=== PATIENT | female | born 1955 | race Caucasian/White ===

== ENCOUNTER 2017-05-31 12:26 | Outpatient (CLI) | payer BC, SELFPAY ==
[2017-05-31 14:24] LABS: PHA INR Fingerstick 2.2 (0.9-1.1)
== END 2017-05-31 14:26 | disposition home or self-care (01) ==
LOC: ACC 12:28
PROVIDERS: Family Provider Internal Medicine; PCP Internal Medicine; Visit Provider Physician Assistant
DX: Z79.01 Long term (current) use of anticoagulants (principal); Z51.81 Encounter for therapeutic drug level monitoring; I48.91 Unspecified atrial fibrillation
CPT/HCPCS: 85610; 99211; G0463

== ENCOUNTER 2017-07-13 12:29 | Outpatient (CLI) | payer BC, SELFPAY ==
[2017-07-13 12:59] LABS: PHA INR Fingerstick 2.8 (0.9-1.1)
== END 2017-07-13 13:30 | disposition home or self-care (01) ==
LOC: ACC 12:30
PROVIDERS: PCP Internal Medicine; Visit Provider Physician Assistant
DX: Z79.01 Long term (current) use of anticoagulants (principal); Z51.81 Encounter for therapeutic drug level monitoring
CPT/HCPCS: 85610; 99211; G0463

== ENCOUNTER 2017-08-23 12:58 | Outpatient (CLI) | payer BC, SELFPAY ==
[2017-08-23 14:02] LABS: PHA INR Fingerstick 2.8 (0.9-1.1)
== END 2017-08-23 14:05 | disposition home or self-care (01) ==
LOC: ACC 12:59
PROVIDERS: Family Provider Internal Medicine; PCP Internal Medicine; Visit Provider Physician Assistant
DX: Z79.01 Long term (current) use of anticoagulants (principal); Z51.81 Encounter for therapeutic drug level monitoring; I48.91 Unspecified atrial fibrillation
CPT/HCPCS: 85610; 99211; G0463

== ENCOUNTER 2017-10-04 13:18 | Outpatient (CLI) | payer BC, SELFPAY ==
[2017-10-04 14:37] LABS: PHA INR Fingerstick 2.4 (0.9-1.1)
== END 2017-10-04 14:39 | disposition home or self-care (01) ==
LOC: ACC 13:19
PROVIDERS: PCP Internal Medicine; Visit Provider Physician Assistant
DX: Z79.01 Long term (current) use of anticoagulants (principal); Z51.81 Encounter for therapeutic drug level monitoring; I48.91 Unspecified atrial fibrillation
CPT/HCPCS: 85610; 99211; G0463

== ENCOUNTER 2017-11-15 13:08 | Outpatient (CLI) | payer BC, SELFPAY ==
[2017-11-15 14:33] LABS: PHA INR Fingerstick 2.9 (0.9-1.1)
== END 2017-11-15 15:11 | disposition home or self-care (01) ==
LOC: ACC 13:09
PROVIDERS: PCP Internal Medicine; Visit Provider Physician Assistant
DX: Z79.01 Long term (current) use of anticoagulants (principal); Z51.81 Encounter for therapeutic drug level monitoring; I48.91 Unspecified atrial fibrillation
CPT/HCPCS: 85610; 99211; G0463

== ENCOUNTER 2017-12-27 12:48 | Outpatient (CLI) | payer BC, SELFPAY | END 2017-12-27 14:37 | disposition home or self-care (01) | LOC: ACC 12:50 | PROVIDERS: PCP Internal Medicine; Visit Provider Physician Assistant | DX: Z79.01 Long term (current) use of anticoagulants (principal); Z51.81 Encounter for therapeutic drug level monitoring; I48.91 Unspecified atrial fibrillation | CPT/HCPCS: 85610; 99211; G0463 ==

== ENCOUNTER 2018-01-18 12:26 | Outpatient (CLI) | payer BC, SELFPAY ==
[2018-01-18 13:41] LABS: PHA INR Fingerstick 2.1 (0.9-1.1)
== END 2018-01-18 13:42 | disposition home or self-care (01) ==
LOC: ACC 12:27
PROVIDERS: PCP Internal Medicine; Visit Provider Physician Assistant
DX: Z79.01 Long term (current) use of anticoagulants (principal); Z51.81 Encounter for therapeutic drug level monitoring; I48.91 Unspecified atrial fibrillation
CPT/HCPCS: 85610; 99211; G0463

== ENCOUNTER 2018-02-25 12:36 | Outpatient (CLI) | payer BC, SELFPAY ==
[2018-02-25 14:22] LABS: PHA INR Fingerstick 2.3 (0.9-1.1)
== END 2018-02-25 14:24 | disposition home or self-care (01) ==
LOC: ACC 12:37
PROVIDERS: Family Provider Internal Medicine; PCP Internal Medicine; Visit Provider Physician Assistant
DX: Z51.81 Encounter for therapeutic drug level monitoring (principal); Z79.01 Long term (current) use of anticoagulants; I48.91 Unspecified atrial fibrillation
CPT/HCPCS: 85610; 99211; G0463

== ENCOUNTER 2018-03-30 13:14 | Outpatient (CLI) | payer BC, SELFPAY ==
[2018-03-30 13:45] LABS: PHA INR Fingerstick 2.3 (0.9-1.1)
== END 2018-03-30 14:28 | disposition home or self-care (01) ==
LOC: ACC 13:15
PROVIDERS: PCP Internal Medicine; Visit Provider Physician Assistant
DX: Z51.81 Encounter for therapeutic drug level monitoring (principal); Z79.01 Long term (current) use of anticoagulants; I48.91 Unspecified atrial fibrillation
CPT/HCPCS: 85610; 99211; G0463

== ENCOUNTER 2018-05-03 12:23 | Outpatient (CLI) | payer BC, SELFPAY ==
[2018-05-03 14:28] LABS: PHA INR Fingerstick 2.2 (0.9-1.1)
== END 2018-05-03 14:30 | disposition home or self-care (01) ==
LOC: ACC 12:25
PROVIDERS: PCP Internal Medicine; Visit Provider Physician Assistant
DX: Z51.81 Encounter for therapeutic drug level monitoring (principal); Z79.01 Long term (current) use of anticoagulants; I48.91 Unspecified atrial fibrillation
CPT/HCPCS: 85610; 99211; G0463

== ENCOUNTER 2018-06-20 16:01 | Outpatient (CLI) | payer BC, SELFPAY ==
[2018-06-20 16:32] LABS: PHA INR Fingerstick 2.5 (0.9-1.1)
== END 2018-06-20 16:52 | disposition home or self-care (01) ==
PROVIDERS: PCP Internal Medicine; Visit Provider Physician Assistant
DX: Z51.81 Encounter for therapeutic drug level monitoring (principal); Z79.01 Long term (current) use of anticoagulants; I48.91 Unspecified atrial fibrillation
CPT/HCPCS: 85610; 99211; G0463

== ENCOUNTER → 2018-08-16 10:02 | Outpatient (CLI) | payer BC, SELFPAY ==
[2018-08-16 10:38] LABS: Basophils % 0.8 % (0.1-2.0); Eosinophils # 0.1 K/mm3 (0.0-0.4); Eosinophils % 3.1 % (0.1-12.0); Hematocrit 42.6 % (37.0-47.0); Hemoglobin 13.6 g/dL (12.2-16.2); Lymphocytes # 1.4 K/mm3 (0.7-4.5); Lymphocytes % 29.7 % (10-50); Mean Corpuscular HGB Conc 32.1 g/dL (31.8-35.4); Mean Corpuscular Hemoglobin 30.1 pg (27.0-31.2); Mean Corpuscular Volume 93.8 fl (81-99); Mean Platelet Volume 8.5 fl (7.4-10.4); Monocytes # 0.2 K/mm3 (0.1-1.0); Monocytes % 4.7 % (1.7-9.3); Neutrophils # 2.9 K/mm3 (1.8-7.8); Neutrophils % 61.7 % (37.0-80.0); Platelet Count 239 K/mm3 (142-424); Red Blood Count 4.54 M/mm3 (4.20-5.40); Red Cell Distribution Width 13.7 % (11.5-17.5); White Blood Count 4.6 K/mm3 (4.8-10.8)
[2018-08-16 12:57] LABS: Alanine Aminotransferase 19 U/L (12-78); Albumin Level 3.3 gm/dL (3.4-5.0); Albumin/Globulin Ratio 0.9 (1.1-1.8); Alkaline Phosphatase 113 U/L (46-116); Anion Gap 12.4 mEq/L (5-15); Aspartate Amino Transferase 22 U/L (15-37); Bilirubin,Total 0.4 mg/dL (0.2-1.0); Blood Urea Nitrogen 10 mg/dL (7-18); Calcium 8.7 mg/dL (8.5-10.1); Carbon Dioxide 28 mmol/L (21.0-32.0); Chloride 108 mmol/L (98-107); Cholesterol 181 mg/dL (140-200); Estimated Glomerular Filt Rate 63 ml/min (>60); Ferritin 21 ng/mL (8-388); GFR (African American) 76 ML/MIN (>60); Globulin 3.7 gm/dl (1.3-3.2); Glucose 88 mg/dL (74-106); HDL Cholesterol 45 mg/dL (29-89); LDL Cholesterol 122 mg/dL (0-130); Potassium 4.4 mmoL/L (3.5-5.1); Sodium 144 mmol/L (136-145); Thyroid Stimulating Hormone 1.42 uIU/ml (0.358-3.740); Triglycerides 71 mg/dL (30-200); VLDL Cholesterol 14 mg/dL (0-40)
[2018-08-17 08:25] LABS: Iron 46 ug/dL (27-139); Iron Saturation 12 % (15-55); UIBC 348 ug/dL (118-369)
[2018-08-17 08:44] LABS: Folate 4.8 ng/mL (>3.0); Vitamin D 25 Hydroxy 33.4 ng/mL (30.0-100.0)
[2018-08-17 13:26] LABS: Vitamin B12 372 pg/mL (232-1245)
== END ==
PROVIDERS: Visit Provider Internal Medicine
DX: I10 Essential (primary) hypertension (principal); E03.9 Hypothyroidism, unspecified; E78.5 Hyperlipidemia, unspecified; E55.9 Vitamin D deficiency, unspecified; R53.83 Other fatigue
CPT/HCPCS: 36415; 80053; 80061; 82607; 82652; 82728; 82746; 83540; 83550; 84443; 85025

== ENCOUNTER 2018-08-18 12:17 | Outpatient (CLI) | payer BC, SELFPAY ==
[2018-08-18 13:42] LABS: PHA INR Fingerstick 2.6 (0.9-1.1)
== END 2018-08-18 13:51 | disposition home or self-care (01) ==
PROVIDERS: PCP Internal Medicine; Visit Provider Physician Assistant
DX: Z51.81 Encounter for therapeutic drug level monitoring (principal); Z79.01 Long term (current) use of anticoagulants; I48.91 Unspecified atrial fibrillation
CPT/HCPCS: 85610; 99211; G0463

== ENCOUNTER → 2018-08-25 15:06 | Outpatient (CLI) | payer BC, SELFPAY ==
--- NOTE | 2018-08-25 15:07 | CA_ITS ---
PROCEDURE: 2-D M-mode and color Doppler study INDICATIONS FOR THE TEST: Chest pain COPD Heart Murmur Tobacco Smoking Palpitations Fatigue Syncope EdemaX Hypertension Diabetes Mellitus Rheumatic Fever SOBXDOE ObesityXHyperlipidemia Family History HD Additional History AF PATIENT INFORMATION HEIGHT: 67 WEIGHT:280 GENDER: Female B/P:136/84 2-D/M-MODE INTERPRETATION: 2-D MEASUREMENTS OBSERVED VALUES IN CMS Right Ventricular Dimension (RVDd) 1.3 Interventricular Septum (Thickness)(IVsd) .9 Left Ventricular Internal Dimensions(LVIDd) 5.7 Left Ventricular Posterior Wall (Thickness)(LVPWd) 1.1 Aortic Root 2.9 Aortic Cusp Separation 1.4 Left Atrial Dimensions (LAD) 3.9 2D 1. Left atrium is qualitatively moderately enlarged, left ventricle is normal size, there is no concentric left ventricular hypertrophy, visually estimated ejection fraction 55% with no regional wall motion abnormality. 2. The right atrium and right ventricle are mildly enlarged with normal contractility. 3. The aortic valve is thickened and calcified leaflet continue to display mobility. 4. The mitral and tricuspid valvular grossly normal. 5. The pulmonic valve is poorly present. 6. No significant pericardial effusion noted. DOPPLER INTERROGATION: Doppler interrogation of the aortic, mitral and tricuspid valvular presence of mild mitral and moderate tricuspid regurgitation, calculated right ventricular systolic pressure is 50 mmHg consistent with moderate pulmonary hypertension, inferior vena cava is not well visualized, diastolic parameters are inconclusive. CONCLUSION: 1. Moderately enlarged left atrium, normal left ventricular size, visually estimated ejection fraction 55% with no regional wall motion abnormality, diastolic parameters are inconclusive. 2. Mildly enlarged right ventricle with normal contractility. 3. Mild mitral and moderate tricuspid regurgitation, calculated right ventricular systolic pressure is 50 mmHg consistent with moderate pulmonary hypertension. Inferior vena cava is not well visualized. 4. No significant pericardial effusion noted
== END ==
PROVIDERS: PCP Internal Medicine; Visit Provider Internal Medicine Cardiovascular Disease
DX: I48.2 Chronic atrial fibrillation (principal); R06.02 Shortness of breath; R60.0 Localized edema
CPT/HCPCS: 93306

== ENCOUNTER → 2018-09-15 14:06 | Outpatient (CLI) | payer BC, SELFPAY ==
[2018-09-15 17:59] LABS: Anion Gap 14.3 mEq/L (5-15); Blood Urea Nitrogen 9 mg/dL (7-18); Calcium 8.8 mg/dL (8.5-10.1); Carbon Dioxide 26 mmol/L (21.0-32.0); Chloride 104 mmol/L (98-107); Creatinine,Serum 1.03 mg/dL (0.55-1.02); Estimated Glomerular Filt Rate 54 ml/min (>60); GFR (African American) 65 ML/MIN (>60); Glucose 188 mg/dL (74-106); Potassium 4.3 mmoL/L (3.5-5.1); Sodium 140 mmol/L (136-145)
== END ==
PROVIDERS: Visit Provider Nurse Practitioner Family
DX: I48.2 Chronic atrial fibrillation (principal); R06.02 Shortness of breath; R60.0 Localized edema
CPT/HCPCS: 36415; 80048; 83880

== ENCOUNTER → 2018-09-28 15:39 | Outpatient (CLI) | payer BC, SELFPAY | PROVIDERS: PCP Internal Medicine; Visit Provider Internal Medicine Cardiovascular Disease | DX: R40.0 Somnolence (principal); I10 Essential (primary) hypertension; R06.02 Shortness of breath | CPT/HCPCS: 95806 ==

== ENCOUNTER 2018-09-29 15:34 | Outpatient (CLI) | payer BC, SELFPAY ==
[2018-09-29 16:30] LABS: PHA INR Fingerstick 2.5 (0.9-1.1)
== END 2018-09-29 16:31 | disposition home or self-care (01) ==
LOC: ACC 15:35
PROVIDERS: PCP Internal Medicine; Visit Provider Physician Assistant
DX: Z51.81 Encounter for therapeutic drug level monitoring (principal); Z79.01 Long term (current) use of anticoagulants; I48.91 Unspecified atrial fibrillation
CPT/HCPCS: 85610; 99211; G0463

== ENCOUNTER 2018-11-14 10:02 | Outpatient (CLI) | payer BC, SELFPAY ==
[2018-11-14 13:52] LABS: PHA INR Fingerstick 2.7 (0.9-1.1)
== END 2018-11-14 13:55 | disposition home or self-care (01) ==
PROVIDERS: PCP Internal Medicine; Visit Provider Internal Medicine Cardiovascular Disease
DX: Z51.81 Encounter for therapeutic drug level monitoring (principal); Z79.01 Long term (current) use of anticoagulants; I48.91 Unspecified atrial fibrillation
CPT/HCPCS: 85610; 99211; G0463

== ENCOUNTER 2018-11-29 23:53 | Inpatient (IN) ==
--- NOTE | 2018-11-30 00:28 | Emergency Department Note ---
ED Disposition Referrals: Janusz Ernst [Primary Care Provider] - Attestation: On 11/29/18, the high probability of a clinically significant, sudden or life threatening deterioration of the following system(s) required my full and direct attention, intervention and personal management. The time I documented below is in addition to time spent performing reported procedures but includes the following listed in this critical care notation. Medical Decision Making Vital Signs: 11/30/18 00:02 Temperature 99.2 F Temperature Source Oral Pulse Rate [Right Apical] 98 H Respiratory Rate 18 Blood Pressure [Right Arm] 147/81 H Blood Pressure Mean [Right Arm] 103 02 Sat by Pulse Oximetry 100 Oxygen Delivery Method Room Air Orders (Tests/Meds): ORDERS Category Date Time Status CT facial bones w con Stat Cat Scan 11/30/18 00:07 Ordered C-Reactive Protein Stat Lab 11/30/18 00:05 Ordered Complete Blood Count Auto Diff Stat Lab 11/30/18 00:05 Ordered Comprehensive Metabolic Panel Stat Lab 11/30/18 00:05 Ordered Erythrocyte Sedimentation Rate Stat Lab 11/30/18 00:07 Ordered Lactic Acid Stat Lab 11/30/18 00:07 Ordered Blood Culture Stat Micro 11/30/18 00:07 Ordered General Adult HPI - General Chief complaint: PAIN Stated complaint: Swelling of eyes, face and neck, slight fever Mode of Arrival: Ambulatory Limitations: No Limitations Description of Symptoms (Recalled from ER Triage Doc. by RN): pt c/o facial reddness and swelling/ pt states she was seen at the [facility] [place] today and was told if it got any worse to come back. pt denies soa. - Related Data Home Medications Medication Instructions Recorded Confirmed cyclobenzaprine 5 mg tablet 5 mg PO QHS PRN 08/18/18 11/29/18 estradiol 10 mcg vaginal tablet 1 tab VAGINAL DAILY 28 Days #8 tab 08/18/18 11/29/18 levothyroxine 125 mcg tablet 125 mcg PO DAILY 30 Days #30 tab 08/18/18 11/29/18 lisinopril 20 mg tablet 20 mg PO DAILY 08/18/18 11/29/18 oxybutynin chloride ER 10 mg 10 mg PO DAILY 90 Days #90 tab 08/18/18 11/29/18 tablet,extended release 24 hr potassium chloride ER 10 mEq 10 meq PO DAILY PRN 08/18/18 11/29/18 capsule,extended release tramadol 50 mg tablet 50 mg PO DAILY PRN 20 Days #20 tab 08/18/18 11/29/18 warfarin 5 mg tablet 5 mg PO DIRECTED 30 Days #30 tab 08/18/18 11/29/18 Furosemide [Furosemide 20mg Tab] 20 mg PO DAILY 11/29/18 11/29/18 Metoprolol Succinate [Kapspargo 100 mg PO DAILY 11/29/18 11/29/18 Sprinkle] Previous Rx's Medication Instructions Recorded Sulfamethoxazole/Trimethoprim 1 each PO BID 10 Days #20 tab 11/29/18 [Bactrim DS tablet] Allergies Allergy/AdvReac Type Severity Reaction Status Date / Time No Known Allergies Allergy Verified 11/28/18 15:04 [facility] History - Hepatitis A Screen Drug use history?: No High risk sexual behaviors?: No History of sexually transmitted infection?: No Currently employed?: No Childcare worker?: No Do you have indoor plumbing?: Yes Do you have electricity?: Yes Attestation statement:: This patient has been screened for Hepatitis A risk factors. Medical History: Reports:: Arrhythmia, Atrial Fibrillation, Hypertension Denies:: Cancer, Diabetes Mellitus Type 1, Diabetes Mellitus Type 2, MRSA Other Medical History: Reports: Hypothyroidism, Other Comment: DIAN Other Surgeries: Yes: No Previous Surgery, Bariatric Surgery, Cholecystectomy, Colonoscopy, Hysterectomy-Total, Hysterectomy-Partial, Sinus Surgery Amputation: No Fractures: No - Social History Smoking Status: Never smoker Alcohol Intake: never Alcohol Intake Frequency:: 3 or more drinks per day Substance Use Type: denies use Occupational Status: retired Housing: house Household Members: family Family Hx:: Coronary Artery Disease, Heart Attack, Hypertension, Cancer Comment: Father-[place]@50's. Mother-HTN
[2018-11-30 00:37] LABS: Basophils % 0.5 % (0.1-2.0); Eosinophils # 0.1 K/mm3 (0.0-0.4); Eosinophils % 0.9 % (0.1-12.0); Hematocrit 39.4 % (37.0-47.0); Hemoglobin 12.3 g/dL (12.2-16.2); Lymphocytes # 0.8 K/mm3 (0.7-4.5); Lymphocytes % 10.2 % (10-50); Mean Corpuscular HGB Conc 31.1 g/dL (31.8-35.4); Mean Corpuscular Volume 97.1 fl (81-99); Mean Platelet Volume 8.6 fl (7.4-10.4); Monocytes # 0.3 K/mm3 (0.1-1.0); Monocytes % 3.8 % (1.7-9.3); Neutrophils # 6.6 K/mm3 (1.8-7.8); Neutrophils % 84.6 % (37.0-80.0); Platelet Count 186 K/mm3 (142-424); Red Blood Count 4.06 M/mm3 (4.20-5.40); Red Cell Distribution Width 14.4 % (11.5-17.5); White Blood Count 7.8 K/mm3 (4.8-10.8)
[2018-11-30 00:45] LABS: Albumin Level 2.9 gm/dL (3.4-5.0); Albumin/Globulin Ratio 0.7 (1.1-1.8); Bilirubin,Total 0.6 mg/dL (0.2-1.0); C-Reactive Protein 6.9 mg/L (0.0-0.9); Calcium 8.1 mg/dL (8.5-10.1); Total Protein,Serum 6.9 gm/dL (6.4-8.2)
--- NOTE | 2018-11-30 01:40 | Emergency Department Note ---
ED Disposition Clinical Impression: Facial cellulitis Disposition: Admitted as Observation Condition on Discharge: Fair (Stable) Time of Disposition: 02:46 - Critical Care Critical Care Time: No Attestation: On 11/29/18, the high probability of a clinically significant, sudden or life threatening deterioration of the following system(s) required my full and direct attention, intervention and personal management. The time I documented below is in addition to time spent performing reported procedures but includes the following listed in this critical care notation. Medical Decision Making - Medical Records Medical records reviewed: Yes: I reviewed the patient's medical records. - Alonso Inquiry Pt receiving controlled substance: No Alonso was queried for this patient: No Vital Signs: 11/30/18 00:02 11/30/18 01:54 Temperature 99.2 F Temperature Source Oral Pulse Rate [Right Apical] 98 H 90 Respiratory Rate 18 Blood Pressure [Right Arm] 147/81 H 117/58 L Blood Pressure Mean [Right Arm] 103 77 02 Sat by Pulse Oximetry 100 96 Oxygen Delivery Method Room Air - Lab Data Lab results reviewed: Yes: I reviewed the patient's lab results. Lab Results 11/30/18 00:20: WBC 7.8, RBC 4.06 L, Hgb 12.3, Hct 39.4, MCV 97.1, MCH 30.2, MCHC 31.1 L, RDW 14.4, Plt Count 186, MPV 8.6, Neut % (Auto) 84.6 H, Lymph % (Auto) 10.2, Mckean % (Auto) 3.8, Eos % (Auto) 0.9, Baso % (Auto) 0.5, Neut # (Auto) 6.6, Lymph # (Auto) 0.8, Mckean # (Auto) 0.3, Eos # (Auto) 0.1, Baso # (Auto) 0.0 11/30/18 00:20: Sodium 137, Potassium 4.0, Chloride 103, Carbon Dioxide 26, A nion Gap 12.0, BUN 11, Creatinine 1.11 H, Estimated Creat Clear 50, Estimated GFR 49 L, Est GFR ( Amer) 60, Glucose 105, Calcium 8.1 L, Total Bilirubin 0.6, AST 21, ALT 19, Alkaline Phosphatase 96, C-Reactive Protein 6.9 H, Total Protein 6.9, Albumin 2.9 L, Globulin 4.0 H, Albumin/Globulin Ratio 0.7 L 11/30/18 00:20: ESR 62 H 11/30/18 00:20: Lactate 0.8 Result diagrams: 11/30/18 00:20 11/30/18 00:20 Orders (Tests/Meds): ED MEDICATIONS Generic Name Dose Route Start Last Admin Trade Name Freq PRN Reason Stop Dose Admin Acetaminophen 650 mg 11/30/18 02:47 Acetaminophen 325mg Tab PO 12/30/18 02:46 Q4HP PRN As Needed for Fever or Pain Clindamycin Phosphate 900 mg/ 106 mls @ 100 mls/hr 11/30/18 02:46 Sodium Chloride IV 11/30/18 03:49 ONCE ONE Protocol Clindamycin Phosphate 600 mg/ 104 mls @ 100 mls/hr 11/30/18 03:00 Sodium Chloride IV 12/14/18 02:59 Q6H ELANA Protocol Ondansetron HCl 4 mg 11/30/18 02:47 Zofran 4mg/2ml Vial IV 12/30/18 02:46 Q8HP PRN Nausea Discontinued Medications Generic Name Dose Route Start Last Admin Trade Name Freq PRN Reason Stop Dose Admin Furosemide 40 mg 11/30/18 00:27 11/30/18 00:34 Lasix 40mg/4ml Vial IV 11/30/18 00:28 Not Given ONCE ONE Ioversol 75 ml 11/30/18 01:14 11/30/18 01:16 Rad-Optiray 350 100ml Vial IV 11/30/18 01:15 75 ml ONCE ONE Administration Protocol Sodium Chloride 10 ml 11/30/18 01:14 11/30/18 01:16 Rad-Saline Flush 10ml Syringe IV 11/30/18 01:15 10 ml ONCE ONE Administration ORDERS Category Date Time Status CT facial bones w con Stat Cat Scan 11/30/18 00:07 Taken Blood Culture Stat Micro 11/30/18 00:20 Received - CT Data CT Scan: Other (Maxillofacial w/contrast) Time Received: 02:[address] Reviewed: Yes: I have reviewed the patient's CT results Findings Narrative: Impression: Upper neck through mid face left subcutaneous edema and/or cellulitis. Bilateral upper neck adenopathy. The bilateral medial extra conal enhancing soft tissue mass versus venous aneurysms. Consider a MRI of the orbits without and with contrast to assess soft tissue versus vascular lesion. Medical Decision Narrative: 02:44 Pt care transferred to [facility] by Dr. March with work up pending. Labs reviewed. CT report reviewed. Clindamycin 900 mg IVPB ordered. Case discussed with Dr. Solorzano and he will admit pt. Results of work up, diagnosis and care plan discussed with pt. She understands, agrees and all questions answered. Pt will now be admitted. General Adult HPI - General Chief complaint: PAIN Stated complaint: Swelling of eyes, face and neck, slight fever Time Seen by Provider: 11/30/18 01:25 Mode of Arrival: Ambulatory Source of Information: Patient Limitations: No Limitations Description of Symptoms (Recalled from ER Triage Doc. by RN): pt c/o facial reddness and swelling/ pt states she was seen at the [facility] today and was told if it got any worse to come back. pt denies soa. - History of Present Illness HPI narrative: Pt is here in the ER for evaluation via POV from home c/o facial redness and swelling. Onset 3 days ago with fever and chills. Pt seen in the [facility] yesterday, given Rocephin IM and Rx for Bactrim DS, which she has been taking. Pt now here with increase in facial swelling and redness. No new foods, medicines, lotions, soaps. Pt was in the [place] over the weekend and had m ultiple insect bites at back of her neck. No other complaints. - Related Data Home Medications Medication Instructions Recorded Confirmed cyclobenzaprine 5 mg tablet 5 mg PO NEEDED PRN 08/18/18 11/30/18 estradiol 10 mcg vaginal tablet 1 tab VAGINAL DAILY 28 Days #8 tab 08/18/18 11/30/18 levothyroxine 125 mcg tablet 125 mcg PO DAILY 30 Days #30 tab 08/18/18 11/30/18 lisinopril 20 mg tablet 20 mg PO DAILY 08/18/18 11/30/18 oxybutynin chloride ER 10 mg 10 mg PO DAILY 90 Days #90 tab 08/18/18 11/30/18 tablet,extended release 24 hr potassium chloride ER 10 mEq 10 meq PO NEEDED PRN 08/18/18 11/30/18 capsule,extended release tramadol 50 mg tablet 50 mg PO NEEDED PRN 20 Days #20 08/18/18 11/30/18 tab warfarin 5 mg tablet 5 mg PO DIRECTED 30 Days #30 tab 08/18/18 11/30/18 Furosemide [Furosemide 20mg Tab] 20 mg PO DAILYP PRN 11/29/18 11/30/18 Metoprolol Succinate [Kapspargo 100 mg PO DAILY 11/29/18 11/30/18 Sprinkle] Sulfamethoxazole/Trimethoprim 1 each PO BID 11/30/18 11/30/18 [Bactrim DS tablet] Allergies Allergy/AdvReac Type Severity Reaction Status Date / Time No Known Allergies Allergy Verified 11/28/18 15:04 [facility] History - Hepatitis A Screen Drug use history?: No High risk sexual behaviors?: No History of sexually transmitted infection?: No Currently employed?: No Childcare worker?: No Do you have indoor plumbing?: Yes Do you have electricity?: Yes Attestation statement:: This patient has been screened for Hepatitis A risk factors. I have reviewed the patient's past medical history: Yes Medical History: Reports:: Arrhythmia, Atrial Fibrillation, Hypertension Denies:: Cancer, Diabetes Mellitus Type 1, Diabetes Mellitus Type 2, MRSA Other Medical History: Reports: Hypothyroidism, Other Comment: DIAN Other Surgeries: Yes: No Previous Surgery, Bariatric Surgery, Cholecystectomy, Colonoscopy, Hysterectomy-Total, Hysterectomy-Partial, Sinus Surgery Amputation: No Fractures: No - Social History Smoking Status: Never smoker Alcohol Intake: never Alcohol Intake Frequency:: 3 or more drinks per day Substance Use Type: denies use Occupational Status: retired Housing: house Household Members: family Family Hx:: Coronary Artery Disease, Heart Attack, Hypertension, Cancer Comment: Father-[place]@50's. Mother-HTN ROS Obtained: Yes All systems reviewed & no additional complaints - Constitutional Constitutional: Reports system reviewed and no additional complaints, except as docu, Reports chills, Reports fever(s) - Eyes Eyes: Reports system reviewed and no additional complaints, except as docu - ENT Ears, Nose, Mouth, and Throat: Reports system reviewed and no additional complaints, except as docu - Cardiovascular Cardiovascular: Reports system reviewed and no additional complaints, except as docu - Respiratory Respiratory: Yes system reviewed and no additional complaints, except as docu - Gastrointestinal Gastrointestingal: Reports: system reviewed and no additional complaints, except as docu - Genitourinary Female Genitourinary: Reports system reviewed and no additional complaints, except as docu - Musculoskeletal Musculoskeletal: Reports system reviewed and no additional complaints, except as docu - Integumentary/Breasts Skin/Breast: Reports system reviewed and no additional complaints, except as docu, Reports as per HPI, Reports redness (Forehead and left cheek area.), Reports skin swelling, Reports other (Pt c/o forehead, bilateral eyelid/periorbital and left facial swelling) - Neurologic Neurologic: Reports system reviewed and no additional complaints, except as docu - Endocrine Endocrine: Reports system reviewed and no additional complaints, except as docu - Hematologic/Lymphatic Henatologic/Lymphatic: Reports system reviewed and no additional complaints, ex cept as docu - Allergic/Immunologic Allergic/Immunologic: Reports system reviewed and no additional complaints, except as docu Physical Exam - General General appearance: alert, in no apparent distress - Head Head exam: atraumatic, normocephalic, normal inspection - Eye Eye exam: Present: normal appearance, PERRL, EOMI, other ((+) bilateral medial periorbital and nasal area swelling.) - ENT ENT exam: Present: normal oropharynx, mucous membranes moist - Neck Neck exam: Present: full ROM, trachea midline. Absent: lymphadenopathy - Chest Chest inspection: Present: normal inspection, symmetric chest wall rise - Respiratory Respiratory exam: Present: normal lung sounds bilaterally. Absent: respiratory distress, wheezes, stridor - Cardiovascular Cardiovascular exam: Present: regular rate, normal heart sounds - Abdominal Exam Abdominal exam: Present: soft. Absent: distention, rebound - Extremities Exam Extremities exam: Present: normal inspection, full ROM, normal capillary refill - Neurological Exam Neurological exam: Present: alert, oriented X3, CN II-XII intact - Psychiatric Psychiatric exam: Present: normal affect, normal mood - Skin Skin exam: Present: warm, dry, intact, erythema (forehead, bilateral periorbital area and left cheek.). Absent: rash - Lymphatic Lymphatic Findings: no adenopathy
[2018-11-30 02:57] LABS: INR 2.74 (0.9-1.1); Prothrombin Time 27.2 seconds (9.4-11.8)
--- NOTE | 2018-11-30 08:33 | Pharmacy Consult Notes ---
[facility] Pharmacy VTE Monitoring - Patient Demographics Admission date: 11/30/18 Report Date: 11/30/18 Time: 08:33 Allergies/Adverse Reactions: Patient Allergies No Known Allergies Allergy (Verified 11/28/18 15:04) Height: 1.7 m Weight: 128.905 kg Patient Problems: Current Active Problems (Updated 11/30/18 @ 02:46 by Constantine Telles III DO) Cellulitis, face (Acute) - VTE Risk Labs: VTE Related Lab Results Hgb 12.3 g/dL (12.2-16.2) 11/30/18 00:20 Hct 39.4 % (37.0-47.0) 11/30/18 00:20 Plt Count 186 K/mm3 (142-424) 11/30/18 00:20 PT 27.2 seconds (9.4-11.8) H 11/30/18 00:20 INR 2.74 (0.9-1.1) H 11/30/18 00:20 BUN 11 mg/dL (7-18) 11/30/18 00:20 Creatinine 1.11 mg/dL (0.55-1.02) H 11/30/18 00:20 Estimated Creat Clear 50 mL/min (50-200) 11/30/18 00:20 Was VTE Risk Assessment Performed: Yes VTE Score: 5 VTE Risk Level: Low Risk Clinical Trial Participant: No - Prophylaxis VTE Prophylaxis Ordered?: Yes Types of VTE Prophylaxis: TEDS Knee High
--- NOTE | 2018-11-30 08:42 | History & Physical Report ---
*Admission Date: 11/30/18 <Kalyani Fabian 11/30/18 08:43> *Chief complaint: Facial swelling <Kalyani Fabian 11/30/18 08:43> *History of present illness: Ms. Aranda is a 63-year-old female with a history of chronic atrial fibrillation, hypothyroidism, and hypertension who presented to the [facility] emergency room with progressive swelling of the face. She states that she worked in her [place] on 10/29/2018 and was fine. She then began to feel funny and then noticed the swelling and redness on the left side of her of her face. When this progressed she went to the urgent treatment center and was given Rocephin IM and started on Bactrim DS and was told to return to the ER if the swelling worsen which she did. She did have a fever up to 101. She denies any upper respiratory tract symptoms. Evaluation in the emergency room with CT of the face revealed 1. Mild diffuse subcutaneous soft tissue swelling of the base consistent with edema/ cellulitis. No obvious abscess. 2. Bilateral medial extraconal enhancing soft tissue masses versus venous aneurysm. MRI of the orbits without and with contrast suggested for further evaluation. 3. Mild upper neck adenopathy. She was started on IV clindamycin and admitted for further evaluation and treatment. This a.m. patient is feeling okay. She continues with swelling and redness of the face. She denies pain and itching. <CarenKalyani - 11/30/18 08:59> [facility] History Medical History: Reports:: Arrhythmia <Alexsander Solorzano - 11/30/18 09:36> Reports:: Arrhythmia, Atrial Fibrillation, Hypertension Denies:: Cancer, Diabetes Mellitus Type 1, Diabetes Mellitus Type 2, MRSA <Kalyani Fabian 11/30/18 08:43> *Have you ever received a pneumonia vaccine?: No <Kalyani Fabian 11/30/18 08:43> *Have you received a flu vaccine this season?: Yes <Kalyani Fabian 11/30/18 08:43> Other Medical History: Reports: Other (overactive bladder) <Alexsander Solorzano - 11/30/18 09:36> Reports: Arthritis, Hypothyroidism, Thyroid Disease, Other <Kalyani Fabian 11/30/18 08:43> Other Surgeries: Yes: No Previous Surgery, Bariatric Surgery, Cholecystectomy, Colonoscopy, Hysterectomy-Total, Hysterectomy-Partial, Sinus Surgery <CarenKalyani 11/30/18 08:43> Amputation: No <CarenKalyani 11/30/18 08:43> Fractures: No <CarenKalyani 11/30/18 08:43> - *Social History Educational Level: Completed Graduate School <FabianKalyani 11/30/18 08:43> Smoking Status: Never smoker <CarenKalyani 11/30/18 08:43> Alcohol Intake: never <CarenKalyani 11/30/18 08:43> Alcohol Intake Frequency:: 3 or more drinks per day <FabianKalyani 11/30/18 08:43> Substance Use Type: denies use <CarenKalyani 11/30/18 08:43> *Occupational Status:: retired <FabianKalyani 11/30/18 08:43> Housing: house <CarenKalyani 11/30/18 08:43> Household Members: family <CarenKalyani 11/30/18 08:43> *Travel in the last 8 weeks: Inside the [place] <FabianKalyani 11/30/18 08:43> Family Hx:: Cancer, Coronary Artery Disease, Heart Attack, Hypertension <CarenKalyani 11/30/18 08:43> Review of Systems - Constitutional Reports headache(s) <FabianKalyani 11/30/18 08:59> - Eyes Denies change in vision <FabianKalyani 11/30/18 08:59> - ENT Denies dizziness <FabianKalyani 11/30/18 08:59> - *Cardiovascular Reports irregular heart rhythm, Reports leg swelling, Denies chest pain, Denies shortness of breath <FabianKalyani 11/30/18 08:59> - *Respiratory Denies chest congestion, Denies cough, Denies shortness of breath <FabianEzequiel andrade 11/30/18 08:59> - *Gastrointestinal Denies abdominal pain, Denies constipation, Denies nausea, Denies vomiting <Fabian,Kalyani 11/30/18 08:59> - *Genitourinary Denies difficulty urinating <Kalyani Fabian - 11/30/18 08:59> - *Musculoskeletal Denies abnormal walking <Kalyani Fabian - 11/30/18 08:59> Comments: She has some knee issues <Kalyani Fabian - 11/30/18 08:59> - *Neurologic Denies abnormal walking <Kalyani Fabian - 11/30/18 08:59> Meds Home Medications Medication Instructions Recorded Confirmed Type levothyroxine 125 mcg tablet 125 mcg PO DAILY 30 Days #30 tab 08/18/18 11/30/18 History lisinopril 20 mg tablet 20 mg PO DAILY 08/18/18 11/30/18 History oxybutynin chloride ER 10 mg 10 mg PO DAILY 90 Days #90 tab 08/18/18 11/30/18 History tablet,extended release 24 hr potassium chloride ER 10 mEq 10 meq PO NEEDED PRN 08/18/18 11/30/18 History capsule,extended release tramadol 50 mg tablet 50 mg PO NEEDED PRN 20 Days #20 08/18/18 11/30/18 History tab warfarin 5 mg tablet 5 mg PO SUTUWETHFRSA 30 Days #30 08/18/18 11/30/18 History tab Furosemide [Furosemide 20mg Tab] 20 mg PO DAILY 11/29/18 11/30/18 History Metoprolol Succinate [Kapspargo 100 mg PO DAILY 11/29/18 11/30/18 History Sprinkle] Cyclobenzaprine HCl 10 mg PO TIDP PRN 11/30/18 11/30/18 History [Cyclobenzaprine 10mg Tab] Estradiol [Vagifem] 10 mcg VG .2X WEEKLY 11/30/18 11/30/18 History Sulfamethoxazole/Trimethoprim 1 each PO BID 11/30/18 11/30/18 History [Bactrim DS tablet] <Alexsander Solorzano - 11/30/18 09:36> Allergies Allergy/AdvReac Type Severity Reaction Status Date / Time No Known Allergies Allergy Verified 11/28/18 15:04 <Alexsander Solorzano - 11/30/18 09:36> Exam Vital signs and Labs for Last 24 Hours: Temp Pulse Resp BP Pulse Ox 97.9 F 69 18 117/66 95 11/30/18 08:00 11/30/18 08:00 11/30/18 08:00 11/30/18 08:00 11/30/18 08:00 Laboratory Results - last 24 hr 11/30/18 00:20: WBC 7.8, RBC 4.06 L, Hgb 12.3, Hct 39.4, MCV 97.1, MCH 30.2, MCHC 31.1 L, RDW 14.4, Plt Count 186, MPV 8.6, Neut % (Auto) 84.6 H, Lymph % (Auto) 10.2, [place] % (Auto) 3.8, Eos % (Auto) 0.9, Baso % (Auto) 0.5, Neut # (Auto) 6.6, Lymph # (Auto) 0.8, [place] # (Auto) 0.3, Eos # (Auto) 0.1, Baso # ( Auto) 0.0 11/30/18 00:20: Sodium 137, Potassium 4.0, Chloride 103, Carbon Dioxide 26, Anion Gap 12.0, BUN 11, Creatinine 1.11 H, Estimated Creat Clear 50, Estimated GFR 49 L, Est GFR ( Amer) 60, Glucose 105, Calcium 8.1 L, Total Bilirubin 0.6, AST 21, ALT 19, Alkaline Phosphatase 96, C-Reactive Protein 6.9 H, Total Protein 6.9, Albumin 2.9 L, Globulin 4.0 H, Albumin/Globulin Ratio 0.7 L 11/30/18 00:20: ESR 62 H 11/30/18 00:20: Lactate 0.8 11/30/18 00:20: PT 27.2 H, INR 2.74 H <Alexsander Solorzano - 11/30/18 09:36> Temp Pulse Resp BP Pulse Ox 97.9 F 69 18 117/66 95 11/30/18 08:00 11/30/18 08:00 11/30/18 08:00 11/30/18 08:00 11/30/18 08:00 Laboratory Results - last 24 hr 11/30/18 00:20: WBC 7.8, RBC 4.06 L, Hgb 12.3, Hct 39.4, MCV 97.1, MCH 30.2, MCHC 31.1 L, RDW 14.4, Plt Count 186, MPV 8.6, Neut % (Auto) 84.6 H, Lymph % (Auto) 10.2, [place] % (Auto) 3.8, Eos % (Auto) 0.9, Baso % (Auto) 0.5, Neut # (Auto) 6.6, Lymph # (Auto) 0.8, [place] # (Auto) 0.3, Eos # (Auto) 0.1, Baso # (Auto) 0.0 11/30/18 00:20: Sodium 137, Potassium 4.0, Chloride 103, Carbon Dioxide 26, Anion Gap 12.0, BUN 11, Creatinine 1.11 H, Estimated Creat Clear 50, Estimated GFR 49 L, Est GFR ( Amer) 60, Glucose 105, Calcium 8.1 L, Total Bilirubin 0.6, AST 21, ALT 19, Alkaline Phosphatase 96, C-Reactive Protein 6.9 H, Total Protein 6.9, Albumin 2.9 L, Globulin 4.0 H, Albumin/Globulin Ratio 0.7 L 11/30/18 00:20: ESR 62 H 11/30/18 00:20: Lactate 0.8 11/30/18 00:20: PT 27.2 H, INR 2.74 H <Kalyani Fabian - 11/30/18 08:43> I & O for Last 24 hours: Intake & Output 11/27/18 11/28/18 11/29/18 11/30/18 11:59 11:59 11:59 11:59 Intake Total 326 / 326 Balance 326 / 326 Weight 284 lb 3 oz <Alexsander Solorzano - 11/30/18 09:36> Intake & Output 11/27/18 11/28/18 11/29/18 11/30/18 11:59 11:59 11:59 11:59 Intake Total 120 / 120 Balance 120 / 120 Weight 284 lb 3 oz <Kalyani Fabian - 11/30/18 08:43> Radiology Reports for the Last 24 Hours: 11/30/2018 CT of the face IMPRESSION: 1. Mild diffuse subcutaneous soft tissue swelling of the base consistent with edema/ cellulitis. No obvious abscess. 2. Bilateral medial extraconal enhancing soft tissue masses versus venous aneurysm. MRI of the orbits without and with contrast suggested for further evaluation. 3. Mild upper neck adenopathy. <Kalyani Fabian - 11/30/18 08:43> - Constitutional no acute distress <Fabian,Kalyani - 11/30/18 08:59> - *Routine HEENT Exam Head: Present: normocephalic, facial swelling (And erythema involving left side of face forehead right and inner cheek) <[facility] 11/30/18 08:59> Eye: Present: PERRL. Absent: conjunctival icterus, scleral injection <Fabian,Kalyani - 11/30/18 08:59> ENT: Present: mucous membranes moist, oropharynx clear <[facility] 11/30/18 08:59> - *Routine Neck Exam Present: lymphadenopathy (Left neck). Absent: carotid bruit, thyromegaly <Fabian,Kalyani - 11/30/18 08:59> - *Routine Respiratory Exam Present: CTA bilaterally (Anteriorly and posteriorly) <[facility] 11/30/18 08:59> - *Routine Cardiovascular Exam Present: irregular rhythm <Fabian,[facility] 11/30/18 08:59> - *Routine Abdominal Exam Present: soft, normoactive bowel sounds. Absent: tenderness, distended <Fabian,[facility] 11/30/18 08:59> - *Routine Extremities Exam Present: edema (Trace) <Fabian,[facility] 11/30/18 08:59> - *Routine Skin Exam Present: erythema <Fabian,[facility] 11/30/18 08:59> Comments: With edema. Left inner cheek with small area of discoloration and firmness with palpation <Fabian,[facility] 11/30/18 08:59> - *Routine Neurological Exam Present: alert, oriented X3 [facility] 08[facility]59> Assessment and Plan (1) Cellulitis, face Current visit: Yes Status: Acute Category: Medical Code(s): L03.211 - Cellulitis of face (2) Atrial fibrillation Current visit: No Status: Chronic Qualifiers: Atrial fibrillation type: chronic Qualified Code(s): I48.2 - Chronic atrial fibrillation Category: Medical Code(s): I48.91 - Unspecified atrial fibrillation (3) Edema Current visit: No Status: Chronic Qualifiers: Edema type: localized Qualified Code(s): R60.0 - Localized edema Category: Medical Code(s): R60.9 - Edema, unspecified (4) HLD (hyperlipidemia) Current visit: No Status: Chronic Qualifiers: Hyperlipidemia type: mixed hyperlipidemia Qualified Code(s): E78.2 - Mixed hyperlipidemia Category: Medical Code(s): E78.5 - Hyperlipidemia, unspecified (5) HTN (hypertension) Current visit: No Status: Chronic Qualifiers: Hypertension type: essential hypertension Qualified Code(s): I10 - Essential (primary) hypertension Category: Medical Code(s): I10 - Essential (primary) hypertension (6) Orbital mass Current visit: Yes Status: Acute Category: Medical Code(s): H05.89 - Other disorders of orbit <Alexsander Solorzano - 11/30/18 09:36> (1) Cellulitis, face Current visit: Yes Status: Acute Category: Medical Code(s): L03.211 - Cellulitis of face (2) Atrial fibrillation Current visit: No Status: Chronic Qualifiers: Atrial fibrillation type: chronic Qualified Code(s): I48.2 - Chronic atrial fibrillation Category: Medical Code(s): I48.91 - Unspecified atrial fibrillation (3) Edema Current visit: No Status: Chronic Qualifiers: Edema type: localized Qualified Code(s): R60.0 - Localized edema Category: Medical Code(s): R60.9 - Edema, unspecified (4) HLD (hyperlipidemia) Current visit: No Status: Chronic Qualifiers: Hyperlipidemia type: mixed hyperlipidemia Qualified Code(s): E78.2 - Mixed hyperlipidemia Category: Medical Code(s): E78.5 - Hyperlipidemia, unspecified (5) HTN (hypertension) Current visit: No Status: Chronic Qualifiers: Hypertension type: essential hypertension Qualified Code(s): I10 - Essential (primary) hypertension Category: Medical Code(s): I10 - Essential (primary) hypertension <Kalyani Fabian - 11/30/18 08:44> - Assessment and plan all Dx Assessment and Plan for all problems:: Patient seen and examined. SHe appears in no distress. Further to above exam, she has periorbital swelling and swelling across the bridge of her nose. Will add a dose of Solumedrol x 1. She denies prior visual disturbance. She is scheduled for MRI of orbits this AM. <Alexsander Solorzano - 11/30/18 09:36> Continue with IV antibiotics. Apparently MRI has been scheduled. Will try a trial of steroids. <Kalyani Fabian - 11/30/18 08:59>
--- NOTE | 2018-12-01 08:02 | Progress Note ---
Internal Medicine - PN: Subj *Date: 12/01/18 *Time: 07:59 Interval history: No new complaints. She subjectively feels the swelling has improved. Exam Vital signs and Labs for Last 24 Hours: Temp Pulse Resp BP Pulse Ox 97.6 F 61 18 116/50 L 98 12/01/18 04:00 12/01/18 04:00 12/01/18 04:00 12/01/18 04:00 12/01/18 04:00 I & O for Last 24 hours: Intake & Output 11/28/18 11/29/18 11/30/18 12/01/18 11:59 11:59 11:59 11:59 Intake Total 326 / 326 1280 / 1280 Balance 326 / 326 1280 / 1280 Weight 284 lb 3 oz 286 lb Radiology Reports for the Last 24 Hours: MRI of ORBITS IMPRESSION: Bilateral well circumscribed enhancing extraconal orbital masses as described above with associated prominence of the superior ophthalmic veins. 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 Smooth enhancing lesion such as neurofibromas would be included in the differential diagnosis. Would consider repeating the CT scan without and with contrast with the patient performing a Valsalva maneuver. Orbital varix should increase in size with Valsalva. Subcutaneous fascial edema greater on the left which may indicate cellulitis. - *Routine Skin Exam Comments: persists with facial swelling and erythema across forehead extending along left side of face. Also with bilateral periorbital swelling and across bridge of nose. Assessment and Plan (1) Cellulitis, face Current visit: Yes Status: Acute Category: Medical Code(s): L03.211 - Cellulitis of face (2) Edema Current visit: No Status: Chronic Qualifiers: Edema type: localized Qualified Code(s): R60.0 - Localized edema Category: Medical Code(s): R60.9 - Edema, unspecified (3) HLD (hyperlipidemia) Current visit: No Status: Chronic Qualifiers: Hyperlipidemia type: mixed hyperlipidemia Qualified Code(s): E78.2 - Mixed hyperlipidemia Category: Medical Code(s): E78.5 - Hyperlipidemia, unspecified (4) HTN (hypertension) Current visit: No Status: Chronic Qualifiers: Hypertension type: essential hypertension Qualified Code(s): I10 - Essential (primary) hypertension Category: Medical Code(s): I10 - Essential (primary) hypertension (5) Orbital mass Current visit: Yes Status: Acute Category: Medical Code(s): H05.89 - Other disorders of orbit (6) Chronic atrial fibrillation Current visit: Yes Status: Acute Category: Medical Code(s): I48.2 - Chronic atrial fibrillation - Assessment and plan all Dx Assessment and Plan for all problems:: Facial swelling and redness are marginally improved. Will add Vancomycin and continue steroids. MRI reviewed with patient. Radiologist suspects varix. We will have her f/u with loss prevention auditor as outpt.
[2018-12-01 08:41] LABS: Basophils % 0.2 % (0.1-2.0); Eosinophils % 0.3 % (0.1-12.0); Hematocrit 41.7 % (37.0-47.0); Hemoglobin 12.5 g/dL (12.2-16.2); Lymphocytes # 1.2 K/mm3 (0.7-4.5); Mean Corpuscular HGB Conc 29.9 g/dL (31.8-35.4); Mean Corpuscular Volume 99.1 fl (81-99); Mean Platelet Volume 9.3 fl (7.4-10.4); Monocytes # 0.2 K/mm3 (0.1-1.0); Monocytes % 2.8 % (1.7-9.3); Neutrophils # 6.4 K/mm3 (1.8-7.8); Neutrophils % 81.8 % (37.0-80.0); Platelet Count 209 K/mm3 (142-424); Red Blood Count 4.21 M/mm3 (4.20-5.40); Red Cell Distribution Width 14.4 % (11.5-17.5); White Blood Count 7.8 K/mm3 (4.8-10.8)
--- NOTE | 2018-12-01 08:51 | Pharmacy Consult Notes ---
- Pharmacy Consult Date: 12/01/18 Time: 08:50 Referring provider: DR. REID Reason for Consult:: VANCOMYCIN DOSING Allergies and ADEs:: Allergies Allergy/AdvReac Type Severity Reaction Status Date / Time No Known Allergies Allergy Verified 11/28/18 15:04 Home Medications:: Home Medications Medication Instructions Recorded Confirmed Type levothyroxine 125 mcg tablet 125 mcg PO DAILY 30 Days #30 tab 08/18/18 11/30/18 History lisinopril 20 mg tablet 20 mg PO DAILY 08/18/18 11/30/18 History oxybutynin chloride ER 10 mg 10 mg PO DAILY 90 Days #90 tab 08/18/18 11/30/18 History tablet,extended release 24 hr potassium chloride ER 10 mEq 10 meq PO DAILYP PRN 08/18/18 11/30/18 History capsule,extended release tramadol 50 mg tablet 50 mg PO TIDP PRN 20 Days #20 tab 08/18/18 11/30/18 History warfarin 5 mg tablet 5 mg PO SUMOWETHFRSA 30 Days #30 08/18/18 11/30/18 History tab Furosemide [Furosemide 20mg Tab] 20 mg PO DAILY 11/29/18 11/30/18 History Cyclobenzaprine HCl 5 mg PO TIDP PRN 11/30/18 11/30/18 History [Cyclobenzaprine 10mg Tab] Estradiol [Vagifem] 10 mcg VG .2X WEEKLY 11/30/18 11/30/18 History Metoprolol Succinate 100 mg PO DAILY 11/30/18 11/30/18 History Sulfamethoxazole/Trimethoprim 1 each PO BID 11/30/18 11/30/18 History [Bactrim DS tablet] Warfarin Sodium 2.5 mg PO TU 11/30/18 11/30/18 History Height: 1.7 m Weight: 129.727 kg Laboratory Results:: Laboratory Results - last 24 hr 12/01/18 08:15: WBC 7.8, RBC 4.21, Hgb 12.5, Hct 41.7, MCV 99.1 H, MCH 29.7, MCHC 29.9 L, RDW 14.4, Plt Count 209, MPV 9.3, Neut % (Auto) 81.8 H, Lymph % (Auto) 15.0, [place] % (Auto) 2.8, Eos % (Auto) 0.3, Baso % (Auto) 0.2, Neut # (Auto) 6.4, Lymph # (Auto) 1.2, [place] # (Auto) 0.2, Eos # (Auto) 0.0, Baso # (Auto) 0.0 Medical History: Reports:: Arrhythmia, Atrial Fibrillation, Hypertension Denies:: Cancer, Diabetes Mellitus Type 1, Diabetes Mellitus Type 2, MRSA Assessment and Plan (1) Cellulitis, face Current visit: Yes Status: Acute Category: Medical Code(s): L03.211 - Cellulitis of face (2) Edema Current visit: No Status: Chronic Qualifiers: Edema type: localized Qualified Code(s): R60.0 - Localized edema Category: Medical Code(s): R60.9 - Edema, unspecified (3) HLD (hyperlipidemia) Current visit: No Status: Chronic Qualifiers: Hyperlipidemia type: mixed hyperlipidemia Qualified Code(s): E78.2 - Mixed hyperlipidemia Category: Medical Code(s): E78.5 - Hyperlipidemia, unspecified (4) HTN (hypertension) Current visit: No Status: Chronic Qualifiers: Hypertension type: essential hypertension Qualified Code(s): I10 - Essenti al (primary) hypertension Category: Medical Code(s): I10 - Essential (primary) hypertension (5) Orbital mass Current visit: Yes Status: Acute Category: Medical Code(s): H05.89 - Other disorders of orbit (6) Chronic atrial fibrillation Current visit: Yes Status: Acute Category: Medical Code(s): I48.2 - Chronic atrial fibrillation - Assessment and plan all Dx Assessment and Plan for all problems:: BASED ON PATIENT FACTORS, RECOMMEND VANCOMYCIN 2,500MG IV EVERY 24 HOURS. PHARMACY WILL MONITOR AND WILL ADJUST DOSE APPROPRIATE. -LEANA LOPEZ, JOHANNAD
[2018-12-02 07:52] LABS: INR 4.44 (0.9-1.1)
--- NOTE | 2018-12-02 08:10 | Progress Note ---
<Debbie Raymond - Last Filed: 12/02/18 08:08> Internal Medicine - PN: Subj *Date: 12/02/18 *Time: 08:08 Interval history: Patient states she is feeling much better today. Her facial swelling and redness have improved significantly since yesterday. She denies any pain and states she slept off and on and ate a good breakfast this morning. Exam Vital signs and Labs for Last 24 Hours: Temp Pulse Resp BP Pulse Ox 97.8 F 67 16 126/80 95 12/02/18 04:11 12/02/18 04:11 12/02/18 04:11 12/02/18 04:11 12/02/18 04:11 Laboratory Results - last 24 hr 12/01/18 08:15: WBC 7.8, RBC 4.21, Hgb 12.5, Hct 41.7, MCV 99.1 H, MCH 29.7, MCHC 29.9 L, RDW 14.4, Plt Count 209, MPV 9.3, Neut % (Auto) 81.8 H, Lymph % (A uto) 15.0, [place] % (Auto) 2.8, Eos % (Auto) 0.3, Baso % (Auto) 0.2, Neut # (Auto) 6.4, Lymph # (Auto) 1.2, [place] # (Auto) 0.2, Eos # (Auto) 0.0, Baso # (Auto) 0.0 12/02/18 07:25: PT 43.0 H, INR 4.44 H I & O for Last 24 hours: Intake & Output 11/29/18 11/30/18 12/01/18 12/02/18 11:59 11:59 11:59 11:59 Intake Total 326 / 326 1750 / 1750 680 / 680 Balance 326 / 326 1750 / 1750 680 / 680 Weight 284 lb 3 oz 286 lb 286 lb 9 oz Microbiology Reports for the Last 24 Hours: Microbiology 11/30/18 00:20 Blood Blood Culture - Preliminary NO GROWTH AFTER 48 HOURS 11/30/18 00:20 Blood Blood Culture - Preliminary NO GROWTH AFTER 48 HOURS - Constitutional no acute distress - *Routine Respiratory Exam Present: CTA bilaterally - *Routine Cardiovascular Exam Present: RRR - *Routine Abdominal Exam Present: soft, normoactive bowel sounds. Absent: tenderness - *Routine Skin Exam Comments: Much less erythema and edema of the face. - *Routine Neurological Exam Present: alert, oriented X3 Assessment and Plan (1) Cellulitis, face Current visit: Yes Status: Acute Category: Medical Code(s): L03.211 - Cellulitis of face (2) Edema Current visit: No Status: Chronic Qualifiers: Edema type: localized Qualified Code(s): R60.0 - Localized edema Category: Medical Code(s): R60.9 - Edema, unspecified (3) HLD (hyperlipidemia) Current visit: No Status: Chronic Qualifiers: Hyperlipidemia type: mixed hyperlipidemia Qualified Code(s): E78.2 - Mixed hyperlipidemia Category: Medical Code(s): E78.5 - Hyperlipidemia, unspecified (4) HTN (hypertension) Current visit: No Status: Chronic Qualifiers: Hypertension type: essential hypertension Qualified Code(s): I10 - Essential (primary) hypertension Category: Medical Code(s): I10 - Essential (primary) hypertension (5) Orbital mass Current visit: Yes Status: Acute Category: Medical Code(s): H05.89 - Other disorders of orbit (6) Chronic atrial fibrillation Current visit: Yes Status: Acute Category: Medical Code(s): I48.2 - Chronic atrial fibrillation - Assessment and plan all Dx Assessment and Plan for all problems:: Can possibly be discharged home today on Zyvox and continued steroids. Will discuss with Dr. Solorzano. <Alexsander Solorzano - Last Filed: 12/02/18 13:16> Internal Medicine - PN: Subj *Date: 12/02/18 *Time: 13:13 Exam Vital signs and Labs for Last 24 Hours: Temp Pulse Resp BP Pulse Ox 97.6 F 88 15 129/69 100 12/02/18 08:00 12/02/18 08:00 12/02/18 08:00 12/02/18 08:00 12/02/18 08:00 Laboratory Results - last 24 hr 12/02/18 07:25: PT 43.0 H, INR 4.44 H I & O for Last 24 hours: Intake & Output 11/30/18 12/01/18 12/02/18 12/03/18 11:59 11:59 11:59 11:59 Intake Total 326 / 326 1750 / 1750 920 / 920 360 / 360 Balance 326 / 326 1749 / 175 920 / 920 360 / 360 Weight 284 lb 3 oz 286 lb 286 lb 9 oz Microbiology Reports for the Last 24 Hours: Microbiology 11/30/18 00:20 Blood Blood Culture - Preliminary NO GROWTH AFTER 48 HOURS 11/30/18 00:20 Blood Blood Culture - Preliminary NO GROWTH AFTER 48 HOURS Assessment and Plan (1) Cellulitis, face Current visit: Yes Status: Acute Category: Medical Code(s): L03.211 - Cellulitis of face (2) Edema Current visit: No Status: Chronic Qualifiers: Edema type: localized Qualified Code(s): R60.0 - Localized edema Category: Medical Code(s): R60.9 - Edema, unspecified (3) HLD (hyperlipidemia) Current visit: No Status: Chronic Qualifiers: Hyperlipidemia type: mixed hyperlipidemia Qualified Code(s): E78.2 - Mixed hyperlipidemia Category: Medical Code(s): E78.5 - Hyperlipidemia, unspecified (4) HTN (hypertension) Current visit: No Status: Chronic Qualifiers: Hypertension type: essential hypertension Qualified Code(s): I10 - Essential (primary) hypertension Category: Medical Code(s): I10 - Essential (primary) hypertension (5) Orbital mass Current visit: Yes Status: Acute Category: Medical Code(s): H05.89 - Other disorders of orbit (6) Chronic atrial fibrillation Current visit: Yes Status: Acute Category: Medical Code(s): I48.2 - Chronic atrial fibrillation - Assessment and plan all Dx Assessment and Plan for all problems:: Patient seen and examined. She is much improved and stable for discharge. She will continue on Zyvox and MDP and will f/u with her PCP, Dr. Ernst in a week. She is provided copies of her CT and MRI reports to present to her PCP and mirror department supervisor for further recommendaions regarding her orbital masses.
--- NOTE | 2018-12-02 13:01 | Discharge Summary ---
General - General Admission date:: 11/30/18 <Alexsander Solorzano - 12/06/18 20:05> 11/30/18 <Debbie Raymond - 12/02/18 13:02> Discharge date: 12/02/18 <Debbie Raymond - 12/02/18 13:02> HPI HPI: Ms. Aranda is a 63-year-old female with a history of chronic atrial fibrillation, hypothyroidism, and hypertension who presented to the [facility] emergency room with progressive swelling of the face. She states that she worked in her [place] on 10/29/2018 and was fine. She then began to feel funny and then noticed the swelling and redness on the left side of her of her face. When this progressed she went to the urgent treatment center and was given Rocephin IM and started on Bactrim DS and was told to return to the ER if the swelling worsen which she did. She did have a fever up to 101. She denies any upper respiratory tract symptoms. Evaluation in the emergency room with CT of the face revealed 1. Mild diffuse subcutaneous soft tissue swelling of the base consistent with edema/ cellulitis. No obvious abscess. 2. Bilateral medial extraconal enhancing soft tissue masses versus venous aneurysm. MRI of the orbits without and with contrast suggested for further evaluation. 3. Mild upper neck adenopathy. She was started on IV clindamycin and admitted for further evaluation and treatment. <Debbie Raymond - 12/02/18 13:02> Hospital Course Hospital Course: The patient was started on IV antibiotics and was given a dose of Solu-Medrol. An MRI of the orbits was ordered as well. The MRI showed bilateral well-circumscribed enhancing extraconal orbital masses with associated prominence of the superior ophthalmic veins. 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 Radiology felt she would need a CT scan with and without contrast while performing a Valsalva maneuver. There is also subcutaneous facial edema greater on the left indicating cellulitis. The patient had no visual defects. The swelling and erythema improved marginally with the Solu-Medrol and the clindamycin. Vancomycin was added and she was continued on steroids. The erythema and edema improved significantly with this regimen. She was anxious to get home and her blood culture showed no growth. She was stable to be discharged home on continued steroids and Zyvox. Dr. Solorzano felt she would need to follow-up with an electromechanical technician as an outpatient due to her abnormal MRI as well as her PCP. <Debbie Raymond - 12/02/18 13:02> Objective Vital signs: Temp Pulse Resp BP Pulse Ox 97.6 F 88 15 129/69 100 12/02/18 08:00 12/02/18 08:00 12/02/18 08:00 12/02/18 08:00 12/02/18 08:00 <Alexsander Solorzano - 12/06/18 20:05> Temp Pulse Resp BP Pulse Ox 97.6 F 88 15 129/69 100 12/02/18 08:00 12/02/18 08:00 12/02/18 08:00 12/02/18 08:00 12/02/18 08:00 <Debbie Raymond - 12/02/18 13:02> Narrative: - Constitutional no acute distress - *Routine Respiratory Exam Present: CTA bilaterally - *Routine Cardiovascular Exam Present: RRR - *Routine Abdominal Exam Present: soft, normoactive bowel sounds. Absent: tenderness - *Routine Skin Exam Comments: Much less erythema and edema of the face. - *Routine Neurological Exam Present: alert, oriented X3 <Debbie Raymond - 12/02/18 13:02> Results Labs on day of discharge: Labs from last 24 hours 12/02/18 07:25 PT 43.0 H INR 4.44 H Preliminary micro results at discharge 11/30/18 00:20 Blood Culture - Preliminary Blood NO GROWTH AFTER 48 HOURS 11/30/18 00:20 Blood Culture - Preliminary Blood NO GROWTH AFTER 48 HOURS <Debbie Raymond - 12/02/18 13:02> DS: Diagnosis - Discharge Diagnosis (1) Cellulitis, face Status: Acute (2) Edema Status: Chronic (3) HLD (hyperlipidemia) Status: Chronic (4) HTN (hypertension) Status: Chronic (5) Orbital mass Status: Acute (6) Chronic atrial fibrillation Status: Acute <Debbie Raymond - 12/02/18 12:57> (1) Cellulitis, face Status: Acute (2) Edema Status: Chronic (3) HLD (hyperlipidemia) Status: Chronic (4) HTN (hypertension) Status: Chronic (5) Orbital mass Status: Acute (6) Chronic atrial fibrillation Status: Acute <Alexsander Solorzano Lex - 12/06/18 20:05> Discharge Plan - Patient Discharge Instructions ACTIVITY: Continue current activity <Debbie Raymond - 12/02/18 13:02> DIET: continue same diet <Debbie Raymond - 12/02/18 13:02> Patient Instructions: DI for Cellulitis -- Adult, Cellulitis <Alexsander Solorznao Lex - 12/06/18 20:05> Forms: <JeanineAlexsander merrill Lex - 12/06/18 20:05> - Follow up Plan Follow up with: Janusz Ernst [Primary Care Provider] - 12/09/18 2:15 pm <JeanineAlexsander Lex - 12/06/18 20:05> Disposition: Home, Self-Care <Jeanine,Alexsander Lex - 12/06/18 20:05> Home Medications: Home Medications Medication Instructions Recorded Confirmed Type levothyroxine 125 mcg tablet 125 mcg PO DAILY 30 Days #30 tab 08/18/18 11/30/18 History lisinopril 20 mg tablet 20 mg PO DAILY 08/18/18 11/30/18 History oxybutynin chloride ER 10 mg 10 mg PO DAILY 90 Days #90 tab 08/18/18 11/30/18 History tablet,extended release 24 hr potassium chloride ER 10 mEq 10 meq PO DAILYP PRN 08/18/18 11/30/18 History capsule,extended release tramadol 50 mg tablet 50 mg PO TIDP PRN 20 Days #20 tab 08/18/18 11/30/18 History warfarin 5 mg tablet 5 mg PO SUMOWETH 30 Days #30 08/18/18 11/30/18 History tab Furosemide [Furosemide 20mg Tab] 20 mg PO DAILY 11/29/18 11/30/18 History Cyclobenzaprine HCl 5 mg PO TIDP PRN 11/30/18 11/30/18 History [Cyclobenzaprine 10mg Tab] Estradiol [Vagifem] 10 mcg VG .2X WEEKLY 11/30/18 11/30/18 History Metoprolol Succinate 100 mg PO DAILY 11/30/18 11/30/18 History Warfarin Sodium 2.5 mg PO TU 11/30/18 11/30/18 History Linezolid 600 mg PO BID #16 tab 12/02/18 Rx methylPREDNISolone [Medrol 4mg 4 mg PO DIRECTED #21 tab 12/02/18 Rx tab] <Alexsander Solorzano - 12/06/18 20:05> Prescriptions/Medication Reconciliation: New methylPREDNISolone [Medrol 4mg tab] 4 mg PO DIRECTED #21 tab Linezolid 600 mg PO BID #16 tab Continued levothyroxine 125 mcg tablet 125 mcg PO DAILY 30 Days #30 tab oxybutynin chloride ER 10 mg tablet,extended release 24 hr 10 mg PO DAILY 90 Days #90 tab warfarin 5 mg tablet 5 mg PO SUMOWETHFRSA 30 Days #30 tab potassium chloride ER 10 mEq capsule,extended release 10 meq PO DAILYP PRN PRN Reason: SUPPLEMENT lisinopril 20 mg tablet 20 mg PO DAILY tramadol 50 mg tablet 50 mg PO TIDP PRN 20 Days #20 tab PRN Reason: PAIN Furosemide [Furosemide 20mg Tab] 20 mg PO DAILY Warfarin Sodium 2.5 mg PO TU Metoprolol Succinate 100 mg PO DAILY Cyclobenzaprine HCl [Cyclobenzaprine 10mg Tab] 5 mg PO TIDP PRN PRN Reason: MUSCLE SPASMS Estradiol [Vagifem] 10 mcg VG .2X WEEKLY Discontinued Sulfamethoxazole/Trimethoprim [Bactrim DS tablet] 1 each PO BID <Alexsander Solorzano - 12/06/18 20:05> - Additional Information Additional Information: Concur with plan for discharge as outlined above. <Alexsander Solorzano - 12/06/18 20:05>
== END 2018-12-02 13:26 | disposition home or self-care (01) | DRG 603 ==
LOC: 2ND 23:53 → ER 23:53 → OBSVTOIN 11-30 03:14 → 2ND 11-30 03:15
PROVIDERS: ADMIT Family Medicine; ATTEND Family Medicine
CPT/HCPCS: 36415; 70487; 70543; 80053; 83605; 85025; 85610; 85651; 86140; 87040; 90732; 99284; A9576; J3370; Q9967

== ENCOUNTER 2018-12-05 12:49 | Outpatient (CLI) | payer BC, SELFPAY ==
[2018-12-05 14:11] LABS: PHA INR Fingerstick 2.2 (0.9-1.1)
== END 2018-12-05 14:16 | disposition home or self-care (01) ==
LOC: ACC 12:50
PROVIDERS: PCP Internal Medicine; Visit Provider Internal Medicine
DX: Z51.81 Encounter for therapeutic drug level monitoring (principal); Z79.01 Long term (current) use of anticoagulants; I48.91 Unspecified atrial fibrillation
CPT/HCPCS: 85610; 99211; G0463

== ENCOUNTER → 2018-12-07 16:31 | Outpatient (POV) | payer BC, SELFPAY | DX: Z00.00 Encounter for general adult medical examination without abnormal findings (principal) ==

== ENCOUNTER 2019-01-02 12:59 | Outpatient (CLI) | payer BC, SELFPAY ==
[2019-01-02 14:53] LABS: INR 5.04 (0.9-1.1); Prothrombin Time 48.5 seconds (9.4-11.8)
[2019-01-02 15:25] LABS: PHA INR Fingerstick 4.3 (0.9-1.1)
== END 2019-01-02 15:27 | disposition home or self-care (01) ==
PROVIDERS: Internal Medicine; PCP Internal Medicine; Visit Provider Internal Medicine Cardiovascular Disease
DX: Z51.81 Encounter for therapeutic drug level monitoring (principal); Z79.01 Long term (current) use of anticoagulants; I48.91 Unspecified atrial fibrillation
CPT/HCPCS: 36415; 85610; 99211; G0463

== ENCOUNTER 2019-01-11 13:59 | Outpatient (CLI) | payer BC, SELFPAY ==
[2019-01-11 16:31] LABS: PHA INR Fingerstick 3.4 (0.9-1.1)
== END 2019-01-11 16:36 | disposition home or self-care (01) ==
LOC: ACC 14:00
PROVIDERS: PCP Internal Medicine; Visit Provider Internal Medicine Cardiovascular Disease
DX: Z51.81 Encounter for therapeutic drug level monitoring (principal); Z79.01 Long term (current) use of anticoagulants; I48.91 Unspecified atrial fibrillation
CPT/HCPCS: 85610; 99211; G0463

== ENCOUNTER 2019-01-25 13:27 | Outpatient (CLI) | payer BC, SELFPAY ==
[2019-01-25 14:02] LABS: PHA INR Fingerstick 1.9 (0.9-1.1)
== END 2019-01-25 14:09 | disposition home or self-care (01) ==
PROVIDERS: PCP Internal Medicine; Visit Provider Internal Medicine Cardiovascular Disease
DX: Z51.81 Encounter for therapeutic drug level monitoring (principal); Z79.01 Long term (current) use of anticoagulants; I48.91 Unspecified atrial fibrillation
CPT/HCPCS: 85610; 99211; G0463

== ENCOUNTER 2019-02-08 13:30 | Outpatient (CLI) | payer BC, SELFPAY ==
[2019-02-08 14:00] LABS: PHA INR Fingerstick 1.8 (0.9-1.1)
== END 2019-02-08 14:01 | disposition home or self-care (01) ==
LOC: ACC 13:30
PROVIDERS: PCP Internal Medicine; Visit Provider Internal Medicine
DX: Z51.81 Encounter for therapeutic drug level monitoring (principal); Z79.01 Long term (current) use of anticoagulants; I48.91 Unspecified atrial fibrillation
CPT/HCPCS: 85610; 99211; G0463

== ENCOUNTER 2019-03-06 13:22 | Outpatient (CLI) | payer BC, SELFPAY ==
[2019-03-06 15:30] LABS: PHA INR Fingerstick 2.4 (0.9-1.1)
== END 2019-03-06 15:35 | disposition home or self-care (01) ==
LOC: ACC 13:23
PROVIDERS: PCP Internal Medicine; Visit Provider Internal Medicine
DX: Z51.81 Encounter for therapeutic drug level monitoring (principal); Z79.01 Long term (current) use of anticoagulants; I48.91 Unspecified atrial fibrillation
CPT/HCPCS: 85610; 99211; G0463

== ENCOUNTER → 2019-03-09 13:53 | Outpatient (CLI) | payer BC, SELFPAY | PROVIDERS: Visit Provider Nurse Practitioner Family | DX: G47.33 Obstructive sleep apnea (adult) (pediatric) (principal) | CPT/HCPCS: 94762 ==

== ENCOUNTER → 2019-03-16 11:26 | Outpatient (CLI) | payer BC, SELFPAY ==
[2019-03-16 11:55] LABS: Basophils # 0.1 K/mm3 (0-0.2); Eosinophils # 0.2 K/mm3 (0.0-0.4); Hematocrit 39.7 % (37.0-47.0); Hemoglobin 12.2 g/dL (12.2-16.2); Lymphocytes # 1.5 K/mm3 (0.7-4.5); Lymphocytes % 28.8 % (10-50); Mean Corpuscular HGB Conc 30.6 g/dL (31.8-35.4); Mean Corpuscular Hemoglobin 29.1 pg (27.0-31.2); Mean Corpuscular Volume 95.1 fl (81-99); Mean Platelet Volume 9.3 fl (7.4-10.4); Monocytes # 0.3 K/mm3 (0.1-1.0); Monocytes % 5.6 % (1.7-9.3); Neutrophils # 3.1 K/mm3 (1.8-7.8); Neutrophils % 61.8 % (37.0-80.0); Platelet Count 212 K/mm3 (142-424); Red Blood Count 4.17 M/mm3 (4.20-5.40); Red Cell Distribution Width 14.3 % (11.5-17.5); White Blood Count 5.1 K/mm3 (4.8-10.8)
[2019-03-16 13:37] LABS: Alanine Aminotransferase 17 U/L (12-78); Albumin Level 3.1 gm/dL (3.4-5.0); Alkaline Phosphatase 108 U/L (46-116); Anion Gap 11.1 mEq/L (5-15); Aspartate Amino Transferase 18 U/L (15-37); Bilirubin,Total 0.6 mg/dL (0.2-1.0); Blood Urea Nitrogen 10 mg/dL (7-18); Calcium 8.5 mg/dL (8.5-10.1); Carbon Dioxide 29 mmol/L (21.0-32.0); Chloride 106 mmol/L (98-107); Chol/HDL Ratio 3.4 (1-3.5); Cholesterol 164 mg/dL (140-200); Creatinine,Serum 0.84 mg/dL (0.55-1.02); Estimated Glomerular Filt Rate 68 ml/min (>60); GFR (African American) 83 ML/MIN (>60); Globulin 3.2 gm/dl (1.3-3.2); Glucose 86 mg/dL (74-106); HDL Cholesterol 48 mg/dL (29-89); LDL Cholesterol 101 mg/dL (0-130); Potassium 4.1 mmoL/L (3.5-5.1); Sodium 142 mmol/L (136-145); Thyroid Stimulating Hormone 1.49 uIU/ml (0.358-3.740); Total Protein,Serum 6.3 gm/dL (6.4-8.2); Triglycerides 73 mg/dL (30-200); VLDL Cholesterol 15 mg/dL (0-40)
== END ==
PROVIDERS: Visit Provider Internal Medicine
DX: E78.5 Hyperlipidemia, unspecified (principal); E03.9 Hypothyroidism, unspecified; I10 Essential (primary) hypertension
CPT/HCPCS: 36415; 80053; 80061; 84443; 85025

== ENCOUNTER → 2019-03-22 13:41 | Outpatient (POV) | payer BC, SELFPAY | DX: Z00.00 Encounter for general adult medical examination without abnormal findings (principal) ==

== ENCOUNTER 2019-04-03 13:23 | Outpatient (CLI) | payer MEDICARE, SELFPAY ==
[2019-04-03 14:38] LABS: PHA INR Fingerstick 2.7 (0.9-1.1)
== END 2019-04-03 14:41 | disposition home or self-care (01) ==
PROVIDERS: PCP Internal Medicine; Visit Provider Internal Medicine Cardiovascular Disease
DX: Z51.81 Encounter for therapeutic drug level monitoring (principal); Z79.01 Long term (current) use of anticoagulants; I48.91 Unspecified atrial fibrillation
CPT/HCPCS: 85610; 99211; G0463

== ENCOUNTER 2019-05-15 13:33 | Outpatient (CLI) | payer MEDICARE, SELFPAY ==
[2019-05-15 14:42] LABS: Prothrombin Time 61.1 seconds (9.4-11.8)
[2019-05-15 14:43] LABS: INR 6.42 (0.9-1.1)
[2019-05-15 15:23] LABS: PHA INR Fingerstick 6.1 (0.9-1.1)
== END 2019-05-15 15:27 | disposition home or self-care (01) ==
PROVIDERS: PCP Internal Medicine; Visit Provider Internal Medicine Cardiovascular Disease
DX: Z51.81 Encounter for therapeutic drug level monitoring (principal); Z79.01 Long term (current) use of anticoagulants
CPT/HCPCS: 36415; 85610; 99211; G0463

== ENCOUNTER 2019-05-18 13:27 | Outpatient (CLI) | payer MEDICARE, SELFPAY ==
[2019-05-18 13:57] LABS: PHA INR Fingerstick 2.6 (0.9-1.1)
== END 2019-05-18 13:59 | disposition home or self-care (01) ==
LOC: ACC 13:28
PROVIDERS: Internal Medicine Cardiovascular Disease; PCP Internal Medicine; Visit Provider Internal Medicine
DX: Z79.01 Long term (current) use of anticoagulants (principal)
CPT/HCPCS: 85610; 99211; G0463

== ENCOUNTER 2019-05-18 13:46 | Emergency (ER) | payer MEDICARE, SELFPAY ==
[2019-05-18 13:47] VITALS: BP 125/69; PULSE 87; RESP 19; TEMP 36.6; O2SAT 99; BMI 44.6
--- NOTE | 2019-05-18 15:05 | HMH.EDUTC ---
[facility] [place] Clinical Impression: Leg pain Qualifiers: Laterality: left Qualified Code(s): M79.605 - Pain in left leg Heel pain Qualifiers: Laterality: left Qualified Code(s): M79.672 - Pain in left foot Disposition: Home, Self-Care Condition on Discharge: Good Instructions: DI for Leg Pain Additional Instructions: Follow up with orthopedics as scheduled. Start the antibiotics. Follow up with your regular doctor. GO TO THE ER FOR ANY WORSENING SYMPTOMS OR CONCERNS Prescriptions: Sulfamethoxazole/Trimethoprim [Bactrim DS tablet] 1 each PO BID 10 Days #20 tab Transmission Status: [facility] cephALEXin [Keflex 500mg Cap] 500 mg PO Q6H 10 Days #40 cap Transmission Status: Received by [facility] Referrals: Janusz Ernst [Primary Care Provider] - Time of Disposition: 15:22 Medical Decision Making - Medical Records Medical records reviewed: No: I reviewed the patient's medical records. - Alonso Inquiry Pt receiving controlled substance: No Vital Signs: 05/18/19 13:47 05/18/19 15:32 Temperature 98 F 98 F Temperature Source Temporal Artery Scan Temporal Artery Scan Pulse Rate 87 Pulse Rate [Radial] 87 Respiratory Rate 19 19 Blood Pressure 125/69 Blood Pressure [Right Arm] 125/69 Blood Pressure Mean [Right Arm] 87 Blood Pressure Source Automatic Cuff Blood Pressure Source [Right Arm] Automatic Cuff Blood Pressure Position Sitting Blood Pressure Position [Right Arm] Sitting 02 Sat by Pulse Oximetry 99 Oxygen Delivery Method Room Air Room Air [facility] [place] - General Stated complaint: leg and heel pain Time Seen by Provider: 05/18/19 15:05 Mode of Arrival: Ambulatory Source of Information: Patient Limitations: No Limitations Description of Symptoms (Recalled from Triage Doc. by RN): PAIN IN LEFT KNEE AND HEEL SINCE LAST NIGHT HEENT Symptoms (Recalled from RN notes): No Resp Symptoms (Recalled from RN notes): No Skin Symptoms (Recalled from RN notes): No MS Symptoms (Recalled from RN notes): Yes Functional Status (Recalled from RN notes): WNL - History of Present Illness Provider Complaint: She c/o left heel pain and left knee pain for the past 2 days. She has already been having left knee pain. She has been referred to orthpedics for the knee pain, but her appt there is next week. She denies any known injury. - Related Data Home Medications Medication Instructions Recorded Confirmed levothyroxine 125 mcg tablet 125 mcg PO DAILY 30 Days #30 tab 08/18/18 03/09/19 lisinopril 20 mg tablet 20 mg PO DAILY 08/18/18 03/09/19 oxybutynin chloride 10 mg 10 mg PO DAILY 90 Days #90 tab 08/18/18 03/09/19 tablet,extended release 24 hr potassium chloride 10 mEq 10 meq PO DAILYP PRN 08/18/18 03/09/19 capsule,extended release tramadol 50 mg tablet 50 mg PO TIDP PRN 20 Days #20 tab 08/18/18 03/09/19 warfarin 5 mg tablet 5 mg PO SUMOWETHFRSA 30 Days #30 08/18/18 03/09/19 tab Furosemide [Furosemide 20mg Tab] 20 mg PO DAILY 11/29/18 03/09/19 Cyclobenzaprine HCl 5 mg PO TIDP PRN 11/30/18 03/09/19 [Cyclobenzaprine 10mg Tab] Estradiol [Vagifem] 10 mcg VG .2X WEEKLY 11/30/18 03/09/19 Warfarin Sodium 2.5 mg PO TU 11/30/18 03/09/19 Previous Rx's Medication Instructions Recorded Ondansetron [Zofran 4mg ODT] 4 mg PO Q8HP PRN #20 tab.rapdis 01/11/19 Walker [Walker, Standard] 1 each MISCELLANEOUS DIRECTED 05/10/19 #1 each metoprolol succinate 100 mg 100 mg PO DAILY #30 tab 05/15/19 tablet,extended release 24 hr Sulfamethoxazole/Trimethoprim 1 each PO BID 10 Days #20 tab 05/18/19 [Bactrim DS tablet] cephALEXin [Keflex 500mg Cap] 500 mg PO Q6H 10 Days #40 cap 05/18/19 Allergies Allergy/AdvReac Type Severity Reaction Status Date / Time No Known Allergies Allergy Verified 03/09/19 13:07 - Worker's Comp Is this a Worker's Comp case?: No H History - Hepatitis A Screen Drug use histo
[2019-05-18 15:32] VITALS: BP 125/69; PULSE 87; RESP 19; TEMP 36.6; O2SAT 99
== END 2019-05-18 15:33 | disposition home or self-care (01) ==
PROVIDERS: Emergency Provider Nurse Practitioner Family; PCP Internal Medicine
DX: M79.605 Pain in left leg (principal); M79.672 Pain in left foot; I49.9 Cardiac arrhythmia, unspecified; I48.91 Unspecified atrial fibrillation; I10 Essential (primary) hypertension; M19.90 Unspecified osteoarthritis, unspecified site; E03.9 Hypothyroidism, unspecified; Z80.9 Family history of malignant neoplasm, unspecified; Z82.49 Family history of ischemic heart disease and other diseases of the circulatory system; Z79.890 Hormone replacement therapy; Z79.01 Long term (current) use of anticoagulants; Z79.899 Other long term (current) drug therapy; Z79.891 Long term (current) use of opiate analgesic
CPT/HCPCS: 85610; 99201; 99211; G0463

== ENCOUNTER 2019-05-25 12:33 | Outpatient (CLI) | payer MEDICARE, SELFPAY ==
[2019-05-26 10:16] LABS: PHA INR Fingerstick 3.4 (0.9-1.1)
== END 2019-05-26 10:22 | disposition home or self-care (01) ==
PROVIDERS: PCP Internal Medicine; Referring Provider Orthopaedic Surgery; Visit Provider Internal Medicine
DX: Z51.81 Encounter for therapeutic drug level monitoring (principal); Z79.01 Long term (current) use of anticoagulants; I48.91 Unspecified atrial fibrillation
CPT/HCPCS: 85610; 99211; G0463

== ENCOUNTER 2019-06-01 13:01 | Outpatient (CLI) | payer MEDICARE, SELFPAY ==
[2019-06-01 14:44] LABS: INR 3.35 (0.9-1.1); Prothrombin Time 32.9 seconds (9.4-11.8)
[2019-06-01 15:10] LABS: PHA INR Fingerstick 3.6 (0.9-1.1)
== END 2019-06-01 15:11 | disposition home or self-care (01) ==
PROVIDERS: PCP Radiology Diagnostic Radiology; Visit Provider Internal Medicine
DX: Z51.81 Encounter for therapeutic drug level monitoring (principal); Z79.01 Long term (current) use of anticoagulants; I48.91 Unspecified atrial fibrillation
CPT/HCPCS: 36415; 85610; 99211; G0463

== ENCOUNTER → 2019-06-09 08:15 | Outpatient (CLI) | payer MEDICARE, SELFPAY ==
[2019-06-09 11:30] LABS: PHA INR Fingerstick 1.9 (0.9-1.1)
== END ==
PROVIDERS: Internal Medicine Cardiovascular Disease; PCP Internal Medicine; Visit Provider Internal Medicine
DX: Z51.81 Encounter for therapeutic drug level monitoring (principal); Z79.01 Long term (current) use of anticoagulants; I48.91 Unspecified atrial fibrillation
CPT/HCPCS: 85610; 99211; G0463

== ENCOUNTER 2019-06-30 13:05 | Outpatient (CLI) | payer MEDICARE, SELFPAY ==
[2019-06-30 13:58] LABS: PHA INR Fingerstick 3.9 (0.9-1.1)
== END 2019-06-30 14:00 | disposition home or self-care (01) ==
PROVIDERS: PCP Internal Medicine; Visit Provider Internal Medicine Cardiovascular Disease
DX: Z51.81 Encounter for therapeutic drug level monitoring (principal); Z79.01 Long term (current) use of anticoagulants; I48.91 Unspecified atrial fibrillation
CPT/HCPCS: 85610; 99211; G0463

== ENCOUNTER 2019-06-30 14:00 | Outpatient (RCR) | payer MEDICARE, SELFPAY | END 2019-06-30 14:05 | disposition home or self-care (01) | LOC: PT 14:00 | PROVIDERS: PCP Internal Medicine; Visit Provider Physician Assistant | DX: M17.11 Unilateral primary osteoarthritis, right knee (principal) | CPT/HCPCS: 97110; 97163 ==

== ENCOUNTER 2019-07-21 13:00 | Outpatient (CLI) | payer MEDICARE, SELFPAY ==
[2019-07-21 13:42] LABS: PHA INR Fingerstick 3.2 (0.9-1.1)
== END 2019-07-21 13:47 | disposition home or self-care (01) ==
LOC: ACC 13:01
PROVIDERS: Internal Medicine Cardiovascular Disease; Visit Provider Internal Medicine
DX: Z51.81 Encounter for therapeutic drug level monitoring (principal); Z79.01 Long term (current) use of anticoagulants; I48.91 Unspecified atrial fibrillation
CPT/HCPCS: 85610; 99211; G0463

== ENCOUNTER 2019-08-18 13:01 | Outpatient (CLI) | payer MEDICARE, SELFPAY ==
[2019-08-18 17:08] LABS: PHA INR Fingerstick 2.6 (0.9-1.1)
== END 2019-08-18 17:10 | disposition home or self-care (01) ==
LOC: ACC 13:02
PROVIDERS: PCP Internal Medicine; Visit Provider Internal Medicine Cardiovascular Disease
DX: Z51.81 Encounter for therapeutic drug level monitoring (principal); Z79.01 Long term (current) use of anticoagulants; I48.91 Unspecified atrial fibrillation
CPT/HCPCS: 85610; 99211; G0463

== ENCOUNTER → 2019-08-30 13:23 | Outpatient (POV) | payer MEDICARE, SELFPAY | PROVIDERS: PCP Internal Medicine | DX: Z00.00 Encounter for general adult medical examination without abnormal findings (principal) ==

== ENCOUNTER 2019-09-15 12:59 | Outpatient (CLI) | payer MEDICARE, SELFPAY ==
[2019-09-15 13:55] LABS: PHA INR Fingerstick 2.6 (0.9-1.1)
== END 2019-09-15 13:57 | disposition home or self-care (01) ==
PROVIDERS: PCP Internal Medicine; Visit Provider Internal Medicine Cardiovascular Disease
DX: Z51.81 Encounter for therapeutic drug level monitoring (principal); Z79.01 Long term (current) use of anticoagulants; I48.91 Unspecified atrial fibrillation
CPT/HCPCS: 85610; 99211; G0463

== ENCOUNTER → 2019-09-20 09:32 | Outpatient (CLI) | payer MEDICARE, SELFPAY ==
[2019-09-20 10:13] LABS: Basophils % 0.9 % (0.1-2.0); Eosinophils # 0.2 K/mm3 (0.0-0.4); Eosinophils % 3.1 % (0.1-12.0); Hematocrit 40.3 % (37.0-47.0); Lymphocytes % 40.6 % (10-50); Mean Corpuscular HGB Conc 32.3 g/dL (31.8-35.4); Mean Corpuscular Hemoglobin 30.9 pg (27.0-31.2); Mean Corpuscular Volume 95.6 fl (81-99); Mean Platelet Volume 9.1 fl (7.4-10.4); Monocytes # 0.2 K/mm3 (0.1-1.0); Monocytes % 4.8 % (1.7-9.3); Neutrophils # 2.5 K/mm3 (1.8-7.8); Neutrophils % 50.5 % (37.0-80.0); Platelet Count 228 K/mm3 (142-424); Red Blood Count 4.22 M/mm3 (4.20-5.40); Red Cell Distribution Width 12.8 % (11.5-17.5)
[2019-09-20 10:37] LABS: Chloride 105 mmol/L (98-107); Potassium 4.4 mmoL/L (3.5-5.1); Sodium 140 mmol/L (136-145)
[2019-09-20 10:39] LABS: Blood Urea Nitrogen 11 mg/dl (7-17); Estimated Glomerular Filt Rate 72 ml/min (>60); GFR (African American) 87 ML/MIN (>60)
[2019-09-20 10:40] LABS: Alanine Aminotransferase 16 U/L (12-78); Albumin Level 3.7 g/dl (3.5-5.0); Albumin/Globulin Ratio 1.3 (1.1-1.8); Alkaline Phosphatase 107 U/L (38-126); Anion Gap 11.4 mEq/L (5-15); Aspartate Amino Transferase 35 U/L (14-36); Bilirubin,Total 0.4 mg/dl (0.2-1.3); Calcium 8.8 mg/dl (8.4-10.2); Carbon Dioxide 28 mmol/L (22.0-30.0); Globulin 2.8 g/dL (1.3-3.2); Glucose 85 mg/dl (74-100); Total Protein,Serum 6.5 g/dl (6.3-8.2)
[2019-09-20 11:10] LABS: Thyroid Stimulating Hormone 4.02 uIU/mL (0.465-4.68)
[2019-09-20 12:53] LABS: Barbiturates Screen,Urine Negative ng/ml (<200)
[2019-09-20 12:54] LABS: Amphetamine/Metha Screen,Urine Negative ng/ml (<1000); Benzodiazepines Screen,Urine Negative ng/ml (<200)
[2019-09-20 12:55] LABS: Methadone Screen,Urine Negative ng/ml (<300)
[2019-09-20 12:56] LABS: Cannabinoid Screen,Urine Negative ng/ml (<50); Cocaine Screen,Urine Negative ng/ml (<300)
[2019-09-20 12:57] LABS: Opiate Screen,Urine Negative ng/ml (<300)
[2019-09-20 12:58] LABS: Phencyclidine Screen,Urine Negative ng/ml (<25)
[2019-09-22 09:22] LABS: Vitamin D 25 Hydroxy 24.8 ng/mL (30.0-100.0)
== END ==
PROVIDERS: Visit Provider Internal Medicine
DX: I10 Essential (primary) hypertension (principal); E03.9 Hypothyroidism, unspecified; E55.9 Vitamin D deficiency, unspecified; Z79.899 Other long term (current) drug therapy
CPT/HCPCS: 36415; 80053; 80305; 82652; 84443; 85025

== ENCOUNTER 2019-11-10 13:01 | Outpatient (CLI) | payer MEDICARE, SELFPAY ==
[2019-11-10 15:27] LABS: PHA INR Fingerstick 3.1 (0.9-1.1)
== END 2019-11-10 15:34 | disposition home or self-care (01) ==
LOC: ACC 13:04
PROVIDERS: PCP Internal Medicine; Visit Provider Internal Medicine Cardiovascular Disease
DX: Z51.81 Encounter for therapeutic drug level monitoring (principal); Z79.01 Long term (current) use of anticoagulants; I48.91 Unspecified atrial fibrillation
CPT/HCPCS: 85610; 99211; G0463

== ENCOUNTER 2019-12-11 09:56 | Outpatient (CLI) | payer MEDICARE, SELFPAY ==
[2019-12-11 13:12] LABS: PHA INR Fingerstick 2.4 (0.9-1.1)
== END 2019-12-11 13:13 | disposition home or self-care (01) ==
LOC: ACC 09:58
PROVIDERS: PCP Internal Medicine; Visit Provider Internal Medicine Cardiovascular Disease
DX: Z51.81 Encounter for therapeutic drug level monitoring (principal); Z79.01 Long term (current) use of anticoagulants; I48.91 Unspecified atrial fibrillation
CPT/HCPCS: 85610; 99211; G0463

== ENCOUNTER 2020-01-31 10:14 | Outpatient (CLI) | payer MEDICARE, SELFPAY ==
[2020-01-31 10:44] LABS: PHA INR Fingerstick 2.9 (0.9-1.1)
== END 2020-01-31 10:53 | disposition home or self-care (01) ==
LOC: ACC 10:14
PROVIDERS: Nurse Practitioner Family; PCP Internal Medicine; Visit Provider Internal Medicine Cardiovascular Disease
DX: Z79.01 Long term (current) use of anticoagulants (principal)
CPT/HCPCS: 85610; 99211; G0463

== ENCOUNTER 2020-03-13 12:34 | Outpatient (CLI) | payer MEDICARE, SELFPAY ==
[2020-03-13 13:26] LABS: PHA INR Fingerstick 2.4 (0.9-1.1)
== END 2020-03-13 13:28 | disposition home or self-care (01) ==
LOC: ACC 12:35
PROVIDERS: PCP Internal Medicine; Visit Provider Nurse Practitioner Family
DX: Z51.81 Encounter for therapeutic drug level monitoring (principal); Z79.01 Long term (current) use of anticoagulants; I48.91 Unspecified atrial fibrillation
CPT/HCPCS: 85610; 99211; G0463

== ENCOUNTER → 2020-03-13 12:58 | Outpatient (POV) | payer MEDICARE, SELFPAY | DX: Z00.00 Encounter for general adult medical examination without abnormal findings (principal) ==

== ENCOUNTER → 2020-03-28 10:54 | Outpatient (CLI) | payer MEDICARE, SELFPAY ==
[2020-03-28 11:25] LABS: Basophils # 0.1 K/mm3 (0-0.2); Eosinophils # 0.1 K/mm3 (0.0-0.4); Hematocrit 43.6 % (37.0-47.0); Hemoglobin 13.4 g/dL (12.2-16.2); Lymphocytes # 1.6 K/mm3 (0.7-4.5); Lymphocytes % 32.7 % (10-50); Mean Corpuscular HGB Conc 30.7 g/dL (31.8-35.4); Mean Corpuscular Hemoglobin 29.8 pg (27.0-31.2); Mean Corpuscular Volume 97.2 fl (81-99); Mean Platelet Volume 8.5 fl (7.4-10.4); Monocytes # 0.2 K/mm3 (0.1-1.0); Monocytes % 4.9 % (1.7-9.3); Neutrophils # 2.9 K/mm3 (1.8-7.8); Neutrophils % 58.5 % (37.0-80.0); Platelet Count 205 K/mm3 (142-424); Red Blood Count 4.48 M/mm3 (4.20-5.40); Red Cell Distribution Width 13.4 % (11.5-17.5); White Blood Count 4.9 K/mm3 (4.8-10.8)
[2020-03-28 12:08] LABS: Alanine Aminotransferase 33 U/L (12-78); Albumin Level 3.7 g/dl (3.5-5.0); Albumin/Globulin Ratio 1.2 (1.1-1.8); Alkaline Phosphatase 120 U/L (38-126); Anion Gap 10.2 mEq/L (5-15); Aspartate Amino Transferase 69 U/L (14-36); Bilirubin,Total 0.6 mg/dl (0.2-1.3); Blood Urea Nitrogen 11 mg/dl (7-17); Calcium 8.7 mg/dl (8.4-10.2); Carbon Dioxide 29 mmol/L (22.0-30.0); Chloride 108 mmol/L (98-107); Chol/HDL Ratio 3.7 (1-3.5); Cholesterol 194 mg/dl (140-200); Estimated Glomerular Filt Rate 72 ml/min (>60); GFR (African American) 87 ML/MIN (>60); Glucose 92 mg/dl (74-100); HDL Cholesterol 52 mg/dl (40-60); Magnesium 2.2 mg/dl (1.6-2.3); Potassium 4.2 mmoL/L (3.5-5.1); Sodium 143 mmol/L (136-145); Total Protein,Serum 6.7 g/dl (6.3-8.2); Triglycerides 82 mg/dl (30-150); VLDL Cholesterol 16 mg/dL (0-40)
[2020-03-28 12:19] LABS: Direct LDL Cholesterol 132.67 mg/dL (100-129)
[2020-03-28 12:22] LABS: 25-OH Vitamin D, Total 20.3 ng/mL (30-100)
[2020-03-28 12:40] LABS: Thyroid Stimulating Hormone 2.06 uIU/mL (0.465-4.68)
[2020-03-28 13:15] LABS: Vitamin B12 333 pg/mL (239-931)
[2020-03-28 13:57] LABS: Folate 7.35 ng/mL
[2020-03-28 17:26] LABS: Amphetamine/Metha Screen,Urine Negative ng/ml (<1000); Barbiturates Screen,Urine Negative ng/ml (<200)
[2020-03-28 17:27] LABS: Benzodiazepines Screen,Urine Negative ng/ml (<200)
[2020-03-28 17:29] LABS: Cannabinoid Screen,Urine Negative ng/ml (<50)
[2020-03-28 17:30] LABS: Cocaine Screen,Urine Negative ng/ml (<300)
[2020-03-28 17:31] LABS: Methadone Screen,Urine Negative ng/ml (<300); Opiate Screen,Urine Negative ng/ml (<300)
[2020-03-28 17:32] LABS: Phencyclidine Screen,Urine Negative ng/ml (<25)
== END ==
PROVIDERS: Visit Provider Internal Medicine
DX: R53.83 Other fatigue (principal); E78.5 Hyperlipidemia, unspecified; E55.9 Vitamin D deficiency, unspecified; Z79.899 Other long term (current) drug therapy
CPT/HCPCS: 36415; 80053; 80061; 80305; 82306; 82607; 82746; 83735; 84443; 85025

== ENCOUNTER 2020-04-24 13:06 | Outpatient (CLI) | payer MEDICARE, SELFPAY ==
[2020-04-24 15:16] LABS: PHA INR Fingerstick 2.3 (0.9-1.1)
== END 2020-04-24 15:28 | disposition home or self-care (01) ==
LOC: ACC 13:07
PROVIDERS: PCP Internal Medicine; Visit Provider Nurse Practitioner Family
DX: Z51.81 Encounter for therapeutic drug level monitoring (principal); Z79.01 Long term (current) use of anticoagulants; I48.91 Unspecified atrial fibrillation
CPT/HCPCS: 85610; 99211; G0463

== ENCOUNTER 2020-06-05 13:14 | Outpatient (CLI) | payer MEDICARE, SELFPAY ==
[2020-06-05 14:03] LABS: PHA INR Fingerstick 2.4 (0.9-1.1)
== END 2020-06-05 14:16 | disposition home or self-care (01) ==
LOC: ACC 13:16
PROVIDERS: PCP Internal Medicine; Visit Provider Nurse Practitioner Family
DX: Z51.81 Encounter for therapeutic drug level monitoring (principal); Z79.01 Long term (current) use of anticoagulants; I48.91 Unspecified atrial fibrillation
CPT/HCPCS: 85610; 99211; G0463

== ENCOUNTER → 2020-06-18 13:05 | Outpatient (CLI) | payer MEDICARE, SELFPAY | PROVIDERS: PCP Internal Medicine; Visit Provider Specialist | DX: G47.33 Obstructive sleep apnea (adult) (pediatric) (principal) | CPT/HCPCS: G0399 ==

== ENCOUNTER 2020-07-17 12:58 | Outpatient (CLI) | payer MEDICARE, SELFPAY ==
[2020-07-17 14:15] LABS: PHA INR Fingerstick 3.5 (0.9-1.1)
== END 2020-07-17 14:18 | disposition home or self-care (01) ==
LOC: ACC 13:00
PROVIDERS: PCP Internal Medicine; Visit Provider Nurse Practitioner Family
DX: G47.33 Obstructive sleep apnea (adult) (pediatric) (principal); Z51.81 Encounter for therapeutic drug level monitoring; Z79.01 Long term (current) use of anticoagulants
CPT/HCPCS: 85610; 94762; 99211; G0463

== ENCOUNTER 2020-08-23 13:02 | Outpatient (CLI) | payer MEDICARE, SELFPAY ==
[2020-08-23 15:30] LABS: PHA INR Fingerstick 2.7 (0.9-1.1)
== END 2020-08-23 15:32 | disposition home or self-care (01) ==
LOC: ACC 13:03
PROVIDERS: PCP Internal Medicine; Visit Provider Nurse Practitioner Family
DX: Z51.81 Encounter for therapeutic drug level monitoring (principal); Z79.01 Long term (current) use of anticoagulants; I48.91 Unspecified atrial fibrillation
CPT/HCPCS: 85610; 99211; G0463

== ENCOUNTER → 2020-09-04 13:10 | Outpatient (POV) | payer MEDICARE, SELFPAY | DX: Z00.00 Encounter for general adult medical examination without abnormal findings (principal) ==

== ENCOUNTER → 2020-09-23 11:30 | Outpatient (CLI) | payer MEDICARE, SELFPAY ==
[2020-09-23 12:00] LABS: Basophils # 0.1 K/mm3 (0-0.2); Basophils % 1.3 % (0.1-2.0); Eosinophils # 0.1 K/mm3 (0.0-0.4); Eosinophils % 2.6 % (0.1-12.0); Hematocrit 41.8 % (37.0-47.0); Hemoglobin 13.2 g/dL (12.2-16.2); Lymphocytes # 1.3 K/mm3 (0.7-4.5); Lymphocytes % 25.6 % (10-50); Mean Corpuscular HGB Conc 31.6 g/dL (31.8-35.4); Mean Corpuscular Hemoglobin 30.1 pg (27.0-31.2); Mean Corpuscular Volume 95.1 fl (81-99); Mean Platelet Volume 8.9 fl (7.4-10.4); Monocytes # 0.3 K/mm3 (0.1-1.0); Neutrophils # 3.2 K/mm3 (1.8-7.8); Neutrophils % 65.4 % (37.0-80.0); Platelet Count 244 K/mm3 (142-424); Red Blood Count 4.39 M/mm3 (4.20-5.40); White Blood Count 4.9 K/mm3 (4.8-10.8)
[2020-09-23 12:25] LABS: INR 2.42 (0.9-1.1); Prothrombin Time 26.7 seconds (10.1-12.5)
[2020-09-23 12:57] LABS: Alanine Aminotransferase 16 U/L (12-78); Albumin Level 3.8 g/dl (3.5-5.0); Albumin/Globulin Ratio 1.3 (1.1-1.8); Alkaline Phosphatase 108 U/L (38-126); Anion Gap 9.3 mEq/L (5-15); Aspartate Amino Transferase 35 U/L (14-36); Bilirubin,Total 0.8 mg/dl (0.2-1.3); Blood Urea Nitrogen 16 mg/dl (7-17); Calcium 8.9 mg/dl (8.4-10.2); Carbon Dioxide 27 mmol/L (22.0-30.0); Chloride 106 mmol/L (98-107); Chol/HDL Ratio 4.5 (1-3.5); Cholesterol 179 mg/dl (140-200); Estimated Glomerular Filt Rate 55 ml/min (>60); GFR (African American) 67 ML/MIN (>60); Globulin 2.9 g/dL (1.3-3.2); Glucose 82 mg/dl (74-100); HDL Cholesterol 40 mg/dl (40-60); Magnesium 1.9 mg/dl (1.6-2.3); Potassium 4.3 mmoL/L (3.5-5.1); Sodium 138 mmol/L (136-145); Total Protein,Serum 6.7 g/dl (6.3-8.2); Triglycerides 108 mg/dl (30-150); VLDL Cholesterol 22 mg/dL (0-40)
[2020-09-23 13:07] LABS: Direct LDL Cholesterol 112.89 mg/dL (100-129)
--- NOTE | 2020-09-23 13:10 | HMH.PHAINT ---
ACC-PATIENT'S INR WAS DRAWN IN THE LAB. INR WAS 2.42 TODAY VIA VENIPUNCTURE. CALLED PATIENT AND WILL RESCHEDULE IN 6 WEEKS.
[2020-09-23 13:15] LABS: 25-OH Vitamin D, Total 39.9 ng/mL (30-100)
[2020-09-23 13:28] LABS: Thyroid Stimulating Hormone 1.54 uIU/mL (0.465-4.68)
[2020-09-23 13:43] LABS: Amphetamine/Metha Screen,Urine Negative ng/ml (<1000)
[2020-09-23 13:44] LABS: Benzodiazepines Screen,Urine Negative ng/ml (<200); Cannabinoid Screen,Urine Negative ng/ml (<50)
[2020-09-23 13:45] LABS: Cocaine Screen,Urine Negative ng/ml (<300)
[2020-09-23 13:46] LABS: Methadone Screen,Urine Negative ng/ml (<300); Opiate Screen,Urine Negative ng/ml (<300)
[2020-09-23 13:47] LABS: Phencyclidine Screen,Urine Negative ng/ml (<25); Vitamin B12 291 pg/mL (239-931)
[2020-09-23 14:01] LABS: Barbiturates Screen,Urine Negative ng/ml (<200)
== END ==
PROVIDERS: Nurse Practitioner Family; Visit Provider Internal Medicine
DX: I10 Essential (primary) hypertension (principal); E03.9 Hypothyroidism, unspecified; E78.5 Hyperlipidemia, unspecified; R53.83 Other fatigue; Z51.81 Encounter for therapeutic drug level monitoring; Z79.01 Long term (current) use of anticoagulants; Z79.899 Other long term (current) drug therapy; Z68.41 Body mass index [BMI] 40.0-44.9, adult
CPT/HCPCS: 36415; 80053; 80061; 80305; 82306; 82607; 83735; 84443; 85025; 85610

== ENCOUNTER 2020-11-06 13:30 | Outpatient (CLI) | payer MEDICARE, SELFPAY ==
[2020-11-06 14:49] LABS: PHA INR Fingerstick 2.6 (0.9-1.1)
== END 2020-11-06 15:14 | disposition home or self-care (01) ==
LOC: ACC 13:31
PROVIDERS: PCP Internal Medicine; Visit Provider Nurse Practitioner Family
DX: Z51.81 Encounter for therapeutic drug level monitoring (principal); Z79.01 Long term (current) use of anticoagulants
CPT/HCPCS: 85610; 99211; G0463

== ENCOUNTER → 2020-12-05 15:28 | Outpatient (CLI) | payer MEDICARE, SELFPAY ==
--- NOTE | 2020-12-05 15:31 | MM_ITS ---
PROCEDURE: MM DIG SCREENING MAMM BI W/CAD Digital Breast Tomosynthesis Included CLINICAL INDICATION: SCREENING COMPARISON: No exams were available for comparison TECHNIQUE: Standard CC and MLO images and 3D Tomosynthesis was obtained. R2 CAD reviewed. FINDINGS: The report delayed waiting on old films for comparison which have not been made available as 12/27/2020. Average fibroglandular tissue. Scattered benign-appearing calcifications. The right breast has an unremarkable appearance. In the left breast there is a 3 mm nodule in the outer aspect of the left breast which the margins appear somewhat irregular and there are questionable calcifications within the nodule. Since no previous studies have been made available it is recommended that the patient return for spot compression Mag views of this nodule and possible left breast ultrasound. If old films are made available then an addendum can be added. IMPRESSION: Indeterminate small nodule lateral left breast. Suggest additional evaluation. BI-RAD Category: 0 Need Additional Imaging Evaluation FOLLOW-UP: IMM Immediate Follow-up Recommended (A letter has been sent to the patient regarding results of the study.) Dictated by: Yuri Wen MD 12/27/2020 16:14 Yuri Wne MD in [place] 12/27/2020 16:14
== END ==
PROVIDERS: PCP Internal Medicine; Visit Provider Internal Medicine
DX: Z12.31 Encounter for screening mammogram for malignant neoplasm of breast (principal)
CPT/HCPCS: 77063; 77067

== ENCOUNTER 2021-01-03 14:07 | Outpatient (CLI) | payer MEDICARE, SELFPAY ==
[2021-01-03 14:58] LABS: PHA INR Fingerstick 1.9 (0.9-1.1)
== END 2021-01-03 14:59 | disposition home or self-care (01) ==
LOC: ACC 14:09
PROVIDERS: PCP Internal Medicine; Visit Provider Nurse Practitioner Family
DX: Z51.81 Encounter for therapeutic drug level monitoring (principal); Z79.01 Long term (current) use of anticoagulants; I48.91 Unspecified atrial fibrillation
CPT/HCPCS: 85610; 99211; G0463

== ENCOUNTER → 2021-01-13 12:59 | Outpatient (CLI) | payer SELFPAY ==
--- NOTE | 2021-01-13 13:00 | CT_ITS ---
PROCEDURE: CT HEART W CALCIUM SCORE CLINICAL HISTORY: eval for cad COMPARISON: No exams were available for comparison TECHNIQUE: Axial images obtained with sagittal and coronal reformats. All CT scans at the facility use one or more dose reduction, viz: automated exposure control, ma/kV adjustment per patient size (including targeted exams where dose is matched to indication, i.e. head), or iterative reconstruction technique. FINDINGS: Coronary artery calcium score is 1. Minimal calcific plaque burden with low cardiovascular disease risk. Incidental note is made of tracheobronchial tree ossification. There has been gastric bypass. There is some scattered scarring in the lung bases. 4 mm nodule is present in the left lung base noncalcified nonspecific. There are degenerative changes in the thoracic spine. IMPRESSION: Minimal calcific plaque burden with low cardiovascular disease risk Dictated by: Yuri Wen MD 01/13/2021 17:38 Yuri Wen MD in [place] 01/13/2021 17:38
== END ==
PROVIDERS: PCP Internal Medicine; Visit Provider Internal Medicine Cardiovascular Disease
DX: Z13.6 Encounter for screening for cardiovascular disorders (principal); R42 Dizziness and giddiness; R06.02 Shortness of breath; I48.2 Chronic atrial fibrillation; E66.01 Morbid (severe) obesity due to excess calories; E78.2 Mixed hyperlipidemia; G47.33 Obstructive sleep apnea (adult) (pediatric); I10 Essential (primary) hypertension; R60.0 Localized edema; Z79.01 Long term (current) use of anticoagulants
CPT/HCPCS: 75571

== ENCOUNTER 2021-02-14 14:06 | Outpatient (CLI) | payer MEDICARE, SELFPAY ==
[2021-02-14 15:08] LABS: PHA INR Fingerstick 1.9 (0.9-1.1)
== END 2021-02-14 15:20 | disposition home or self-care (01) ==
LOC: ACC 14:08
PROVIDERS: PCP Internal Medicine; Visit Provider Nurse Practitioner Family
DX: Z51.81 Encounter for therapeutic drug level monitoring (principal); Z79.01 Long term (current) use of anticoagulants; I48.91 Unspecified atrial fibrillation
CPT/HCPCS: 85610; 99211; G0463

== ENCOUNTER 2021-02-16 18:05 | Emergency (ER) | payer MEDICARE, SELFPAY ==
[2021-02-16 19:20] VITALS: BP 145/73; PULSE 70; RESP 18; TEMP 36.5; O2SAT 98; BMI 44.4
--- NOTE | 2021-02-16 19:39 | HMH.EDUTC ---
[facility] [place]: Cellulitis of left foot Disposition: Home, Self-Care Condition on Discharge: Good Instructions: Cellulitis Additional Instructions: Keep the affected area clean and dry. Follow up with your regular doctor. Take the antibiotics as directed and apply the topical antibiotics as directed. Apply warm wet compresses to the affected area three or four times per day. GO TO THE ER FOR ANY WORSENING SYMPTOMS Prescriptions: Sulfamethoxazole/Trimethoprim [Bactrim DS tablet] 1 each PO BID 10 Days #20 tab Transmission Status: [facility] to [facility] predniSONE [Prednisone 20mg Tab] 20 mg PO BID 4 Days #8 tab Transmission Status: Sent to [facility] Referrals: Janusz Ernst [Primary Care Provider] - Time of Disposition: 19:45 Medical Decision Making - Medical Records Medical records reviewed: No: I reviewed the patient's medical records. - Alonso Inquiry Pt receiving controlled substance: No Vital Signs: 02/16/21 19:20 02/16/21 19:53 Temperature 97.7 F 97.7 F Temperature Source Oral Pulse Rate 70 Pulse Rate [Right Brachial] 70 Respiratory Rate 18 18 Blood Pressure 145/73 H Blood Pressure [Right Arm] 145/73 H Blood Pressure Mean [Right Arm] 97 Blood Pressure Source [Right Arm] Automatic Cuff Blood Pressure Position [Right Arm] Sitting 02 Sat by Pulse Oximetry 98 Oxygen Delivery Method Room Air Orders (Tests/Meds): ED MEDICATIONS Discontinued Medications Generic Name Dose Route Start Last Admin Trade Name Freq PRN Reason Stop Dose Admin Ceftriaxone Sodium 1 gm 02/16/21 19:40 02/16/21 19:50 Ceftriaxone 1gm Vial IM 02/16/21 19:41 1 gm ONCE ONE Administration Lidocaine HCl 0 ml 02/16/21 19:40 02/16/21 19:50 Lidocaine 1% 5ml Pf Vial IM 02/16/21 19:41 2.1 ml ONCE ONE Administration [facility] [place] - General Stated complaint: Swollen/painful L foot Time Seen by Provider: 02/16/21 19:39 Mode of Arrival: Ambulatory Source of Information: Patient Limitations: No Limitations Description of Symptoms (Recalled from Triage Doc. by RN): PATIENT C/O REDNESS, PAIN AND SWELLING TO LEFT FOOT THAT STARTED WEDNESDAY NIGHT HEENT Symptoms (Recalled from RN notes): No Resp Symptoms (Recalled from RN notes): No Skin Symptoms (Recalled from RN notes): No MS Symptoms (Recalled from RN notes): Yes Functional Status (Recalled from RN notes): WNL - History of Present Illness Provider Complaint: She c/o left foot tenderness and redness on top of her foot for the past 2 days. She denies any injury. She is not diabetic. She denies any history of gout. - Related Data Home Medications Medication Instructions Recorded Confirmed levothyroxine 125 mcg tablet 125 mcg PO DAILY 30 Days #30 tab 08/18/18 12/26/20 lisinopril 20 mg tablet 20 mg PO DAILY 08/18/18 12/26/20 oxybutynin chloride 10 mg 10 mg PO DAILY 90 Days #90 tab 08/18/18 12/26/20 tablet,extended release 24 hr potassium chloride 10 mEq 10 meq PO DAILYP PRN 08/18/18 12/26/20 capsule,extended release tramadol 50 mg tablet 50 mg PO TIDP PRN 20 Days #20 tab 08/18/18 12/26/20 Cyclobenzaprine HCl 5 mg PO TIDP PRN 11/30/18 12/26/20 [Cyclobenzaprine 10mg Tab*] warfarin 5 mg tablet 2.5 mg PO QTUTHSASU tab 01/09/20 12/26/20 estradiol 10 mcg vaginal tablet 10 mcg VAGINAL .COMPLEX tab 07/31/20 12/26/20 warfarin 5 mg tablet 5 mg PO DIRECTED tab 12/26/20 12/26/20 Previous Rx's Medication Instructions Recorded metoprolol succinate 100 mg 100 mg PO DAILY #90 tab 08/09/20 tablet,extended release 24 hr furosemide 20 mg tablet 20 mg PO DAILY #90 tab 01/03/21 Sulfamethoxazole/Trimethoprim 1 each PO BID 10 Days #20 tab 02/16/21 [Bactrim DS tablet] predniSONE [Prednisone 20mg 20 mg PO BID 4 Days #8 tab 02/16/21 Tab] Allergies Allergy/AdvReac Type Severity Reaction Status Date / Time No Known Allergies Allergy Verified 12/26/20 11:09 - Worker's
[2021-02-16 19:53] VITALS: BP 145/73; PULSE 70; RESP 18; TEMP 36.5; O2SAT 98
== END 2021-02-16 20:02 | disposition home or self-care (01) ==
PROVIDERS: Emergency Provider Nurse Practitioner Family; PCP Internal Medicine
DX: L03.116 Cellulitis of left lower limb
CPT/HCPCS: 96372; 99202; G0463

== ENCOUNTER 2021-02-20 10:42 | Outpatient (CLI) | payer MEDICARE, SELFPAY | END 2021-02-20 17:01 | disposition home or self-care (01) | LOC: ACC 10:43 | PROVIDERS: Nurse Practitioner Family; PCP Internal Medicine; Visit Provider Internal Medicine Cardiovascular Disease | DX: Z51.81 Encounter for therapeutic drug level monitoring (principal); Z79.01 Long term (current) use of anticoagulants; I48.91 Unspecified atrial fibrillation | CPT/HCPCS: 85610; 99211; G0463 ==

== ENCOUNTER 2021-03-04 13:06 | Outpatient (CLI) | payer MEDICARE, SELFPAY ==
[2021-03-04 15:57] LABS: PHA INR Fingerstick 1.5 (0.9-1.1)
== END 2021-03-04 16:05 | disposition home or self-care (01) ==
LOC: ACC 13:07
PROVIDERS: PCP Internal Medicine; Visit Provider Nurse Practitioner Family
DX: Z51.81 Encounter for therapeutic drug level monitoring (principal); Z79.01 Long term (current) use of anticoagulants; I48.91 Unspecified atrial fibrillation
CPT/HCPCS: 85610; 99211; G0463

== ENCOUNTER 2021-03-09 12:04 | Emergency (ER) | payer MEDICARE, SELFPAY ==
[2021-03-09 12:30] VITALS: BP 124/62; PULSE 74; RESP 17; TEMP 36.9; O2SAT 99; BMI 44.4
--- NOTE | 2021-03-09 13:15 | HMH.EDUTC ---
[facility] [place] Clinical Impression: Gout attack Qualifiers: Gout site: unspecified site Gout etiology: unspecified cause Qualified Code(s): M10.9 - Gout, unspecified Disposition: Home, Self-Care Condition on Discharge: Good Instructions: Gout, DI for Gout, Colchicine Additional Instructions: Take medication as prescribed take 2 tablets now then one tablet in one hour may repeat in 3 days (72 hours) if still having symptoms Follow up with your Family Doctor Make sure to let the [facility] clinic know you was seen and treated for GOUT Return if needed Straight to ER If any life threatening symptoms Prescriptions: Colchicine [Colcrys 0.6mg tablet] 0.6 mg PO DIRECTED #6 tab Transmission Status: Received by [facility][id number] Referrals: Janusz Ernst [Primary Care Provider] - As needed Time of Disposition: 14:18 Medical Decision Making - Alonso Inquiry Pt receiving controlled substance: No Alonso was queried for this patient: No Vital Signs: 03/09/21 12:30 03/09/21 14:27 Temperature 98.4 F 98.4 F Temperature Source Oral Pulse Rate 74 Pulse Rate [Right Brachial] 74 Respiratory Rate 17 17 Blood Pressure 124/62 Blood Pressure [Right Arm] 124/62 Blood Pressure Mean [Right Arm] 82 Blood Pressure Source [Right Arm] Automatic Cuff Blood Pressure Position [Right Arm] Sitting 02 Sat by Pulse Oximetry 99 Oxygen Delivery Method Room Air - Lab Data Lab results reviewed: Yes: I reviewed the patient's lab results. Lab Results 03/09/21 13:35: Uric Acid 9.5 H Orders (Tests/Meds): ED MEDICATIONS Discontinued Medications Generic Name Dose Route Start Last Admin Trade Name Laura PRN Reason Stop Dose Admin Methylprednisolone Sodium Succinate 125 mg 03/09/21 14:10 03/09/21 14:15 Methylprednisolone Sod Succ 125mg Vial IM 03/09/21 14:11 125 mg ONCE ONE Administration Medical Decision Narrative: Medication was discussed with pharmacy [facility] [place] - General Stated complaint: possible cellulitis rt foot Time Seen by Provider: 03/09/21 13:15 Mode of Arrival: Ambulatory Source of Information: Patient Limitations: No Limitations Description of Symptoms (Recalled from Triage Doc. by RN): PATIENT C/O RIGHT FOOT PAIN (POSSIBLE CELLULITIS) SINCE LAST NIGHT HEENT Symptoms (Recalled from RN notes): No Resp Symptoms (Recalled from RN notes): No Skin Symptoms (Recalled from RN notes): No MS Symptoms (Recalled from RN notes): Yes Functional Status (Recalled from RN notes): WNL - History of Present Illness Provider Complaint: Patient states that she has been having pain and redness in her right foot around the joint on her right great toe since last night states that she recently had cellulitis in her left foot that was similar in pain and redness so she came in to get checked - Related Data Home Medications Medication Instructions Recorded Confirmed levothyroxine 125 mcg tablet 125 mcg PO DAILY 30 Days #30 tab 08/18/18 02/20/21 lisinopril 20 mg tablet 20 mg PO DAILY 08/18/18 02/20/21 oxybutynin chloride 10 mg 10 mg PO DAILY 90 Days #90 tab 08/18/18 02/20/21 tablet,extended release 24 hr potassium chloride 10 mEq 10 meq PO DAILYP PRN 08/18/18 02/20/21 capsule,extended release tramadol 50 mg tablet 50 mg PO TIDP PRN 20 Days #20 tab 08/18/18 02/20/21 Cyclobenzaprine HCl 5 mg PO TIDP PRN 11/30/18 02/20/21 [Cyclobenzaprine 10mg Tab*] warfarin 5 mg tablet 2.5 mg PO QTUTHSASU tab 01/09/20 02/20/21 estradiol 10 mcg vaginal tablet 10 mcg VAGINAL .COMPLEX tab 07/31/20 02/20/21 warfarin 5 mg tablet 5 mg PO DIRECTED tab 12/26/20 02/20/21 Previous Rx's Medication Instructions Recorded metoprolol succinate 100 mg 100 mg PO DAILY #90 tab 08/09/20 tablet,extended release 24 hr furosemide 20 mg tablet 20 mg PO DAILY #90 tab 01/03/21 predniSONE [Prednisone 20mg 20 mg PO BID 4 Days #8 tab 02/16/21 Tab] clindamycin HCL [Clindamycin HCl] 300 mg PO TID 10 Days #30
[2021-03-09 13:52] LABS: Uric Acid 9.5 mg/dl (2.5-6.2)
[2021-03-09 14:27] VITALS: BP 124/62; PULSE 74; RESP 17; TEMP 36.9; O2SAT 99
== END 2021-03-09 14:30 | disposition home or self-care (01) ==
PROVIDERS: Emergency Provider Nurse Practitioner; PCP Internal Medicine
DX: M10.071 Idiopathic gout, right ankle and foot (principal); I48.91 Unspecified atrial fibrillation; E78.5 Hyperlipidemia, unspecified; I10 Essential (primary) hypertension; E03.9 Hypothyroidism, unspecified
CPT/HCPCS: G0463; 84550; 96372; 99202

== ENCOUNTER → 2021-03-19 10:54 | Outpatient (CLI) | payer MEDICARE, SELFPAY | PROVIDERS: PCP Internal Medicine; Visit Provider Specialist | DX: G47.33 Obstructive sleep apnea (adult) (pediatric) (principal) | CPT/HCPCS: G0399 ==

== ENCOUNTER 2021-03-27 14:10 | Outpatient (CLI) | payer MEDICARE, SELFPAY ==
[2021-03-27 15:02] LABS: PHA INR Fingerstick 2.1 (0.9-1.1)
== END 2021-03-27 15:04 | disposition home or self-care (01) ==
LOC: ACC 14:11
PROVIDERS: PCP Internal Medicine; Visit Provider Nurse Practitioner Family
DX: Z51.81 Encounter for therapeutic drug level monitoring (principal); Z79.01 Long term (current) use of anticoagulants; I48.91 Unspecified atrial fibrillation
CPT/HCPCS: 85610; 99211; G0463

== ENCOUNTER → 2021-03-31 10:20 | Outpatient (CLI) | payer MEDICARE, SELFPAY ==
[2021-03-31 10:57] LABS: Basophils # 0.1 K/mm3 (0-0.2); Basophils % 1.3 % (0.1-2.0); Eosinophils # 0.2 K/mm3 (0.0-0.4); Eosinophils % 3.1 % (0.1-12.0); Hemoglobin 13.2 g/dL (12.2-16.2); Lymphocytes # 1.6 K/mm3 (0.7-4.5); Lymphocytes % 30.7 % (10-50); Mean Corpuscular HGB Conc 31.6 g/dL (31.8-35.4); Mean Corpuscular Hemoglobin 31.2 pg (27.0-31.2); Mean Corpuscular Volume 98.7 fl (81-99); Mean Platelet Volume 9.1 fl (7.4-10.4); Monocytes # 0.3 K/mm3 (0.1-1.0); Neutrophils # 3.2 K/mm3 (1.8-7.8); Neutrophils % 59.9 % (37.0-80.0); Platelet Count 269 K/mm3 (142-424); Red Blood Count 4.25 M/mm3 (4.20-5.40); Red Cell Distribution Width 14.1 % (11.5-17.5); White Blood Count 5.3 K/mm3 (4.8-10.8)
[2021-03-31 11:46] LABS: Alanine Aminotransferase 24 U/L (12-78); Albumin Level 4.2 g/dl (3.5-5.0); Alkaline Phosphatase 92 U/L (38-126); Aspartate Amino Transferase 40 U/L (14-36); Bilirubin,Direct 0.2 mg/dl (0.0-0.4); Bilirubin,Indirect 0.9 mg/dL (0.0-0.9); Bilirubin,Total 1.1 mg/dl (0.2-1.3); Bilirubin,Unconjugated 0.9 mg/dL (0.0-1.1); Chol/HDL Ratio 2.8 (1-3.5); Cholesterol 149 mg/dl (140-200); HDL Cholesterol 54 mg/dl (40-60); Total Protein,Serum 7.1 g/dl (6.3-8.2); Triglycerides 76 mg/dl (30-150); VLDL Cholesterol 15 mg/dL (0-40)
[2021-03-31 11:57] LABS: Direct LDL Cholesterol 83.52 mg/dL (100-129)
[2021-03-31 11:57] LABS: Alanine Aminotransferase 24 U/L (12-78); Albumin Level 4.2 g/dl (3.5-5.0); Albumin/Globulin Ratio 1.4 (1.1-1.8); Alkaline Phosphatase 90 U/L (38-126); Anion Gap 12.4 mEq/L (5-15); Aspartate Amino Transferase 45 U/L (14-36); Bilirubin,Total 1.1 mg/dl (0.2-1.3); Blood Urea Nitrogen 13 mg/dl (7-17); Calcium 8.8 mg/dl (8.4-10.2); Carbon Dioxide 27 mmol/L (22.0-30.0); Chloride 105 mmol/L (98-107); Estimated Glomerular Filt Rate 72 ml/min (>60); GFR (African American) 87 ML/MIN (>60); Glucose 81 mg/dl (74-100); Potassium 4.4 mmoL/L (3.5-5.1); Sodium 140 mmol/L (136-145); Total Protein,Serum 7.2 g/dl (6.3-8.2)
[2021-03-31 12:29] LABS: Thyroid Stimulating Hormone 2.15 uIU/mL (0.465-4.68)
== END ==
PROVIDERS: Internal Medicine Cardiovascular Disease; Visit Provider Internal Medicine
DX: E66.01 Morbid (severe) obesity due to excess calories (principal); E78.5 Hyperlipidemia, unspecified; G47.33 Obstructive sleep apnea (adult) (pediatric); I48.91 Unspecified atrial fibrillation; R06.02 Shortness of breath; R42 Dizziness and giddiness; R60.9 Edema, unspecified; Z79.01 Long term (current) use of anticoagulants; I10 Essential (primary) hypertension; Z68.42 Body mass index [BMI] 45.0-49.9, adult
CPT/HCPCS: 36415; 80053; 80061; 80076; 84443; 85025

== ENCOUNTER → 2021-04-14 15:05 | Outpatient (CLI) | payer MEDICARE, SELFPAY ==
[2021-04-14 17:46] LABS: 25-OH Vitamin D, Total 41.8 ng/mL (30-100)
[2021-04-14 17:53] LABS: Vitamin B12 658 pg/mL (239-931)
[2021-04-14 17:55] LABS: Folate 6.21 ng/mL
== END ==
PROVIDERS: Visit Provider Internal Medicine
DX: R53.83 Other fatigue (principal); E66.9 Obesity, unspecified; Z68.42 Body mass index [BMI] 45.0-49.9, adult
CPT/HCPCS: 36415; 82306; 82607; 82746

== ENCOUNTER → 2021-04-29 12:43 | Outpatient (CLI) | payer MEDICARE, SELFPAY ==
[2021-04-29 13:35] VITALS: PULSE 89; PULSE 93
--- NOTE | 2021-04-29 14:02 | CT_ITS ---
PROCEDURE: CT CHEST WO CON CLINICAL INDICATION: Nodule COMPARISON: CT CT HEART W CALCIUM SCORE from 01/13/2021 TECHNIQUE: Axial images obtained with sagittal and coronal reformats. All CT scans at the facility use one or more dose reduction, viz: automated exposure control, ma/kV adjustment per patient size (including targeted exams where dose is matched to indication, i.e. head), or iterative reconstruction technique. FINDINGS: HEART AND MEDIASTINAL STRUCTURES: Cardiomegaly. No mediastinal or hilar mass or adenopathy. LUNGS AND PLEURAL SPACES: Irregular opacity is present in the right upper lobe anteriorly consistent with scarring. Scarring also noted in the right lower lobe. A 5 x 2 mm subpleural opacity is present in the right upper lobe laterally. Linear areas of increased density are present in the lung bases and in the lingula and right middle lobe suggesting areas of scarring. Mild thickening of the right major fissure. 5 x 4 mm nodule noncalcified in the left lower lobe corresponding to the abnormality noted on the on the coronary artery calcium score exam. BONY STRUCTURES: Thoracic scoliosis convex left with degenerative changes in the thoracic spine. UPPER ABDOMEN: Prior gastric bypass. ADDITIONAL FINDINGS: No other significant abnormalities. IMPRESSION: Scattered areas of scarring. Asymmetric irregular density right upper lobe which may also represent scarring. 5 x 4 mm noncalcified nodule left lower lobe. Suggest [address] follow-up to confirm short term stability. Dictated by: Yuri Wen MD 05/03/2021 11:40 Yuri Wen MD in [place] 05/03/2021 11:40
== END ==
PROVIDERS: PCP Internal Medicine; Visit Provider Internal Medicine Pulmonary Disease
DX: R91.8 Other nonspecific abnormal finding of lung field
CPT/HCPCS: 71250; 94060; 94640; 94727; 94729

== ENCOUNTER 2021-05-06 14:39 | Outpatient (CLI) | payer MEDICARE, SELFPAY ==
--- NOTE | 2021-05-06 14:43 | MM_ITS ---
PROCEDURE INFORMATION: Exam: MG Left Diagnostic Breast Tomosynthesis Exam date and time: 05/06/2021 2:43 PM Age: 66 years old Clinical indication: Patient recalled for further evaluation of questionable partially calcified mass in the left lateral breast TECHNIQUE: Imaging protocol: Left Diagnostic tomosynthesis and 2D mammography including computer-aided detection (CAD) when performed. Unilateral or bilateral exam. COMPARISON: 1. MG MM DIG SCREENING MAMM BI W/CAD 12/05/2020 3:34 PM 2. MG MAGDALENA BILATERAL SCREENING 11/07/2018 3:36 PM FINDINGS: MAMMOGRAPHY: Repeat imaging of the left breast including in the 90 degree lateral and CC view as well as magnification views of the left lateral breast do not demonstrate any suspicious findings. No suspicious masses. No clustered calcifications are seen. The 0.3 cm left lateral mass seen on screening mammography dated November 2020 contains fat on the current examination, consistent with a benign lymph node IMPRESSION: No mammographic evidence of malignancy. Annual bilateral mammographic screening is recommended in November 2021 unless otherwise clinically indicated. ASSESSMENT: BI-RADS Category 2: Benign
[2021-05-06 16:30] LABS: PHA INR Fingerstick 1.7 (0.9-1.1)
== END 2021-05-06 16:32 | disposition home or self-care (01) ==
PROVIDERS: Nurse Practitioner Family; PCP Internal Medicine; Visit Provider Internal Medicine
DX: R92.8 Other abnormal and inconclusive findings on diagnostic imaging of breast (principal); R92.1 Mammographic calcification found on diagnostic imaging of breast; Z51.81 Encounter for therapeutic drug level monitoring; Z79.01 Long term (current) use of anticoagulants; I48.91 Unspecified atrial fibrillation
CPT/HCPCS: 77061; 77065; 85610; 99211; G0279; G0463

== ENCOUNTER → 2021-06-09 11:25 | Outpatient (CLI) | payer MEDICARE, SELFPAY ==
--- NOTE | 2021-06-09 11:50 | ECG_ITS ---
APPROVED REPORT Exam: Resting ECG HR:71 bpm ECG Measurements Heart Rate 71 AXES QRSd 84 QRS 65 QT 374 T 25 QTc 406 Conclusion Atrial fibrillation Abnormal ECG Electronically signed by : Farshad Gallego MD 06/10/2021 19:57:20
[2021-06-09 12:11] LABS: Basophils # 0.1 K/mm3 (0-0.2); Basophils % 1.6 % (0.1-2.0); Eosinophils # 0.2 K/mm3 (0.0-0.4); Eosinophils % 3.5 % (0.1-12.0); Lymphocytes # 1.6 K/mm3 (0.7-4.5); Lymphocytes % 29.5 % (10-50); Mean Corpuscular Hemoglobin 30.3 pg (27.0-31.2); Mean Corpuscular Volume 97.9 fl (81-99); Mean Platelet Volume 8.8 fl (7.4-10.4); Monocytes # 0.3 K/mm3 (0.1-1.0); Monocytes % 5.8 % (1.7-9.3); Neutrophils # 3.3 K/mm3 (1.8-7.8); Neutrophils % 59.7 % (37.0-80.0); Platelet Count 239 K/mm3 (142-424); Red Blood Count 4.29 M/mm3 (4.20-5.40); Red Cell Distribution Width 14.3 % (11.5-17.5); White Blood Count 5.5 K/mm3 (4.8-10.8)
[2021-06-09 12:20] LABS: Prothrombin Time 15.4 seconds (10.1-12.5)
[2021-06-09 12:34] LABS: Chloride 105 mmol/L (98-107); Potassium 4.3 mmoL/L (3.5-5.1); Sodium 141 mmol/L (136-145)
[2021-06-09 12:37] LABS: Anion Gap 11.3 mEq/L (5-15); Blood Urea Nitrogen 21 mg/dl (7-17); Carbon Dioxide 29 mmol/L (22.0-30.0); Estimated Glomerular Filt Rate 55 ml/min (>60); GFR (African American) 67 ML/MIN (>60)
[2021-06-09 12:38] LABS: Calcium 8.5 mg/dl (8.4-10.2); Glucose 90 mg/dl (74-100)
== END ==
PROVIDERS: PCP Internal Medicine; Visit Provider Otolaryngology
DX: Z11.52 Encounter for screening for COVID-19; J34.2 Deviated nasal septum; Z51.81 Encounter for therapeutic drug level monitoring; Z79.01 Long term (current) use of anticoagulants; Z01.818 Encounter for other preprocedural examination
CPT/HCPCS: 36415; 80048; 85025; 85610; 93005; C9803; U0003; U0005

== ENCOUNTER 2021-06-10 06:33 | Day surgery (SDC) | payer MEDICARE, SELFPAY ==
[2021-06-06 14:24] VITALS: BMI 46.0
[2021-06-10] VITALS (11 sets, daily range): BP systolic 113–174; BP diastolic 67–98; PULSE 70–94; RESP 12–18; TEMP 36.2–36.8; O2SAT 93–100
--- NOTE | 2021-06-10 07:39 | SUR.PREOP ---
Dr. Membreno made aware of PT/INR @ this time
--- NOTE | 2021-06-10 09:06 | HMH.ANESCL ---
[facility] Anesthesia Checklist - Patient Identification Patient Identification: Arm Band, Verbal (Name & ) - Structural Data Admitted From: Home Planned Operative Procedure/s: Septoplasty Revision Consent for Planned Operative Procedure(s) Verified: Yes Verified Documents: Surgical Consent - NPO Status Verified Time NPO: 00:00 - Chart Verification Results Verified: CBC, BMP, PT, PTT, INR - Additional verifications Anesthesia Reactions: No Hx Blood Transfusions: No Blood Transfusion Reaction: No - Airway Assessment C-Spine Mobility Assessed: Yes TMJ Mobility Assessed: Yes Dentition: Good Dentition - Neurological Assessment Level of Consciousness: Awake, Alert, Appropriate - Anesthesia Plan Anesthesia Risk discussed: Yes ASA Class: III Anesthesia Type: General [facility] History I have reviewed the patient's past medical history: Yes Medical History: Reports:: Arrhythmia, Atrial Fibrillation, Hyperlipidemia, Hypertension Denies:: Cancer, Diabetes Mellitus Type 1, Diabetes Mellitus Type 2, Internal Pacemaker, MRSA, Seizures *Have you ever received a pneumonia vaccine?: Yes *Have you received a flu vaccine this season?: Yes Other Medical History: Reports: Arthritis, Hypothyroidism, Thyroid Disease, Other. Denies: Blood Transfusion Reaction Anesthesia experience/problems:: none Other Surgeries: Yes: No Previous Surgery, Bariatric Surgery, Cholecystectomy, Colonoscopy, Hysterectomy-Total, Hysterectomy-Partial, Sinus Surgery, Other. No: Pacemaker Amputation: No Fractures: No - *Social History Last grade of school completed: Advanced degree Smoking Status: Never smoker Alcohol Intake: current Alcohol Intake Frequency:: 0-2 drinks per day Substance Use Type: denies use *Occupational Status:: retired Housing: house Household Members: significant other *Travel in the last 8 weeks: None Family Hx:: Cancer, Coronary Artery Disease, Heart Attack, Hypertension
--- NOTE | 2021-06-10 10:51 | HMH.ANESI ---
[facility] Anesthesia Record Part I Intake, IV Amount: 1,000 Estimated blood loss (mL): 20 Urine output (mL): 0 Blood Pressure: 174/98 SaO2: 93 Pulse Rate: 94 Respiratory Rate: 18 Temperature: 98.2 F Patient is:: Drowsy Stable to PACU at:: 10:49
--- NOTE | 2021-06-10 10:53 | HMH.OPNOTE ---
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 The nose was then prepped and draped in the usual sterile fashion and then a columellar incision made and extended along the inferior border of the lower lateral cartilage bilaterally and then skin and soft tissue elevated off the columella, nasal tip, nasal dorsum, and lower lateral cartilages. The medial crura were then divided at midline and dissection performed down to the cartilaginous septum. Cartilaginous septum was mobilized and brought back over the midline maxillary crest and a portion of the cartilaginous septum harvested for use as a sld inclusion teacher graft. The mucoperichondrial flaps were returned to anatomic position and held in place with a 5-0 chromic horizontal mattress suture. Previously harvested cartilage was then fashioned into sld inclusion teacher grafts and submucosal pockets created between the medial border of the upper lateral cartilage and the dorsal edge of the cartilaginous septum and this was done bilaterally. The sld inclusion teacher grafts were then interposed between the medial border of the upper lateral cartilage and the dorsal edge of the cartilaginous septum and secured in place with 6-0 Prolene horizontal mattress sutures and this again was done bilaterally. The skin and soft tissues were then redraped over the nasal skeleton and internal nasal incisions closed with 5-0 chromic and columellar incision closed with 6-0 nylon. Attention was then drawn to the inferior turbinates. Submucosal resection of the redundant soft tissue of the inferior turbinates was performed using a microdebrider and turbinate blade through an anterior stab incision. This was done bilaterally. Mccurdy splints were then placed on the septum and secured to the columella using 3-0 nylon. Steri-Strips were placed externally to help the skin redraped over the nasal skeleton and the procedure concluded. All counts correct. Blood loss was 50 mL. Patient was sent to recovery in stable condition. Condition: stable Disposition: PACU Complications:: none
--- NOTE | 2021-06-10 14:31 | P.PN_ITS ---
[facility] Anesthesia Record Part II Discharge Time: 11:19 Destination: Surgical Day Care (OP Surgery) PACU nurse assessment reviewed?: Yes Patient Condition:: Good Anesthesia Complications:: None Swallowing reflex intact?: Yes Cyanosis?: No Blood Pressure: 140/76 Pulse Rate: 72 Temperature: 97.1 F Mental Status: Alert & Oriented Pain level:: 1 Nausea and/or vomitting:: None Intake, IV Amount: 0
== END 2021-06-10 12:20 | disposition home or self-care (01) ==
LOC: OR 06:35
PROVIDERS: PCP Internal Medicine; Visit Provider Otolaryngology
PROC: (CPT 30520; principal; 2021-06-10 08:00)
DX: J34.2 Deviated nasal septum (principal); K14.8 Other diseases of tongue; J34.89 Other specified disorders of nose and nasal sinuses; G47.33 Obstructive sleep apnea (adult) (pediatric); I49.9 Cardiac arrhythmia, unspecified; I48.91 Unspecified atrial fibrillation; E78.5 Hyperlipidemia, unspecified; I10 Essential (primary) hypertension; M19.90 Unspecified osteoarthritis, unspecified site; E03.9 Hypothyroidism, unspecified; Z79.01 Long term (current) use of anticoagulants; Z79.899 Other long term (current) drug therapy
CPT/HCPCS: 15769; 30140; 30465; 30520; 96374; J2405; J2710

== ENCOUNTER 2021-06-20 13:03 | Outpatient (CLI) | payer MEDICARE, SELFPAY ==
[2021-06-20 13:34] LABS: PHA INR Fingerstick 1.5 (0.9-1.1)
== END 2021-06-20 13:38 | disposition home or self-care (01) ==
LOC: ACC 13:04
PROVIDERS: PCP Internal Medicine; Visit Provider Nurse Practitioner Family
DX: Z51.81 Encounter for therapeutic drug level monitoring (principal); Z79.01 Long term (current) use of anticoagulants; I48.91 Unspecified atrial fibrillation
CPT/HCPCS: 85610; 99211; G0463

== ENCOUNTER → 2021-07-17 21:07 | Outpatient (CLI) | payer MEDICARE, SELFPAY | PROVIDERS: PCP Internal Medicine; Visit Provider Specialist | DX: G47.30 Sleep apnea, unspecified (principal); R06.83 Snoring | CPT/HCPCS: 95810 ==

== ENCOUNTER 2021-07-18 13:04 | Outpatient (CLI) | payer MEDICARE, SELFPAY ==
[2021-07-18 14:21] LABS: PHA INR Fingerstick 2.1 (0.9-1.1)
== END 2021-07-18 14:43 | disposition home or self-care (01) ==
LOC: ACC 13:04
PROVIDERS: PCP Internal Medicine; Visit Provider Nurse Practitioner Family
DX: Z51.81 Encounter for therapeutic drug level monitoring (principal); Z79.01 Long term (current) use of anticoagulants; I48.91 Unspecified atrial fibrillation
CPT/HCPCS: 85610; 99211; G0463

== ENCOUNTER 2021-08-29 10:39 | Outpatient (CLI) | payer MEDICARE, SELFPAY ==
[2021-08-29 11:05] LABS: PHA INR Fingerstick 2.3 (0.9-1.1)
== END 2021-08-29 11:07 | disposition home or self-care (01) ==
LOC: ACC 10:40
PROVIDERS: PCP Internal Medicine; Visit Provider Nurse Practitioner Family
DX: Z51.81 Encounter for therapeutic drug level monitoring (principal); Z79.01 Long term (current) use of anticoagulants; I48.91 Unspecified atrial fibrillation
CPT/HCPCS: 85610; 99211; G0463

== ENCOUNTER → 2021-09-25 12:52 | Outpatient (CLI) | payer MEDICARE, SELFPAY ==
[2021-09-25 13:34] LABS: Basophils # 0.1 K/mm3 (0-0.2); Basophils % 1.9 % (0.1-2.0); Eosinophils # 0.1 K/mm3 (0.0-0.4); Hematocrit 41.5 % (37.0-47.0); Hemoglobin 13.2 g/dL (12.2-16.2); Lymphocytes # 1.1 K/mm3 (0.7-4.5); Lymphocytes % 25.5 % (10-50); Mean Corpuscular HGB Conc 31.8 g/dL (31.8-35.4); Mean Corpuscular Hemoglobin 30.4 pg (27.0-31.2); Mean Corpuscular Volume 95.7 fl (81-99); Mean Platelet Volume 9.2 fl (7.4-10.4); Monocytes # 0.3 K/mm3 (0.1-1.0); Neutrophils # 2.8 K/mm3 (1.8-7.8); Neutrophils % 63.7 % (37.0-80.0); Platelet Count 217 K/mm3 (142-424); Red Blood Count 4.33 M/mm3 (4.20-5.40); Red Cell Distribution Width 14.4 % (11.5-17.5); White Blood Count 4.4 K/mm3 (4.8-10.8)
[2021-09-25 13:42] LABS: INR 1.77 (0.9-1.1); Prothrombin Time 19.2 seconds (10.1-12.5)
[2021-09-25 13:47] LABS: Hemoglobin A1C 5.7 % (4.0-6.0)
[2021-09-25 13:56] LABS: Alanine Aminotransferase 21 U/L (12-78); Albumin Level 3.9 g/dl (3.5-5.0); Albumin/Globulin Ratio 1.6 (1.1-1.8); Alkaline Phosphatase 101 U/L (38-126); Anion Gap 9.5 mEq/L (5-15); Aspartate Amino Transferase 36 U/L (14-36); Bilirubin,Total 0.7 mg/dl (0.2-1.3); Blood Urea Nitrogen 10 mg/dl (7-17); Carbon Dioxide 30 mmol/L (22.0-30.0); Chloride 106 mmol/L (98-107); Cholesterol 177 mg/dl (140-200); Estimated Glomerular Filt Rate 72 ml/min (>60); GFR (African American) 87 ML/MIN (>60); Globulin 2.5 g/dL (1.3-3.2); Glucose 98 mg/dl (74-100); HDL Cholesterol 44 mg/dl (40-60); Magnesium 1.9 mg/dl (1.6-2.3); Potassium 4.5 mmoL/L (3.5-5.1); Sodium 141 mmol/L (136-145); Total Protein,Serum 6.4 g/dl (6.3-8.2); Triglycerides 98 mg/dl (30-150); VLDL Cholesterol 20 mg/dL (0-40)
[2021-09-25 15:03] LABS: Vitamin B12 464 pg/mL (239-931)
[2021-09-25 15:20] LABS: Creatinine,Urine Random 49 mg/dL (Not Estab.); Microalbumin < 6.000 mg/L (0-16.7)
[2021-09-25 15:28] LABS: Folate 6.11 ng/mL
== END ==
PROVIDERS: PCP Nurse Practitioner Family; Visit Provider Internal Medicine
DX: I10 Essential (primary) hypertension (principal); E78.5 Hyperlipidemia, unspecified; E03.9 Hypothyroidism, unspecified; R53.83 Other fatigue; R73.9 Hyperglycemia, unspecified; Z79.899 Other long term (current) drug therapy; Z51.81 Encounter for therapeutic drug level monitoring; Z79.01 Long term (current) use of anticoagulants
CPT/HCPCS: 36415; 80053; 80061; 82043; 82570; 82607; 82746; 83036; 83735; 84443; 85025; 85610

== ENCOUNTER 2021-10-22 13:06 | Outpatient (CLI) | payer MEDICARE, SELFPAY ==
[2021-10-22 14:08] LABS: PHA INR Fingerstick 3.2 (0.9-1.1)
== END 2021-10-22 14:09 | disposition home or self-care (01) ==
LOC: ACC 13:06
PROVIDERS: PCP Internal Medicine; Visit Provider Nurse Practitioner Family
DX: Z51.81 Encounter for therapeutic drug level monitoring (principal); Z79.01 Long term (current) use of anticoagulants; I48.91 Unspecified atrial fibrillation
CPT/HCPCS: 85610; 99211; G0463

== ENCOUNTER 2021-11-13 13:35 | Outpatient (CLI) | payer MEDICARE, SELFPAY ==
[2021-11-13 14:33] LABS: PHA INR Fingerstick 2.4 (0.9-1.1)
== END 2021-11-13 14:40 | disposition home or self-care (01) ==
LOC: ACC 13:36
PROVIDERS: PCP Internal Medicine; Visit Provider Nurse Practitioner Family
DX: Z51.81 Encounter for therapeutic drug level monitoring (principal); Z79.01 Long term (current) use of anticoagulants; I48.91 Unspecified atrial fibrillation
CPT/HCPCS: 85610; 99211; G0463

== ENCOUNTER 2021-12-05 10:00 | Outpatient (CLI) | payer MEDICARE, SELFPAY ==
[2021-12-05 15:52] LABS: PHA INR Fingerstick 2.7 (0.9-1.1)
== END 2021-12-05 16:00 | disposition home or self-care (01) ==
LOC: ACC 10:01
PROVIDERS: PCP Internal Medicine; Visit Provider Nurse Practitioner Family
DX: Z51.81 Encounter for therapeutic drug level monitoring (principal); Z79.01 Long term (current) use of anticoagulants; I48.91 Unspecified atrial fibrillation
CPT/HCPCS: 85610; 99211; G0463

== ENCOUNTER → 2021-12-12 14:12 | Outpatient (CLI) | payer MEDICARE, SELFPAY | PROVIDERS: PCP Internal Medicine; Visit Provider Urology | DX: R31.9 Hematuria, unspecified (principal); Z01.812 Encounter for preprocedural laboratory examination; Z20.822 Contact with and (suspected) exposure to COVID-19 | CPT/HCPCS: C9803; U0003; U0005 ==

== ENCOUNTER 2021-12-15 08:16 | Day surgery (SDC) | payer MEDICARE, SELFPAY ==
[2021-12-10 11:03] VITALS: BMI 45.1
[2021-12-15 08:30] VITALS: BP 157/79; PULSE 71; RESP 18; TEMP 36.4; O2SAT 100
[2021-12-15 09:37] VITALS: BP 131/74; PULSE 61; RESP 18; TEMP 36.6; O2SAT 100
--- NOTE | 2021-12-15 11:49 | HMH.OPNOTE ---
Date of procedure: 12/15/21 Pre-op Diagnosis:: Gross hematuria Post-op Diagnosis:: Gross hematuria Procedure performed:: Cystoscopy Surgeon:: Kamran Mejia MD Anesthesia: local Estimated blood loss (mL): 0 Clinical Note:: 66-year-old white female with 2-day history of gross hematuria over a month ago. The hematuria lasted a couple of days and then resolved. CT scan showed no evidence of stones, obstruction or masses. She denies any gross hematuria prior to or since then. She is on Coumadin therapy for atrial fibrillation. She presents today for cystoscopic evaluation. Operative findings:: No evidence of bladder abnormalities on cystoscopy today. Operative note:: Patient taken to the cystoscopy suite after informed consent was obtained. On the stretcher she was placed in the frog-leg position and prepped draped in the standard surgical fashion. 2% lidocaine placed into the urethra and after 5 minutes the flexible cystoscope introduced into the urethral meatus. It passed into the bladder without difficulty and the bladder examined in a systematic fashion. There is no evidence of mucosal abnormalities, stones, diverticula or trabeculation. The ureteral orifices in their normal anatomic position with clear efflux of urine. Scope was retroflexed showing a normal bladder neck. The the urethra was examined as the scope was removed. There is no evidence of any urethral abnormalities. Vaginal examination showed no evidence of external lesions. The urethral meatus appeared normal. Patient tolerated procedure well no complications. We discussed the normal findings today. She was counseled to return if her hematuria should recur. Condition: stable Disposition: same day Specimens:: None Complications:: None
== END 2021-12-15 09:47 | disposition home or self-care (01) ==
LOC: OUTP 08:18
PROVIDERS: PCP Internal Medicine; Visit Provider Urology
DX: R31.0 Gross hematuria (principal); I10 Essential (primary) hypertension; I48.91 Unspecified atrial fibrillation; E78.00 Pure hypercholesterolemia, unspecified; E03.9 Hypothyroidism, unspecified; Z79.01 Long term (current) use of anticoagulants; Z79.899 Other long term (current) drug therapy
CPT/HCPCS: 52000

== ENCOUNTER → 2022-01-06 15:51 | Outpatient (CLI) | payer MEDICARE, SELFPAY ==
--- NOTE | 2022-01-06 15:54 | MM_ITS ---
PROCEDURE INFORMATION: Exam: MG Bilateral Screening 3D Mammography Exam date and time: 01/06/2022 3:55 PM Age: 66 years old Clinical indication: Screening examination TECHNIQUE: Imaging protocol: Bilateral Screening tomosynthesis and 2D mammography including computer-aided detection (CAD) when performed. COMPARISON: 1. MG MM DIG MAMM DX UNILAT LT CAD 05/06/2021 2:56 PM 2. MG MM DIG SCREENING MAMM BI W/CAD 12/05/2020 3:34 PM 3. MG MAGDALENA BILATERAL SCREENING 11/07/2018 3:36 PM FINDINGS: MAMMOGRAPHY: Breast composition: There are scattered areas of fibroglandular density. Mass: No suspicious mass. Architectural distortion: None. Calcifications: No suspicious calcifications. Asymmetric density: None. Skin thickening: None. Axillary adenopathy: None. IMPRESSION: No mammographic evidence of malignancy. Annual screening is recommended unless otherwise clinically indicated. ASSESSMENT: BI-RADS Category 1: Negative
== END ==
PROVIDERS: PCP Internal Medicine; Visit Provider Internal Medicine
DX: Z12.31 Encounter for screening mammogram for malignant neoplasm of breast (principal)
CPT/HCPCS: 77063; 77067

== ENCOUNTER 2022-01-16 10:07 | Outpatient (CLI) | payer MEDICARE, SELFPAY ==
[2022-01-16 15:20] LABS: PHA INR Fingerstick 2.1 (0.9-1.1)
== END 2022-01-16 15:25 ==
LOC: ACC 10:08
PROVIDERS: PCP Internal Medicine; Visit Provider Nurse Practitioner Family
DX: Z51.81 Encounter for therapeutic drug level monitoring (principal); Z79.01 Long term (current) use of anticoagulants; I48.91 Unspecified atrial fibrillation
CPT/HCPCS: 85610; 99211; G0463

== ENCOUNTER → 2022-02-09 15:28 | Outpatient (CLI) | payer MEDICARE, SELFPAY ==
--- NOTE | 2022-02-09 15:29 | CT_ITS ---
FINAL REPORT TECHNIQUE: Axial imaging of the chest was obtained without contrast. Reformatted images were also obtained and reviewed.This study was performed with techniques to keep radiation doses as low as reasonably achievable, (ALARA). Individualized dose reduction technique using automated exposure control or adjustment of mA and/or kV according to the patient's size were employed. CLINICAL HISTORY: 9-month follow-up, January [address] chest COMPARISON: 04/29/2021 FINDINGS: There is no axillary adenopathy. There is no hilar or mediastinal mass or adenopathy. Heart size is normal. There is no pericardial or pleural effusion. Limited images of the upper abdomen are unremarkable. Linear scarring in the anterior right upper lobe is un changed best seen on images 50 6-61 of series 3. There is a stable, 5 mm nodule in the posterior left lower lobe seen on image 152 of series 3. There is also a stable nodule at the major fissure on image number 62 of series 3. Scarring at the right lung base is unchanged. No new mass or nodule is identified. IMPRESSION: Stable pulmonary nodules as above. Reviewed, Interpreted and Dictated by Mark Sewell MD Transcribed by Yvonne Balderrama Authenticated and [facility]
== END ==
PROVIDERS: PCP Internal Medicine; Visit Provider Internal Medicine Pulmonary Disease
DX: R91.8 Other nonspecific abnormal finding of lung field (principal)
CPT/HCPCS: 71250

== ENCOUNTER → 2022-02-14 10:21 | Outpatient (CLI) | payer MEDICARE, SELFPAY ==
[2022-02-14 11:44] LABS: Uric Acid 8.4 mg/dl (2.5-6.2)
== END ==
PROVIDERS: PCP Internal Medicine; Visit Provider Internal Medicine
DX: M10.9 Gout, unspecified (principal)
CPT/HCPCS: 36415; 84550

== ENCOUNTER 2022-02-14 11:59 | Emergency (ER) | payer MEDICARE, SELFPAY ==
[2022-02-14 12:09] VITALS: BP 136/82; PULSE 73; RESP 16; TEMP 36.9; O2SAT 100; BMI 45.1
--- NOTE | 2022-02-14 12:18 | EXP.UTC ---
Discharge Plan Disposition Patient Disposition: Home, Self-Care Condition: Good Prescriptions Prescriptions: New colchicine 0.6 mg capsule 0.6 mg PO DAILY Qty: 3 0RF Rx Instructions: Take colchicine 1.2 mg (2 tablets) on the first day, then take 0.6 mg (1 tablet) on day 2. No Action budesonide-formoterol [Symbicort] 160-4.5 mcg/actuation HFA aerosol inhaler 2 puff inhalation BID 90 Days Qty: 10.2 3RF levothyroxine 125 mcg tablet 125 mcg PO DAILY 30 Days Qty: 30 oxybutynin chloride 10 mg tablet extended release 24hr 10 mg PO DAILY 90 Days Qty: 90 potassium chloride 10 mEq capsule, extended release 10 meq PO DAILYP PRN (Reason: SUPPLEMENT) Rx Instructions: take when taking lasix lisinopril 20 mg tablet 20 mg PO DAILY tramadol 50 mg tablet 50 mg PO NEEDED PRN (Reason: PAIN) 20 Days Qty: 20 warfarin 5 mg tablet 5 mg PO DAILY Rx Instructions: TAKE ONE TABLET BY MOUTH EVERY , F metoprolol succinate 100 mg tablet extended release 24 hr 100 mg PO DAILY Qty: 90 3RF furosemide 20 mg tablet See Rx Instructions .ROUTE .COMPLEX Qty: 90 3RF Dose Instruction: TAKE ONE TABLET BY MOUTH EVERY DAY FOR fluid Rx Instructions: TAKE ONE TABLET BY MOUTH EVERY DAY FOR fluid warfarin 5 mg tablet 2.5 mg PO .COMPLEX Rx Instructions: 2.5 mg PO; takes tues,thurs sat,sun Referrals Follow up/Referrals: Janusz Ernst [Primary Care Provider] - See instructions Activity Restrictions/Add. Instructions Additional Instructions/Restrictions: Rest the extremity and try to stay off of it as much as possible for the next couple of days, Elevate the extremity as tolerated while you are resting. Drink plenty of fluids to keep the medicine and uric acid circulating through your system and clearing out through your kidneys. Take the medications as directed. I recommend you don't start the colchicine until tomorrow. The steroid shot we gave you usually will clear up a gout flare by its self. But, if you don't have a big improvement by tomorrow then start it. Follow up with your regular doctor. GO TO THE ER FOR ANY WORSENING SYMPTOMS Clinical Impressions Clinical Impression: Gout attack, Acute foot pain Instructions Patient Instructions: Gout, DI for Gout, Triamcinolone Topical, Colchicine Discharge ED Provider: Adryan Dobson [facility] General Stated complaint: right big toe pain Mode of Arrival: Ambulatory Source of Information: Patient Limitations: No Limitations Time Seen by Provider: 02/14/22 12:20 Description of Symptoms (Recalled from Triage Doc. by RN): pt comes in with c/o gout in right big toe. pt sstates that she had blood work done by pcp, pt here for medication to help with discomfort from gout attack. HEENT Symptoms (Recalled from RN notes): No Resp Symptoms (Recalled from RN notes): No Skin Symptoms (Recalled from RN notes): No MS Symptoms (Recalled from RN notes): Yes Functional Status (Recalled from RN notes): n/a History of Present Illness Provider Complaint: She states that she has had right foot pain at the joint at the base of her great toe since yesterday. She has a known history of gout and she states that this is a normal flare up of her gout symptoms. She denies history of diabetes. She denies any injury. She has had a uric acid level that was ordered by her pcp yesterday in [place] that she states the results of was 8.6. Her pcp is not in today to treat her symptoms. She denies any other joint pain. Related Data Home Medications Medication Instructions Recorded Confirmed levothyroxine 125 mcg tablet 125 mcg PO DAILY THYROID 30 days 08/18/18 02/11/22 #30 tabs lisinopril 20 mg tablet 20 mg PO DAILY BLOOD PRESSURE 08/18/18 02/11/22 oxybutynin chloride 10 mg 10 mg PO DAILY BLADDER 90 days #90 08/18/18 02/11/22 tablet,extended release 24 hr tabs potassium chloride 10 mEq 10 meq PO DAILYP [place]
[2022-02-14 12:43] VITALS: BP 136/82; PULSE 73; RESP 16; TEMP 36.9
== END 2022-02-14 12:49 | disposition home or self-care (01) ==
PROVIDERS: Emergency Provider Nurse Practitioner Family; PCP Internal Medicine
DX: M10.9 Gout, unspecified (principal)
CPT/HCPCS: 36415; 84550; 96372; 99212; G0463

== ENCOUNTER 2022-03-02 13:04 | Outpatient (CLI) | payer MEDICARE, SELFPAY ==
[2022-03-02 14:56] LABS: PHA INR Fingerstick 1.7 (0.9-1.1)
== END 2022-03-02 15:05 ==
LOC: ACC 13:07
PROVIDERS: Visit Provider Nurse Practitioner Family
DX: Z51.81 Encounter for therapeutic drug level monitoring (principal); Z79.01 Long term (current) use of anticoagulants; I48.91 Unspecified atrial fibrillation
CPT/HCPCS: 85610; 99211; G0463

== ENCOUNTER → 2022-03-30 11:26 | Outpatient (CLI) | payer MEDICARE, SELFPAY ==
[2022-03-30 12:06] LABS: Basophils # 0.1 K/mm3 (0-0.2); Basophils % 1.3 % (0.1-2.0); Eosinophils # 0.1 K/mm3 (0.0-0.4); Eosinophils % 2.6 % (0.1-12.0); Hematocrit 42.6 % (37.0-47.0); Hemoglobin 13.8 g/dL (12.2-16.2); Lymphocytes # 1.3 K/mm3 (0.7-4.5); Lymphocytes % 24.2 % (10-50); Mean Corpuscular HGB Conc 32.3 g/dL (31.8-35.4); Mean Corpuscular Hemoglobin 29.5 pg (27.0-31.2); Mean Corpuscular Volume 91.2 fl (81-99); Mean Platelet Volume 8.2 fl (7.4-10.4); Monocytes # 0.3 K/mm3 (0.1-1.0); Monocytes % 5.4 % (1.7-9.3); Neutrophils # 3.7 K/mm3 (1.8-7.8); Neutrophils % 66.6 % (37.0-80.0); Platelet Count 277 K/mm3 (142-424); Red Blood Count 4.67 M/mm3 (4.20-5.40); Red Cell Distribution Width 15.6 % (11.5-17.5); White Blood Count 5.6 K/mm3 (4.8-10.8)
[2022-03-30 12:23] LABS: Amphetamine/Metha Screen,Urine Negative ng/ml (<1000); Barbiturates Screen,Urine Negative ng/ml (<200)
[2022-03-30 12:24] LABS: Benzodiazepines Screen,Urine Negative ng/ml (<200)
[2022-03-30 12:25] LABS: Cannabinoid Screen,Urine Negative ng/ml (<50); Cocaine Screen,Urine Negative ng/ml (<300)
[2022-03-30 12:26] LABS: Methadone Screen,Urine Negative ng/ml (<300)
[2022-03-30 12:27] LABS: Opiate Screen,Urine Negative ng/ml (<300); Phencyclidine Screen,Urine Negative ng/ml (<25)
[2022-03-30 12:29] LABS: Alanine Aminotransferase 22 U/L (12-78); Albumin Level 3.7 g/dl (3.5-5.0); Albumin/Globulin Ratio 1.3 (1.1-1.8); Alkaline Phosphatase 123 U/L (38-126); Anion Gap 10.6 mEq/L (5-15); Aspartate Amino Transferase 36 U/L (14-36); Bilirubin,Total 0.7 mg/dl (0.2-1.3); Blood Urea Nitrogen 18 mg/dl (7-17); Calcium 9.3 mg/dl (8.4-10.2); Carbon Dioxide 30 mmol/L (22.0-30.0); Chloride 102 mmol/L (98-107); Chol/HDL Ratio 4.2 (1-3.5); Cholesterol 195 mg/dl (140-200); Estimated Glomerular Filt Rate 72 ml/min (>60); GFR (African American) 87 ML/MIN (>60); Globulin 2.8 g/dL (1.3-3.2); Glucose 95 mg/dl (74-100); HDL Cholesterol 46 mg/dl (40-60); Magnesium 1.8 mg/dl (1.6-2.3); Potassium 4.6 mmoL/L (3.5-5.1); Sodium 138 mmol/L (136-145); Total Protein,Serum 6.5 g/dl (6.3-8.2); Triglycerides 82 mg/dl (30-150); VLDL Cholesterol 16 mg/dL (0-40)
[2022-03-30 12:32] LABS: INR 1.69 (0.9-1.1); Prothrombin Time 17.7 seconds (10.1-12.5)
[2022-03-30 12:39] LABS: Direct LDL Cholesterol 125.99 mg/dL (100-129)
[2022-03-30 13:00] LABS: Thyroid Stimulating Hormone 1.01 uIU/mL (0.465-4.68)
== END ==
PROVIDERS: Nurse Practitioner Family; PCP Internal Medicine; Visit Provider Internal Medicine
DX: I10 Essential (primary) hypertension (principal); E78.5 Hyperlipidemia, unspecified; E03.9 Hypothyroidism, unspecified; Z51.81 Encounter for therapeutic drug level monitoring; Z79.01 Long term (current) use of anticoagulants; Z79.899 Other long term (current) drug therapy
CPT/HCPCS: 36415; 80053; 80061; 80305; 83735; 84443; 85025; 85610

== ENCOUNTER 2022-05-14 09:13 | Outpatient (CLI) | payer MEDICARE, SELFPAY ==
[2022-05-14 15:36] LABS: PHA INR Fingerstick 2.2 (0.9-1.1)
== END 2022-05-14 15:37 ==
LOC: ACC 09:14
PROVIDERS: PCP Internal Medicine; Visit Provider Nurse Practitioner Family
DX: Z51.81 Encounter for therapeutic drug level monitoring (principal); Z79.01 Long term (current) use of anticoagulants; I48.91 Unspecified atrial fibrillation
CPT/HCPCS: 85610; 99211; G0463

== ENCOUNTER 2022-06-25 10:14 | Outpatient (CLI) | payer MEDICARE, SELFPAY ==
[2022-06-25 10:48] LABS: PHA INR Fingerstick 2.1 (0.9-1.1)
== END 2022-06-25 10:50 ==
LOC: ACC 10:15
PROVIDERS: PCP Internal Medicine; Visit Provider Nurse Practitioner Family
DX: Z51.81 Encounter for therapeutic drug level monitoring (principal); Z79.01 Long term (current) use of anticoagulants; I48.91 Unspecified atrial fibrillation
CPT/HCPCS: 85610; 99211; G0463

== ENCOUNTER 2022-08-06 10:22 | Outpatient (CLI) | payer MEDICARE, SELFPAY ==
[2022-08-06 10:49] LABS: PHA INR Fingerstick 2.2 (0.9-1.1)
== END 2022-08-06 10:51 ==
LOC: ACC 10:23
PROVIDERS: PCP Internal Medicine; Visit Provider Nurse Practitioner Family
DX: Z51.81 Encounter for therapeutic drug level monitoring (principal); Z79.01 Long term (current) use of anticoagulants; I48.91 Unspecified atrial fibrillation
CPT/HCPCS: 85610; 99211; G0463

== ENCOUNTER 2022-09-17 10:09 | Outpatient (CLI) | payer MEDICARE, SELFPAY ==
[2022-09-17 11:57] LABS: PHA INR Fingerstick 2.7 (0.9-1.1)
== END 2022-09-17 12:05 ==
LOC: ACC 10:10
PROVIDERS: PCP Internal Medicine; Visit Provider Nurse Practitioner Family
DX: Z51.81 Encounter for therapeutic drug level monitoring (principal); Z79.01 Long term (current) use of anticoagulants; I48.91 Unspecified atrial fibrillation
CPT/HCPCS: 85610; 99211; G0463

== ENCOUNTER → 2022-09-30 12:07 | Outpatient (CLI) | payer MEDICARE, SELFPAY ==
[2022-09-30 12:53] LABS: Basophils % 0.7 % (0.1-2.0); Eosinophils # 0.1 K/mm3 (0.0-0.4); Eosinophils % 2.8 % (0.1-12.0); Hematocrit 42.8 % (37.0-47.0); Hemoglobin 13.6 g/dL (12.2-16.2); Lymphocytes # 1.4 K/mm3 (0.7-4.5); Lymphocytes % 27.1 % (10-50); Mean Corpuscular HGB Conc 31.8 g/dL (31.8-35.4); Mean Corpuscular Hemoglobin 29.2 pg (27.0-31.2); Mean Platelet Volume 8.2 fl (7.4-10.4); Monocytes # 0.3 K/mm3 (0.1-1.0); Monocytes % 6.6 % (1.7-9.3); Neutrophils # 3.2 K/mm3 (1.8-7.8); Neutrophils % 62.8 % (37.0-80.0); Platelet Count 261 K/mm3 (142-424); Red Blood Count 4.65 M/mm3 (4.20-5.40); Red Cell Distribution Width 14.2 % (11.5-17.5); White Blood Count 5.1 K/mm3 (4.8-10.8)
[2022-09-30 13:13] LABS: Barbiturates Screen,Urine Negative ng/ml (<200); Benzodiazepines Screen,Urine Negative ng/ml (<200)
[2022-09-30 13:14] LABS: Amphetamine/Metha Screen,Urine Negative ng/ml (<1000)
[2022-09-30 13:15] LABS: Cocaine Screen,Urine Negative ng/ml (<300); Methadone Screen,Urine Negative ng/ml (<300)
[2022-09-30 13:16] LABS: Cannabinoid Screen,Urine Negative ng/ml (<50); Opiate Screen,Urine Negative ng/ml (<300)
[2022-09-30 13:17] LABS: Phencyclidine Screen,Urine Negative ng/ml (<25)
[2022-09-30 13:26] LABS: Alanine Aminotransferase 24 U/L (12-78); Albumin Level 3.9 g/dl (3.5-5.0); Albumin/Globulin Ratio 1.3 (1.1-1.8); Alkaline Phosphatase 107 U/L (38-126); Anion Gap 15.7 mEq/L (5-15); Aspartate Amino Transferase 45 U/L (14-36); Bilirubin,Total 0.8 mg/dl (0.2-1.3); Blood Urea Nitrogen 14 mg/dl (7-17); Calcium 8.9 mg/dl (8.4-10.2); Carbon Dioxide 28 mmol/L (22.0-30.0); Chloride 100 mmol/L (98-107); Chol/HDL Ratio 3.9 (1-3.5); Cholesterol 217 mg/dl (140-200); Estimated Glomerular Filt Rate 62 ml/min (>60); GFR (African American) 75 ML/MIN (>60); Globulin 3.1 g/dL (1.3-3.2); Glucose 95 mg/dl (74-100); HDL Cholesterol 55 mg/dl (40-60); Potassium 4.7 mmoL/L (3.5-5.1); Sodium 139 mmol/L (136-145); Triglycerides 82 mg/dl (30-150); Uric Acid 8.3 mg/dl (2.5-6.2); VLDL Cholesterol 16 mg/dL (0-40)
[2022-09-30 13:37] LABS: Direct LDL Cholesterol 141.03 mg/dL (100-129)
[2022-09-30 13:56] LABS: Thyroid Stimulating Hormone 1.42 uIU/mL (0.465-4.68)
== END ==
PROVIDERS: PCP Internal Medicine; Visit Provider Internal Medicine
DX: I10 Essential (primary) hypertension (principal); E78.5 Hyperlipidemia, unspecified; E03.9 Hypothyroidism, unspecified; M10.9 Gout, unspecified; Z79.899 Other long term (current) drug therapy
CPT/HCPCS: 36415; 80053; 80061; 80305; 84443; 84550; 85025

== ENCOUNTER 2022-10-29 10:08 | Outpatient (CLI) | payer MEDICARE, SELFPAY ==
[2022-10-29 11:38] LABS: PHA INR Fingerstick 2.6 (0.9-1.1)
== END 2022-10-29 11:54 ==
LOC: ACC 10:09
PROVIDERS: PCP Internal Medicine; Visit Provider Nurse Practitioner Family
DX: Z51.81 Encounter for therapeutic drug level monitoring (principal); Z79.01 Long term (current) use of anticoagulants; I48.91 Unspecified atrial fibrillation
CPT/HCPCS: 85610; 99211; G0463

== ENCOUNTER → 2022-11-03 16:05 | Outpatient (CLI) | payer MEDICARE, SELFPAY | PROVIDERS: PCP Internal Medicine; Visit Provider Internal Medicine | DX: M79.671 Pain in right foot (principal) | CPT/HCPCS: 36415; 84550 ==

== ENCOUNTER 2022-11-03 16:18 | Emergency (ER) | payer MEDICARE, SELFPAY ==
[2022-11-03 16:18] VITALS: BP 157/72; PULSE 77; RESP 18; TEMP 36.6; O2SAT 100; BMI 48.4
--- NOTE | 2022-11-03 16:40 | EXP.UTC ---
Discharge Plan Disposition Patient Disposition: Home, Self-Care Condition: Good Prescriptions Prescriptions: New colchicine 0.6 mg capsule 0.6 mg PO Q1H Qty: 3 0RF Rx Instructions: Take 2 tablets (1.2 mg) po now, then take 1 tablet (0.6 mg) 1 hour afterwards. No Action budesonide-formoterol [Symbicort] 160-4.5 mcg/actuation HFA aerosol inhaler 2 puff inhalation BID 90 Days Qty: 10.2 3RF allopurinol 100 mg tablet 100 mg PO DAILY Label Comments: TAKE ONE TABLET BY MOUTH EVERY DAY levothyroxine 125 mcg tablet 125 mcg PO DAILY 30 Days Qty: 30 oxybutynin chloride 10 mg tablet extended release 24hr 10 mg PO DAILY 90 Days Qty: 90 potassium chloride 10 mEq capsule, extended release 10 meq PO DAILYP PRN (Reason: SUPPLEMENT) Rx Instructions: take when taking lasix lisinopril 20 mg tablet 20 mg PO DAILY tramadol 50 mg tablet 50 mg PO NEEDED PRN (Reason: PAIN) 20 Days Qty: 20 furosemide 20 mg tablet See Rx Instructions .ROUTE .COMPLEX Qty: 90 3RF Dose Instruction: TAKE ONE TABLET BY MOUTH EVERY DAY FOR fluid Rx Instructions: TAKE ONE TABLET BY MOUTH EVERY DAY FOR fluid metoprolol succinate 100 mg tablet extended release 24 hr 100 mg PO DAILY Qty: 90 3RF warfarin 5 mg tablet 5 mg PO DAILY Qty: 60 2RF Rx Instructions: TAKE ONE TABLET BY MOUTH EVERY M, W F warfarin 5 mg tablet 2.5 mg PO .COMPLEX Rx Instructions: 2.5 mg PO; takes tues,thurs sat,sun Referrals Follow up/Referrals: Janusz Ernst [Primary Care Provider] - See instructions Activity Restrictions/Add. Instructions Additional Instructions/Restrictions: Take the medications as directed. Follow up with your regular doctor. GO TO THE ER FOR ANY WORSENING SYMPTOMS Clinical Impressions Clinical Impression: Gout attack Discharge ED Provider: Adryan Dobson [facility] General Stated complaint: right foot pain/swollen, no accident Mode of Arrival: Ambulatory Source of Information: Patient Limitations: No Limitations Time Seen by Provider: 11/03/22 16:40 Description of Symptoms (Recalled from Triage Doc. by RN): Patient reports right swollen painful foot since last night. HEENT Symptoms (Recalled from RN notes): No Resp Symptoms (Recalled from RN notes): No Skin Symptoms (Recalled from RN notes): No MS Symptoms (Recalled from RN notes): Yes Functional Status (Recalled from RN notes): wnl History of Present Illness Provider Complaint: She c/o right foot pain for the past 3 days. She has a history of gout and thinks that is what's happening now. Related Data Home Medications Medication Instructions Recorded Confirmed levothyroxine 125 mcg tablet 125 mcg PO DAILY THYROID 30 days 08/18/18 07/31/22 #30 tabs lisinopril 20 mg tablet 20 mg PO DAILY BLOOD PRESSURE 08/18/18 07/31/22 oxybutynin chloride 10 mg 10 mg PO DAILY BLADDER 90 days #90 08/18/18 07/31/22 tablet,extended release 24 hr tabs potassium chloride 10 mEq 10 meq PO DAILYP PRN SUPPLEMENT 08/18/18 07/31/22 capsule,extended release tramadol 50 mg tablet 50 mg PO NEEDED PRN PAIN 20 08/18/18 07/31/22 days #20 tabs warfarin 5 mg tablet 2.5 mg PO .COMPLEX AFIB 04/02/21 07/31/22 allopurinol 100 mg tablet 100 mg PO DAILY 07/31/22 07/31/22 Previous Rx's Medication Instructions Recorded furosemide 20 mg tablet See Rx Instructions .Route 01/05/22 .COMPLEX #90 tabs budesonide-formoterol HFA 160 2 puff inhalation BID 90 days 02/11/22 mcg-4.5 mcg/actuation aerosol #10.2 grams inhaler (Symbicort) metoprolol succinate 100 mg 100 mg PO DAILY BLOOD PRESSURE #90 08/11/22 tablet,extended release 24 hr tabs warfarin 5 mg tablet 5 mg PO DAILY Blood thinner #60 09/03/22 tabs colchicine 0.6 mg capsule 0.6 mg PO Q1H #3 caps 11/03/22 Allergies Allergy/AdvReac Type Severity Reaction Status Date / Time No Known Allergies Allergy Verified 07/31/22 10:46 Work
[2022-11-03 16:50] LABS: Basophils % 0.6 % (0.1-2.0); Eosinophils # 0.2 K/mm3 (0.0-0.4); Hematocrit 42.1 % (37.0-47.0); Hemoglobin 12.7 g/dL (12.2-16.2); Lymphocytes # 1.3 K/mm3 (0.7-4.5); Lymphocytes % 17.3 % (10-50); Mean Corpuscular HGB Conc 30.1 g/dL (31.8-35.4); Mean Corpuscular Hemoglobin 28.2 pg (27.0-31.2); Mean Corpuscular Volume 93.6 fl (81-99); Mean Platelet Volume 8.5 fl (7.4-10.4); Monocytes # 0.4 K/mm3 (0.1-1.0); Monocytes % 5.8 % (1.7-9.3); Neutrophils # 5.3 K/mm3 (1.8-7.8); Neutrophils % 73.3 % (37.0-80.0); Platelet Count 257 K/mm3 (142-424); Red Cell Distribution Width 14.5 % (11.5-17.5); White Blood Count 7.2 K/mm3 (4.8-10.8)
[2022-11-03 17:25] VITALS: BP 157/72; PULSE 77; RESP 18; TEMP 36.6; O2SAT 100
== END 2022-11-03 17:27 | disposition home or self-care (01) ==
PROVIDERS: Emergency Provider Nurse Practitioner Family; PCP Internal Medicine
DX: M10.071 Idiopathic gout, right ankle and foot (principal); J45.30 Mild persistent asthma, uncomplicated
CPT/HCPCS: 36415; 84550; 85025; 96372; 99212; 99214; G0463

== ENCOUNTER 2022-12-16 10:11 | Outpatient (CLI) | payer MEDICARE, SELFPAY ==
[2022-12-16 12:07] LABS: Basophils % 0.6 % (0.1-2.0); Eosinophils # 0.2 K/mm3 (0.0-0.4); Eosinophils % 2.7 % (0.1-12.0); Hematocrit 41.7 % (37.0-47.0); Hemoglobin 12.9 g/dL (12.2-16.2); Lymphocytes # 1.3 K/mm3 (0.7-4.5); Lymphocytes % 19.3 % (10-50); Mean Corpuscular HGB Conc 30.8 g/dL (31.8-35.4); Mean Corpuscular Hemoglobin 28.1 pg (27.0-31.2); Mean Corpuscular Volume 91.3 fl (81-99); Mean Platelet Volume 8.9 fl (7.4-10.4); Monocytes # 0.4 K/mm3 (0.1-1.0); Neutrophils # 4.8 K/mm3 (1.8-7.8); Neutrophils % 71.5 % (37.0-80.0); Platelet Count 228 K/mm3 (142-424); Red Blood Count 4.57 M/mm3 (4.20-5.40); Red Cell Distribution Width 14.5 % (11.5-17.5); White Blood Count 6.7 K/mm3 (4.8-10.8)
[2022-12-16 12:27] LABS: Chloride 101 mmol/L (98-107); Potassium 4.3 mmoL/L (3.5-5.1); Sodium 139 mmol/L (136-145)
[2022-12-16 12:29] LABS: Blood Urea Nitrogen 13 mg/dl (7-17); Estimated Glomerular Filt Rate 62 ml/min (>60); GFR (African American) 75 ML/MIN (>60)
[2022-12-16 12:30] LABS: Alanine Aminotransferase 20 U/L (12-78); Albumin Level 3.8 g/dl (3.5-5.0); Albumin/Globulin Ratio 1.2 (1.1-1.8); Alkaline Phosphatase 116 U/L (38-126); Anion Gap 12.3 mEq/L (5-15); Aspartate Amino Transferase 35 U/L (14-36); Bilirubin,Total 0.8 mg/dl (0.2-1.3); Calcium 9.4 mg/dl (8.4-10.2); Carbon Dioxide 30 mmol/L (22.0-30.0); Globulin 3.2 g/dL (1.3-3.2); Glucose 90 mg/dl (74-100)
[2022-12-16 12:31] LABS: Uric Acid 7.5 mg/dl (2.5-6.2)
[2022-12-16 13:42] LABS: PHA INR Fingerstick 3.1 (0.9-1.1)
== END 2022-12-16 13:44 ==
PROVIDERS: Nurse Practitioner Family; PCP Internal Medicine; Visit Provider Nurse Practitioner Family
DX: Z79.01 Long term (current) use of anticoagulants (principal); M10.9 Gout, unspecified; Z51.81 Encounter for therapeutic drug level monitoring; I48.91 Unspecified atrial fibrillation
CPT/HCPCS: 36415; 80053; 84550; 85025; 85610; 99211; G0463

== ENCOUNTER 2023-01-13 10:14 | Outpatient (CLI) | payer MEDICARE, SELFPAY ==
[2023-01-13 11:03] LABS: PHA INR Fingerstick 3.7 (0.9-1.1)
== END 2023-01-13 11:04 ==
LOC: ACC 10:14
PROVIDERS: PCP Nurse Practitioner Family; Visit Provider Nurse Practitioner Family
DX: Z79.01 Long term (current) use of anticoagulants (principal); Z51.81 Encounter for therapeutic drug level monitoring; I48.91 Unspecified atrial fibrillation
CPT/HCPCS: 85610; 99211; G0463

== ENCOUNTER 2023-02-10 10:28 | Outpatient (CLI) | payer MEDICARE, SELFPAY ==
[2023-02-10 14:06] LABS: PHA INR Fingerstick 3.1 (0.9-1.1)
== END 2023-02-10 14:08 ==
LOC: ACC 10:30
PROVIDERS: PCP Nurse Practitioner Family; Visit Provider Nurse Practitioner Family
DX: Z79.01 Long term (current) use of anticoagulants (principal); Z51.81 Encounter for therapeutic drug level monitoring; I48.91 Unspecified atrial fibrillation
CPT/HCPCS: 85610; 99211; G0463

== ENCOUNTER 2023-03-11 10:31 | Outpatient (CLI) | payer MEDICARE, SELFPAY ==
[2023-03-11 14:17] LABS: PHA INR Fingerstick 2.2 (0.9-1.1)
== END 2023-03-11 14:19 ==
LOC: ACC 10:33
PROVIDERS: PCP Nurse Practitioner Family; Visit Provider Nurse Practitioner Family
DX: Z79.01 Long term (current) use of anticoagulants (principal); Z51.81 Encounter for therapeutic drug level monitoring; I48.91 Unspecified atrial fibrillation
CPT/HCPCS: 85610; 99211; G0463

== ENCOUNTER → 2023-04-02 09:56 | Outpatient (CLI) | payer MEDICARE, SELFPAY ==
[2023-04-02 10:06] LABS: Microscopic, Urine URINE MICROSCOPIC (MICROSCOPIC)
[2023-04-02 11:06] LABS: INR 1.43 (0.9-1.1); Prothrombin Time 15.1 seconds (10.1-12.5)
[2023-04-02 11:12] LABS: Alanine Aminotransferase 21 U/L (12-78); Albumin Level 4.2 g/dl (3.5-5.0); Albumin/Globulin Ratio 1.4 (1.1-1.8); Alkaline Phosphatase 95 U/L (38-126); Anion Gap 15.5 mEq/L (5-15); Aspartate Amino Transferase 42 U/L (14-36); Bilirubin,Total 0.7 mg/dl (0.2-1.3); Blood Urea Nitrogen 15 mg/dl (7-17); Calcium 9.3 mg/dl (8.4-10.2); Carbon Dioxide 27 mmol/L (22.0-30.0); Chloride 102 mmol/L (98-107); Chol/HDL Ratio 4.1 (1-3.5); Cholesterol 199 mg/dl (140-200); Estimated Glomerular Filt Rate 55 ml/min (>60); GFR (African American) 67 ML/MIN (>60); Globulin 3.1 g/dL (1.3-3.2); Glucose 103 mg/dl (74-100); HDL Cholesterol 48 mg/dl (40-60); Potassium 4.5 mmoL/L (3.5-5.1); Sodium 140 mmol/L (136-145); Total Protein,Serum 7.3 g/dl (6.3-8.2); Triglycerides 104 mg/dl (30-150); Uric Acid 5.5 mg/dl (2.5-6.2); VLDL Cholesterol 21 mg/dL (0-40)
[2023-04-02 11:23] LABS: Direct LDL Cholesterol 118.65 mg/dL (100-129)
[2023-04-02 11:29] LABS: Free T4 (Free Thyroxine) 1.67 ng/dl (0.78-2.19)
[2023-04-02 11:42] LABS: Thyroid Stimulating Hormone 4.58 uIU/mL (0.465-4.68)
[2023-04-02 11:52] LABS: Basophils # 0.1 K/mm3 (0-0.2); Eosinophils # 0.3 K/mm3 (0.0-0.4); Eosinophils % 4.3 % (0.1-12.0); Hematocrit 41.2 % (37.0-47.0); Hemoglobin 13.7 g/dL (12.2-16.2); Lymphocytes # 1.7 K/mm3 (0.7-4.5); Lymphocytes % 27.5 % (10-50); Mean Corpuscular HGB Conc 33.2 g/dL (31.8-35.4); Mean Corpuscular Hemoglobin 31.3 pg (27.0-31.2); Mean Corpuscular Volume 94.4 fl (81-99); Mean Platelet Volume 8.9 fl (7.4-10.4); Monocytes # 0.3 K/mm3 (0.1-1.0); Monocytes % 4.4 % (1.7-9.3); Neutrophils # 3.8 K/mm3 (1.8-7.8); Neutrophils % 62.8 % (37.0-80.0); Platelet Count 229 K/mm3 (142-424); Red Blood Count 4.36 M/mm3 (4.20-5.40); Red Cell Distribution Width 15.2 % (11.5-17.5)
[2023-04-02 13:37] LABS: Opiate Screen,Urine Negative ng/ml (<300)
[2023-04-02 13:38] LABS: Phencyclidine Screen,Urine Negative ng/ml (<25)
[2023-04-02 13:39] LABS: Amphetamine/Metha Screen,Urine Negative ng/ml (<1000)
[2023-04-02 13:40] LABS: Barbiturates Screen,Urine Negative ng/ml (<200); Benzodiazepines Screen,Urine Negative ng/ml (<200)
[2023-04-02 13:43] LABS: Appearance,Urine CLEAR (Clear); Bilirubin,Urine Negative (Negative); Blood, Urine TRACE-I (Negative); Cannabinoid Screen,Urine Negative ng/ml (<50); Color,Urine YELLOW (Yellow); Glucose,Urine (UA) Negative (Negative); Ketones,Urine Negative (Negative); Leukocyte Esterase,Urine 3+ (Negative); Nitrate,Urine Negative (Negative); PH,Urine 6.5 (5.0-8.5); Protein,Urine Negative (Negative); Urobilinogen,Urine 0.2 EU/dl (0.2)
[2023-04-02 13:44] LABS: Cocaine Screen,Urine Negative ng/ml (<300); Methadone Screen,Urine Negative ng/ml (<300)
[2023-04-02 13:59] LABS: Bacteria,Urine 1+ /lpf; RBC,Urine Occasional #/hpf (0-3)
== END ==
PROVIDERS: Nurse Practitioner Family; PCP Nurse Practitioner Family; Visit Provider Nurse Practitioner Family
DX: E78.5 Hyperlipidemia, unspecified (principal); I10 Essential (primary) hypertension; E03.9 Hypothyroidism, unspecified; M10.9 Gout, unspecified; N39.0 Urinary tract infection, site not specified; B96.89 Other specified bacterial agents as the cause of diseases classified elsewhere; Z79.891 Long term (current) use of opiate analgesic; Z79.01 Long term (current) use of anticoagulants
CPT/HCPCS: 36415; 80053; 80061; 80305; 81001; 84155; 84439; 84443; 84550; 85025; 85610; 87086

== ENCOUNTER 2023-04-23 13:33 | Outpatient (CLI) | payer MEDICARE, SELFPAY ==
--- NOTE | 2023-04-23 13:34 | CT_ITS ---
FINAL REPORT TECHNIQUE: Thin section axial CT images with coronal and sagittal reformats were performed before and after the administration of IV contrast. This study was performed with techniques to keep radiation doses as low as reasonably achievable (ALARA). Individualized dose reduction techniques using automated exposure control or adjustment of mA and/or kV according to the patient's size were employed. CLINICAL HISTORY: bilateral anterior cervical lymphadenopathy COMPARISON: None FINDINGS: CT SOFT TISSUES NECK WITH AND WITHOUT CONTRAST: There is slight artifact from dental fillings. There is opacification of multiple tiny vessels in the most posterior inferior images in the mediastinum, secondary to timing of contrast bolus. Mild scarring is noted in the right lung apex. The nasopharynx, larynx, and oral cavities appear unremarkable. No cervical masses are identified. There are masses in the medial portions of the orbits bilaterally, on the left side measuring 2.2 cm, on the right side measuring 1.9 cm. These were present on a prior CT of the sinuses from 2019. The masses on the left side are calcified, and the degree of calcification has progressed since the prior CT of 2019. These are generally stable in size. IMPRESSION: No focal cervical masses or adenopathy are identified. 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 The overall size of these masses is generally stable. These are of uncertain etiology, and would correlate with clinical history, possibly of malignancy, and ophthalmologic history. Reviewed, Interpreted and Dictated by Mark Sewell MD Transcribed by Irene North Authenticated and [facility]
[2023-04-23 14:59] LABS: PHA INR Fingerstick 2.1 (0.9-1.1)
== END 2023-04-23 15:02 ==
PROVIDERS: Nurse Practitioner Family; PCP Nurse Practitioner Family; Visit Provider Nurse Practitioner Family
DX: R59.0 Localized enlarged lymph nodes (principal); Z79.01 Long term (current) use of anticoagulants; Z51.81 Encounter for therapeutic drug level monitoring; I48.91 Unspecified atrial fibrillation
CPT/HCPCS: 70492; 85610; 99211; G0463; Q9967

== ENCOUNTER 2023-06-04 13:04 | Outpatient (CLI) | payer MEDICARE, SELFPAY ==
[2023-06-04 13:47] LABS: PHA INR Fingerstick 1.5 (0.9-1.1)
== END 2023-06-04 14:30 ==
LOC: ACC 13:05
PROVIDERS: PCP Nurse Practitioner Family; Visit Provider Nurse Practitioner Family
DX: Z79.01 Long term (current) use of anticoagulants (principal); Z51.81 Encounter for therapeutic drug level monitoring; I48.91 Unspecified atrial fibrillation
CPT/HCPCS: 85610; 99211; G0463

== ENCOUNTER 2023-07-02 12:59 | Outpatient (CLI) | payer MEDICARE, SELFPAY ==
[2023-07-02 15:10] LABS: PHA INR Fingerstick 1.9 (0.9-1.1)
== END 2023-07-02 15:29 ==
LOC: ACC 13:00
PROVIDERS: PCP Nurse Practitioner Family; Visit Provider Nurse Practitioner Family
DX: Z79.01 Long term (current) use of anticoagulants (principal); Z51.81 Encounter for therapeutic drug level monitoring; I48.91 Unspecified atrial fibrillation
CPT/HCPCS: 85610; 99211; G0463

== ENCOUNTER 2023-07-30 13:27 | Outpatient (CLI) | payer MEDICARE, SELFPAY | END 2023-07-30 16:11 | LOC: ACC 13:27 | PROVIDERS: PCP Nurse Practitioner Family; Visit Provider Nurse Practitioner Family | DX: Z79.01 Long term (current) use of anticoagulants (principal); Z51.81 Encounter for therapeutic drug level monitoring | CPT/HCPCS: 85610; 99211; G0463 ==

== ENCOUNTER 2023-08-12 14:14 | Outpatient (CLI) | payer MEDICARE, SELFPAY ==
--- NOTE | 2023-08-12 14:15 | CA_ITS ---
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 157.0 (50-130 cm/s) AO Peak GR. 9.80 mmHg AO Mean GR. 5.40 (<5 mmHg) AO VTI 34.6 (18-25 cm) BRITTANEY (VTI) 2.02 (2.5-4.5 cm2) Mitral Valve MV E Max Shane. 106.0 (40-130 cm/s) MV A Velocity 19.0 (40-130 cm/s) E/A Ratio 5.59 MV PHT 58.0 ms Pulmonary Valve PV Peak Velocity 52.0 (50-150 cm/s) Tricuspid Valve TR P. Velocity 270.00 cm/s RAP Estimate 10.00 mmHg RVSP 39.10 mmHg Left Ventricle The left ventricle is normal size. The left ventricular systolic function is mildly reduced. There is normal left ventricular wall thickness. There is mild global hypokinesis present. LVEF is 45%. Diastolic function is indeterminate. Right Ventricle Right ventricle is moderately dilated. Right ventricle is mildly hypokinetic. Atria Left atrium is severely dilated. Right atrium is moderately dilated. There is no Doppler evidence of interatrial shunt. Aortic Valve The aortic valve is mildly thickened. There is no aortic valvular stenosis. Trace aortic regurgitation is present. Mitral Valve The mitral valve leaflets are mildly thickened. No evidence of mitral valve stenosis. Mild mitral regurgitation. Tricuspid Valve The tricuspid valve leaflets are thin and pliable. Moderate tricuspid regurgitation. RVSP is 45-50 mmHg. Pulmonic Valve The pulmonary valve is normal in structure. Trace pulmonic regurgitation. Great Vessels The aortic root is normal in size. The ascending aorta is not well-visualized. The IVC is dilated. The IVC collapses <50% with inspiration. RA pressure is estimated at 15 mmHg. Pericardium There is no pericardial effusion. Other Information Study Quality: Fair Conclusion Mildly reduced LV systolic function (LVEF 45%). Moderate RV dilation with mild reduction in RV function. Biatrial dilation. Mild MR. Moderate TR. RVSP 45-50 mmHg. Electronically signed by : Blanca Negron MD 08/16/2023 12:35:55
== END 2023-08-12 23:59 ==
LOC: RT 14:15
PROVIDERS: PCP Nurse Practitioner Family; Visit Provider Nurse Practitioner Family
DX: I48.20 Chronic atrial fibrillation, unspecified (principal)
CPT/HCPCS: 93306

== ENCOUNTER 2023-08-25 15:08 | Outpatient (CLI) | payer MEDICARE, SELFPAY ==
[2023-08-25 15:30] LABS: Basophils # 0.1 K/mm3 (0-0.2); Basophils % 1.6 % (0.1-2.0); Eosinophils # 0.2 K/mm3 (0.0-0.4); Eosinophils % 4.1 % (0.1-12.0); Hematocrit 41.5 % (37.0-47.0); Hemoglobin 12.5 g/dL (12.2-16.2); Lymphocytes # 1.1 K/mm3 (0.7-4.5); Lymphocytes % 18.9 % (10-50); Mean Corpuscular HGB Conc 30.2 g/dL (31.8-35.4); Mean Corpuscular Hemoglobin 29.1 pg (27.0-31.2); Mean Corpuscular Volume 96.4 fl (81-99); Mean Platelet Volume 9.2 fl (7.4-10.4); Monocytes # 0.3 K/mm3 (0.1-1.0); Monocytes % 4.2 % (1.7-9.3); Neutrophils # 4.2 K/mm3 (1.8-7.8); Neutrophils % 71.2 % (37.0-80.0); Platelet Count 212 K/mm3 (142-424); Red Blood Count 4.31 M/mm3 (4.20-5.40)
[2023-08-25 16:07] LABS: Free T4 (Free Thyroxine) 1.96 ng/dl (0.78-2.19)
[2023-08-25 16:19] LABS: Chloride 107 mmol/L (98-107); Potassium 4.1 mmoL/L (3.5-5.1); Sodium 140 mmol/L (136-145)
[2023-08-25 16:21] LABS: Bilirubin,Unconjugated 0.4 mg/dL (0.0-1.1); Blood Urea Nitrogen 16 mg/dl (7-17); Estimated Glomerular Filt Rate 45 ml/min (>60); GFR (African American) 54 ML/MIN (>60)
[2023-08-25 16:22] LABS: Alanine Aminotransferase 20 U/L (12-78); Alkaline Phosphatase 103 U/L (38-126); Anion Gap 9.1 mEq/L (5-15); Aspartate Amino Transferase 37 U/L (14-36); Bilirubin,Direct 0.2 mg/dl (0.0-0.4); Bilirubin,Indirect 0.4 mg/dL (0.0-0.9); Bilirubin,Total 0.6 mg/dl (0.2-1.3); Calcium 9.1 mg/dl (8.4-10.2); Carbon Dioxide 28 mmol/L (22.0-30.0); Chol/HDL Ratio 3.3 (1-3.5); Cholesterol 179 mg/dl (140-200); Glucose 143 mg/dl (74-100); HDL Cholesterol 55 mg/dl (40-60); Total Protein,Serum 6.7 g/dl (6.3-8.2); Triglycerides 137 mg/dl (30-150); VLDL Cholesterol 27 mg/dL (0-40)
[2023-08-25 16:33] LABS: Direct LDL Cholesterol 100.55 mg/dL (100-129)
[2023-08-25 16:53] LABS: Thyroid Stimulating Hormone 3.65 uIU/mL (0.465-4.68)
== END 2023-08-25 23:59 ==
LOC: LAB 15:09
PROVIDERS: PCP Nurse Practitioner Family; Visit Provider Internal Medicine
DX: I11.0 Hypertensive heart disease with heart failure (principal); I50.20 Unspecified systolic (congestive) heart failure; E03.9 Hypothyroidism, unspecified; E78.2 Mixed hyperlipidemia; Z87.09 Personal history of other diseases of the respiratory system; I48.20 Chronic atrial fibrillation, unspecified
CPT/HCPCS: 36415; 80048; 80061; 80076; 83735; 84439; 84443; 85025

== ENCOUNTER 2023-08-27 11:59 | Outpatient (CLI) | payer MEDICARE, SELFPAY ==
[2023-08-27 11:34] VITALS: BMI 49.0
--- NOTE | 2023-08-27 12:00 | CT_ITS ---
APPROVED REPORT [employer]: CLINICAL INDICATION Chest Pain TECHNIQUE Image Acquisition: A 128 slice MDCT scanner ([employer] View) was used for data acquisition. A noncontrast coronary calcium scan was performed. A CT attenuation threshold of 130 Hounsfield units (HU) was used for the detection of calcium in contiguous voxels of 1 sq mm in area to be counted as individual lesions. Bolus tracking in the ascending aorta with a threshold of 180 HU was performed. Immediately afterwards, ECG synchronized cardiac CT was then performed from the cardiac base to apex using retrospective gating with ECG tube current modulation. A total of 85 mL of Isovue 370 mg/mL contrast medium was administered at 5 mL/sec followed by a saline flush using a biphasic injection protocol. A tube voltage of 120 KVp was used. The patient received the following medications prior to the cardiac CT. 50 mg of oral metoprolol 15 mg of oral ivabradine 0.8 mg of sublingual nitroglycerin The average heart rate at the time of acquisition was 67 bpm and regular. Image Reconstruction Transaxial images were reconstructed at 0.67 mm slide thickness. Data was reviewed interactively on an advanced workstation capable of 2 and 3-dimensional displays in all conventional reconstruction formats, including multiplanar reformations, maximum intensity projections, curved multiplanar reformations, and volume rendered reconstructions. When applicable, selected routine images describing the relevant coronary anatomy and pathology were saved and sent to PACS. Complications None Technical Quality Overall image quality was good. Coronary artery opacification was adequate. Total DLP (Dose-Length Product) is 1889.5 mGy-cm. The reported value represents the total of one or more individual components during the CT acquisition of this date and at this time, and as such, the same value may appear in more than one CT report depending on the interpreting/reporting physicians. COMPARISON CT calcium score from 01/13/[address] Coronary Calcium Scoring LMA (Left Main Artery) = 0 LAD (Left Anterior Descending) = 0 LCX (Left Coronary Circumflex) = 0 RCA (Right Coronary Artery) = 0 Total Calcium Score = 0 using the AJ-130 method. The interpretation of the calcium heart score is based on the following continuum*: 0 = no calcified plaque detected (risk of coronary artery disease is very low ??? less than 5%) 1-10 = calcium detected in extremely minimal levels (risk of coronary diseases is still low ??? less than 10%) 11-100 = mild levels of plaque detected with certainty (mild or minimal narrowing of heart arteries is likely) 101-400 = definite,at least moderate levels of plaque detected (relatively high risk of a heart attack within 3-5 years) >401-999 = extensive levels of plaque detected (high risk of heart attack, high levels of vascular disease are present, high likelihood of at least one significant coronary narrowing) *The calcium heart score quantifies the burden of coronary calcification/plaque in the coronary arteries. The calcium heart score is not able to evaluate the presence or burden of non-calcified (i.e. soft) plaque. There is no mild calcification in the ascending thoracic aorta and the transverse aorta. Coronary CT Angiography The coronary arterial system is right dominant. Quantitative Stenosis Grading: Left Main (LM): The left main originates normally from the left sinus of Valsalva. The LM bifurcates into the left anterior descending artery and left circumflex artery. The LM is patent with no evidence of atherosclerosis. Left Anterior Descending (LAD) and Diagonal Branches: The LAD gives off 3 diagonal branches. The LAD and its branches are patent with no evidence of atherosclerosis. There is no evidence of LAD-myocardial bridge. Left Circumflex (LCX) and Obtuse Marginals (OM): The LCX gives off 2 Obtuse Marginal (OM) branches. The LCX and its branches are patent with no evidence of atherosclerosis. Right Coronary Artery (RCA): The RCA originates normally from the right sinus of Valsalva. The RCA gives off a posterior descending artery (PDA) and posterolateral (PL) branches. The RCA and its branches are patent with no evidence of atherosclerosis. Non-Coronary Cardiac Findings: Analysis of the left ventricular (LV) structure and function was performed after 3-D reconstruction of the LV from axial images, with user-corrected automatic contouring for assessment of LV volumes and user-defined reconstruction from oblique planes for measurement of 3-D cardiac structure and function. -The left ventricle systolic function is normal. -There is incomplete opacification of the distal LA appendage. This may reflect no presence of distal contrast due to the absence of delayed imaging, but cannot entirely rule out ABBY thrombus. Two right pulmonary veins and two left pulmonary veins drain normally into the left atrium. -No pericardial thickening or calcification. -Central and branch pulmonary arteries in the [id number] are unremarkable. -Thoracic aorta within the visualized thoracic aortic-branches in the [id number] is unremarkable. Extracardiac Structures No significant extra-cardiac findings. Note, however, that this study is focused on the cardiac findings. IMPRESSION -No coronary calcification with an Agatston score = 0 using the AJ-130 method. -No evidence of significant flow-limiting atherosclerosis of the coronary arteries. -CAD-RADS 0. Management recommendations per ACC/AHA guidelines*, as clinically appropriate. *Recommendations: CAD RADS 0: Reassurance. Consider non-atherosclerotic causes of chest pain. CAD RADS 1: Consider non-atherosclerotic causes of chest pain. Consider preventive therapy and risk factor modification. CAD RADS 2: Consider non-atherosclerotic causes of chest pain. Consider preventive therapy and risk factor modification, particularly for patients with nonobstructive plaque in multiple segments. CAD RADS 3: Consider further functional testing. Consider symptom-guided anti-ischemic and preventive pharmacotherapy as well as risk factor modification per published guideline statements. CAD RADS 4A: Consider further functional testing or invasive coronary angiography with revascularization per published guideline statements. Consider symptom-guided anti-ischemic and preventive pharmacotherapy as well as risk factor modification per published guideline statements. CAD RADS 4B: Invasive coronary angiography recommended with revascularization per published guideline statements. Consider symptom-guided anti-ischemic and preventive pharmacotherapy as well as risk factor modification per published guideline statements. CAD RADS 5: Consider invasive angiography and/or viability assessment with revascularization per published guideline statements. Consider symptom-guided anti-ischemic and preventive pharmacotherapy as well as risk factor modification per published guideline statements. CRITICAL RESULT None COMMUNICATION Per this written report The coronary and cardiac findings of this CCTA were reviewed, reported, and signed by Stanton Negron MD ([employer]) Conclusion Electronically signed by : Blanca Negron MD 08/31/2023 15:07:49
[2023-08-27 12:33] VITALS: BP 157/81; PULSE 74; RESP 16; TEMP 36.6; O2SAT 100
[2023-08-27] MEDS: IVABRADINE HCL 7.5MG TABLET *IVABRADINE+METOPROLOL REGIMINE 15 MG PO (12:41)
[2023-08-27] MEDS: METOPROLOL TARTRATE 50MG TABLET *IVABRADINE+METOPROLOL REGIMINE 50 MG PO (12:41)
[2023-08-27 13:31] VITALS: BP 159/98; PULSE 65; RESP 16; O2SAT 98
[2023-08-27] MEDS: NITROGLYCERIN 0.4MG SL TABLET 0.800000000000000044 MG SL (13:31)
[2023-08-27 13:36] VITALS: BP 146/79; PULSE 75; RESP 16; O2SAT 98
[2023-08-27 13:41] VITALS: BP 130/77; PULSE 71; RESP 16; O2SAT 98
[2023-08-27 13:45] VITALS: BP 142/79; PULSE 67; RESP 16; O2SAT 98
[2023-08-27 14:00] VITALS: BP 145/83; PULSE 65; RESP 16; O2SAT 100
[2023-08-27] MEDS: IOPAMIDOL-370 (76%);100ML BOTTLE 85 ML IV (14:24)
[2023-08-27] MEDS: 0.9 % SODIUM CHLORIDE 50 ML VIAL IV (14:24)
== END 2023-08-27 14:04 | disposition home or self-care (01) ==
PROVIDERS: PCP Nurse Practitioner Family; Visit Provider Nurse Practitioner
DX: I50.20 Unspecified systolic (congestive) heart failure (principal); R07.9 Chest pain, unspecified; I48.91 Unspecified atrial fibrillation
CPT/HCPCS: 75571; 75574; Q9967

== ENCOUNTER 2023-09-13 13:21 | Outpatient (CLI) | payer MEDICARE, SELFPAY ==
[2023-09-13 13:39] LABS: PHA INR Fingerstick 3.7 (0.9-1.1)
== END 2023-09-13 13:41 ==
LOC: ACC 13:21
PROVIDERS: PCP Nurse Practitioner Family; Visit Provider Nurse Practitioner Family
DX: Z79.01 Long term (current) use of anticoagulants (principal); Z51.81 Encounter for therapeutic drug level monitoring; I48.91 Unspecified atrial fibrillation
CPT/HCPCS: 85610; 99211; G0463

== ENCOUNTER 2023-09-27 13:34 | Outpatient (CLI) | payer MEDICARE, SELFPAY ==
[2023-09-27 15:37] LABS: PHA INR Fingerstick 2.6 (0.9-1.1)
== END 2023-09-27 15:41 ==
LOC: ACC 13:35
PROVIDERS: PCP Nurse Practitioner Family; Visit Provider Nurse Practitioner Family
DX: Z79.01 Long term (current) use of anticoagulants (principal); Z51.81 Encounter for therapeutic drug level monitoring; I48.91 Unspecified atrial fibrillation
CPT/HCPCS: 85610; 99211; G0463

== ENCOUNTER 2023-10-01 09:48 | Outpatient (CLI) | payer MEDICARE, SELFPAY ==
[2023-10-01 09:54] LABS: Microscopic, Urine URINE MICROSCOPIC (MICROSCOPIC)
[2023-10-01 10:23] LABS: Appearance,Urine CLEAR (Clear); Bilirubin,Urine Negative (Negative); Blood, Urine Negative (Negative); Color,Urine YELLOW (Yellow); Glucose,Urine (UA) Negative (Negative); Ketones,Urine Negative (Negative); Leukocyte Esterase,Urine 1+ (Negative); Nitrate,Urine Negative (Negative); Protein,Urine Negative (Negative); Urobilinogen,Urine 0.2 EU/dl (0.2)
[2023-10-01 10:50] LABS: Hemoglobin A1C 5.9 % (4.0-6.0)
[2023-10-01 11:24] LABS: Bacteria,Urine Trace /lpf
[2023-10-01 11:35] LABS: Alanine Aminotransferase 20 U/L (12-78); Albumin Level 3.6 g/dl (3.5-5.0); Albumin/Globulin Ratio 1.2 (1.1-1.8); Alkaline Phosphatase 100 U/L (38-126); Anion Gap 11.4 mEq/L (5-15); Aspartate Amino Transferase 34 U/L (14-36); Bilirubin,Total 0.7 mg/dl (0.2-1.3); Blood Urea Nitrogen 14 mg/dl (7-17); Calcium 8.9 mg/dl (8.4-10.2); Carbon Dioxide 28 mmol/L (22.0-30.0); Chloride 104 mmol/L (98-107); Estimated Glomerular Filt Rate 71 ml/min (>60); GFR (African American) 86 ML/MIN (>60); Globulin 2.9 g/dL (1.3-3.2); Glucose 93 mg/dl (74-100); Potassium 4.4 mmoL/L (3.5-5.1); Sodium 139 mmol/L (136-145); Total Protein,Serum 6.5 g/dl (6.3-8.2); Uric Acid 5.5 mg/dl (2.5-6.2)
[2023-10-01 11:52] LABS: 25-OH Vitamin D, Total 59.2 ng/mL (30-100)
[2023-10-01 12:25] LABS: Vitamin B12 346 pg/mL (239-931)
== END 2023-10-01 23:59 | disposition home or self-care (01) ==
LOC: LAB 09:50
PROVIDERS: PCP Nurse Practitioner Family; Visit Provider Nurse Practitioner Family
DX: E55.9 Vitamin D deficiency, unspecified (principal); M10.9 Gout, unspecified; I10 Essential (primary) hypertension; R60.0 Localized edema; R73.03 Prediabetes; E03.9 Hypothyroidism, unspecified; G47.33 Obstructive sleep apnea (adult) (pediatric); E66.01 Morbid (severe) obesity due to excess calories; Z79.01 Long term (current) use of anticoagulants; Z68.42 Body mass index [BMI] 45.0-49.9, adult
CPT/HCPCS: 36415; 80053; 81001; 82306; 82607; 83036; 84550; 87086

== ENCOUNTER 2023-11-15 13:04 | Outpatient (CLI) | payer MEDICARE, SELFPAY ==
[2023-11-15 14:03] LABS: PHA INR Fingerstick 2.6 (0.9-1.1)
== END 2023-11-15 14:14 ==
LOC: ACC 13:05
PROVIDERS: PCP Nurse Practitioner Family; Visit Provider Nurse Practitioner Family
DX: Z79.01 Long term (current) use of anticoagulants (principal); I48.91 Unspecified atrial fibrillation
CPT/HCPCS: 85610; 99211; G0463

== ENCOUNTER 2023-11-29 13:19 | Outpatient (CLI) | payer MEDICARE, SELFPAY | END 2023-11-29 15:09 | LOC: ACC 13:20 | PROVIDERS: PCP Nurse Practitioner Family; Visit Provider Nurse Practitioner Family | DX: Z79.01 Long term (current) use of anticoagulants (principal); I48.91 Unspecified atrial fibrillation | CPT/HCPCS: 85610; 99211; G0463 ==

== ENCOUNTER 2024-01-04 14:55 | Outpatient (CLI) | payer MEDICARE, SELFPAY ==
[2024-01-04 15:40] LABS: Blood Urea Nitrogen 16 mg/dl (7-17); Estimated Glomerular Filt Rate 55 ml/min (>60); GFR (African American) 67 ML/MIN (>60)
[2024-01-04 15:48] LABS: INR 2.58 (0.9-1.1); Prothrombin Time 26.3 seconds (10.1-12.5)
== END 2024-01-04 23:59 | disposition home or self-care (01) ==
LOC: LAB 15:01
PROVIDERS: PCP Nurse Practitioner Family; Visit Provider Nurse Practitioner Family
DX: Z79.01 Long term (current) use of anticoagulants (principal)
CPT/HCPCS: 36415; 82565; 84520; 85610

== ENCOUNTER 2024-02-04 15:23 | Outpatient (CLI) | payer MEDICARE, SELFPAY ==
--- NOTE | 2024-02-04 15:30 | MM_ITS ---
PROCEDURE INFORMATION: Exam: MG Bilateral Screening 3D Mammography Exam date and time: 02/04/2024 3:16 PM Age: 68 years old Clinical indication: Screening examination. TECHNIQUE: Imaging protocol: Bilateral Screening tomosynthesis and 2D mammography including computer-aided detection (CAD) when performed. COMPARISON: 1. MG MM DIG SCREENING MAMM BI W/CAD 01/06/2022 3:55 PM 2. MG MM DIG MAMM DX UNILAT LT CAD 05/06/2021 2:56 PM FINDINGS: MAMMOGRAPHY: Breast composition: There are scattered areas of fibroglandular density. Mass: None. Architectural distortion: None. Calcifications: No suspicious calcifications. Asymmetric density: None. Skin thickening: None. Axillary adenopathy: None. IMPRESSION: No mammographic evidence of malignancy. Annual screening is recommended unless otherwise clinically indicated. ASSESSMENT: BI-RADS Category 1: Negative.
== END 2024-02-04 23:59 | disposition home or self-care (01) ==
PROVIDERS: PCP Nurse Practitioner Family; Visit Provider Nurse Practitioner Family
DX: Z12.31 Encounter for screening mammogram for malignant neoplasm of breast (principal)
CPT/HCPCS: 77063; 77067

== ENCOUNTER 2024-02-09 12:57 | Outpatient (CLI) | payer MEDICARE, SELFPAY ==
[2024-02-09 13:31] LABS: PHA INR Fingerstick 2.5 (0.9-1.1)
== END 2024-02-09 13:32 ==
LOC: ACC 12:59
PROVIDERS: PCP Nurse Practitioner Family; Visit Provider Nurse Practitioner Family
DX: Z79.01 Long term (current) use of anticoagulants (principal); I48.91 Unspecified atrial fibrillation
CPT/HCPCS: 85610; 99211; G0463

== ENCOUNTER 2024-02-24 14:15 | Outpatient (CLI) | payer MEDICARE, SELFPAY ==
[2024-02-24 13:28] LABS: Microscopic, Urine URINE MICROSCOPIC (MICROSCOPIC)
[2024-02-24 13:39] LABS: Appearance,Urine CLEAR (Clear); Bilirubin,Urine Negative (Negative); Blood, Urine Negative (Negative); Color,Urine YELLOW (Yellow); Glucose,Urine (UA) 3+ (Negative); Ketones,Urine Negative (Negative); Leukocyte Esterase,Urine Negative (Negative); Nitrate,Urine Negative (Negative); Protein,Urine Negative (Negative); Urobilinogen,Urine 0.2 EU/dl (0.2)
[2024-02-24 13:50] LABS: Bacteria,Urine Trace /lpf; Squamous Epithelial Cell,Urine Occasional #/hpf (0-5)
== END 2024-02-24 23:59 | disposition home or self-care (01) ==
LOC: LAB.DROPOF 14:16
PROVIDERS: PCP Nurse Practitioner Family; Visit Provider Nurse Practitioner Family
DX: R73.03 Prediabetes (principal); I10 Essential (primary) hypertension; M10.9 Gout, unspecified
CPT/HCPCS: 81001; 84156; 87086

== ENCOUNTER 2024-02-24 15:13 | Outpatient (CLI) | payer MEDICARE, SELFPAY ==
[2024-02-24 15:42] LABS: Basophils % 0.6 % (0.1-2.0); Eosinophils # 0.2 K/mm3 (0.0-0.4); Eosinophils % 3.8 % (0.1-12.0); Hematocrit 40.1 % (37.0-47.0); Hemoglobin 12.3 g/dL (12.2-16.2); Lymphocytes # 1.2 K/mm3 (0.7-4.5); Mean Corpuscular HGB Conc 30.7 g/dL (31.8-35.4); Mean Corpuscular Hemoglobin 28.4 pg (27.0-31.2); Mean Corpuscular Volume 92.7 fl (81-99); Mean Platelet Volume 7.9 fl (7.4-10.4); Monocytes # 0.3 K/mm3 (0.1-1.0); Monocytes % 4.5 % (1.7-9.3); Neutrophils # 4.4 K/mm3 (1.8-7.8); Neutrophils % 72.2 % (37.0-80.0); Platelet Count 236 K/mm3 (142-424); Red Blood Count 4.33 M/mm3 (4.20-5.40); Red Cell Distribution Width 15.6 % (11.5-17.5); White Blood Count 6.1 K/mm3 (4.8-10.8)
[2024-02-24 16:04] LABS: Alanine Aminotransferase 18 U/L (12-78); Albumin/Globulin Ratio 1.4 (1.1-1.8); Alkaline Phosphatase 105 U/L (38-126); Anion Gap 9.1 mEq/L (5-15); Aspartate Amino Transferase 35 U/L (14-36); Blood Urea Nitrogen 17 mg/dl (7-17); Calcium 9.1 mg/dl (8.4-10.2); Carbon Dioxide 24 mmol/L (22.0-30.0); Chloride 106 mmol/L (98-107); Chol/HDL Ratio 4.1 (1-3.5); Cholesterol 206 mg/dl (140-200); Estimated Glomerular Filt Rate 62 ml/min (>60); GFR (African American) 75 ML/MIN (>60); Globulin 2.8 g/dL (1.3-3.2); Glucose 104 mg/dl (74-100); HDL Cholesterol 50 mg/dl (40-60); Potassium 4.1 mmoL/L (3.5-5.1); Sodium 135 mmol/L (136-145); Total Protein,Serum 6.8 g/dl (6.3-8.2); Triglycerides 102 mg/dl (30-150); Uric Acid 5.2 mg/dl (2.5-6.2); VLDL Cholesterol 20 mg/dL (0-40)
[2024-02-24 16:15] LABS: Direct LDL Cholesterol 133.64 mg/dL (100-129)
[2024-02-24 16:35] LABS: Thyroid Stimulating Hormone 1.57 uIU/mL (0.465-4.68)
[2024-02-24 17:27] LABS: Free T4 (Free Thyroxine) 1.87 ng/dl (0.78-2.19)
[2024-02-24 18:10] LABS: HIV (1&2) Antibody Rapid NONREACTIVE (NONREACTIVE)
[2024-02-26 05:15] LABS: HCV Ab Non Reactive (Non Reactive)
== END 2024-02-24 23:59 | disposition home or self-care (01) ==
LOC: LAB 15:15
PROVIDERS: PCP Nurse Practitioner Family; Visit Provider Nurse Practitioner Family
DX: Z11.4 Encounter for screening for human immunodeficiency virus [HIV] (principal); Z11.59 Encounter for screening for other viral diseases; G47.33 Obstructive sleep apnea (adult) (pediatric); I10 Essential (primary) hypertension; R73.03 Prediabetes; E03.9 Hypothyroidism, unspecified; E66.01 Morbid (severe) obesity due to excess calories; M10.9 Gout, unspecified; Z68.42 Body mass index [BMI] 45.0-49.9, adult
CPT/HCPCS: 36415; 80053; 80061; 81001; 84156; 84439; 84443; 84550; 85025; 86803; 87086; 87389

== ENCOUNTER 2024-03-22 13:07 | Outpatient (CLI) | payer MEDICARE, SELFPAY ==
[2024-03-22 13:34] LABS: PHA INR Fingerstick 3.6 (0.9-1.1)
== END 2024-03-22 13:35 ==
LOC: ACC 13:08
PROVIDERS: PCP Nurse Practitioner Family; Visit Provider Nurse Practitioner Family
DX: Z79.01 Long term (current) use of anticoagulants (principal); I48.91 Unspecified atrial fibrillation
CPT/HCPCS: 85610; 99211; G0463

== ENCOUNTER 2024-04-12 13:07 | Outpatient (CLI) | payer MEDICARE, SELFPAY | END 2024-04-12 14:59 | LOC: ACC 13:07 | PROVIDERS: PCP Nurse Practitioner Family; Visit Provider Nurse Practitioner Family | DX: Z79.01 Long term (current) use of anticoagulants (principal); I48.91 Unspecified atrial fibrillation | CPT/HCPCS: 85610; 99211; G0463 ==

== ENCOUNTER 2024-05-22 13:29 | Outpatient (CLI) | payer MEDICARE, SELFPAY | END 2024-05-22 15:45 | LOC: ACC 13:30 | PROVIDERS: PCP Nurse Practitioner Family; Visit Provider Nurse Practitioner Family | DX: Z79.01 Long term (current) use of anticoagulants (principal); I48.91 Unspecified atrial fibrillation | CPT/HCPCS: 85610; 99211; G0463 ==

== ENCOUNTER 2024-07-24 13:01 | Outpatient (CLI) | payer MEDICARE, SELFPAY ==
[2024-07-24 13:56] LABS: PHA INR Fingerstick 1.9 (0.9-1.1)
== END 2024-07-24 23:59 | disposition home or self-care (01) ==
LOC: ACC 13:02
PROVIDERS: PCP Nurse Practitioner Family; Visit Provider Nurse Practitioner Family
DX: I48.91 Unspecified atrial fibrillation (principal); Z79.01 Long term (current) use of anticoagulants
CPT/HCPCS: 85610; 99211; G0463

== ENCOUNTER 2024-09-13 13:28 | Outpatient (CLI) | payer MEDICARE, SELFPAY ==
--- OUTSIDE RECORDS SUMMARY | 2024-09-13 13:31 | XMS_ITS | Data Portability ---
Author Organization [facility] CLAUDE G[facility]S [place] [facility] Address [address] [place] [address] Care Team Providers [employer] Professional Name Role Phone DANN JONES Filament Tester JOHAN ELISE Primary Care Provider Assessment Encounter Date Assessment Date Assessment LastModified by Organization Details LastModified Time 10/08/2022 10/08/2022 Patient presented to office today for their Medicare Annual Wellness Visit. Wellness visit Questionnaire was reviewed. Depression screening was negative and no followup plan is needed. Emphasized preventive health measures including fall prevention to help reduce health risks and promote healthy living. [email or web address] Not available 10/08/2022 07:18:36 Plan of Treatment Reminders Order Date Submit Date Provider Last Modified By Organization Details Last Modified Time Details Appointments LEVEL 2 2024 02:30P M DANN JONES MD Not available Not available Not available Lab uric acid, serum or plasma 2022 023 [email or web address] [facility], [address] [place] [address], [phone], 05/05/2023 07:58:02 toxicolog y screen, urine 2022 023 [email or web address] [facility], [address] [place] [address], [id number], 05/05/2023 07:58:02 lipid panel, serum 2022 023 [email or web address] [facility], [address] [place] [address], [phone], 05/05/2023 07:58:01 CMP, serum or plasma 2022 023 [email or web address] [facility], [address] [place] [address], [phone], 05/05/2023 07:58:01 CBC w/ auto diff 2022 023 [email or web address] [facility], [address] [place] [address], [id number], 05/05/2023 07:58:01 TSH, serum or plasma 2022 023 [email or web address] [facility], [address] [place] [address], [phone], 05/05/2023 07:58:02 Referral None recorded. Procedures None recorded. Surgeries None recorded. Imaging None recorded. Medication Orders tramadol 50 mg tablet 2022 023 [facility], [address] [place] [address], [id number], 01/27/2023 14:14:33 levothyro xine 125 mcg tablet 2022 023 [facility], [address] [place] [address], [id number], 01/27/2023 14:14:33 Patient TargetsNo targets recorded. Patient Instructions Encounter Date Encounter Id Patient Instructions Last Modified By Organization Details Last Modified Time 04/20/2022 [id number] discussed importance of taking AREDS 2 vitamins BID and checking grid QD (given with instructions/emily ng signs) MR with +2.50 NL recheck 1 yr with mac kaylen shah Not available 04/20/2022 14:35:10 10/08/2022 [id number] weight managemen t education [email or web address] Not available 10/08/2022 13:32:35 advance care planning: care instructions dbeiting Not available 10/08/2022 13:32:36 labs reviewed scripts reviewed risks/benefits reviewed high risk meds reviewed continue current medication continue to monitor labs pneumovax 23 rtc 6 months with labs and prn dbeiting Not available 10/08/2022 07:30:23 05/03/2023 [id number] stable exam continue vitamins BID and check amsler grid no less than 3x/week-reviewed technique/warning signs she recently had a CT of the soft tissues of the neck-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 Sykes at continue AREDS 2 vitamins BID and checking grid 3-4 times a week-reviewed with her recheck 6 months complete exam with macular oct dkielar Not available 11/09/2023 14:09:42 05/05/2024 [id number] stable exam continue AREDS 2 vitamins BID and checking grid QOD recheck 1 yr with macular oct dkielar Not available 05/05/2024 15:59:38 Reason for Referral None Reported. Results Created Date Observation Date Name Description Value Unit Range Abnormal Flag Note LastModifiedBy Organization Detail LastModifiedTime 04/20/20 22 04/20/2022 optic al coher ence tomog romeo, retin a No observ ation record ed. dkielar Not Available 2021 14:26:03 05/03/20 23 05/03/2023 optic al coher ence tomog romeo, retin a No observ ation record ed. [email or web address] Not Available 2023 16:14:45 11/01/19 24 11/01/2023 CT, orbit s, w/wo contr ast [place] [facility] [address] [facility] [place] [address] Patirichy leblanc Name: NICOL Brown ANA MARIA leblanc : 11/11/ 1955 Patien t Orderi ng Provid er: DANN JONES EXAM DATE: 2023 EXAM: CT ORBITS W/WO CONTRA ST HISTOR Y: 68-yea r-old female with macula r degene ration and possib le masses behind the eyes. COMPAR MAL: None. TECHNI QUE: 0.67 mm axial slices were obtain ed throug h the orbits . Comput er-gen erated axial, sagitt al, and zuniga l recons tructi ons are provid ed from the source images . 63 mL Omnipa que 350 (100 mL bottle of [facility] [address]-9 1) was intrav enousl y admini stered to the patien t. 37 was wasted and discar ded. FINDIN GS: There are masses along the medial wall of both orbits train driver ior to the globes . On the left, this measur es 2.7 cm AP, and 2.0 x 1.2 cm in the zuniga l plane. On the right, this measur es 2.5 cm AP, and 1.8 x 1.0 cm in the zuniga l plane. These masses are immedi ately adjace nt to the medial and inferi or rectus muscle s. There are also adjace nt to the optic nerves . There is no associ ated calcif icatio n or fat signal . There is no adjace nt sinus diseas e. The globes are intact and the lenses are normal ly locate d. There is no eviden ce of intrac onal or extrac onal inflam matory proces s. The extrao cular muscle s are symmet irene and normal in attenu ation. The optic nerves appear normal . The lacrim al glands appear normal . There is possib le mild enhanc ement of the masses along the medial aspect of the orbits . The visual ized brain parenc hyma appear s normal . The visual ized calvar ium and facial bones are normal in appear ance. There is no fractu re. There is modera te mucosa l thicke jaren and bubbly appear ing secret ions in the maxill amberly sinuse s. IMPRES JACQUELINE: 1. There are masses along the medial aspect of both orbits train driver ior to the globes . These could repres ent orbita l cavern ous venous malfor mation s (heman giomas ) venous varice s, or lympho prolif erativ e diseas e, but the appear ance is nonspe cific. . Interp reted By: Megan pichardo MD Electr onical ly Signed By: Megan pichardo MD on 024 1:49 PM dkielar [facility] [address] [place], [phone], 11/09/2023 14:06:48 11/09/19 24 11/09/2023 optic al coher ence tomog romeo, retin a No observ ation record ed. dkielar Not Available 2023 14:02:45 05/05/20 24 05/05/2024 optic al coher ence tomog romeo, retin a No observ ation record ed. dkielar Not Available 2023 15:56:37 Result Notes None recorded. Problems Name Problem SNOMED Code Status Onset Date Resolution Date Notes Provider Name and Address Organization Details Recorded Time [facility] jacqueline 52995229 Active 2016 JANUSZ ERNST MD [address] [place] [address], [phone] , [facility] 7 13:23:59 Iron deficien cy 72529941 Active 2017 JANUSZ ERNST MD [address] [place] [address], [address] , [facility] 8 14:01:11 Chronic pain syndrome 744673550 Active 2018 JANUSZ ERNST MD [address] [place] [address], [address] , [facility] 9 13:58:32 Obstruct silviano sleep apnea syndrome 83870357 Active 2018 BiPAP JANUSZ ERNST MD [address] [place] [address], [address] , [facility] 9 14:04:34 Hyperlip idemia 16630012 Active 2020 JANUSZ ERNST MD [address] [place] [address], [phone] , [facility] 1 13:16:58 Gout 25526819 Active 2020 JANUSZ ERNST MD [address] [place] [address], [phone] , [facility] 1 13:38:01 Nonexuda tive age-rela michelle macular degenera tion 437365228 Active 2020 DANN JONES MD [address] [place] [address], [phone] , [facility] 3 15:02:04 Bilatera l age-rela michelle nuclear cataract s 16503167331 9100 Active 2020 DANN JONES MD [address] [place] [address], [phone] , [facility] 3 15:02:04 Myopia 88869088 Active 2020 DANN JONES MD [address] [place] [address], [phone] , [facility] 3 15:02:04 Hypermet ropia 92389944 Active 2020 DANN JONES MD [address] [place] [address], [phone] , [facility] 3 15:02:04 Regular astigmat ism 06206011 Active 2020 DANN JONES MD [address] [place] [address], [address] , [facility] 3 15:02:04 Presbyop ia 19684477 Active 2020 DANN JONES MD [address] [place] [address], [address] , [facility] 3 15:02:04 Osteopen ia 029955514 Active 2021 JANUSZ ERNST MD [address] [place] [address], [address] , [facility] 2 07:39:55 Morbid obesity 091684348 [place] 20[place] [address] [place] [address], [phone] , [facility] 3 07:22:38 Thrombop hilia 204209097 Active 2022 [place] [address] [place] [address], [address] , [facility] 3 07:23:15 Long-ter m current use of anticoag ulant 314283527 Active 2022 JANUSZ ERNST MD [address] [place] [address], [address] , [facility] 3 07:23:46 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 DANN JONES MD [address] [place], [place] [address] , [facility] 4 14:31:47 Low back pain 727441109 Active 2015 From Autom[employer] d Load;Pro vider: Janusz Ernst;Nellie tatus: Active Not Available [facility] 6 06:28:23 Atrial fibrilla tion 14299179 Active 2015 Provider : Mckenzie Jules; Status: Active Not Available [facility] 6 06:28:25 Vitamin D deficien cy 05309080 Active 2015 Provider : Mckenzie Jules; Status: Active Not Available [facility] 6 06:28:25 Hyperten sive disorder 87781128 Completed 201509/25/2019 From Autom[employer] d Load;Pro vider: Janusz Ernst;S tatus: Active JANUSZ ERNST MD [address] [place] [address], [phone] , [facility] 0 13:45:33 Hypothyr oidism 62869331 Active 2015 From Automate d Load;Pro vider: Janusz Ernst;S tatus: Active Not Available [facility] 11/28/201 6 06:28:26 Problem Notes Documentation Provider Name and Address Organization Details Recorded Time Filament Tester Consult Note : [facility] ? ? [address] [facility] [id number], Cindy L (id #[id number], : 1955) [facility] [address] [place]?[address] Phone:?? Fax:?? Encounter Summary - Progress Note Date Printed: ?04/20/2022 Documents sent via fax will include the followingmessage: This fax may contain sensitive and confidential personal health information that is being sent for the sole use of the intended recipient. Unintended recipients are directed to securely destroy any materials received. You are hereby notified that the unauthorized disclosure or other unlawful use of this fax or any personal health information is prohibited. To the extent patient information contained in this fax is subject to 42 CFR Part 2, this regulation prohibits unauthorized disclosure of these records. If you received this fax in error, please visit [email or web address] Fax to notify the sender and confirm that the information will be destroyed. If you do not have internet access, please call to notify the sender and confirm that the information will be destroyed. Thank you for your attention and cooperation. [ID:[id number]] Patient Nicol Rodgers (67yo, F) #[id number] 1955 ?? Patient Demographics: Address [address] [place] [address] ? Encounter Notes: Encounter Reason/Date complete eye exam 67 yo wf w/nonexudative AMD (early stage) ou returns for complete exam. Patient states her va is doing pretty well. She said she can read road signs and tv scrolls without difficulty. She wears readers for na va and sometimes for distance. Doesn't check Amsler Grid daily. Checked today - OD- wnl OS- Whole grid is kind of fuzzy. gtts: none Generics AREDS 2 po daily hr 04/20/2022 - 01:30PM - [facility] History of Present IllnessNone recorded Review of Systems Patient reports no cough, no wheezing, and no sleep apnea;deviated septum surgery- 05/2021. She reports no difficulty hearing. She reports no neurological symptoms reported. She reports no cardiovascular symptoms. She reports no systemic symptoms. She reports no myalgia, no arthralgia, and no back pain. She reports no allergy symptoms, no sinus pressure, and no itching. She reports no proptosis and no muscle weakness. She reports currently taking blood thinners. She reports no past flomax usage. Additionally reports:COVID Questionnaire 1. Have you or anyone accompanying you today been diagnosed with CoVid-19 in the past 5 days?? Patient: NO Visitor:____ 2. In the last 3 days have you and/or anyone with you today had COVID symptoms? (cough, fever, muscle aches, loss of taste or smell, vomiting, diarrhea, headache, sore throat, or congestion/runny nose) Patient: NO Visitor:____ 3. Have you and/or anyone accompanying you today been in close contact with a person known to have COVID-19/Coronavirus in the past 5 days? Patient: NO Visitor:____ If answered YES to any of the questions above. Notify provider/service dept. of arrival. Await instructions from provider's office. [id number] 13:20 Ht: 5 ft 7 in Results/InterpretationsNon e recorded Physical ExamExternal Exam:General Appearance normal. Face: normal. Lids: normal. Pupils normal. Muscle Balance Testing: normal. EOM: normal. Visual Levi Exam normal to count fingers OU. Slit Lamp Exam:Lids normal. Conjunctiva: normal. Cornea: normal. Anterior Chamber: normal. Iris: normal. Lens:abnormal;2+ns od;1+ns os. Fundus Exam:Vitreous: normal. Disc C/D Ratio normal, OD: 0.5, and OS: 0.5. Retinal Vessels normal. Macula:abnormal;small fine parafoveal drusen ou. Peripheral Retina normal. Psychiatric:Orientation: oriented to time, place, and person. Mental Status: affect normal. Procedure DocumentationOCT/Retina:Op tical Coherence Testing (OCT) of retina performed. See scanned document for detail.Refraction:Refracti on performed to determine prescription of lenses. Assessment and Plan1. Nonexudative age-related macular esbskorxnxzuV15.3131: Nonexudative age-related macular degeneration, bilateral, early dry stage 2. Bilateral age-related nuclear cataracts-mild gvmudiigbndG01.13: Age-related nuclear cataract, bilateral 3. VvuwnnA17.11: Myopia, right eye Progressive glasses (Expiration Date: 04/20/2023)Right -Sph: -1.00Cyl: +1.25Axis: 180Add: +2.50Left -Sph: +0.50Cyl: +0.25Axis: 150Add: +2.50 4. ZncnpwztvgfpvZ44.02: Hypermetropia, left eye 5. Regular bwjnofveouqS57.223: Regular astigmatism, bilateral 6. NtsnnsgmhrD32.4: Presbyopia Discussion Notesdiscussed importance of taking AREDS 2 vitamins BID and checking grid QD (given with instructions/warning signs)MR with +2.50 NLrecheck 1 yr with mac oct Return to Office JANUSZ ERNST MD for MEDICARE WELLNESS VISIT at [facility] on 10/08/2022 at 01:15 PM to see DANN JONES MD for COMPLETE EYE EXAM at OPHTHALMOLOGY [facility] on or around 04/20/2023 Patient Medical History: Allergies List Reviewed Allergies NKDA Medications Reviewed Medications NameDate Source allopurinoL 100 mg tabletTAKE ONE TABLET BY MOUTH EVERY DAY04/09/22?filled surescripts atorvastatin 20 mg tabletTAKE ONE TABLET BY MOUTH EVERY DAY04/03/21?filled surescripts Caltrate 600 plus DBID12/09/21?entered JANUSZ ERNST MD colchicine 0.6 mg tabletTAKE ONE TABLET BY MOUTH EVERY DAY04/09/22?filled surescripts ferrous gluconate 240 mg (27 mg iron) tabletDaily Internal Note:Frequency: daily;Medication Description: ferrous gluconate; Dosage:1; Route:oral; refills:?ent ered ushaffi.263 furosemide 20 mg tabletTAKE ONE TABLET BY MOUTH EVERY DAY FOR fluid01/05/22?filled surescripts levothyroxine 125 mcg tabletTAKE ONE TABLET BY MOUTH EVERY DAY01/17/22?filled surescripts lisinopriL 20 mg tabletTAKE ONE TABLET BY MOUTH EVERY DAY04/09/22?prescribe d JANUSZ ERNST MD metaxalone 800 mg cvjfruNyecp18/28/16?f illed [facility] metoprolol succinate ER 100 mg tablet,extended release 24 hrTAKE ONE TABLET BY MOUTH EVERY DAY FOR BLOOD NIPAOHNQ94/19/22?fill ed surescripts omega 4-hjw-rzo-fish oil 1,000 mg (120 mg-180 mg) capsuleDaily Internal Note:Frequency: daily;Medication Description: omega-3 polyunsaturated fatty acids; Dosage:1; Route:oral; refills:?ent ered ushaffi.244 ondansetron 4 mg disintegrating tabletDISSOLVE ONE TABLET BY MOUTH THREE TIMES DAILY NEEDED FOR LHCSEY22/18/22?filled surescripts oxybutynin chloride ER 10 mg tablet,extended release 24 hrTAKE ONE TABLET BY MOUTH EVERY DAY01/17/22?filled surescripts peg 3350-electrolytes 236 gram-22.74 gram-6.74 gram-5.86 gram solutionTAKE ACCORDING TO PACKAGE HTHDVRVLUZSK47/16/21? filled surescripts phentermine 37.5 mg tabletTake one tablet by mouth daily (30 minutes before or 1-2 hour(s) after breakfast).10/23/20?f illed surescripts potassium chloride ER 10 mEq tablet,extended release(part/cryst) 8?filled [facility] Suprep Bowel Prep Kit 17.5 gram-3.13 gram-1.6 gram oral solutionUSE GFGXQFSH72/16/21?pres cribed DENISE VENTURA MD Symbicort 160 mcg-4.5 mcg/actuation HFA aerosol inhalerINHALE 2 PUFFS BY MOUTH TWICE DAILY02/11/22?filled surescripts traMADoL 50 mg tabletTAKE ONE TABLET BY MOUTH TWICE DAILY NEEDED MAY CAUSE XGOKJTVROD84/17/22?fi lled surescripts trospium 20 mg sieikz72/10/17?filled [facility] Vitamin D 5,000 unit tabletTake 1 tablet(s) every day by oral route.04/02/20?alex ERNST MD warfarin 5 mg tabletTAKE ONE TABLET BY MOUTH EVERY DAY OR TLOQMFEW08/15/22?fill ed surescripts Family HistoryReviewed Family History Father - Carcinoma of prostate Mother - Legal blindness - blind in one eye Past Medical HistoryReviewed Past Medical History Glasses/Contacts:Y Vaccine HistoryVaccines not reviewed (last reviewed 04/09/2022) Vaccine Type Date Amt. Route Site NDC Lot??# Mfr. Exp. Date VIS VIS Given Fuel Tank Sealer And Tester COVID-19 COVID-19, mRNA, LNP-S, PF, 30 mcg/0.3 mL dose (VitaPortal) 02/26/21 COVID-19 (SARS-COV-2) vaccine, unspecified 08/15/20 pfizer COVID-19 (SARS-COV-2) vaccine, unspecified 07/27/20 pfizer Influenza influenza, injectable, quadrivalent 03/07/21 influenza, injectable, quadrivalent 03/07/20 influenza, injectable, quadrivalent 03/16/19 influenza, injectable, quadrivalent 03/01/18 influenza 04/20/17 influenza 04/07/16 Pneumococcal Pneumococcal conjugate PCV20, polysaccharide [id number] conjugate, adjuvant, PF 10/13/21 0.5 mL Intramuscular Deltoid, Right [id number] 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 manager heavy 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 11/21/22 Pneumococcal Conjugate 06/27/21 10/13/21 Aliyah Simon pneumococcal conjugate PCV 13 12/02/18 Zoster zoster 08/05/20 zoster 06/07/20 Electronically Signed by: DANN JONES MD JANUSZ ERNST MD [address] [place], [address], [facility] 04/20/2022 16:44:31 Procedures Surgical History Date Name Laterality Status Provider Name and Address Organization Details Recorded Time 05/05/20 24 OCT/Retina completed DANN JONES MD [address] [place] [address] [place], [address], [facility] 05/05/2024 15:58:42 11/09/19 24 OCT/Retina completed DANN JONES MD [address] [place] [address], [phone], [facility] 11/09/2023 14:05:22 05/03/20 23 OCT/Retina completed DANN JONES MD [address] [place] [address], [phone], [facility] 05/03/2023 15:03:12 04/20/20 22 OCT/Retina completed DANN JONES MD [address] [place] [address], [phone], [facility] 04/20/2022 14:24:01 04/20/20 22 Refraction completed DANN JONES MD [address] [place] [address], [phone], [facility] 04/20/2022 14:34:43 12/09/19 22 DXA Low Bone Mass 1 - No Tx completed NAFISA FLEMING MD [address] [place] [address], [address], [facility] 12/08/2021 16:53:13 06/12/19 22 Endoscopy Nasal; Biospy, Polypectomy or Debridement completed Ramona [facility] 06/12/2021 11:14:22 06/10/19 22 Septoplasty completed Remedios Briseno [facility] 06/12/2021 10:59:44 04/10/20 21 Refraction completed DANN JONES MD [address] [place] [address], [phone], [facility] 04/10/2021 16:45:44 06/02/19 20 DXA Low Bone Mass 1 - No Tx completed NAFISA FLEMING MD [address] [place] [address], [place], [address], [facility] 06/02/2019 12:45:31 03/07/19 90 Total Hysterectomy completed JANUSZ ERNST MD [address] [place] [address], [phone], [facility] 08/19/2018 14:46:16 Cholecystectomy completed JANUSZ ERNST MD [address] [place] [address], [phone], [facility] 06/17/2016 08:42:36 Gastric Bypass completed JANUSZ ERNST MD [address] [place] [address], [phone], [facility] 06/17/2016 08:42:42 Imaging Results Imaging Date Name Status LastModified by Organiz ation Details LastModified Time 04/20/2022 optical coherence tomogram, retina completed Information not available 04/20/2022 14:26:03 05/03/2023 optical coherence tomogram, retina completed Information not available 08/05/2023 16:14:45 11/01/2023 CT, orbits, w/wo contrast [facility] [address] [place], [address], 11/09/2023 14:06:48 11/09/2023 optical coherence tomogram, retina completed Information not available 11/09/2023 14:02:45 05/05/2024 optical coherence tomogram, retina completed Information not available 05/05/2024 15:56:37 Procedure Notes None recorded. Medical Equipment None Reported. Allergies No known drug allergies Medications Name Sig Start Date Stop Date Status Note LastModified by Organization Details LastModified Time cyclobenz aprine 10 mg tablet Take 1 tablet 3 times a day by oral route as needed for 30 days. 04/10 completed Not Available Not Available Not Available amoxicill in 500 mg capsule 01/31 completed Not Available Not Available Not Available metformin 500 mg tablet TAKE ONE TABLET BY MOUTH EVERY DAY IN THE MORNING 04/10 completed Not Available Not Available Not Available atorvasta tin 20 mg tablet TAKE ONE TABLET BY MOUTH EVERY DAY active Not Available Not Available No t Available Tikosyn 500 mcg capsule Two times a day 06/23 completed Not Available Not Available Not Available clindamyc in HCl 300 mg capsule TAKE ONE CAPSULE BY MOUTH THREE TIMES DAILY FOR 10 DAYS -- FINISH ALL MEDICINE -- 04/10 completed Not Available Not Available Not Available oxybutyni n chloride ER 10 mg tablet,ex tended release 24 hr TAKE ONE TABLET BY MOUTH EVERY DAY active Not Available Not Available No t Available diltiazem CD 180 mg capsule,e xtended release 24 hr 08/19 completed Not Available Not Available Not Available metoprolo l succinate ER 50 mg tablet,ex tended release 24 hr Take 1 tablet every day by oral route for 30 days. 04/10 completed Not Available Not Available Not Available lisinopri l 20 mg tablet TAKE ONE TABLET BY MOUTH EVERY DAY. Schedule a physical . 2023 active Not Available Not Available Not Avai lable prednison e 20 mg tablet TAKE ONE TABLET BY MOUTH TWICE DAILY FOR FOUR DAYS -- FINISH ALL MEDICINE -- 04/10 completed Not Available Not Available Not Available metoprolo l succinate ER 100 mg tablet,ex tended release 24 hr TAKE ONE TABLET BY MOUTH EVERY DAY FOR BLOOD PRESSURE active Not Available Not Available No t Available cyanocoba ester (vit B-12) 1,000 mcg tablet Take 1 tablet every day by oral route for 30 days. 01/31 completed Not Available Not Available Not Available phentermi ne 37.5 mg tablet Take one tablet by mouth daily (30 minutes before or 1-2 hour(s) after breakfas t). 10/08 completed Not Available Not Available Not Available allopurin ol 100 mg tablet TAKE ONE TABLET BY MOUTH EVERY DAY active Not Available Not Available No t Available sulfameth oxazole 800 mg-trimet hoprim 160 mg tablet 09/24 completed Not Available Not Available Not Available tramadol 50 mg tablet TAKE ONE TABLET BY MOUTH TWICE DAILY NEEDED MAY CAUSE DROWSINE SS active Not Available Not Available No t Available vancomyci n 125 mg capsule 03/27 completed Not Available Not Available Not Available diltiazem 120 mg tablet 06/23 completed Not Available Not Available Not Available linezolid 600 mg tablet 03/27 completed Not Available Not Available Not Available hydrocodo ne 7.5 mg-acetam inophen 325 mg tablet TAKE ONE TABLET BY MOUTH FOUR TIMES DAILY NEEDED FOR moderate TO SEVERE pain MAY CAUSE DROWSINE SS 04/09 completed Not Available Not Available Not Available cephalexi n 500 mg capsule TAKE ONE CAPSULE BY MOUTH FOUR TIMES DAILY FOR 7 DAYS -- FINISH ALL MEDICINE -- 10/13 completed Not Available Not Available Not Available levothyro xine 125 mcg tablet TAKE ONE TABLET BY MOUTH EVERY DAY. Schedule a physical 2023 active Not Available Not Available Not Avai lable ferrous gluconate 240 mg (27 mg iron) tablet Daily active Frequenc y: daily;Me dication Descript ion: ferrous gluconat e; Dosage:1 ; Route:or al; refills: 0 Not Available Not Available Not Available warfarin 5 mg tablet TAKE ONE TABLET BY MOUTH EVERY DAY OR DIRECTED active Not Available Not Available No t Available oxybutyni n chloride ER 5 mg tablet,ex tended release 24 hr 06/23 completed Not Available Not Available Not Available diltiazem CD 120 mg capsule,e xtended release 24 hr Daily 06/23 completed Frequenc y: daily;Me dication Descript ion: diltiaze m; Dosage:1 ; Route:or al; refills: 0 Not Available Not Available Not Available furosemid e 20 mg tablet TAKE ONE TABLET BY MOUTH EVERY DAY FOR fluid active Not Available Not Available No t Available methylpre dnisolone 4 mg tablets in a dose pack 03/27 completed Not Available Not Available Not Available Vitamin D2 1,250 mcg (50,000 unit) capsule TAKE ONE CAPSULE BY MOUTH ONCE WEEKLY 09/24 completed Not Available Not Available Not Available colchicin e 0.6 mg tablet TAKE TWO TABLETS BY MOUTH AT first sign of gout flare, THEN TAKE ONE TABLET 1 hour LATER active Not Available Not Available No t Available ondansetr on 4 mg disintegr ating tablet DISSOLVE ONE TABLET BY MOUTH THREE TIMES DAILY NEEDED FOR NAUSEA 10/08 completed Not Available Not Available Not Available metaxalon e 800 mg tablet Daily active Not Available Not Available Not Available potassium chloride ER 10 mEq tablet,ex tended release(p art/cryst ) active Not Available Not Available Not Available nitrofura ntoin monohydra te/macroc rystals 100 mg capsule 04/09 completed Not Available Not Available Not Available DILT-XR 180 mg capsule, extended release 08/19 completed Not Available Not Available Not Available trospium 20 mg tablet active Not Available Not Available Not Available Coumadin Daily 01/31 completed Frequenc y: daily;Me dication Descript ion: warfarin ; Dosage:a s directed ; refills: 0 Not Available Not Available Not Available MoviPrep 100 gram-7.5 gram-2.69 1 gram oral powder packet 03/27 completed Not Available Not Available Not Available Symbicort 160 mcg-4.5 mcg/actua tion HFA aerosol inhaler INHALE 2 PUFFS BY MOUTH TWICE DAILY active Not Available Not Available No t Available peg 3350-elec trolytes 236 gram-22.7 4 gram-6.74 gram-5.86 gram solution TAKE ACCORDIN G TO PACKAGE INSTRUCT IONS 10/08 completed Not Available Not Available Not Available Vitamin D 2,000 unit capsule Take 1 capsule every day by oral route. 04/02 completed Not Available Not Available Not Available Vitamin D 5,000 unit tablet Take 1 tablet every day by oral route. active Not Available Not Available No t Available estradiol 10 mcg vaginal tablet 04/10 completed Not Available Not Available Not Available omega 3-dha-epa -fish oil 1,000 mg (120 mg-180 mg) capsule Daily active Frequenc y: daily;Me dication Descript ion: omega-3 polyunsa turated fatty acids; Dosage:1 ; Route:or al; refills: 0 Not Available Not Available Not Available Suprep Bowel Prep Kit 17.5 gram-3.13 gram-1.6 gram oral solution USE DIRECTED 2020 active Not Available Not Available Not Avai lable Caltrate 600 plus D BID active Not Available Not Available Not Available Myrbetriq 50 mg tablet,ex tended release 06/23 completed Not Available Not Available Not Available Flublok Quad (PF) 180 mcg (45 mcg x 4)/0.5 mL IM syringe 08/19 completed Not Available Not Available Not Available Flucelvax Quad (PF) 60 mcg (15 mcg x 4)/0.5 mL IM syringe 03/27 completed Not Available Not Available Not Available Vitals Date Recorded Body height Provider Name an d Address Organization Details Last Updated DateTime 04/20/2022 170.18 cm Jacki Lima [facility] 13:20:40 Date Recorded Body height Body mass index (BMI) Body weight Provider Name and Address Organization Details Last Updated DateTime 10/08/2022 170.18 cm 48 kg/m2 332768.07 g Aliyah Simon [facility] 10/08/2022 13:15:36 Date Recorded Heart rate Respiratory rate Systolic blood pressure Diastolic blood pressure Provider Name and Address Organization Details Last Updated DateTime 10/08/2022 80 /min 12 /min 122 mm[Hg] 80 mm[Hg] JANUSZ ERNST MD [address] [place], [address] , [facility] 10/08/2022 13:22:49 Date Recorded Body height Provider Name an d Address Organization Details Last Updated DateTime 05/03/2023 170.18 cm Chris Mart[facility] 05/03/2023 14:43:27 Date Recorded Body height Provider Name an d Address Organization Details Last Updated DateTime 11/09/2023 170.18 cm Shruthi Berrios [facility] 11/09/2023 13:14:13 Date Recorded Body height Provider Name an d Address Organization Details Last Updated DateTime 05/05/2024 170.18 cm Tasia Calero [facility] 1 07/06/2023 15:06:42 Social History Question Answer Notes LastModified by Organizat ion Details LastModified Time Tobacco Smoking [place] [address] [place] [address], [phone] 06/17/2016 08:42:18 What Is Your Level Of Alcohol Consumption? Occasional Information not available 06/17/2016 How Much Tobacco Do You Chew? None Information not available 08/19/2018 Do You Or Have You Ever Used E-cigarettes Or Vape? 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 10/08/2022 Information not available 10/08/2022 Sex: Female Functional Status None recorded. Mental Status None recorded. Family History Relationship Description Onset Age of this Age Resolved Age Notes LastModified by Organization Details LastModified Time Father Carcinoma of prostate dbeiting Not available 2016 08:42:10 Mother Legal blindness blind in one eye Not available 04/10/2021 16:00:35 Medical History Condition Response Diabetes N Obesity Y Bleeding Disorder N Atrial Fibrillation Y Eye Trauma N Age-related Macular Degeneration Y Double Vision N Cancer N Ocular trauma N RD/retinal tear N Glaucoma N Hypothyroidism Y Cataract Y Diabetic Eye Disease N High Cholesterol Y Anesthesia Complications N Hypertension Y Lazy Eye N Glasses/Contacts Y Gynecological HistoryNo gynecological history recorded. Obstetrics History GPAL:G 0 P 0 0 0 0 Immunizations Vaccine Type Date Status Note Provider Nam e and Address Organization Details Recorded Time influenza, unspecified formulation 7 completed JANUSZ ERNST MD [address] [place] [address], [phone], [facility] 06/23/2017 14:01:23 influenza, unspecified formulation 6 completed JANUSZ ERNST MD [address] [place] [address], [phone], [facility] 06/18/2016 13:04:54 Influenza, split virus, quadrivalent, preservative 8 completed Not Available [facility] 05/03/2023 14:21:49 Influenza, split virus, quadrivalent, preservative 9 completed Not Available [facility] 05/03/2023 14:21:49 Pneumococcal conjugate PCV 13 9 completed Not Available [facility] 05/03/2023 14:21:50 Pneumococcal conjugate PCV20, polysaccharide KSU489 conjugate, adjuvant, PF 2 completed Aliyah Simon [facility] 10/13/2021 13:42:53 pneumococcal polysaccharide PPV23 3 completed Aliyah Simon [facility] 10/08/2022 13:39:47 COVID-19, mRNA, LNP-S, PF, 30 mcg/0.3 mL dose 1 completed Aliyah Simon [facility] 01/26/2023 08:51:22 Influenza, split virus, quadrivalent, preservative 1 completed Not Available [facility] 05/03/2023 14:21:49 influenza, unspecified formulation 2 completed Not Available [facility] 05/03/2023 14:21:49 zoster recombinant 1 completed Aliyah Simon [facility] 01/26/2023 08:51:22 Influenza, high-dose, quadrivalent, PF 0 completed Aliyah Simon [facility] 01/26/2023 08:51:22 COVID-19, mRNA, LNP-S, PF, 30 mcg/0.3 mL dose 1 completed Aliyah Simon [facility] 01/26/2023 08:51:22 COVID-19, mRNA, LNP-S, PF, 30 mcg/0.3 mL dose 1 completed Aliyah Simon [facility] 01/26/2023 08:51:22 COVID-19, mRNA, LNP-S, PF, 30 mcg/0.3 mL dose, jayla-sucrose 2 completed Aliyahfunmi Simon [facility] 01/26/2023 08:51:22 COVID-19, mRNA, LNP-S, bivalent, PF, 30 mcg/0.3 [facility] dose [facility] 01/26/2023 08:51:22 pneumococcal polysaccharide PPV23 9 completed Aliyahfunmi Simon [facility] 01/26/2023 08:51:22 Pneumococcal conjugate PCV [facility] 01/26/2023 08:51:22 Past Encounters Encounter ID Performer Location Encounter Start Date Encounter Closed Date Diagnosis/Indication Diagnosis SNOMED-CT Code Diagnosis ICD10 Code Diagnosis Note [id number] JANUSZ ERNST MD [facility]NAL [facility] CLOSED [address] [place] [address] 06/18/2016 12:50:50 06/18/2016 13:56:01 Essential hypertension 76734807 I10 Hypothyroidism 78120464 E03.9 Anemia 458620037 D64.9 Hyperlipidemia 35669795 E78.5 Vitamin D deficiency 347 84778 E55.9 Screening for malignant neoplasm of colon 811498626 Z12.11 Plantar fasciitis 469649 003 M72.2 Edema of l ower extremity 765892672 R60.0 Low back pain 808275970 M54.5 [id number] JANUSZ ERNST MD INTERNAL MEDICINE [facility] CLOSED [address] [place] [address] 12/21/2016 13:17:10 12/21/2016 13:40:13 Essential hypertension 34357607 I10 Hypothyroidism 86227572 E03.9 Atrial fibrillation 4943 6004 I48.91 Hyperlipidemia 55015196 E78.5 Hyperglycemia 03398465 R 73.9 Anemia 210523994 D64.9 Vitamin D deficiency 347 47708 E55.9 Vitamin B1 2 deficiency (non anemic) 25990252 E53.8 Low back pain 653425019 M54.5 [id number] JANUSZ ERNST MD INTERNAL MEDICINE [facility] CLOSED [address] [place] [address] 06/23/2017 13:35:30 06/23/2017 14:24:49 Adult health examination 426649243 Z00.00 Essential hypertension 98721976 I10 Dyslipidemia 842412032 E 78.5 Vitamin B1 2 deficiency (non anemic) 48899671 E53.8 Hypothyroidism 26326359 E03.9 Vitamin D deficiency 347 12067 E55.9 Iron deficiency 23360027 E61.1 Low back pain 864036007 M54.5 [id number] JANUSZ ERNST MD INTERNAL MEDICINE [facility] CLOSED [address] [place] [id number] 01/31/2018 13:23:02 01/31/2018 13:42:37 Essential hypertension 24225781 I10 Hypothyroidism 23910933 E03.9 Chronic pain syndrome 37 4482488 G89.4 Dyslipidemia 406782165 E 78.5 Vitamin D deficiency 347 27709 E55.9 Low back pain 491108624 M54.5 Fatigue 86163283 R53.83 [id number] JANUSZ ERNST MD INTERNAL MEDICINE [facility] CLOSED [address] [place] [address] 08/19/2018 14:33:25 08/19/2018 15:03:42 Essential hypertension 83149219 I10 Hypothyroidism 40282676 E03.9 Atrial fibrillation 4943 6004 I48.91 Low back pain 847918934 M54.5 Dyslipidemia 649442508 E 78.5 [id number] JANUSZ ERNST MD INTERNAL MEDICINE [facility] CLOSED [address] [place] [id number] 12/09/2018 13:58:16 12/09/2018 14:19:36 Cellulitis of face 478787565 L03.496 [id number] JANUSZ ERNST MD INTERNAL MEDICINE [facility] CLOSED [address] [place] [address] 03/27/2019 13:49:01 03/27/2019 14:45:25 Adult health examination 754168650 Z00.00 Essential hypertension 94106681 I10 Hypothyroidism 66122483 E03.9 Chronic pain syndrome 37 6125789 G89.4 Vitamin D deficiency 347 84176 E55.9 Long-term drug therapy 924916407 Z79.899 Pain in right knee 99654 38466 43080 M25.561 Screening for cardiovascular system disease 972111345 Z13.6 Menopausal syndrome 1237 44851 N95.9 [id number] NAFISA FLEMING MD BONE [facility]ENS[facility] [address] [place] [address] 06/02/2019 11:06:54 06/02/2019 11:29:47 Bone density finding 320072357 M85.9 [id number] C GLORIA MARIN PA-C [facility]TH[facility] [address] [address] 06/02/2019 12:48:14 06/02/2019 13:43:08 Osteoarthritis of knee 703484528 M17.9 End-stage PF OA with questionab le mild to moderate medial meniscal tear. We are going to focus on the PF OA at this time with lateral J braces if on can be sized appropriat sena as well as physical therapy for VMO strengthen ing. Patient was offered and shows to decline at this time CSI and/or NSAID. We touched on TKA as ultimate resolution of this pathology [id number] JANUSZ ERNST MD INTERNAL MEDICINE [facility] CLOSED [address] [place] [address] 09/25/2019 13:44:29 09/27/2019 08:33:32 Essential hypertension 89199699 I10 Hypothyroidism 01627557 E03.9 Atrial fibrillation 4943 6004 I48.91 Chronic pain syndrome 37 7066830 G89.4 Long-term drug therapy 443459733 Z79.521 [id number] JANUSZ ERNST MD INTERNAL MEDICINE [facility] CLOSED [address] [place] [address] 04/02/2020 14:04:28 04/02/2020 14:36:26 Essential hypertension 76303238 I10 Hypothyroidism 17548455 E03.9 Atrial fibrillation 4943 6004 I48.91 Obstructiv e sleep apnea syndrome 98676140 G47.33 Chronic pain syndrome 37 8238897 G89.4 Long-term drug therapy 277297473 Z79.899 Dyslipidemia 432681533 E 78.5 Fatigue 13084013 R53.83 [id number] JANUSZ ERNST MD INTERNAL MEDICINE [place] [address] 08/06/2020 09:40:03 08/06/2020 10:11:35 Essential hypertension 66671180 I10 Hypothyroidism 48033530 E03.9 Atrial fibrillation 4943 6004 I48.91 Long-term current use of anticoagulant 852642539 Z79.01 Rectal hemorrhage 046592 02 K62.5 [id number] DENISE [place] MD SURGERY SCHEDULE [address] [place] [address] 08/09/2020 12:53:58 08/09/2020 12:54:27 [id number] JANUSZ ERNST MD [place] [address] 10/01/2020 13:55:22 10/01/2020 14:23:38 Adult health examination 263577278 Z00.00 Essential hypertension 92423408 I10 Dyslipidemia 865068156 E 78.5 Hypothyroidism 46739639 E03.9 Obstructiv e sleep apnea syndrome 25389576 G47.33 Fatigue 99326938 R53.83 Chronic pain syndrome 37 2765219 G89.4 Long-term drug therapy 812086637 Z79.899 Educated a bout weight management 783546628 Z71.3 Ophthalmic examination and evaluation 35191076 Z01.00 [id number] JANUSZ ERNST MD INTERNAL MEDICINE [address] [place] [address] 04/10/2021 13:26:09 04/10/2021 14:08:52 Essential hypertension 57257238 I10 Hyperlipidemia 39778546 E78.5 Hypothyroidism 66607660 E03.9 Atrial fibrillation 4943 6004 I48.91 Obstructiv e sleep apnea syndrome 25595342 G47.33 Hyperglycemia 27360064 R 73.9 Long-term drug therapy 596347691 Z79.899 Obesity 719455673 E66.9 Gout 55427081 M10.9 Chronic pain syndrome 37 3731375 G89.4 Nasal obstruction 959681 000 J34.89 Fatigue 04843018 R53.83 [id number] DANN JONES MD OPHTHALMO LOGY [address] [place] [address] 04/10/2021 14:52:07 04/10/2021 17:20:33 Nonexudative age-related macular degeneration 058718961 H35.3131 Bilateral age-related nuclear cataracts 3019207095 44706 H25.13 mild Myopia 93511083 H52.11 Hypermetropia 61865977 H 52.02 Regular astigmatism 6890 5002 H52.223 Presbyopia 49963515 H52. 4 [id number] ELIAN GERMAIN MD [place] [facility] [address] [place] [address] 06/12/2021 10:53:43 06/12/2021 13:38:23 Deviated nasal septum 854170499 J34.2 - S/p revision septoplast y (06/10/21) Hypertroph y of nasal turbinates 38847076 J34.3 - S/p bilateral SMR of inferior turbinates (06/10/21) Stenosis o f nasal valve 7567993138 9396003 J34.89 - S/p bilateral repair of nasalvalve stenosis (06/10/21) [id number] JANUSZ ERNST MD INTERNAL MEDICINE [address] [address] 10/13/2021 13:12:00 10/13/2021 14:24:22 Adult health examination 657898739 Z00.00 Essential hypertension 79867360 I10 Hyperlipidemia 00482650 E78.5 Hypothyroidism 29153405 E03.9 Atrial fibrillation 4943 6004 I48.91 Obstructiv e sleep apnea syndrome 32246656 G47.33 Long-term drug therapy 786364569 Z79.899 Menopausal syndrome 1237 27416 N95.9 Administra tion of pneumococcal vaccine 83852195 Z23 Chronic pain syndrome 37 1852731 G89.4 [id number] JANUSZ ERNST MD INTERNAL MEDICINE [place] [id number] 10/21/2021 13:48:02 10/21/2021 13:56:02 Nik hematuria 802156094 R31.0 [id number] NAFISA FLEMING MD BONE DENSITY [address] [address] 12/08/2021 13:36:39 12/08/2021 13:55:34 Osteopenia 572441352 M85.89 [id number] JANUSZ ERNST MD INTERNAL MEDICINE [place] [address] 04/09/2022 13:06:31 04/09/2022 13:44:42 Essential hypertension 29996072 I10 Hyperlipidemia 95587646 E78.5 Atrial fibrillation 4943 6004 I48.91 Hypothyroidism 24891018 E03.9 Gout 49254857 M10.9 Chronic pain syndrome 37 2548917 G89.4 Long-term drug therapy 858671060 Z79.899 Obesity 711493212 E66.9 [id number] DANN JONES MD OPHTHALMO [address] [place] [address] 04/20/2022 13:12:06 04/20/2022 15:17:09 Nonexudative age-related macular degeneration 682813648 H35.3131 Bilateral age-related nuclear cataracts 8124641798 53227 H25.13 mild progressio n Hypermetropia 98897358 H 52.02 Regular astigmatism 6890 5002 H52.223 Presbyopia 85651647 H52. 4 Myopia 24388210 H52.11 [id number] JANUSZ ERNST MD INTERNAL MEDICINE [address] [place] [address] 10/08/2022 13:09:28 10/12/2022 10:57:06 Adult health examination 757468829 Z00.00 Essential hypertension 35212930 I10 Hyperlipidemia 54732677 E78.5 Hypothyroidism 04490651 E03.9 Atrial fibrillation 4943 6004 I48.91 stablecont inue current medication continue to monitorco- managed with cardiology Gout 20815273 M10.9 Chronic pain syndrome 37 5958189 G89.4 Morbid obesity 845757502 E66.01 calorie restrictio nlow carbohydra te diet Thrombophilia 301965949 D68.69 stablecont inue current medication continue to monitorco- managed with cardiology Long-term current use of anticoagulant 071993818 Z79.01 stableno s/sx bleedingco ntinue current medication continue to monitor Long-term drug therapy 408760595 Z79.899 Administra tion of pneumococcal vaccine 94964707 Z23 [id number] DANN JONES MD OPHTHALMO [facility] [address] [place] [address] 05/03/2023 14:20:39 05/03/2023 15:31:53 Nonexudative age-related macular degeneration 279655182 H35.3132 Bilateral age-related nuclear cataracts 2476439764 68103 H25.13 mild progressio n Myopia 84399941 H52.11 Hypermetropia 92781659 H 52.02 Regular astigmatism 6890 5002 H52.223 Presbyopia 39324545 H52. 4 [id number] DANN JONES MD OPHTHALMO LOGY [address] [place] [address] 11/09/2023 12:50:38 11/09/2023 14:12:53 Nonexudative age-related macular degeneration 784399598 H35.3132 Bilateral age-related nuclear cataracts 9562771537 99491 H25.13 mild progressio n Myopia 52325995 H52.11 Hypermetropia 93485021 H 52.02 Regular astigmatism 6890 5002 H52.223 Presbyopia 02453931 H52. 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 4 Health Concerns Section Related Observation LastModified by Organization Detai ls LastModified Time None Recorded Concern Status LastModified by Organization Details LastModified Time None Recorded Advance Directives Directive None Recorded Payers Encounter Date Sequence Insurance Name Policy Number Policy Fernandes Covered Member ID Fernandes Member ID Guarantor Name 04/20/2022 1 [employer] (MEDICARE REPLACEMENT/A DVANTAGE - PPO) [id number] Nicol L Ana Maria [id number] Nicol L Ana Maria 10/08/2022 1 [employer] (MEDICARE REPLACEMENT/A DVANTAGE - PPO) [id number] Nicol L Ana Maria [id number] Nicol L Ana Maria 05/03/2023 1 [employer] [facility] (MEDICARE REPLACEMENT/A DVANTAGE - PPO) [id number] Nicol L Ana Maria [id number] Nicol L Ana Maria 11/09/2023 1 [employer] [facility] (MEDICARE REPLACEMENT/A DVANTAGE - PPO) [id number] Nicol L Ana Maria [id number] Nicol L Ana Maria 05/05/2024 1 [employer] (MEDICARE REPLACEMENT/A DVANTAGE - PPO) [id number] Nicol L Ana Maria [id number] Nicol L Ana Maria Notes Date Note Type Note Provider Name and Address Organization Details Recorded Time 3 text/html Medicare wellness visitHypertension is chronic, ongoing, stableHyperlipidemia is chronic, ongoing, stableHypothyroidism is chronic, ongoing, stableAfib is chronic, ongoing, stableGout is chronic, ongoing, stableOSA is chronic, ongoing, stable on BiPAP. She is benefiting from BiPAP JANUSZ ERNST MD [address] [place], [address], [facility] 10/08/2022 13:33:35 OBGyn Episode No OBEpisode recorded.
[2024-09-13 13:45] LABS: PHA INR Fingerstick 1.7 (0.9-1.1)
== END 2024-09-13 13:47 ==
LOC: ACC 13:29
PROVIDERS: PCP Nurse Practitioner Family; Visit Provider Nurse Practitioner Family
DX: Z79.01 Long term (current) use of anticoagulants (principal); I48.91 Unspecified atrial fibrillation
CPT/HCPCS: 85610; 99211; G0463

== ENCOUNTER 2024-09-22 11:34 | Outpatient (CLI) | payer MEDICARE, SELFPAY ==
[2024-09-22 11:39] LABS: Microscopic, Urine URINE MICROSCOPIC (MICROSCOPIC)
[2024-09-22 11:56] LABS: Basophils # 0.1 K/mm3 (0-0.2); Eosinophils # 0.3 Kmm3 (0.0-0.4); Eosinophils % 5.2 % (0.1-12.0); Hematocrit 37.4 % (37.0-47.0); Hemoglobin 11.6 g/dL (12.2-16.2); Lymphocytes # 1.4 K/mm3 (0.7-4.5); Lymphocytes % 22.2 % (10-50); Mean Corpuscular Volume 90.1 fl (81-99); Monocytes # 0.4 K/mm3 (0.1-1.0); Monocytes % 6.5 % (1.7-9.3); Neutrophils % 64.8 % (37.0-80.0); Nucleated Red Blood Cells # 0 10^3/uL; Nucleated Red Blood Cells % 0 %; Platelet Count 241 K/mm3 (142-424); Red Blood Count 4.15 M/mm3 (4.20-5.40); Red Cell Distribution Width 15.7 % (11.5-17.5); Red Cell Distribution Width-SD 51.5 fL; White Blood Count 6.2 K/mm3 (4.8-10.8)
[2024-09-22 11:57] LABS: Appearance,Urine CLEAR (Clear); Bilirubin,Urine Negative (Negative); Blood, Urine Negative (Negative); Color,Urine YELLOW (Yellow); Glucose,Urine (UA) 2+ (Negative); Ketones,Urine Negative (Negative); Leukocyte Esterase,Urine 2+ (Negative); Nitrate,Urine Negative (Negative); Protein,Urine Negative (Negative); Urobilinogen,Urine 0.2 EU/dl (0.2)
[2024-09-22 12:45] LABS: Bacteria,Urine Trace /lpf; WBC,Urine 20-50 #/hpf (0-3)
[2024-09-22 12:56] LABS: Free T4 (Free Thyroxine) 1.52 ng/dl (0.78-2.19)
[2024-09-22 13:15] LABS: Albumin Level 3.8 g/dl (3.5-5.0); Chloride 104 mmol/L (98-107); Potassium 4.6 mmoL/L (3.5-5.1); Sodium 136 mmol/L (136-145)
[2024-09-22 13:18] LABS: Alanine Aminotransferase 17 U/L (12-78); Albumin/Globulin Ratio 1.4 (1.1-1.8); Alkaline Phosphatase 110 U/L (38-126); Anion Gap 10.6 mEq/L (5-15); Aspartate Amino Transferase 36 U/L (14-36); Bilirubin,Total 0.4 mg/dl (0.2-1.3); Blood Urea Nitrogen 24 mg/dl (7-17); Calcium 8.7 mg/dl (8.4-10.2); Carbon Dioxide 26 mmol/L (22.0-30.0); Cholesterol 194 mg/dl (140-200); Estimated Glomerular Filt Rate 49 ml/min (>60); GFR (African American) 59 ML/MIN (>60); Globulin 2.8 g/dL (1.3-3.2); Glucose 100 mg/dl (74-100); Total Protein,Serum 6.6 g/dl (6.3-8.2); Triglycerides 123 mg/dl (30-150); VLDL Cholesterol 25 mg/dL (0-40)
[2024-09-22 13:19] LABS: Chol/HDL Ratio 3.9 (1-3.5); HDL Cholesterol 50 mg/dl (40-60)
[2024-09-22 13:30] LABS: Direct LDL Cholesterol 107.19 mg/dL (100-129)
[2024-09-22 13:48] LABS: Thyroid Stimulating Hormone 6.15 uIU/mL (0.465-4.68)
[2024-09-22 13:54] LABS: Uric Acid 6.2 mg/dl (2.5-6.2)
[2024-09-22 14:13] LABS: Hemoglobin A1C 5.5 % (4.0-6.0)
== END 2024-09-22 23:59 | disposition home or self-care (01) ==
LOC: LAB 11:35
PROVIDERS: PCP Nurse Practitioner Family; Visit Provider Nurse Practitioner Family
DX: E03.9 Hypothyroidism, unspecified (principal); R53.83 Other fatigue; M10.9 Gout, unspecified; E78.5 Hyperlipidemia, unspecified; I10 Essential (primary) hypertension; R41.3 Other amnesia; E11.9 Type 2 diabetes mellitus without complications; G47.33 Obstructive sleep apnea (adult) (pediatric)
CPT/HCPCS: 36415; 80053; 80061; 81001; 83036; 84439; 84443; 84550; 85025; 87086

== ENCOUNTER 2024-10-02 12:56 | Outpatient (CLI) | payer MEDICARE, SELFPAY ==
--- OUTSIDE RECORDS SUMMARY | 2024-10-02 12:58 | XMS_ITS | Data Portability ---
Author Organization [facility] CLE[facility] CLOSED Address [address] [place] [address] Care Team Providers Care Nutrition Educator Name Role Phone DANN JONES Pill Coater JOHAN ELISE Primary Care Provider Assessment Encounter [...] acid, serum or plasma 2022 023 [email or web address] [facility], [address] [place] [address], [phone], 05/05/2023 07:58:02 toxicolog y screen, urine 2022 023 [email or web address] [facility], [address] [place] [address], [phone], 05/05/2023 07:58:02 lipid panel, serum 2022 023 [email or web address] [facility], [address] [place] [address], [phone], 05/05/2023 07:58:01 CMP, serum or plasma 2022 023 [email or web address] [facility], [address] [place] [address], [phone], 05/05/2023 07:58:01 CBC w/ auto diff 2022 023 [email or web address] [facility], [address] [place] [address], [phone], 05/05/2023 07:58:01 TSH, serum or plasma 2022 023 [email or web address] [facility], [address] [place] [address], [phone], 05/05/2023 07:58:02 Referral None recorded. Procedures None recorded. Surgeries None recorded. Imaging None recorded. Medication Orders tramadol 50 mg tablet 2022 023 [facility], [address] [place] [address], [id number], 01/27/2023 14:14:33 levothyro xine 125 mcg tablet 2022 023 [facility], [address] [place] [address], [id number], 01/27/2023 14:14:33 Patient TargetsNo targets recorded. Patient Instructions Encounter Date Encounter Id Patient Instructions Last Modified By Organization Details Last Modified Time 04/20/2022 [id number] discussed importance of taking AREDS 2 vitamins BID and checking grid QD (given with instructions/emily ng signs) MR with +2.50 NL recheck 1 yr with mac kaylen shah Not available 04/20/2022 14:35:10 10/08/2022 [id number] weight managemen t education dbeiting Not available 10/08/2022 13:32:35 advance care planning: care instructions dbeiting Not available 10/08/2022 13:32:36 labs reviewed scripts reviewed risks/benefits reviewed high risk meds reviewed continue current medication continue to monitor labs pneumovax 23 rtc 6 months with labs and prn dbeiting Not available 10/08/2022 07:30:23 05/03/2023 [id number] stable exam continue vitamins BID and check [...] oct dkielar Not available 05/03/2023 15:21:33 11/09/2023 [id number] unspecified righ t orbital mass she has [...] oct dkielar Not available 11/09/2023 14:09:42 05/05/2024 [id number] stable exam continue AREDS 2 vitamins BID [...] w/wo contr ast [facility] [facility] [address] [facility] [place] [address] Patirichy leblanc Name: NICOL Brown ANA MARIA [...] Omnipa que 350 (100 mL bottle of [facility] 33292- 1414-9 1) was intrav enousl y admini stered to the patien t. 37 was wasted and discar ded. FINDIN GS: There are masses along the medial wall of both orbits outside sales associate ior to the globes . On the [...] along the medial aspect of both orbits outside sales associate ior to the globes . These could repres ent orbita l cavern ous venous malfor mation s (heman giomas ) venous varice s, or lympho prolif erativ e diseas e, but the appear ance is nonspe cific. . Interp reted By: Megan pichardo MD Electr onical ly Signed By: Megan pichardo MD on 024 1:49 PM dkielar [facility] Radiology [facility] [address] [place], [address], 11/09/2023 14:06:48 11/09/19 24 11/09/2023 optic al [...] Details Recorded Time [facility] hyperten jacqueline 61277174 Active 2016 JANUSZ ERNST MD [address] [place] [address], [address] , [facility] 7 13:23:59 Iron deficien cy 91210665 Active 2017 JANUSZ ERNST MD [address] [place] [address], [address] , [facility] 8 14:01:11 Chronic pain syndrome 364788002 Active 2018 JANUSZ ERNST MD [address] [place] [address], [address] , [facility] 9 13:58:32 Obstruct silviano sleep apnea syndrome 18880735 Active 2018 BiPAP JANUSZ ERNST MD [address] [place] [address], [address] , [facility] 9 14:04:34 Hyperlip idemia 00859656 Active 2020 JANUSZ ERNST MD [address] [place] [address], [address] , [facility] 1 13:16:58 Gout 63254233 Active 2020 JANUSZ ERNST MD [address] [place] [address], [address] , [facility] 1 13:38:01 Nonexuda tive age-rela michelle macular degenera tion 375226409 Active 2020 DANN JONES MD [address] [place] [address], [address] , [facility] 3 15:02:04 Bilatera l age-rela michelle nuclear cataract s 85713944987 9100 Active 2020 DANN JONES MD [address] [place] [address], [address] , [facility] 3 15:02:04 Myopia 99868399 Active 2020 DANN JONES MD [address] [place] [address], [address] , [facility] 3 15:02:04 Hypermet ropia 39877217 Active 2020 DANN JONES MD [address] [place] [address], [address] , [facility] 3 15:02:04 Regular astigmat ism 65762851 Active 2020 DANN JONES MD [address] [place] [address], [address] , [facility] 3 15:02:04 Presbyop ia 31436559 Active 2020 DANN JONES MD [address] [place] [address], [address] , [facility] 3 15:02:04 Osteopen ia 847818391 Active 2021 JANUSZ ERNST MD [address] [place] [address], [address] , [facility] 2 07:39:55 Morbid obesity 371819851 [place] [address] [place] [address], [address] , [facility] 3 07:22:38 Thrombop hilia 447181203 Active 20[place] [address] [place] [address], [address] , [facility] 3 07:23:15 Long-ter m current use of anticoag ulant 858213464 Active 2022 JANUSZ ERNST MD [address] [place] [address], [address] , [facility] 3 07:23:46 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 DANN JONES MD [address] [place], [place] [address] , [facility] 4 14:31:47 Low back pain 419625164 Active 2015 From Automate d Load;Pro vider: Janusz Ernst;Nellie tatus: Active Not Available [facility] 6 06:28:23 Atrial fibrilla tion 79216219 Active 2015 Provider : Mckenzie Jules; Status: Active Not Available [facility] 6 06:28:25 Vitamin D deficien cy 79244971 Active 2015 Provider : Mckenzie Jules; Status: Active Not Available [facility] 6 06:28:25 Hyperten sive disorder 84587918 Completed 201509/25/2019 From Automate d Load;Pro vider: Janusz Ernst;S tatus: Active JANUSZ ERNST MD [address] [place] [address], [address] , [facility] 0 13:45:33 Hypothyr oidism 51194750 Active 2015 From Automate d Load;Pro vider: Janusz Ernst;S tatus: Active Not Available [facility] 11/28/201 6 06:28:26 Problem Notes Documentation Provider Name and Address Organization Details Recorded Time Pill Coater Consult Note : [facility] ? ? [address] [facility] [address]CBQSHY, Cindy L (id #[id number], : 1955) [facility] [address] [place]?[address] Phone:?? Fax:?? Encounter Summary - Progress [...] received this fax in error, please visit [email or web address] Fax to notify the sender and confirm that the information will be destroyed. If you do not have internet access, please call to notify the sender and confirm that the information will be destroyed. Thank you for your attention and cooperation. [ID:[id number]] Patient Nicol Rodgers (67yo, F) #[id number] 1955 ?? Patient Demographics: Address [address] [place] [address] ? Encounter Notes: Encounter Reason/Date complete eye [...] of arrival. Await instructions from provider's office. [id number] 13:20 Ht: 5 ft 7 in Results/InterpretationsNon [...] lenses. Assessment and Plan1. Nonexudative age-related macular syvsglndnfrfX79.3131: Nonexudative age-related macular degeneration, bilateral, early dry stage 2. Bilateral age-related nuclear cataracts-mild eapksampzyhP35.13: Age-related nuclear cataract, bilateral 3. ZdjtgyA94.11: Myopia, right eye Progressive glasses (Expiration Date: 04/20/2023)Right -Sph: -1.00Cyl: +1.25Axis: 180Add: +2.50Left -Sph: +0.50Cyl: +0.25Axis: 150Add: +2.50 4. JhymqvfbonfwtI07.02: Hypermetropia, left eye 5. Regular duhsxeftletC85.223: Regular astigmatism, bilateral 6. NuyudzzwueI13.4: Presbyopia Discussion Notesdiscussed importance of taking AREDS 2 vitamins BID and checking grid QD (given with instructions/warning signs)MR with +2.50 NLrecheck 1 yr with mac oct Return to Office JANUSZ ERNST MD for MEDICARE WELLNESS VISIT at INTERNAL MED[facility] on 10/08/2022 at 01:15 PM to see DANN JONES MD for COMPLETE EYE EXAM at [facility]Y [facility] on or around 04/20/2023 Patient Medical [...] d JANUSZ ERNST MD metaxalone 800 mg vltltyBslsy06/28/16?f illed [facility] metoprolol succinate ER 100 mg tablet,extended release 24 hrTAKE ONE TABLET BY MOUTH EVERY DAY FOR BLOOD JELXCANF85/19/22?fill ed surescripts omega 2-bdx-esu-fish oil 1,000 mg (120 mg-180 mg) capsuleDaily Internal Note:Frequency: daily;Medication Description: omega-3 polyunsaturated fatty acids; Dosage:1; Route:oral; refills:?ent ered ushaffi.244 ondansetron 4 mg disintegrating tabletDISSOLVE ONE TABLET BY MOUTH THREE TIMES DAILY NEEDED FOR AAVWHE51/18/22?filled surescripts oxybutynin chloride ER 10 mg tablet,extended release 24 hrTAKE ONE TABLET BY MOUTH EVERY DAY01/17/22?filled surescripts peg 3350-electrolytes 236 gram-22.74 gram-6.74 gram-5.86 gram solutionTAKE ACCORDING TO PACKAGE ODJVOFGXOUQM51/16/21? filled surescripts phentermine 37.5 mg tabletTake one tablet by mouth daily (30 minutes before or 1-2 hour(s) after breakfast).10/23/20?f illed surescripts potassium chloride ER 10 mEq tablet,extended release(part/cryst) 8?filled [facility] Suprep Bowel Prep Kit 17.5 gram-3.13 gram-1.6 gram oral solutionUSE QKQMPRFC40/16/21?pres cribed DENISE VENTURA MD Symbicort 160 mcg-4.5 mcg/actuation HFA aerosol inhalerINHALE 2 PUFFS BY MOUTH TWICE DAILY02/11/22?filled surescripts traMADoL 50 mg tabletTAKE ONE TABLET BY MOUTH TWICE DAILY NEEDED MAY CAUSE BMUYNTXIAG49/17/22?fi lled surescripts trospium 20 mg nwmivk58/10/17?filled [facility] Vitamin D 5,000 unit tabletTake 1 tablet(s) every day by oral route.04/02/20?alex ERNST MD warfarin 5 mg tabletTAKE ONE TABLET BY MOUTH EVERY DAY OR CNTIXZWN60/15/22?fill ed surescripts Family HistoryReviewed Family History Father - Carcinoma of prostate Mother - Legal blindness - blind in one eye Past Medical HistoryReviewed Past Medical History Glasses/Contacts:Y Vaccine HistoryVaccines not reviewed (last reviewed 04/09/2022) Vaccine Type Date Amt. Route Site NDC Lot??# Mfr. Exp. Date VIS VIS Given [employer] COVID-19 COVID-19, mRNA, LNP-S, PF, 30 mcg/0.3 mL dose ([employer]) 02/26/21 COVID-19 (SARS-COV-2) vaccine, unspecified 08/15/20 pfizer COVID-19 (SARS-COV-2) vaccine, unspecified 07/27/20 pfizer Influenza influenza, injectable, quadrivalent 03/07/21 influenza, injectable, quadrivalent 03/07/20 influenza, injectable, quadrivalent 03/16/19 influenza, injectable, quadrivalent 03/01/18 influenza 04/20/17 influenza 04/07/16 Pneumococcal Pneumococcal conjugate PCV20, polysaccharide WHS508 conjugate, adjuvant, PF 10/13/21 0.5 mL Intramuscular Deltoid, Right [id number] Other manager business continuity 11/21/22 Pneumococcal Conjugate 06/27/21 10/13/21 Aliyah Simon pneumococcal conjugate PCV 13 12/02/18 Zoster zoster 08/05/20 zoster 06/07/20 Electronically Signed by: DANN JONES MD JANUSZ ERNST MD [address] [place], [address], [facility] 04/20/2022 16:44:31 Procedures Surgical History Date Name Laterality Status Provider Name and Address Organization Details Recorded Time 05/05/20 24 OCT/Retina completed DANN JONES MD [address] [place] [address] [place], [address], [facility] 05/05/2024 15:58:42 11/09/19 24 OCT/Retina completed DANN JONES MD [address] [place] [address], [address], [facility] 11/09/2023 14:05:22 05/03/20 23 OCT/Retina completed DANN JONES MD [address] [place] [address], [address], [facility] 05/03/2023 15:03:12 04/20/20 22 OCT/Retina completed DANN JONES MD [address] [place] [address], [address], [facility] 04/20/2022 14:24:01 04/20/20 22 Refraction completed DANN JONES MD [address] [place] [address], [address], [facility] 04/20/2022 14:34:43 12/09/19 22 DXA Low Bone Mass 1 - No Tx completed NAFISA FLEMING MD [address] [place] [address], [address], [facility] 12/08/2021 16:53:13 06/12/19 22 Endoscopy Nasal; Biospy, Polypectomy or Debridement completed Ramona Woodard [facility] 06/12/2021 11:14:22 06/10/19 22 Septoplasty completed Remedios Briseno [facility] 06/12/2021 10:59:44 04/10/20 21 Refraction completed DANN JONES MD [address] [place] [address], [address], [facility] 04/10/2021 16:45:44 06/02/19 20 DXA Low Bone Mass 1 - No Tx completed NAFISA FLEMING MD [address] [place] [address], [place], [address], [facility] 06/02/2019 12:45:31 03/07/19 90 Total Hysterectomy completed JANUSZ ERNST MD [address] [place] [address], [address], [facility] 08/19/2018 14:46:16 Cholecystectomy completed JANUSZ ERNST MD [address] [place] [address], [address], [facility] 06/17/2016 08:42:36 Gastric Bypass completed JANUSZ ERNST MD [address] [place] [address], [address], [facility] 06/17/2016 08:42:42 Imaging Results Imaging Date Name Status LastModified by Organiz ation Details LastModified Time 04/20/2022 optical coherence tomogram, retina completed Information not available 04/20/2022 14:26:03 05/03/2023 optical coherence tomogram, retina completed Information not available 08/05/2023 16:14:45 11/01/2023 CT, orbits, w/wo contrast [email or web address] [address] [place], [address], 11/09/2023 14:06:48 11/09/2023 optical coherence tomogram, retina [...] Updated DateTime 04/20/2022 170.18 cm Jacki Lima [facility] 13:20:40 Date Recorded Body height Body mass index (BMI) Body weight Provider Name and Address Organization Details Last Updated DateTime 10/08/2022 170.18 cm 48 kg/m2 970771.07 g Aliyah Simon [facility] 10/08/2022 13:15:36 Date Recorded Heart rate Respiratory rate Systolic blood pressure Diastolic blood pressure Provider Name and Address Organization Details Last Updated DateTime 10/08/2022 80 /min 12 /min 122 mm[Hg] 80 mm[Hg] JANUSZ ERNST MD [address] [place], [address] , [facility] 10/08/2022 13:22:49 Date Recorded Body height Provider Name an d Address Organization Details Last Updated DateTime 05/03/2023 170.18 cm Chris Martir [facility] 05/03/2023 14:43:27 Date Recorded Body height Provider Name an d Address Organization Details Last Updated DateTime 11/09/2023 170.18 cm Shruthi Berrios [facility] 11/09/2023 13:14:13 Date Recorded Body height Provider Name an d Address Organization Details Last Updated DateTime 05/05/2024 170.18 cm Tasia Calero [facility] 1 07/06/2023 15:06:42 Social History Question Answer Notes LastModified by Organizat ion Details LastModified Time Tobacco Smoking Status Never Smoker JANUSZ ERNST MD [address] [place], [address] 06/17/2016 08:42:18 How Much Tobacco Do You Chew? None Information not available 08/19/2018 What Was The Date Of Your Most Recent Tobacco Screening? 10/08/2022 Information not available 10/08/2022 Sex: Female Functional Status Question Answer Note LastModified by Organizat ion Details LastModified Time What is your level of alcohol consumption? 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 Never used electronic cigarettes Information not available 10/01/2020 Mental Status None recorded. Family History Relationship Description Onset Age of this Age Resolved Age Notes LastModified by Organization Details LastModified Time Father Carcinoma of prostate dbeiting Not available 2016 08:42:10 Mother Legal blindness blind in one eye [email or web address] Not available 04/10/2021 16:00:35 Medical History Condition Response Diabetes N Obesity Y Bleeding Disorder N Atrial Fibrillation Y Eye Trauma N Double Vision N Cancer N Age-related Macular Degeneration Y Ocular trauma N RD/retinal tear N Glaucoma N Cataract Y Hypothyroidism Y Diabetic Eye Disease N High Cholesterol Y Anesthesia Complications N Hypertension Y Lazy Eye N Glasses/Contacts Y Gynecological HistoryNo gynecological history recorded. Obstetrics History GPAL:G 0 P 0 0 0 0 Immunizations Vaccine Type Date Status Note Provider Nam e and Address Organization Details Recorded Time influenza, unspecified formulation 7 completed JANUSZ ERNST MD [address] [place] [address], [address], [facility] 06/23/2017 14:01:23 influenza, unspecified formulation 6 completed JANUSZ ERNST MD [address] [place] [address], [address], [facility] 06/18/2016 13:04:54 Influenza, split virus, quadrivalent, preservative 8 completed Not Available [facility] 05/03/2023 14:21:49 Influenza, split virus, quadrivalent, preservative 9 completed Not Available [facility] 05/03/2023 14:21:49 Pneumococcal conjugate PCV 13 9 completed Not Available [facility] 05/03/2023 14:21:50 Pneumococcal conjugate PCV20, polysaccharide OKZ087 conjugate, adjuvant, PF 2 completed Aliyah Simon [facility] 10/13/2021 13:42:53 pneumococcal polysaccharide PPV23 3 completed Aliyah Simon [facility] 10/08/2022 13:39:47 COVID-19, mRNA, LNP-S, PF, 30 mcg/0.3 mL dose 1 completed Aliyah Simon [facility] 01/26/2023 08:51:22 Influenza, split virus, quadrivalent, preservative 1 completed Not Available [facility] 05/03/2023 14:21:49 influenza, unspecified formulation 2 completed Not Available [facility] 05/03/2023 14:21:49 zoster recombinant 1 completed Aliyah Simon [facility] 01/26/2023 08:51:22 Influenza, high-dose, quadrivalent, PF 0 completed Aliyahfunmi Simon [facility] 01/26/2023 08:51:22 COVID-19, mRNA, LNP-S, PF, 30 mcg/0.3 mL dose 1 completed Aliyahfunmi Simon [facility] 01/26/2023 08:51:22 COVID-19, mRNA, LNP-S, PF, 30 mcg/0.3 mL dose 1 completed Aliyah Simon [facility] 01/26/2023 08:51:22 COVID-19, mRNA, LNP-S, PF, 30 mcg/0.3 mL dose, jayla-sucrose 2 completed Aliyah [facility] 01/26/2023 08:51:22 COVID-19, mRNA, LNP-S, bivalent, PF, 30 mcg/0.3 mL dose 2 completed Aliyah Simon [facility] 01/26/2023 08:51:22 pneumococcal polysaccharide PPV23 9 completed Aliyahfunmi Simon [facility] 01/26/2023 08:51:22 Pneumococcal conjugate PCV 13 [facility] 01/26/2023 08:51:22 Past Encounters Encounter ID Performer Location Encounter Start Date Encounter Closed Date Diagnosis/Indication Diagnosis SNOMED-CT Code Diagnosis ICD10 Code Diagnosis Note [id number] JANUSZ ERNST MD [facility] [address] [place] [address] 06/18/2016 12:50:50 06/18/2016 13:56:01 Essential hypertension 33461091 I10 Hypothyroidism 88392395 E03.9 Anemia 406281903 D64.9 Hyperlipidemia 37617975 E78.5 Vitamin D deficiency 347 58128 E55.9 Screening for malignant neoplasm of colon 847643642 Z12.11 Plantar fasciitis 592581 003 M72.2 Edema of l ower extremity 544615037 R60.0 Low back pain 380484359 M54.5 [id number] JANUSZ ERNST MD INTERNAL MEDICINE [facility] [address] [place] [address] 12/21/2016 13:17:10 12/21/2016 13:40:13 Essential hypertension 97094782 I10 Hypothyroidism 48006782 E03.9 Atrial fibrillation 4943 6004 I48.91 Hyperlipidemia 33926679 E78.5 Hyperglycemia 94959752 R 73.9 Anemia 210377267 D64.9 Vitamin D deficiency 347 84797 E55.9 Vitamin B1 2 deficiency (non anemic) 70743265 E53.8 Low back pain 653406362 M54.5 [id number] JANUSZ ERNST MD INTERNAL MEDICINE [facility] [address] [place] [address] 06/23/2017 13:35:30 06/23/2017 14:24:49 Adult health examination 505487946 Z00.00 Essential hypertension 24708746 I10 Dyslipidemia 509002917 E 78.5 Vitamin B1 2 deficiency (non anemic) 36099337 E53.8 Hypothyroidism 64669855 E03.9 Vitamin D deficiency 347 33119 E55.9 Iron deficiency 92781721 E61.1 Low back pain 137031844 M54.5 [id number] JANUSZ ERNST MD INTERNAL MEDICINE [facility] [address] [place] [id number] 01/31/2018 13:23:02 01/31/2018 13:42:37 Essential hypertension 95804900 I10 Hypothyroidism 25169910 E03.9 Chronic pain syndrome 37 6529465 G89.4 Dyslipidemia 312037321 E 78.5 Vitamin D deficiency 347 35412 E55.9 Low back pain 128180993 M54.5 Fatigue 35516598 R53.83 [id number] JANUSZ ERNST MD INTERNAL MEDICINE [facility] [address] [place] [id number] 08/19/2018 14:33:25 08/19/2018 15:03:42 Essential hypertension 19807442 I10 Hypothyroidism 66836456 E03.9 Atrial fibrillation 4943 6004 I48.91 Low back pain 851824202 M54.5 Dyslipidemia 490395253 E 78.5 [id number] JANUSZ ERNST MD INTERNAL MEDICINE [facility] [address] [place] [address] 12/09/2018 13:58:16 12/09/2018 14:19:36 Cellulitis of face 475883083 L03.035 [id number] JANUSZ ERNST MD INTERNAL MEDICINE [facility] [address] [place] [address] 03/27/2019 13:49:01 03/27/2019 14:45:25 Adult health examination 285090542 Z00.00 Essential hypertension 69309297 I10 Hypothyroidism 94466100 E03.9 Chronic pain syndrome 37 7056699 G89.4 Vitamin D deficiency 347 00263 E55.9 Long-term drug therapy 452423786 Z79.899 Pain in right knee 67900 72086 90948 M25.561 Screening for cardiovascular system disease 782936880 Z13.6 Menopausal syndrome 1237 97868 N95.9 [id number] NAFISA FLEMING MD [address] [place] [address] 06/02/2019 11:06:54 06/02/2019 11:29:47 Bone density finding 103617020 M85.9 [id number] C GLORIA MARIN PA-C [facility]TH[facility] [address] [place] [address] 06/02/2019 12:48:14 06/02/2019 13:43:08 Osteoarthritis of knee 491683426 M17.9 End-stage PF OA with questionab le [...] TKA as ultimate resolution of this pathology [id number] JANUSZ ERNST MD INTERNAL MEDICINE [facility] [address] [place] [id number] 09/25/2019 13:44:29 09/27/2019 08:33:32 Essential hypertension 14540252 I10 Hypothyroidism 25484003 E03.9 Atrial fibrillation 4943 6004 I48.91 Chronic pain syndrome 37 4261879 G89.4 Long-term drug therapy 497610939 Z79.370 [id number] JANUSZ ERNST MD INTERNAL MEDICINE [facility] [address] [place] [address] 04/02/2020 14:04:28 04/02/2020 14:36:26 Essential hypertension 28316440 I10 Hypothyroidism 19991692 E03.9 Atrial fibrillation 4943 6004 I48.91 Obstructiv e sleep apnea syndrome 12331367 G47.33 Chronic pain syndrome 37 8423142 G89.4 Long-term drug therapy 232067346 Z79.899 Dyslipidemia 804834647 E 78.5 Fatigue 07131594 R53.83 [id number] JANUSZ ERNST MD INTERNAL MEDICINE [place] [address] 08/06/2020 09:40:03 08/06/2020 10:11:35 Essential hypertension 95616075 I10 Hypothyroidism 64302784 E03.9 Atrial fibrillation 4943 6004 I48.91 Long-term current use of anticoagulant 640210009 Z79.01 Rectal hemorrhage 560402 02 K62.5 [id number] DENISE VENTURA MD SURGERY SCHEDULE [address] [place] [address] 08/09/2020 12:53:58 08/09/2020 12:54:27 [id number] JANUSZ ERNST MD INTERNAL MEDICINE [place] [address] 1 10/01/2020 13:55:22 10/01/2020 14:23:38 Adult health examination 662073539 Z00.00 Essential hypertension 90602984 I10 Dyslipidemia 780820953 E 78.5 Hypothyroidism 04602819 E03.9 Obstructiv e sleep apnea syndrome 41371729 G47.33 Fatigue 97952826 R53.83 Chronic pain syndrome 37 5472249 G89.4 Long-term drug therapy 036889199 Z79.899 Educated a bout weight management 544469361 Z71.3 Ophthalmic examination and evaluation 35680926 Z01.00 [id number] JANUSZ ERNST MD INTERNAL MEDICINE [address] [place] [address] 04/10/2021 13:26:09 04/10/2021 14:08:52 Essential hypertension 12841919 I10 Hyperlipidemia 15448593 E78.5 Hypothyroidism 27837682 E03.9 Atrial fibrillation 4943 6004 I48.91 Obstructiv e sleep apnea syndrome 28886174 G47.33 Hyperglycemia 15957973 R 73.9 Long-term drug therapy 325817271 Z79.899 Obesity 751827604 E66.9 Gout 58418880 M10.9 Chronic pain syndrome 37 1400248 G89.4 Nasal obstruction 821875 000 J34.89 Fatigue 23466865 R53.83 [id number] DANN JONES MD OPHTHALMO [facility] [address] [place] [address] 04/10/2021 14:52:07 04/10/2021 17:20:33 Nonexudative age-related macular degeneration 756495642 H35.3131 Bilateral age-related nuclear cataracts 3445831832 30297 H25.13 mild Myopia 67336139 H52.11 Hypermetropia 78622954 H 52.02 Regular astigmatism 6890 5002 H52.223 Presbyopia 87946743 H52. 4 [id number] ELIAN GERMAIN MD [place] [facility] [address] [place] [address] 06/12/2021 10:53:43 06/12/2021 13:38:23 Deviated nasal septum 786720450 J34.2 - S/p revision septoplast y (06/10/21) Hypertroph y of nasal turbinates 37166480 J34.3 - S/p bilateral SMR of inferior turbinates (06/10/21) Stenosis o f nasal valve 9928951959 1733980 J34.89 - S/p bilateral repair of nasalvalve stenosis (06/10/21) [id number] JANUSZ ERNST MD INTERNAL MEDICINE [place] [address] 10/13/2021 13:12:00 10/13/2021 14:24:22 Adult health examination 269384229 Z00.00 Essential hypertension 87697937 I10 Hyperlipidemia 99274215 E78.5 Hypothyroidism 47620351 E03.9 Atrial fibrillation 4943 6004 I48.91 Obstructiv e sleep apnea syndrome 95164044 G47.33 Long-term drug therapy 986011364 Z79.899 Menopausal syndrome 1237 40531 N95.9 Administra tion of pneumococcal vaccine 39012676 Z23 Chronic pain syndrome 37 7268467 G89.4 [id number] JANUSZ [place]ST [place] [address] 10/21/2021 13:48:02 10/21/2021 13:56:02 Nik hematuria 146117569 R31.0 [id number] NAFISA FLEMING MD BONE DENSITY [address] [address] 12/08/2021 13:36:39 12/08/2021 13:55:34 Osteopenia 458415618 M85.89 [id number] JANUSZ ERNST MD INTERNAL MEDICINE [place] [address] 04/09/2022 13:06:31 04/09/2022 13:44:42 Essential hypertension 55552890 I10 Hyperlipidemia 23622016 E78.5 Atrial fibrillation 4943 6004 I48.91 Hypothyroidism 25176554 E03.9 Gout 67459395 M10.9 Chronic pain syndrome 37 7716038 G89.4 Long-term drug therapy 561426651 Z79.899 Obesity 514727001 E66.9 [id number] DANN JONES MD OPHTHALMO [facility] [address] [place] [address] 04/20/2022 13:12:06 04/20/2022 15:17:09 Nonexudative age-related macular degeneration 160687175 H35.3131 Bilateral age-related nuclear cataracts 7675164527 90920 H25.13 mild progressio n Hypermetropia 37383541 H 52.02 Regular astigmatism 6890 5002 H52.223 Presbyopia 67967124 H52. 4 Myopia 51378795 H52.11 [id number] JANUSZ ERNST MD INTERNAL MEDICINE [address] [place] [address] 10/08/2022 13:09:28 10/12/2022 10:57:06 Adult health examination 911360212 Z00.00 Essential hypertension 55565516 I10 Hyperlipidemia 06416911 E78.5 Hypothyroidism 33568215 E03.9 Atrial fibrillation 4943 6004 I48.91 stablecont inue current medication continue to monitorco- managed with cardiology Gout 05027770 M10.9 Chronic pain syndrome 37 1395682 G89.4 Morbid obesity 881607984 E66.01 calorie restrictio nlow carbohydra te diet Thrombophilia 771726726 D68.69 stablecont inue current medication continue to monitorco- managed with cardiology Long-term current use of anticoagulant 157885936 Z79.01 stableno s/sx bleedingco ntinue current medication continue to monitor Long-term drug therapy 548810610 Z79.899 Administra tion of pneumococcal vaccine 47974072 Z23 [id number] DANN JONES MD [address]ALMO [facility] [address] [place] [address] 05/03/2023 14:20:39 05/03/2023 15:31:53 Nonexudative age-related macular degeneration 357061706 H35.3132 Bilateral age-related nuclear cataracts 6588945145 83286 H25.13 mild progressio n Myopia 59298530 H52.11 Hypermetropia 19684086 H 52.02 Regular astigmatism 6890 5002 H52.223 Presbyopia 64799902 H52. 4 [id number] DANN JONES MD OPHTHALMO [facility] [address] [place] [address] 11/09/2023 12:50:38 11/09/2023 14:12:53 Nonexudative age-related macular degeneration 838059363 H35.3132 Bilateral age-related nuclear cataracts 9958645591 77215 H25.13 mild progressio n Myopia 79469574 H52.11 Hypermetropia 45463554 H 52.02 Regular astigmatism 6890 5002 H52.223 Presbyopia 04283241 H52. 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 4 Health Concerns Section Related Observation LastModified by Organization Detai ls LastModified Time None Recorded Concern Status LastModified by Organization Details LastModified Time None Recorded Advance Directives Directive None Recorded Payers Insurance Date Sequence Insurance Name Policy Number Policy Fernandes Covered Member ID Fernandes Member ID Guarantor Name 05/11/2024 1 [facility] (MEDICARE REPLACEMENT/A DVANTAGE - PPO) [id number] Nicol Zamudiosby [id number] Nicol Zamudiosby 10/28/2023 1 [place] [employer] [place] [id number] Nicol Zamudiosby [id number] Nicol Zamudiosby 12/09/2018 SLIDING FEE SCHEDULE - DISCOUNT Nicol Brown Ana Maria 03/27/2019 SLIDING FEE SCHEDULE - DISCOUNT Nicol L Ana Maria 10/28/2023 1 [place] [facility] [place] BLUE PREFERRED PRIMARY (HMO) [id number] Nicol L Ana Maria [id number] Nicol Zamudiosby Notes Date Note Type Note Provider Name and Address Organization Details Recorded Time 3 text/html Medicare wellness visitHypertension is chronic, ongoing, stableHyperlipidemia is chronic, ongoing, stableHypothyroidism is chronic, ongoing, stableAfib is chronic, ongoing, stableGout is chronic, ongoing, stableOSA is chronic, ongoing, stable on BiPAP. She is benefiting from BiPAP JANUSZ ERNST MD [address] [place], [address], [facility] 10/08/2022 13:33:35 OBGyn Episode No OBEpisode recorded.
--- NOTE | 2024-10-02 13:15 | XR_ITS ---
FINAL REPORT TECHNIQUE: Bone densitometry calculations of the lumbar spine and bilateral hips were obtained. CLINICAL HISTORY: screening COMPARISON: None FINDINGS: Using L1-4, the bone mineral density of the spine is 0.902 g/cm2, corresponding to T-score of -1.3. Using the left hip, the bone mineral density of the femoral neck is 0.697 g/cm2, corresponding to a T-score of -1.4. Using the right hip, the bone mineral density of the femoral neck is 0.679 g/cm?, corresponding to a T-score of -1.5. NOTE: T-score: Standard deviation compared with peak bone mass of young adult mean. *Following the recommendations of the International Society of Bone densitometry, classification of hip BMD is based on the lower of two T-scores; total hip or femoral neck. IMPRESSION: Diminished bone mineral density of the lumbar spine and bilateral hips consistent with osteopenia. Reviewed, Interpreted and Dictated by Mark Sewell MD Transcribed by Irene North Authenticated and [facility]
== END 2024-10-02 23:59 | disposition home or self-care (01) ==
LOC: RAD 12:56
PROVIDERS: PCP Nurse Practitioner Family; Visit Provider Nurse Practitioner Family
DX: M85.89 Other specified disorders of bone density and structure, multiple sites (principal)
CPT/HCPCS: 77080

== ENCOUNTER 2024-10-11 13:32 | Outpatient (CLI) | payer MEDICARE, SELFPAY ==
--- OUTSIDE RECORDS SUMMARY | 2024-10-11 13:34 | XMS_ITS | Data Portability ---
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 JOHAN ELISE Primary Care Provider Assessment Encounter [...] acid, serum or plasma 2022 023 [email or web address] [facility], [address] [place] [address], [phone], 05/05/2023 07:58:02 toxicolog y screen, urine 2022 023 [email or web address] [facility], [address] [place] [address], [phone], 05/05/2023 07:58:02 lipid panel, serum 2022 023 [email or web address] [facility], [address] [place] [address], [phone], 05/05/2023 07:58:01 CMP, serum or plasma 2022 023 [email or web address] [facility], [address] [place] [address], [address], 05/05/2023 07:58:01 CBC w/ auto diff 2022 023 [email or web address] [facility], [address] [place] [address], [phone], 05/05/2023 07:58:01 TSH, serum or plasma 2022 023 [email or web address] [facility], [address] [place] [address], [phone], 05/05/2023 07:58:02 Referral None recorded. Procedures None recorded. Surgeries None recorded. Imaging None recorded. Medication Orders tramadol 50 mg tablet 2022 023 [facility], [address] [place] [address], [id number], 01/27/2023 14:14:33 levothyro xine 125 mcg tablet 2022 023 [facility], [address] [place] [address], [id number], 01/27/2023 14:14:33 Patient TargetsNo targets recorded. Patient Instructions Encounter Date Encounter Id Patient Instructions Last Modified By Organization Details Last Modified Time 04/20/2022 [id number] discussed importance of taking AREDS 2 vitamins BID and checking grid QD (given with instructions/emily ng signs) MR with +2.50 NL recheck 1 yr with mac kaylen shah Not available 04/20/2022 14:35:10 10/08/2022 [id number] weight managemen t education dbeiting Not available 10/08/2022 13:32:35 advance care planning: care instructions dbeiting Not available 10/08/2022 13:32:36 labs reviewed scripts reviewed risks/benefits reviewed high risk meds reviewed continue current medication continue to monitor labs pneumovax 23 rtc 6 months with labs and prn dbeiting Not available 10/08/2022 07:30:23 05/03/2023 [id number] stable exam continue vitamins BID and check [...] oct dkielar Not available 05/03/2023 15:21:33 11/09/2023 [id number] unspecified righ t orbital mass she has [...] oct dkielar Not available 11/09/2023 14:09:42 05/05/2024 [id number] stable exam continue AREDS 2 vitamins BID [...] w/wo contr ast [facility] [facility] [address] [place] [address] Patirichy leblanc Name: NICOL Brown ANA MARIA [...] Omnipa que 350 (100 mL bottle of [facility] [address]- 1414-9 1) was intrav enousl y admini stered to the patien t. 37 was wasted and discar ded. FINDIN GS: There are masses along the medial wall of both orbits instructor painting ior to the globes . On the [...] along the medial aspect of both orbits instructor painting ior to the globes . These could repres ent orbita l cavern ous venous malfor mation s (heman giomas ) venous varice s, or lympho prolif erativ e diseas e, but the appear ance is nonspe cific. . Interp reted By: Megan pichardo MD Electr onical ly Signed By: Megan pichardo MD on 024 1:49 PM dkielar [facility] [address] [place], [address], 11/09/2023 14:06:48 11/09/19 24 11/09/2023 optic al [...] Details Recorded Time [facility] hyperten jacqueline 02607311 Active 2016 JANUSZ ERNST MD [address] [place] [address], [address] , [facility] 7 13:23:59 Iron deficien cy 43200177 Active 2017 JANUSZ ERNST MD [address] [place] [address], [address] , [facility] 8 14:01:11 Chronic pain syndrome 066713043 Active 2018 JANUSZ ERNST MD [address] [place] [address], [address] , [facility] 9 13:58:32 Obstruct silviano sleep apnea syndrome 09173186 Active 2018 BiPAP JANUSZ ERNST MD [address] [place] [address], [address] , [facility] 9 14:04:34 Hyperlip idemia 00938433 Active 2020 JANUSZ ERNST MD [address] [place] [address], [address] , [facility] 1 13:16:58 Gout 52160163 Active 2020 JANUSZ ERNST MD [address] [place] [address], [address] , [facility] 1 13:38:01 Nonexuda tive age-rela michelle macular degenera tion 774503659 Active 2020 DANN JONES MD [address] [place] [address], [address] , [facility] 3 15:02:04 Bilatera l age-rela michelle nuclear cataract s 44204457634 9100 Active 2020 DANN JONES MD [address] [place] [address], [address] , [facility] 3 15:02:04 Myopia 48103060 Active 2020 DANN JONES MD [address] [place] [address], [address] , [facility] 3 15:02:04 Hypermet ropia 82462225 Active 2020 DANN JONES MD [address] [place] [address], [address] , [facility] 3 15:02:04 Regular astigmat ism 01780829 Active 2020 DANN JONES MD [address] [place] [address], [address] , [facility] 3 15:02:04 Presbyop ia 32075450 Active 2020 DANN JONES MD [address] [place] [address], [address] , [facility] 3 15:02:04 Osteopen ia 555468821 Active 2021 JANUSZ ERNST MD [address] [place] [address], [address] , [facility] 2 07:39:55 Morbid obesity 368289240 [place] [address] [place] [address], [address] , [facility] 3 07:22:38 Thrombop hilia 727569321 Active 20[place] [address] [place] [address], [address] , [facility] 3 07:23:15 Long-ter m current use of anticoag ulant 149153223 Active 2022 JANUSZ ERNST MD [address] [place] [address], [address] , [facility] 3 07:23:46 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 DANN JONES MD [address] [place], [place] [address] , [facility] 4 14:31:47 Low back pain 316856519 Active 2015 From Automate d Load;Pro vider: Janusz Ernst;Nellie tatus: Active Not Available [facility] 6 06:28:23 Atrial fibrilla tion 26953621 Active 2015 Provider : Mckenzie Jules; Status: Active Not Available [facility] 6 06:28:25 Vitamin D deficien cy 52810372 Active 2015 Provider : Mckenzie Jules; Status: Active Not Available [facility] 6 06:28:25 Hyperten sive disorder 69752550 Completed 201509/25/2019 From Automate d Load;Pro vider: Janusz Ernst;S tatus: Active JANUSZ ERNST MD [address] [place] [address], [address] , [facility] 0 13:45:33 Hypothyr oidism 14568488 Active 2015 From Automate d Load;Pro vider: Janusz Ernst;S tatus: Active Not Available [facility] 11/28/201 6 06:28:26 Problem Notes Documentation Provider Name and Address Organization Details Recorded Time Dog Control Officer Consult Note : [facility] ? ? [address] [facility] [id number], Cindy L (id #[id number], : 1955) [facility] [address] [place]?[address] Phone:?? Fax:?? Encounter Summary - Progress [...] received this fax in error, please visit [email or web address] Fax to notify the sender and confirm that the information will be destroyed. If you do not have internet access, please call to notify the sender and confirm that the information will be destroyed. Thank you for your attention and cooperation. [ID:[id number]] Patient Nicol Rodgers (67yo, F) #[id number] 1955 ?? Patient Demographics: Address [address] [place] [address] ? Encounter Notes: Encounter Reason/Date complete eye [...] of arrival. Await instructions from provider's office. [id number] 13:20 Ht: 5 ft 7 in Results/InterpretationsNon [...] lenses. Assessment and Plan1. Nonexudative age-related macular ruiclgmloqnwI94.3131: Nonexudative age-related macular degeneration, bilateral, early dry stage 2. Bilateral age-related nuclear cataracts-mild isyvhlxniciI91.13: Age-related nuclear cataract, bilateral 3. EkvmdaH60.11: Myopia, right eye Progressive glasses (Expiration Date: 04/20/2023)Right -Sph: -1.00Cyl: +1.25Axis: 180Add: +2.50Left -Sph: +0.50Cyl: +0.25Axis: 150Add: +2.50 4. JadsjtfcotbnbL47.02: Hypermetropia, left eye 5. Regular eopwjnjffizN08.223: Regular astigmatism, bilateral 6. NpslxprqwhP93.4: Presbyopia Discussion Notesdiscussed importance of taking AREDS 2 vitamins BID and checking grid QD (given with instructions/warning signs)MR with +2.50 NLrecheck 1 yr with mac oct Return to Office JANUSZ ERNST MD for MEDICARE WELLNESS VISIT at [facility] on 10/08/2022 at 01:15 PM to see DANN JONES MD for COMPLETE EYE EXAM at OPHTHAL[facility] on or around 04/20/2023 Patient [...] d JANUSZ ERNST MD metaxalone 800 mg btxejxEuklm07/28/16?f illed [facility] metoprolol succinate ER 100 mg tablet,extended release 24 hrTAKE ONE TABLET BY MOUTH EVERY DAY FOR BLOOD YFUSBTLZ38/19/22?fill ed surescripts omega 6-bnv-tfe-fish oil 1,000 mg (120 mg-180 mg) capsuleDaily Internal Note:Frequency: daily;Medication Description: omega-3 polyunsaturated fatty acids; Dosage:1; Route:oral; refills:?ent ered ushaffi.244 ondansetron 4 mg disintegrating tabletDISSOLVE ONE TABLET BY MOUTH THREE TIMES DAILY NEEDED FOR WPRFHO97/18/22?filled surescripts oxybutynin chloride ER 10 mg tablet,extended release 24 hrTAKE ONE TABLET BY MOUTH EVERY DAY01/17/22?filled surescripts peg 3350-electrolytes 236 gram-22.74 gram-6.74 gram-5.86 gram solutionTAKE ACCORDING TO PACKAGE MYBXSOQYHTUT14/16/21? filled surescripts phentermine 37.5 mg tabletTake one tablet by mouth daily (30 minutes before or 1-2 hour(s) after breakfast).10/23/20?f illed surescripts potassium chloride ER 10 mEq tablet,extended release(part/cryst) 8?filled [facility] Suprep Bowel Prep Kit 17.5 gram-3.13 gram-1.6 gram oral solutionUSE JCLWGEFK65/16/21?pres cribed DENISE VENTURA MD Symbicort 160 mcg-4.5 mcg/actuation HFA aerosol inhalerINHALE 2 PUFFS BY MOUTH TWICE DAILY02/11/22?filled surescripts traMADoL 50 mg tabletTAKE ONE TABLET BY MOUTH TWICE DAILY NEEDED MAY CAUSE ZYNTHEDDNZ82/17/22?fi lled surescripts trospium 20 mg /10/17?filled [facility] Vitamin D 5,000 unit tabletTake 1 tablet(s) every day by oral route.04/02/20?alex ERNST MD warfarin 5 mg tabletTAKE ONE TABLET BY MOUTH EVERY DAY OR TPFOSBHH06/15/22?fill ed surescripts Family HistoryReviewed Family History Father - Carcinoma of prostate Mother - Legal blindness - blind in one eye Past Medical HistoryReviewed Past Medical History Glasses/Contacts:Y Vaccine HistoryVaccines not reviewed (last reviewed 04/09/2022) Vaccine Type Date Amt. Route Site NDC Lot??# Mfr. Exp. Date VIS VIS Given Stemmer Machine COVID-19 COVID-19, mRNA, LNP-S, PF, 30 mcg/0.3 mL dose (Navendis) 02/26/21 COVID-19 (SARS-COV-2) vaccine, unspecified 08/15/20 pfizer COVID-19 (SARS-COV-2) vaccine, unspecified 07/27/20 pfizer Influenza influenza, injectable, quadrivalent 03/07/21 influenza, injectable, quadrivalent 03/07/20 influenza, injectable, quadrivalent 03/16/19 influenza, injectable, quadrivalent 03/01/18 influenza 04/20/17 influenza 04/07/16 Pneumococcal Pneumococcal conjugate PCV20, polysaccharide [id number] conjugate, adjuvant, PF 10/13/21 0.5 mL Intramuscular Deltoid, Right [id number] 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 11/21/22 Pneumococcal Conjugate 06/27/21 10/13/21 Aliyah Simon pneumococcal conjugate PCV 13 12/02/18 Zoster zoster 08/05/20 zoster 06/07/20 Electronically Signed by: DANN JONES MD JANUSZ ERNST MD [address] [place], [address], [facility] 04/20/2022 16:44:31 Procedures Surgical History Date Name Laterality Status Provider Name and Address Organization Details Recorded Time 05/05/20 24 OCT/Retina completed DANN JONES MD [address] [place] [address] [place], [address], [facility] 05/05/2024 15:58:42 11/09/19 24 OCT/Retina completed DANN JONES MD [address] [place] [address], [address], [facility] 11/09/2023 14:05:22 05/03/20 23 OCT/Retina completed DANN JONES MD [address] [place] [address], [address], [facility] 05/03/2023 15:03:12 04/20/20 22 OCT/Retina completed DANN JONES MD [address] [place] [address], [address], [facility] 04/20/2022 14:24:01 04/20/20 22 Refraction completed DANN JONES MD [address] [place] [address], [address], [facility] 04/20/2022 14:34:43 12/09/19 22 DXA Low Bone Mass 1 - No Tx completed NAFISA FLEMING MD [address] [place] [address], [address], [facility] 12/08/2021 16:53:13 06/12/19 22 Endoscopy Nasal; Biospy, Polypectomy or Debridement completed Ramona Woodard [facility] 06/12/2021 11:14:22 06/10/19 22 Septoplasty completed Remedios Briseno [facility] 06/12/2021 10:59:44 04/10/20 21 Refraction completed DANN JONES MD [address] [place] [address], [address], [facility] 04/10/2021 16:45:44 06/02/19 20 DXA Low Bone Mass 1 - No Tx completed NAFISA FLEMING MD [address] [place] [address], [place], [address], [facility] 06/02/2019 12:45:31 03/07/19 90 Total Hysterectomy completed JANUSZ ERNST MD [address] [place] [address], [address], [facility] 08/19/2018 14:46:16 Cholecystectomy completed JANUSZ ERNST MD [address] [place] [address], [address], [facility] 06/17/2016 08:42:36 Gastric Bypass completed JANUSZ ERNST MD [address] [place] [address], [address], [facility] 06/17/2016 08:42:42 Imaging Results Imaging Date Name Status LastModified by Organiz ation Details LastModified Time 04/20/2022 optical coherence tomogram, retina completed Information not available 04/20/2022 14:26:03 05/03/2023 optical coherence tomogram, retina completed Information not available 08/05/2023 16:14:45 11/01/2023 CT, orbits, w/wo contrast active [facility] [address] [place], [address], 11/09/2023 14:06:48 11/09/2023 optical coherence tomogram, retina [...] Updated DateTime 04/20/2022 170.18 cm Jacki Lima [facility] 13:20:40 Date Recorded Body height Body mass index (BMI) Body weight Provider Name and Address Organization Details Last Updated DateTime 10/08/2022 170.18 cm 48 kg/m2 491893.07 g Aliyah Simon [facility] 10/08/2022 13:15:36 Date Recorded Heart rate Respiratory rate Systolic blood pressure Diastolic blood pressure Provider Name and Address Organization Details Last Updated DateTime 10/08/2022 80 /min 12 /min 122 mm[Hg] 80 mm[Hg] JANUSZ ERNST MD [address] [place], [address] , [facility] 10/08/2022 13:22:49 Date Recorded Body height Provider Name an d Address Organization Details Last Updated DateTime 05/03/2023 170.18 cm Chris Martir [facility] 05/03/2023 14:43:27 Date Recorded Body height Provider Name an d Address Organization Details Last Updated DateTime 11/09/2023 170.18 cm Shruthi Berrios [facility] 11/09/2023 13:14:13 Date Recorded Body height Provider Name an d Address Organization Details Last Updated DateTime 05/05/2024 170.18 cm Tasia Calero [facility] 1 07/06/2023 15:06:42 Social History Question Answer Notes LastModified by Organizat ion Details LastModified Time Tobacco Smoking Status Never Smoker JANUSZ ERNST MD [address] [place], [address] 06/17/2016 08:42:18 How Much Tobacco Do You Chew? None Information not available 08/19/2018 What Was The Date Of Your Most Recent Tobacco Screening? 10/08/2022 Information not available 10/08/2022 Sex: Female Functional Status Question Answer Note LastModified by Organizat ion Details LastModified Time What is your level of alcohol consumption? 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 Never used electronic cigarettes Information not available 10/01/2020 Mental Status None recorded. Family History Relationship Description Onset Age of this Age Resolved Age Notes LastModified by Organization Details LastModified Time Father Carcinoma of prostate dbeiting Not available 2016 08:42:10 Mother Legal blindness blind in one eye [email or web address] Not available 04/10/2021 16:00:35 Medical History Condition Response Atrial Fibrillation Y Glaucoma N Hypothyroidism Y Anesthesia Complications N Lazy Eye N Obesity Y Cancer N RD/retinal tear N High Cholesterol Y Diabetic Eye Disease N Diabetes N Bleeding Disorder N Eye Trauma N Double Vision N Age-related Macular Degeneration Y Ocular trauma N Cataract Y Hypertension Y Glasses/Contacts Y Gynecological HistoryNo gynecological history recorded. Obstetrics History GPAL:G 0 P 0 0 0 0 Immunizations Vaccine Type Date Status Note Provider Nam e and Address Organization Details Recorded Time influenza, unspecified formulation 7 completed JANUSZ ERNST MD [address] [place] [address], [address], [facility] 06/23/2017 14:01:23 influenza, unspecified formulation 6 completed JANUSZ ERNST MD [address] [place] [address], [address], [facility] 06/18/2016 13:04:54 Influenza, split virus, quadrivalent, preservative 8 completed Not Available [facility] 05/03/2023 14:21:49 Influenza, split virus, quadrivalent, preservative 9 completed Not Available [facility] 05/03/2023 14:21:49 Pneumococcal conjugate PCV 13 9 completed Not Available [facility] 05/03/2023 14:21:50 Pneumococcal conjugate PCV20, polysaccharide SZT386 conjugate, adjuvant, PF 2 completed Aliyah Simon [facility] 10/13/2021 13:42:53 pneumococcal polysaccharide PPV23 3 completed Aliyah Simon [facility] 10/08/2022 13:39:47 COVID-19, mRNA, LNP-S, PF, 30 mcg/0.3 mL dose 1 completed Aliyah Simon [facility] 01/26/2023 08:51:22 Influenza, split virus, quadrivalent, preservative 1 completed Not Available [facility] 05/03/2023 14:21:49 influenza, unspecified formulation 2 completed Not Available [facility] 05/03/2023 14:21:49 zoster recombinant 1 completed Aliyah Simon [facility] 01/26/2023 08:51:22 Influenza, high-dose, quadrivalent, PF 0 completed Aliyahfunmi Simon [facility] 01/26/2023 08:51:22 COVID-19, mRNA, LNP-S, PF, 30 mcg/0.3 mL dose 1 completed Aliyahfunmi Simon [facility] 01/26/2023 08:51:22 COVID-19, mRNA, LNP-S, PF, 30 mcg/0.3 mL dose 1 completed Aliyah Simon [facility] 01/26/2023 08:51:22 COVID-19, mRNA, LNP-S, PF, 30 mcg/0.3 mL dose, jayla-sucrose 2 completed Aliyah [facility] 01/26/2023 08:51:22 COVID-19, mRNA, LNP-S, bivalent, PF, 30 mcg/0.3 mL dose 2 completed Aliyah Simon [facility] 01/26/2023 08:51:22 pneumococcal polysaccharide PPV23 9 completed Aliyahfunmi Simon [facility] 01/26/2023 08:51:22 Pneumococcal conjugate PCV 13 [facility] 01/26/2023 08:51:22 Past Encounters Encounter ID Performer Location Encounter Start Date Encounter Closed Date Diagnosis/Indication Diagnosis SNOMED-CT Code Diagnosis ICD10 Code Diagnosis Note [id number] JANUSZ ERNST MD [facility] [address] [place] [address] 06/18/2016 12:50:50 06/18/2016 13:56:01 Essential hypertension 48283020 I10 Hypothyroidism 89581055 E03.9 Anemia 224655963 D64.9 Hyperlipidemia 77087570 E78.5 Vitamin D deficiency 347 57630 E55.9 Screening for malignant neoplasm of colon 128092003 Z12.11 Plantar fasciitis 807156 003 M72.2 Edema of l ower extremity 617249922 R60.0 Low back pain 910501179 M54.5 [id number] JANUSZ ERNST MD [facility] [address] [place] [address] 12/21/2016 13:17:10 12/21/2016 13:40:13 Essential hypertension 56656262 I10 Hypothyroidism 07139851 E03.9 Atrial fibrillation 4943 6004 I48.91 Hyperlipidemia 41711418 E78.5 Hyperglycemia 73029351 R 73.9 Anemia 123513839 D64.9 Vitamin D deficiency 347 65764 E55.9 Vitamin B1 2 deficiency (non anemic) 05914528 E53.8 Low back pain 796633105 M54.5 [id number] JANUSZ ERNST MD [facility] [address] [place] [id number] 06/23/2017 13:35:30 06/23/2017 14:24:49 Adult health examination 909281132 Z00.00 Essential hypertension 65636682 I10 Dyslipidemia 375094123 E 78.5 Vitamin B1 2 deficiency (non anemic) 87638967 E53.8 Hypothyroidism 43825181 E03.9 Vitamin D deficiency 347 90055 E55.9 Iron deficiency 97483656 E61.1 Low back pain 339536020 M54.5 [id number] JANUSZ ERNST MD [facility] [address] [place] [id number] 01/31/2018 13:23:02 01/31/2018 13:42:37 Essential hypertension 09275752 I10 Hypothyroidism 91522086 E03.9 Chronic pain syndrome 37 5369270 G89.4 Dyslipidemia 181913694 E 78.5 Vitamin D deficiency 347 80348 E55.9 Low back pain 567602339 M54.5 Fatigue 58779214 R53.83 [id number] JANUSZ ERNST MD [facility] [address] [place] [id number] 08/19/2018 14:33:25 08/19/2018 15:03:42 Essential hypertension 40820179 I10 Hypothyroidism 74090182 E03.9 Atrial fibrillation 4943 6004 I48.91 Low back pain 993913282 M54.5 Dyslipidemia 897280376 E 78.5 [id number] JANUSZ ERNST MD [facility] [address] [place] [address] 12/09/2018 13:58:16 12/09/2018 14:19:36 Cellulitis of face 611977060 L03.630 [id number] JANUSZ ERNST MD [facility] [address] [place] [address] 03/27/2019 13:49:01 03/27/2019 14:45:25 Adult health examination 660193557 Z00.00 Essential hypertension 49862709 I10 Hypothyroidism 64325895 E03.9 Chronic pain syndrome 37 9664041 G89.4 Vitamin D deficiency 347 25928 E55.9 Long-term drug therapy 429744429 Z79.899 Pain in right knee 76348 15206 77818 M25.561 Screening for cardiovascular system disease 733354299 Z13.6 Menopausal syndrome 1237 85197 N95.9 [id number] NAFISA FLEMING MD BONE [facility]ENS[facility] [address] [place] [address] 06/02/2019 11:06:54 06/02/2019 11:29:47 Bone density finding 252863255 M85.9 [id number] C GLORIA MARIN PA-C [facility] [address] [place] [address] 06/02/2019 12:48:14 06/02/2019 13:43:08 Osteoarthritis of knee 560393238 M17.9 End-stage PF OA with questionab le [...] TKA as ultimate resolution of this pathology [id number] JANUSZ ERNST MD [facility] [address] [facility] [facility] [address] [place] [id number] 09/25/2019 13:44:29 09/27/2019 08:33:32 Essential hypertension 69397766 I10 Hypothyroidism 23614293 E03.9 Atrial fibrillation 4943 6004 I48.91 Chronic pain syndrome 37 2846271 G89.4 Long-term drug therapy 442086475 Z79.032 [id number] JANUSZ ERNST MD [facility] [address] [place] [address] 04/02/2020 14:04:28 04/02/2020 14:36:26 Essential hypertension 86430591 I10 Hypothyroidism 03529483 E03.9 Atrial fibrillation 4943 6004 I48.91 Obstructiv e sleep apnea syndrome 60764612 G47.33 Chronic pain syndrome 37 1765051 G89.4 Long-term drug therapy 998206998 Z79.899 Dyslipidemia 775103489 E 78.5 Fatigue 71348502 R53.83 [id number] JANUSZ ERNST MD INTERNAL MEDICINE [place] [address] 08/06/2020 09:40:03 08/06/2020 10:11:35 Essential hypertension 36699193 I10 Hypothyroidism 48730070 E03.9 Atrial fibrillation 4943 6004 I48.91 Long-term current use of anticoagulant 464258221 Z79.01 Rectal hemorrhage 934590 02 K62.5 [id number] DENISE VENTURA MD SURGERY SCHEDULE [address] [place] [address] 08/09/2020 12:53:58 08/09/2020 12:54:27 [id number] JANUSZ ERNST MD INTERNAL MEDICINE [place] 53416[address] 1 10/01/2020 13:55:22 10/01/2020 14:23:38 Adult health examination 748379601 Z00.00 Essential hypertension 64029529 I10 Dyslipidemia 507684891 E 78.5 Hypothyroidism 79657065 E03.9 Obstructiv e sleep apnea syndrome 41147261 G47.33 Fatigue 12780069 R53.83 Chronic pain syndrome 37 9542014 G89.4 Long-term drug therapy 754127662 Z79.899 Educated a bout weight management 294015096 Z71.3 Ophthalmic examination and evaluation 36185035 Z01.00 [id number] JANUSZ ERNST MD INTERNAL MEDICINE [address] [place] [address] 04/10/2021 13:26:09 04/10/2021 14:08:52 Essential hypertension 60187984 I10 Hyperlipidemia 88721139 E78.5 Hypothyroidism 03451304 E03.9 Atrial fibrillation 4943 6004 I48.91 Obstructiv e sleep apnea syndrome 28908386 G47.33 Hyperglycemia 47259810 R 73.9 Long-term drug therapy 634139775 Z79.899 Obesity 133592399 E66.9 Gout 23145882 M10.9 Chronic pain syndrome 37 2465628 G89.4 Nasal obstruction 383403 000 J34.89 Fatigue 90394579 R53.83 [id number] DANN JONES MD OPHTHALMO LOG[facility] [address] [place] [address] 04/10/2021 14:52:07 04/10/2021 17:20:33 Nonexudative age-related macular degeneration 729259892 H35.3131 Bilateral age-related nuclear cataracts 1680526329 78848 H25.13 mild Myopia 35016895 H52.11 Hypermetropia 91275413 H 52.02 Regular astigmatism 6890 5002 H52.223 Presbyopia 00010237 H52. 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 3180083 J34.89 - S/p bilateral repair of nasalvalve stenosis (06/10/21) [id number] JANUSZ ERNST MD INTERNAL MEDICINE [place] [address] 10/13/2021 13:12:00 10/13/2021 14:24:22 Adult health examination 201718328 Z00.00 Essential hypertension 84535150 I10 Hyperlipidemia 54708519 E78.5 Hypothyroidism 95531123 E03.9 Atrial fibrillation 4943 6004 I48.91 Obstructiv e sleep apnea syndrome 37492409 G47.33 Long-term drug therapy 719134603 Z79.899 Menopausal syndrome 1237 11734 N95.9 Administra tion of pneumococcal vaccine 74538445 Z23 Chronic pain syndrome 37 6254402 G89.4 [id number] JANUSZ [place]ST [place] [address] 10/21/2021 13:48:02 10/21/2021 13:56:02 Nik hematuria 580027891 R31.0 [id number] NAFISA FLEMING MD BONE DENSITY [address] [address] 12/08/2021 13:36:39 12/08/2021 13:55:34 Osteopenia 620727144 M85.89 [id number] JANUSZ ERNST MD INTERNAL MEDICINE [place] [address] 04/09/2022 13:06:31 04/09/2022 13:44:42 Essential hypertension 52493257 I10 Hyperlipidemia 41010296 E78.5 Atrial fibrillation 4943 6004 I48.91 Hypothyroidism 64782705 E03.9 Gout 70442812 M10.9 Chronic pain syndrome 37 7706986 G89.4 Long-term drug therapy 060357206 Z79.899 Obesity 284685458 E66.9 [id number] DANN JONES MD OPHTHALMO [facility] [address] [place] [address] 04/20/2022 13:12:06 04/20/2022 15:17:09 Nonexudative age-related macular degeneration 120614694 H35.3131 Bilateral age-related nuclear cataracts 5936749691 38157 H25.13 mild progressio n Hypermetropia 55093088 H 52.02 Regular astigmatism 6890 5002 H52.223 Presbyopia 12597735 H52. 4 Myopia 57627866 H52.11 [id number] JANUSZ ERNST MD INTERNAL MEDICINE [address] [place] [address] 10/08/2022 13:09:28 10/12/2022 10:57:06 Adult health examination 357214712 Z00.00 Essential hypertension 74281859 I10 Hyperlipidemia 37262574 E78.5 Hypothyroidism 35703195 E03.9 Atrial fibrillation 4943 6004 I48.91 stablecont inue current medication continue to monitorco- managed with cardiology Gout 70797067 M10.9 Chronic pain syndrome 37 7367143 G89.4 Morbid obesity 873340532 E66.01 calorie restrictio nlow carbohydra te diet Thrombophilia 469859614 D68.69 stablecont inue current medication continue to monitorco- managed with cardiology Long-term current use of anticoagulant 026528452 Z79.01 stableno s/sx bleedingco ntinue current medication continue to monitor Long-term drug therapy 696727196 Z79.899 Administra tion of pneumococcal vaccine 21336799 Z23 [id number] DANN JONES MD [address]MO [address] [address] [place] [address] 05/03/2023 14:20:39 05/03/2023 15:31:53 Nonexudative age-related macular degeneration 649804779 H35.3132 Bilateral age-related nuclear cataracts 8480045032 80930 H25.13 mild progressio n Myopia 75075566 H52.11 Hypermetropia 05369715 H 52.02 Regular astigmatism 6890 5002 H52.223 Presbyopia 60386460 H52. 4 [id number] DANN JONES MD OPHTHALMO LOGY [address] [place] [address] 11/09/2023 12:50:38 11/09/2023 14:12:53 Nonexudative age-related macular degeneration 387711345 H35.3132 Bilateral age-related nuclear cataracts 4054570850 19352 H25.13 mild progressio n Myopia 61149450 H52.11 Hypermetropia 21308803 H 52.02 Regular astigmatism 6890 5002 H52.223 Presbyopia 74811335 H52. 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 4 Health Concerns Section Related Observation LastModified by Organization Detai ls LastModified Time None Recorded Concern Status LastModified by Organization Details LastModified Time None Recorded Advance Directives Directive None Recorded Payers Insurance Date Sequence Insurance Name Policy Number Policy Fernandes Covered Member ID Fernandes Member ID Guarantor Name 05/11/[address] [facility] (MEDICARE REPLACEMENT/A DVANTAGE - PPO) [id number] Nicol Zamudiosby [id number] Nicol aZmudiosby 10/28/2023 1 [place] [employer] [place] [id number] Nicol Zamudiosby [id number] Nicol Zamudiosby 12/09/2018 SLIDING FEE SCHEDULE - DISCOUNT Nicol Brown Ana Maria 03/27/2019 SLIDING FEE SCHEDULE - DISCOUNT Nicol L Ana Maria 10/28/2023 1 [place] [facility] [place] BLUE PREFERRED PRIMARY (HMO) [id number] Nicol L Ana Maria [id number] Nicol Zamudiosby Notes Date Note Type Note Provider Name and Address Organization Details Recorded Time 3 text/html Medicare wellness visitHypertension is chronic, ongoing, stableHyperlipidemia is chronic, ongoing, stableHypothyroidism is chronic, ongoing, stableAfib is chronic, ongoing, stableGout is chronic, ongoing, stableOSA is chronic, ongoing, stable on BiPAP. She is benefiting from BiPAP JANUSZ ERNST MD [address] [place], [address], [facility] 10/08/2022 13:33:35 OBGyn Episode No OBEpisode recorded.
[2024-10-11 14:40] LABS: PHA INR Fingerstick 2.4 (0.9-1.1)
== END 2024-10-11 14:51 ==
LOC: ACC 13:32
PROVIDERS: PCP Nurse Practitioner Family; Visit Provider Nurse Practitioner Family
DX: Z79.01 Long term (current) use of anticoagulants (principal); I48.91 Unspecified atrial fibrillation
CPT/HCPCS: 85610; 99211; G0463

== ENCOUNTER 2024-10-30 15:57 | Outpatient (CLI) | payer MEDICARE, SELFPAY ==
--- OUTSIDE RECORDS SUMMARY | 2024-10-30 16:01 | XMS_ITS | Encounter Summary ---
Author Organization Healthcare Address [address] [place] [address] Care Team Providers Care Dye Feeder Name Role Phone Janusz Ernst MD Primary Care Provider [phone] Sobeida Alvarenga APRN Primary Care Provider [phone] Encounter Details Date Type Department Care Team (Late Contact Info) Description 11/30/2018 Orders Only External Location [address] [place] [address] Provider, External Social History Tobacco Use Types Packs/Day Years Used Date Smoking Tobacco: Never Assessed Comments Unknown Sex and Gender Information Value Date Recorded Sex Assigned at Not on file Legal Sex Female 7:27 PM EDT Gender Identity Not on file Sexual Orientation Not on file documented as of this encounter Plan of Treatment Upcoming Encounters Date Type Department Care Team (Late Contact Info) Description 12/27/2024 12:45 PM EDT Office Visit [facility] [address] [facility] [place] [address] Sedrick Sykes MD [address] [place] [address] 02/14/2025 2:00 PM EDT Office Visit [facility] [address] [place] [address] Marnie Gayle, JACQUI, DNP [address] [place] [address] 07/31/2025 2:30 PM EDT Ovarian Cancer Screening [facility] [address] [place] [address] documented as of this encounter Procedures Procedure Name Priority Date/Time Associated Diagnosis Comments MR NEURO OUTSIDE IMAGES 11/30/2018 9:48 AM EDT documented in this encounter Results * MR NEURO OUTSIDE IMAGES (11/30/2018 9:48 AM EDT) Anatomical Region Laterality Modality Magnetic Resonan ce 11/30/2018 9:48 AM EDT us External Provider IMG MRI PROCEDURES Final Resul t documented in this encounter Visit Diagnoses Not on filedocumented in this encounter Care Teams Dye Feeder Relationship Specialty Start Date End Date Janusz Ernst MD [address] [place] [address] PCP - General 01/17/21 07/24/24 Sobeida Alvarenga, WRAPPER OPERATOR [address] [place] [address] PCP - General 07/25/24 documented as of this encounter
--- OUTSIDE RECORDS SUMMARY | 2024-10-30 16:01 | XMS_ITS | Data Portability ---
Author Organization [facility] CLAUDE GironS WOBURN CLOSED Address [address] [place] [address] Care Team Providers Care Media Operator Name Role Phone DANN JONES Food Photographer JOHAN ELISE Primary Care Provider [phone] Assessment Encounter Date Assessment Date Assessment LastModified [...] acid, serum or plasma 2022 023 [email or web address] [facility], [address] [place] [address], [phone], 05/05/2023 07:58:02 toxicolog y screen, urine 2022 023 [email or web address] [facility], [address] [place] [address], [address], 05/05/2023 07:58:02 lipid panel, serum 2022 023 [email or web address] [facility], [address] [place] [address], [address], 05/05/2023 07:58:01 CMP, serum or plasma 2022 023 [email or web address] [facility], [address] [place] [address], [address], 05/05/2023 07:58:01 CBC w/ auto diff 2022 023 [email or web address] [facility], [address] [place] [address], [address], 05/05/2023 07:58:01 TSH, serum or plasma 2022 023 [email or web address] [facility], [address] [place] [address], [phone], 05/05/2023 07:58:02 Referral None recorded. Procedures None recorded. Surgeries None recorded. Imaging None recorded. Medication Orders tramadol 50 mg tablet 2022 023 [facility], [address] [place] [address], [id number], 01/27/2023 14:14:33 levothyro xine 125 mcg tablet 2022 023 [facility], [address] [place] [address], [id number], 01/27/2023 14:14:33 Patient TargetsNo targets recorded. Patient Instructions Encounter Date Encounter Id Patient Instructions Last Modified By Organization Details Last Modified Time 04/20/2022 [id number] discussed importance of taking AREDS 2 vitamins BID and checking grid QD (given with instructions/emily ng signs) MR with +2.50 NL recheck 1 yr with mac kaylen shah Not available 04/20/2022 14:35:10 10/08/2022 [id number] weight managemen t education dbeiting Not available 10/08/2022 13:32:35 advance care planning: care instructions dbeiting Not available 10/08/2022 13:32:36 labs reviewed scripts reviewed risks/benefits reviewed high risk meds reviewed continue current medication continue to monitor labs pneumovax 23 rtc 6 months with labs and prn dbeiting Not available 10/08/2022 07:30:23 05/03/2023 [id number] stable exam continue vitamins BID and check [...] oct dkielar Not available 05/03/2023 15:21:33 11/09/2023 [id number] unspecified righ t orbital mass she has [...] oct dkielar Not available 11/09/2023 14:09:42 05/05/2024 [id number] stable exam continue AREDS 2 vitamins BID [...] w/wo contr ast [place] [facility] [address] [place] [address] Patirichy leblanc Name: NICOL Brown ANA MARIA [...] Omnipa que 350 (100 mL bottle of [facility] [address]- 1414-9 1) was intrav enousl y admini stered to the patien t. 37 was wasted and discar ded. FINDIN GS: There are masses along the medial wall of both orbits credit verifier ior to the globes . On the [...] along the medial aspect of both orbits credit verifier ior to the globes . These could repres ent orbita l cavern ous venous malfor mation s (heman giomas ) venous varice s, or lympho prolif erativ e diseas e, but the appear ance is nonspe cific. . Interp reted By: Megan pichardo MD Electr onical ly Signed By: Megan pichardo MD on 024 1:49 PM dkielar [facility] [address] [place], [address], 11/09/2023 14:06:48 11/09/19 24 11/09/2023 optic al [...] Details Recorded Time [facility] hyperten jacqueline 68718190 Active 2016 JANUSZ ERNST MD [address] [place] [address], [phone] , [facility] 7 13:23:59 Iron deficien cy 55368831 Active 2017 JANUSZ ERNST MD [address] [place] [address], [address] , [facility] 8 14:01:11 Chronic pain syndrome 822172044 Active 2018 JANUSZ ERNST MD [address] [place] [address], [address] , [facility] 9 13:58:32 Obstruct silviano sleep apnea syndrome 89322830 Active 2018 BiPAP JANUSZ ERNST MD [address] [place] [address], [address] , [facility] 9 14:04:34 Hyperlip idemia 26574968 Active 2020 JANUSZ ERNST MD [address] [place] [address], [address] , [facility] 1 13:16:58 Gout 67794336 Active 2020 JANUSZ ERNST MD [address] [place] [address], [address] , [facility] 1 13:38:01 Nonexuda tive age-rela michelle macular degenera tion 685949512 Active 2020 DANN JONES MD [address] [place] [address], [address] , [facility] 3 15:02:04 Bilatera l age-rela michelle nuclear cataract s 49748881285 9100 Active 2020 DANN JONES MD [address] [place] [address], [address] , [facility] 3 15:02:04 Myopia 77059852 Active 2020 DANN JONES MD [address] [place] [address], [address] , [facility] 3 15:02:04 Hypermet ropia 63465340 Active 2020 DANN JONES MD [address] [place] [address], [address] , [facility] 3 15:02:04 Regular astigmat ism 85985427 Active 2020 DANN JONES MD [address] [place] [address], [address] , [facility] 3 15:02:04 Presbyop ia 60388494 Active 2020 DANN JONES MD [address] [place] [address], [address] , [facility] 3 15:02:04 Osteopen ia 826359399 Active 2021 JANUSZ ERNST MD [address] [place] [address], [address] , [facility] 2 07:39:55 Morbid obesity 972206199 [place] 20[place] [address] [place] [address], [address] , [facility] 3 07:22:38 Thrombop hilia 654717195 Active 20[place] [address] [place] [address], [address] , [facility] 3 07:23:15 Long-ter m current use of anticoag ulant 365815616 Active 2022 JANUSZ ERNST MD [address] [place] [address], [address] , [facility] 3 07:23:46 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 DANN JONES MD [address] [place], [place] [address] , [facility] 4 14:31:47 Low back pain 654831410 Active 2015 From Automate d Load;Pro vider: Janusz Ernst;Nellie tatus: Active Not Available [facility] 6 06:28:23 Atrial fibrilla tion 32177918 Active 2015 Provider : Mckenzie Jules; Status: Active Not Available [facility] 6 06:28:25 Vitamin D deficien cy 85307500 Active 2015 Provider : Mckenzie Jules; Status: Active Not Available [facility] 6 06:28:25 Hyperten sive disorder 28877083 Completed 201509/25/2019 From Automate d Load;Pro vider: Janusz Ernst;S tatus: Active JANUSZ ERNST MD [address] [place] [address], [address] , [facility] 0 13:45:33 Hypothyr oidism 46845883 Active 2015 From Automate d Load;Pro vider: Janusz Ernst;S tatus: Active Not Available [facility] 11/28/201 6 06:28:26 Problem Notes Documentation Provider Name and Address Organization Details Recorded Time Food Photographer Consult Note : [facility] [address], [facility] [id number], Cindy L (id #[id number], : 1955) [facility] [address] [place] [address] Encounter Summary - Progress Note Date Printed: 04/20/2022 Documents sent via fax will include the [...] received this fax in error, please visit [email or web address] Fax to notify the sender and confirm that the information will be destroyed. If you do not have internet access, please call to notify the sender and confirm that the information will be destroyed. Thank you for your attention and cooperation. [ID:[id number]] Patient Nicol Rodgers (67yo, F) #[id number] 1955 Patient Demographics: Address [address] [place] [address] Encounter Notes: Encounter Reason/Date complete eye exam [...] daily hr 04/20/2022 - 01:30PM - [facility]OLOGY [facility] [place] History of Present IllnessNone recorded Review of [...] of arrival. Await instructions from provider's office. [id number] 13:20 Ht: 5 ft 7 in Results/InterpretationsNon [...] lenses. Assessment and Plan1. Nonexudative age-related macular ontwcndsoupuX39.3131: Nonexudative age-related macular degeneration, bilateral, early dry stage 2. Bilateral age-related nuclear cataracts-mild dgtxmcbfnpmC81.13: Age-related nuclear cataract, bilateral 3. OwtkncO30.11: Myopia, right eye Progressive glasses (Expiration Date: 04/20/2023)Right -Sph: -1.00Cyl: +1.25Axis: 180Add: +2.50Left -Sph: +0.50Cyl: +0.25Axis: 150Add: +2.50 4. TbgcxyoanoqbsH45.02: Hypermetropia, left eye 5. Regular wslzpsokhkiE13.223: Regular astigmatism, bilateral 6. QrxpcwpxvqM17.4: Presbyopia Discussion Notesdiscussed importance of taking AREDS 2 vitamins BID and checking grid QD (given with instructions/warning signs)MR with +2.50 NLrecheck 1 yr with mac oct Return to Office JANUSZ ERNST MD for MEDICARE WELLNESS VISIT at [facility] on 10/08/2022 at 01:15 PM to see DANN JONES MD for COMPLETE EYE EXAM at [facility] on or around 04/20/2023 Patient Medical History: Allergies List Reviewed Allergies NKDA Medications Reviewed Medications NameDate Source allopurinoL 100 mg tabletTAKE ONE TABLET BY MOUTH EVERY DAY04/09/22 filled surescripts atorvastatin 20 mg tabletTAKE ONE TABLET BY MOUTH EVERY DAY04/03/21 filled surescripts Caltrate 600 plus DBID12/09/21 entered JANUSZ ERNST MD colchicine 0.6 mg tabletTAKE ONE TABLET BY MOUTH EVERY DAY04/09/22 filled surescripts ferrous gluconate 240 mg (27 mg iron) tabletDaily Internal Note:Frequency: daily;Medication Description: ferrous gluconate; Dosage:1; Route:oral; refills: entered sidney.263 furosemide 20 mg tabletTAKE ONE TABLET BY MOUTH EVERY DAY FOR fluid01/05/22 filled surescripts levothyroxine 125 mcg tabletTAKE ONE TABLET BY MOUTH EVERY DAY01/17/22 filled surescripts lisinopriL 20 mg tabletTAKE ONE TABLET BY MOUTH EVERY DAY04/09/22 prescribed JANUSZ ERNST MD metaxalone 800 mg yfbdxjMtgbi50/28/16 filled [facility] metoprolol succinate ER 100 mg tablet,extended release 24 hrTAKE ONE TABLET BY MOUTH EVERY DAY FOR BLOOD RKBZMPQE59/19/22 filled surescripts omega 4-eyf-bmy-fish oil 1,000 mg (120 mg-180 mg) capsuleDaily Internal Note:Frequency: daily;Medication Description: omega-3 polyunsaturated fatty acids; Dosage:1; Route:oral; refills: entered sidney.244 ondansetron 4 mg disintegrating tabletDISSOLVE ONE TABLET BY MOUTH THREE TIMES DAILY NEEDED FOR PINTYB33/18/22 filled surescripts oxybutynin chloride ER 10 mg tablet,extended release 24 hrTAKE ONE TABLET BY MOUTH EVERY DAY01/17/22 filled surescripts peg 3350-electrolytes 236 gram-22.74 gram-6.74 gram-5.86 gram solutionTAKE ACCORDING TO PACKAGE VMXVGOTCZKNB00/16/21 filled surescripts phentermine 37.5 mg tabletTake one tablet by mouth daily (30 minutes before or 1-2 hour(s) after breakfast).10/23/20 filled surescripts potassium chloride ER 10 mEq tablet,extended release(part/cryst) 8 filled [facility] Suprep Bowel Prep Kit 17.5 gram-3.13 gram-1.6 gram oral solutionUSE ZTTBLQUJ23/16/21 prescribed DENISE VENTURA MD Symbicort 160 mcg-4.5 mcg/actuation HFA aerosol inhalerINHALE 2 PUFFS BY MOUTH TWICE DAILY02/11/22 filled surescripts traMADoL 50 mg tabletTAKE ONE TABLET BY MOUTH TWICE DAILY NEEDED MAY CAUSE CNZNXLQOQS12/17/22 filled surescripts trospium 20 mg /10/17 filled [facility] Vitamin D 5,000 unit tabletTake 1 tablet(s) every day by oral route.04/02/20 entered JANUSZ ERNST MD warfarin 5 mg tabletTAKE ONE TABLET BY MOUTH EVERY DAY OR XZRPYQWR04/15/22 filled surescripts Family HistoryReviewed Family History Father - Carcinoma of prostate Mother - Legal blindness - blind in one eye Past Medical HistoryReviewed Past Medical History Glasses/Contacts:Y Vaccine HistoryVaccines not reviewed (last reviewed 04/09/2022) Vaccine Type Date Amt. Route Site [facility] Lot # Mfr. Exp. 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-19 COVID-19, mRNA, LNP-S, PF, 30 mcg/0.3 mL dose (Oh My Green!) 02/26/21 COVID-19 (SARS-COV-2) vaccine, unspecified 08/15/20 pfizer COVID-19 (SARS-COV-2) vaccine, unspecified 07/27/20 pfizer Influenza influenza, injectable, quadrivalent 03/07/21 influenza, injectable, quadrivalent 03/07/20 influenza, injectable, quadrivalent 03/16/19 influenza, injectable, quadrivalent 03/01/18 influenza 04/20/17 influenza 04/07/16 Pneumococcal Pneumococcal conjugate PCV20, polysaccharide [id number] conjugate, adjuvant, PF 10/13/21 0.5 mL Intramuscular Deltoid, Right [id number] 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 11/21/22 Pneumococcal Conjugate 06/27/21 10/13/21 Aliyah Simon pneumococcal conjugate PCV 13 12/02/18 Zoster zoster 08/05/20 zoster 06/07/20 Electronically Signed by: DANN JONES MD JANUSZ ERNST MD [address] [place] [address], [phone], [facility] 04/20/2022 16:44:31 Procedures Surgical History Date Name Laterality Status Provider Name and Address Organization Details Recorded Time 05/05/20 24 OCT/Retina completed DANN JONES MD [address] [place] [address] [place], [address], [facility] 05/05/2024 15:58:42 11/09/19 24 OCT/Retina completed DANN JONES MD [address] [place] [address] [place], [address], [facility] 11/09/2023 14:05:22 05/03/20 23 OCT/Retina completed DANN JONES MD [address] [place] [address], [address], [facility] 05/03/2023 15:03:12 04/20/20 22 OCT/Retina completed DANN JONES MD [address] [place] [address], [address], [facility] 04/20/2022 14:24:01 04/20/20 22 Refraction completed DANN JONES MD [address] [place] [address], [address], [facility] 04/20/2022 14:34:43 12/09/19 22 DXA Low Bone Mass 1 - No Tx completed NAFISA FLEMING MD [address] [place] [address], [address], [facility] 12/08/2021 16:53:13 06/12/19 22 Endoscopy Nasal; Biospy, Polypectomy or Debridement completed Ramona Woodard [facility] 06/12/2021 11:14:22 06/10/19 22 Septoplasty completed Remedios Briseno [facility] 06/12/2021 10:59:44 04/10/20 21 Refraction completed DANN JONES MD [address] [place] [address], [address], [facility] 04/10/2021 16:45:44 06/02/19 20 DXA Low Bone Mass 1 - No Tx completed NAFISA FLEMING MD [address] [place] [address], [address], [facility] 06/02/2019 12:45:31 03/07/19 90 Total Hysterectomy completed JANUSZ ENRST MD [address] [place] [address], [address], [facility] 08/19/2018 14:46:16 Cholecystectomy completed JANUSZ ERNST MD [address] [place] [address], [address], [facility] 06/17/2016 08:42:36 Gastric Bypass completed JANUSZ ERNST MD [address] [place] [address], [address], [facility] 06/17/2016 08:42:42 Imaging Results None recorded. Procedure Notes None recorded. Medical Equipment None [...] Not Available Not Available Vitals Date Recorded Heart rate Respiratory rate Systolic blood pressure Diastolic blood pressure Provider Name and Address Organization Details Last Updated DateTime 10/08/2022 80 /min 12 /min 122 mm[Hg] 80 mm[Hg] JANUSZ ERNST MD [address] [place] [address], [address] , [facility] 10/08/2022 13:22:49 Date Recorded Body height Body mass index (BMI) Body weight Provider Name and Address Organization Details Last Updated DateTime 10/08/2022 170.18 cm 48 kg/m2 029875.07 g Aliyah Alfred [facility] 10/08/2022 13:15:36 Date Recorded Body height Provider Name an d Address Organization Details Last Updated DateTime 11/09/2023 170.18 cm Shruthi Berrios [facility] 11/09/2023 13:14:13 Date Recorded Body height Provider Name an d Address Organization Details Last Updated DateTime 04/20/2022 170.18 cm Jacki Lima [facility] 13:20:40 Date Recorded Body height Provider Name an d Address Organization Details Last Updated DateTime 05/03/2023 170.18 cm Chris Mcmahan [facility] 05/03/2023 14:43:27 Date Recorded Body height Provider Name an d Address Organization Details Last Updated DateTime 05/05/2024 170.18 cm Tasia Calero [facility] 1 07/06/2023 15:06:42 Social History Question Answer Notes LastModified by Organizat ion Details LastModified Time Tobacco Smoking Status Never Smoker JANUSZ ERNST MD [address] [place] [address], [address], [facility] 06/17/2016 08:42:18 How Much Tobacco Do You Chew? None Information not available 08/19/2018 What Was The Date Of Your Most Recent Tobacco Screening? 10/08/2022 Information not available 10/08/2022 Sex: Female Functional Status Question Answer Note LastModified by Organizat ion Details LastModified Time What is your level of alcohol consumption? 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 Never used electronic cigarettes Information not available 10/01/2020 Mental Status None recorded. Family History Relationship Description Onset Age of this Age Resolved Age Notes LastModified by Organization Details LastModified Time Father Carcinoma of prostate dbeiting Not available 2016 08:42:10 Mother Legal blindness blind in one eye [email or web address] Not available 04/10/2021 16:00:35 Medical History Condition Response Diabetes N Obesity Y Bleeding Disorder N Atrial Fibrillation Y Eye Trauma N Age-related Macular Degeneration Y Cancer N Double Vision N RD/retinal tear N Ocular trauma N Cataract Y Glaucoma N Hypothyroidism Y Diabetic Eye Disease N High Cholesterol Y Anesthesia Complications N Hypertension Y Lazy Eye N Glasses/Contacts Y Gynecological HistoryNo gynecological history recorded. Obstetrics History GPAL:G 0 P 0 0 0 0 Immunizations Vaccine Type Date Status Note Provider Nam e and Address Organization Details Recorded Time influenza, unspecified formulation 7 completed JANUSZ ERNST MD [address] [place] [address], [address], [facility] 06/23/2017 14:01:23 influenza, unspecified formulation 6 completed JANUSZ ERNST MD [facility] [place], [address], [facility] 06/18/2016 13:04:54 Influenza, split virus, quadrivalent, preservative 8 completed Not Available [facility] 05/03/2023 14:21:49 Influenza, split virus, quadrivalent, preservative 9 completed Not Available [facility] 05/03/2023 14:21:49 Pneumococcal conjugate PCV 13 9 completed Not Available [facility] 05/03/2023 14:21:50 Pneumococcal conjugate PCV20, polysaccharide [id number] conjugate, adjuvant, PF 2 completed Aliyah Simon [facility] 10/13/2021 13:42:53 pneumococcal polysaccharide PPV23 3 completed Aliyah Simon [facility] 10/08/2022 13:39:47 COVID-19, mRNA, LNP-S, PF, 30 mcg/0.3 mL dose 1 completed Aliyah Simon [facility] 01/26/2023 08:51:22 Influenza, split virus, quadrivalent, preservative 1 completed Not Available [facility] 05/03/2023 14:21:49 influenza, unspecified formulation 2 completed Not Available [facility] 05/03/2023 14:21:49 zoster recombinant 1 completed Aliyah Simon [facility] 01/26/2023 08:51:22 Influenza, high-dose, quadrivalent, PF 0 completed Aliyah Simon [facility] 01/26/2023 08:51:22 COVID-19, mRNA, LNP-S, PF, 30 mcg/0.3 mL dose 1 completed Aliyah Simon [facility] 01/26/2023 08:51:22 COVID-19, mRNA, LNP-S, PF, 30 mcg/0.3 mL dose 1 completed Aliyah Simon [facility] 01/26/2023 08:51:22 COVID-19, mRNA, LNP-S, PF, 30 mcg/0.3 mL dose, jayla-sucrose 2 completed Aliyah Simon [facility] 01/26/2023 08:51:22 COVID-19, mRNA, LNP-S, bivalent, PF, 30 mcg/0.3 mL dose 2 completed Aliyah Simon [facility] 01/26/2023 08:51:22 pneumococcal polysaccharide PPV23 07/12/201 9 [facility] 08:51:22 Pneumococcal conjugate PCV 13 1 [facility] 08:51:22 Past Encounters Encounter ID Performer Location Encounter Start Date Encounter Closed Date Diagnosis/Indication Diagnosis SNOMED-CT Code Diagnosis ICD10 Code Diagnosis Note [id number] JANUSZ ERNST MD [facility] [address] [address] 06/18/2016 12:50:50 06/18/2016 13:56:01 Essential hypertension 15184622 I10 Hypothyroidism 72673722 E03.9 Anemia 153181582 D64.9 Hyperlipidemia 52279886 E78.5 Vitamin D deficiency 347 11335 E55.9 Screening for malignant neoplasm of colon 083384214 Z12.11 Plantar fasciitis 372082 003 M72.2 Edema of l ower extremity 313547517 R60.0 Low back pain 257115672 M54.5 [id number] JANUSZ ERNST MD [facility] [address] [place] [address] 12/21/2016 13:17:10 12/21/2016 13:40:13 Essential hypertension 07725319 I10 Hypothyroidism 39716116 E03.9 Atrial fibrillation 4943 6004 I48.91 Hyperlipidemia 49977610 E78.5 Hyperglycemia 82649091 R 73.9 Anemia 963076274 D64.9 Vitamin D deficiency 347 77038 E55.9 Vitamin B1 2 deficiency (non anemic) 53984278 E53.8 Low back pain 104358852 M54.5 [id number] JANUSZ ERNST MD [facility] [address] [place] [id number] 06/23/2017 13:35:30 06/23/2017 14:24:49 Adult health examination 124928912 Z00.00 Essential hypertension 97978232 I10 Dyslipidemia 217660176 E 78.5 Vitamin B1 2 deficiency (non anemic) 61574871 E53.8 Hypothyroidism 21574166 E03.9 Vitamin D deficiency 347 48731 E55.9 Iron deficiency 96119127 E61.1 Low back pain 713391741 M54.5 [id number] JANUSZ ERNST MD [facility] [address] [place] [id number] 01/31/2018 13:23:02 01/31/2018 13:42:37 Essential hypertension 62925361 I10 Hypothyroidism 30640500 E03.9 Chronic pain syndrome 37 8066080 G89.4 Dyslipidemia 261639378 E 78.5 Vitamin D deficiency 347 47626 E55.9 Low back pain 834522029 M54.5 Fatigue 42407246 R53.83 [id number] JANUSZ ERNST MD [facility] [address] [place] [address] 08/19/2018 14:33:25 08/19/2018 15:03:42 Essential hypertension 17174341 I10 Hypothyroidism 71028085 E03.9 Atrial fibrillation 4943 6004 I48.91 Low back pain 934915440 M54.5 Dyslipidemia 426777828 E 78.5 [id number] JANUSZ ERNST MD [facility] [address] [place] [address] 12/09/2018 13:58:16 12/09/2018 14:19:36 Cellulitis of face 033832351 L03.989 [id number] JANUSZ ERNST MD [facility] [address] [place], [place] [address] 03/27/2019 13:49:01 03/27/2019 14:45:25 Adult health examination 560215464 Z00.00 Essential hypertension 18467839 I10 Hypothyroidism 91875172 E03.9 Chronic pain syndrome 37 4775029 G89.4 Vitamin D deficiency 347 72308 E55.9 Long-term drug therapy 905881239 Z79.899 Pain in right knee 40639 90554 45236 M25.561 Screening for cardiovascular system disease 727316486 Z13.6 Menopausal syndrome 1237 06586 N95.9 [id number] NAFISA FLEMING MD BONE DENSITY [address] [place] [address] 06/02/2019 11:06:54 06/02/2019 11:29:47 Bone density finding 068815201 M85.9 [id number] C GLORIA MARIN [facility] [address] [place] [address] 06/02/2019 12:48:14 06/02/2019 13:43:08 Osteoarthritis of knee 856906971 M17.9 End-stage PF OA with questionab le [...] TKA as ultimate resolution of this pathology [id number] JANUSZ ERNST MD INTERNAL MEDICINE [facility] [address] [facility] [address] [place] [address] 09/25/2019 13:44:29 09/27/2019 08:33:32 Essential hypertension 34234246 I10 Hypothyroidism 41766283 E03.9 Atrial fibrillation 4943 6004 I48.91 Chronic pain syndrome 37 9327804 G89.4 Long-term drug therapy 365511152 Z79.000 [id number] JANUSZ ERNST MD INTERNAL MEDICINE [facility] [address] [facility] [place] [address] 04/02/2020 14:04:28 04/02/2020 14:36:26 Essential hypertension 23047302 I10 Hypothyroidism 30831819 E03.9 Atrial fibrillation 4943 6004 I48.91 Obstructiv e sleep apnea syndrome 63703301 G47.33 Chronic pain syndrome 37 2720808 G89.4 Long-term drug therapy 394624119 Z79.899 Dyslipidemia 826266120 E 78.5 Fatigue 60999474 R53.83 [id number] JANUSZ ERNST MD INTERNAL MEDICINE [address] [place] [address] 08/06/2020 09:40:03 08/06/2020 10:11:35 Essential hypertension 52490213 I10 Hypothyroidism 52921465 E03.9 Atrial fibrillation 4943 6004 I48.91 Long-term current use of anticoagulant 824045304 Z79.01 Rectal hemorrhage 135892 02 K62.5 [id number] DENISE VENTURA MD SURGERY SCHEDULE [address] [place] [address] 08/09/2020 12:53:58 08/09/2020 12:54:27 [id number] JANUSZ ERNST MD INTERNAL MEDICINE [address] [place] [address] 10/01/2020 13:55:22 10/01/2020 14:23:38 Adult health examination 727790532 Z00.00 Essential hypertension 12191165 I10 Dyslipidemia 643079743 E 78.5 Hypothyroidism 60444210 E03.9 Obstructiv e sleep apnea syndrome 51531293 G47.33 Fatigue 11577736 R53.83 Chronic pain syndrome 37 3740230 G89.4 Long-term drug therapy 248795070 Z79.899 Educated a bout weight management 401011193 Z71.3 Ophthalmic examination and evaluation 44190221 Z01.00 [id number] JANUSZ ERNST MD INTERNAL MEDICINE [facility] [address] [place], [place] [address] 04/10/2021 13:26:09 04/10/2021 14:08:52 Essential hypertension 47700732 I10 Hyperlipidemia 44833964 E78.5 Hypothyroidism 75891684 E03.9 Atrial fibrillation 4943 6004 I48.91 Obstructiv e sleep apnea syndrome 45902903 G47.33 Hyperglycemia 97710190 R 73.9 Long-term drug therapy 428601859 Z79.899 Obesity 734267510 E66.9 Gout 60877112 M10.9 Chronic pain syndrome 37 7163061 G89.4 Nasal obstruction 040915 000 J34.89 Fatigue 27675580 R53.83 [id number] DANN JONES MD OPHTHALMO LOGY [address] [place] [address] 04/10/2021 14:52:07 04/10/2021 17:20:33 Nonexudative age-related macular degeneration 357956284 H35.3131 Bilateral age-related nuclear cataracts 0066795709 46669 H25.13 mild Myopia 39044386 H52.11 Hypermetropia 77115561 H 52.02 Regular astigmatism 6890 5002 H52.223 Presbyopia 53536508 H52. 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 7102502 J34.89 - S/p bilateral repair of nasalvalve stenosis (06/10/21) [id number] JANUSZ ERNST [place] [address] 10/13/2021 13:12:00 10/13/2021 14:24:22 Adult health examination 907094378 Z00.00 Essential hypertension 94348080 I10 Hyperlipidemia 71094420 E78.5 Hypothyroidism 74251947 E03.9 Atrial fibrillation 4943 6004 I48.91 Obstructiv e sleep apnea syndrome 69279757 G47.33 Long-term drug therapy 728416465 Z79.899 Menopausal syndrome 1237 38177 N95.9 Administra tion of pneumococcal vaccine 43807031 Z23 Chronic pain syndrome 37 4912074 G89.4 [id number] JANUSZ ERNST MD [place] [address] 10/21/2021 13:48:02 10/21/2021 13:56:02 Nik hematuria 030317482 R31.0 [id number] NAFISA FLEMING MD BONE DENSITY [address] [address] 12/08/2021 13:36:39 12/08/2021 13:55:34 Osteopenia 989728539 M85.89 [id number] JANUSZ ERNST MD INTERNAL MEDICINE [place] [address] 1 04/09/2022 13:06:31 04/09/2022 13:44:42 Essential hypertension 26424432 I10 Hyperlipidemia 18759634 E78.5 Atrial fibrillation 4943 6004 I48.91 Hypothyroidism 77445045 E03.9 Gout 15759501 M10.9 Chronic pain syndrome 37 5643497 G89.4 Long-term drug therapy 484593028 Z79.899 Obesity 705563394 E66.9 [id number] DANN JONES MD OPHTHALMO LOGAntonia [address] [place],[address] [place] [address] 04/20/2022 13:12:06 04/20/2022 15:17:09 Nonexudative age-related macular degeneration 826834963 H35.3131 Bilateral age-related nuclear cataracts 6704887063 06322 H25.13 mild progressio n Hypermetropia 99204724 H 52.02 Regular astigmatism 6890 5002 H52.223 Presbyopia 57493800 H52. 4 Myopia 86722294 H52.11 [id number] JANUSZ ERNST MD INTERNAL MEDICINE [address] [place] [address] 10/08/2022 13:09:28 10/12/2022 10:57:06 Adult health examination 050220582 Z00.00 Essential hypertension 55164385 I10 Hyperlipidemia 94229196 E78.5 Hypothyroidism 34841931 E03.9 Atrial fibrillation 4943 6004 I48.91 stablecont inue current medication continue to monitorco- managed with cardiology Gout 84505062 M10.9 Chronic pain syndrome 37 6556775 G89.4 Morbid obesity 374017653 E66.01 calorie restrictio nlow carbohydra te diet Thrombophilia 440804596 D68.69 stablecont inue current medication continue to monitorco- managed with cardiology Long-term current use of anticoagulant 612635417 Z79.01 stableno s/sx bleedingco ntinue current medication continue to monitor Long-term drug therapy 924262225 Z79.899 Administra tion of pneumococcal vaccine 27961235 Z23 [id number] DANN JONES MD OPHTHALMO LOG[facility] [address] [place],[address] [place] [address] 05/03/2023 14:20:39 05/03/2023 15:31:53 Nonexudative age-related macular degeneration 142093216 H35.3132 Bilateral age-related nuclear cataracts 8925246843 26192 H25.13 mild progressio n Myopia 55168889 H52.11 Hypermetropia 31037990 H 52.02 Regular astigmatism 6890 5002 H52.223 Presbyopia 88837964 H52. 4 [id number] DANN JONES MD OPHTHALMO LOGY [address] [place] [address] 11/09/2023 12:50:38 11/09/2023 14:12:53 Nonexudative age-related macular degeneration 087713442 H35.3132 Bilateral age-related nuclear cataracts 3604247757 H25.13 mild progressio n Myopia 16268754 H52.11 Hypermetropia 71575548 H 52.02 Regular astigmatism 6890 5002 H52.223 Presbyopia 98005484 H52. 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 4 Health Concerns Section Related Observation LastModified by Organization Detai ls LastModified Time None Recorded Concern Status LastModified by Organization Details LastModified Time None Recorded Advance Directives Directive None Recorded Payers Insurance Date Sequence Insurance Name Policy Number Policy Fernandes Covered Member ID Fernandes Member ID Guarantor Name 05/11/2024 1 [facility] (MEDICARE REPLACEMENT/A DVANTAGE - PPO) [id number] Nicol L Ana Maria [id number] Nicol Kevin Ana Maria 10/28/2023 1 [place]: [place] [id number] Nicol L Ana Maria [id number] Nicol L Ana Maria 12/09/2018 SLIDING FEE SCHEDULE - DISCOUNT Nicol L Ana Maria 03/27/2019 SLIDING FEE SCHEDULE - DISCOUNT Nicol L Ana Maria 10/28/2023 1 [place] PREFERR[place] PRIMARY (HMO[place] [id number] Nicol Rodgers [id number] Nicol Rodgers Notes Date Note Type Note Provider Name and Address Organization Details Recorded Time 3 text/html Medicare wellness visitHypertension is chronic, ongoing, stableHyperlipidemia is chronic, ongoing, stableHypothyroidism is chronic, ongoing, stableAfib is chronic, ongoing, stableGout is chronic, ongoing, stableOSA is chronic, ongoing, stable on BiPAP. She is benefiting from BiPAP JANUSZ ERNST MD [address] [place], [address], [facility] 10/08/2022 13:33:35 OBGyn Episode No OBEpisode recorded.
--- OUTSIDE RECORDS SUMMARY | 2024-10-30 16:01 | XMS_ITS | Encounter Summary ---
Author Organization Healthcare Address [address] [place] [address] Care Team Providers Care Bi Data Modeler Name Role Phone Janusz Ernst MD Primary Care Provider [phone] Sobeida Alvarenga APRN Primary Care Provider [phone] Encounter Details Date Type Department Care Team (Late Contact Info) Description 11/01/2023 Orders Only External Location [address] [place] [address] Provider, External Social History Tobacco Use Types Packs/Day Years Used Date Smoking Tobacco: Never Smokeless Tobacco: Never Alcohol Use Standard Drinks/Week Comments Never 0 (1 standard drink = 0.6 oz pur e alcohol) Comments Unknown Sex and Gender Information Value Date Recorded Sex Assigned at Not on file Legal Sex Female 7:27 PM EDT Gender Identity Not on file Sexual Orientation Not on file documented as of this encounter Plan of Treatment Upcoming Encounters Date Type Department Care Team (Late Contact Info) Description 12/27/2024 12:45 PM EDT Office Visit [facility] [address] [place] [address] Sedrick Sykes MD [address] [address] 02/14/2025 2:00 PM EDT Office Visit [facility] [address], [address] [place] [address] Marnie Gayle, JACQUI, DNP [address] [place] [address] 07/31/2025 2:30 PM EDT Ovarian Cancer Screening [facility] [address] [facility] [place] [address] documented as of this encounter Procedures Procedure Name Priority Date/Time Associated Diagnosis Comments CT NEURO OUTSIDE IMAGES 11/01/2023 1:01 PM EDT documented in this encounter Results * CT NEURO OUTSIDE IMAGES (11/01/2023 1:01 PM EDT) Anatomical Region Laterality Modality Computed Tomogra phy 11/01/2023 1:01 PM EDT us External Provider IMG CT PROCEDURES Final Result documented in this encounter Visit Diagnoses Not on filedocumented in this encounter Additional Health Concerns Assessment Noted Time A fall risk assessment has been complete d for the patient 02/04/2022 9:42 AM EDT documented as of this encounter Care Teams Bi Data Modeler Relationship Specialty Start Date End Date Janusz Ernst MD [address] [place] [address] PCP - General 01/17/21 07/24/24 Sobeida Alvarenga APRN [address] [place] [address] PCP - General 07/25/24 documented as of this encounter
--- OUTSIDE RECORDS SUMMARY | 2024-10-30 16:01 | XMS_ITS | Encounter Summary ---
Author Organization Healthcare Address [address] [place] [address] Care Team Providers Care Pond Sawyer Name Role Phone Janusz Ernst MD Primary Care Provider [phone] Sobeida Alvarenga APRN Primary Care Provider [phone] Encounter Details Date Type Department Care Team (Late Contact Info) Description 11/01/2023 Orders Only External Location [address] [place] [address] Provider, External Social History Tobacco Use Types [...] Description 12/27/2024 12:45 PM EDT Office Visit [facility] [address] [place] [address] Sedrick Sykes MD [address] [address] 02/14/2025 2:00 PM EDT Office [facility] [address] [place] [address] Marnie Gayle, JACQUI, DNP [address] [place] [address] 07/31/2025 2:30 PM EDT Ovarian Cancer Screening [facility] [address] [facility] [place] [address] documented as of [...] documented as of this encounter Care Teams Pond Sawyer Relationship Specialty Start Date End Date Janusz Ernst MD [address] [place] [address] PCP - General 01/17/21 07/24/24 Sobeida Alvarenga APRN [address] [place] [address] PCP - General 07/25/24 documented as of this encounter
--- OUTSIDE RECORDS SUMMARY | 2024-10-30 16:01 | XMS_ITS | Encounter Summary ---
Author Organization Healthcare Address [address] [place] [address] Care Team Providers Care Head Golf Professional Name Role Phone Janusz Ernst MD Primary Care Provider [phone] Sobeida Alvarenga APRN Primary Care Provider [phone] Encounter Details Date Type Department Care Team (Late Contact Info) Description 11/30/2018 Orders Only External Location [address] [place] [address] Provider, External Social History Tobacco Use Types [...] Description 12/27/2024 12:45 PM EDT Office Visit [facility] [address] [facility] [place] [address] Sedrick Sykes MD [address] [place] [address] 02/14/2025 2:00 PM EDT Office Visit [place] [facility] [address] [place] [address] Marnie Gayle, JACQUI, DNP [address] [place] [address] 07/31/2025 2:30 PM EDT Ovarian Cancer Screening [facility] [address] [facility] [place] [address] documented as of this encounter Procedures Procedure Name Priority Date/Time Associated Diagnosis Comments CT NEURO OUTSIDE IMAGES 11/30/2018 1:02 AM EDT documented in this encounter Results * CT NEURO OUTSIDE IMAGES (11/30/2018 1:02 AM EDT) Anatomical Region Laterality Modality Computed Tomogra phy 11/30/2018 1:02 AM EDT us External Provider IMG CT PROCEDURES Final Result documented in this encounter Visit Diagnoses Not on filedocumented in this encounter Care Teams Head Golf Professional Relationship Specialty Start Date End Date Janusz Ernst MD [address] [place] [address] PCP - General 01/17/21 07/24/24 Sobeida Alvarenga, STORE PROMOTER [address] [place] [address] PCP - General 07/25/24 documented as of this encounter
--- OUTSIDE RECORDS SUMMARY | 2024-10-30 16:01 | XMS_ITS | Clinical Summary ---
Author Organization Address [address] [place] [address] Care Team Providers Care Network Project Manager Name Role Phone Sobeida Alvarenga APRN Primary Care Provider [phone] Allergies No known active allergies Medications levothyroxine (Synthroid, Levoxyl) 125 MCG tablet levothyroxine 125 mcg tablet TAKE ONE TABLET BY MOUTH EVERY DAY 3 Active lisinopril 20 MG tablet lisinopril 20 mg tablet TAKE ONE TABLET BY MOUTH EVERY DAY 5 Active metoprolol succinate XL (Toprol-XL) 100 MG 24 hr tablet Take 1 tablet (100 mg) by mouth 1 (one) time each day. 1 Active traMADol (Ultram) 50 MG tablet tramadol 50 mg tablet TAKE ONE TABLET BY MOUTH TWICE DAILY NEEDED MAY CAUSE DROWSINESS 3 Active warfarin (Coumadin) 5 MG tablet 5 mg on // and 2.5 mg on Mo/We/Fr 7 Active allopurinol (Zyloprim) 100 MG tablet Take 1 tablet (100 mg) by mouth 1 (one) time each day. 3 Active dapagliflozin (Farxiga) 10 MG tablet Take 1 tablet (10 mg) by mouth 1 (one) time each day. Active oxybutynin XL (Ditropan-XL) 10 MG 24 hr tablet Take 1 tablet (10 mg) by mouth 1 (one) time each day. Do not crush, chew, or split. 90 tablet 3 02/17/20 Active Active Problems Problem Noted Date Diagnosed Date Anterior cervical lymphadenopathy 02/17/2024 Overview (02/17/2024): 2019 Asthma 02/17/2024 Cellulitis of left foot 02/17/2024 Cellulitis, face 02/17/2024 Dyspnea on exertion 02/17/2024 SOB (shortness of breath) 02/17/2024 Edema 02/17/2024 Heart failure with reduced ejection fraction Heel pain 02/17/2024 Internal hemorrhoid, bleeding 02/17/2024 Overview (02/17/2024): 2020 Knee effusion, left 02/17/2024 Knee pain 02/17/2024 Leg pain 02/17/2024 Mild persistent asthma 02/17/2024 Multiple pulmonary nodules 02/17/2024 Pulmonary nodule, left 02/17/2024 Opioid use 02/17/2024 Positive PPD, treated 02/17/2024 Prediabetes 02/17/2024 Orbital mass 12/15/2023 Bilateral dry eyes 12/15/2023 Ptosis of both eyelids 12/15/2023 Dermatochalasis of both upper eyelids 12/15/2023 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 02/16/2023 Urge incontinence 02/04/2022 Age-related nuclear cataract of both eyes 2020 Hypermetropia 04/10/2021 Myopia 04/10/2021 Nonexudative age-related macular degeneration Presbyopia 04/10/2021 Regular astigmatism 04/10/2021 Chronic pain syndrome 03/27/2019 Tricuspid regurgitation 09/08/2017 Longstanding persistent atrial fibrillation 05/24 Postmenopausal atrophic vaginitis 10/30/2016 Sjogren's disease 10/30/2016 Urinary incontinence 10/30/2016 Cardiomyopathy 08/31/2016 History of cardioversion 08/31/2016 Hx of cholecystectomy 08/31/2016 History of gastric surgery 08/31/2016 H/O: hysterectomy 08/31/2016 Atrial fibrillation 03/16/2016 Vitamin D deficiency 03/16/2016 Low back pain 06/21/2015 Bilateral sensorineural hearing loss 08/20/2014 DJD (degenerative joint disease), ankle and foot 05/28/2014 Foot joint hypermobility 05/28/2014 Hallux limitus 05/28/2014 Hammertoe 05/28/2014 Osteopenia 05/28/2014 PFO (patent foramen ovale) 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 0 11/08/2012 Cardiac murmur 10/26/2012 Essential hypertension 10/26/2012 Hypothyroidism 10/26/2012 Obesity 10/26/2012 Pain in joint 10/26/2012 Resolved Problems Problem Noted Date Diagnosed Date Resolved Date Recurrent UTI 02/04/2022 02/17/2024 Hematuria 02/04/2022 02/17/2024 Gout 04/10/2021 02/17/2024 Hyperlipidemia 04/10/2021 02/17/2024 Obstructive sleep apnea syndrome 03/27/2019 02/04/2022 Dyslipidemia 06/23/2017 02/04/2022 Iron deficiency 06/23/2017 02/17/2024 Encounters Date Type Department Care Team Description 08/16/2024 2:30 PM EDT Ancillary Procedure [facility] [address] [place] [address] 08/16/2024 2:15 PM EDT Office Visit [facility] [address] [place] [address] Sedrick Sykes MD Orbital mass (Primary Dx); Bilateral dry eyes; Dermatochalasis of both upper eyelids 08/16/2024 Travel 08/15/2024 Travel from Last 3 Months Immunizations Immunization Administration Dates Next Due Hep B, adult 09/30/2001,05/02/2001,04/04/2001 Influenza, Unspecified 03/27/2016,2014,03/11/2014,05/11/2013, 03/25/2012,03/11/2011 Influenza, seasonal, injectable 03/11/2020 Tdap 04/07/2011 Family History Medical History Relation Name Comments Atrial fibrillation Father Alexsander Cancer Father Alexsander Heart disease Father Alexsander Cancer Mother Alayna Hypertension Mother Alayna Obesity Mother Alayna Kidney cancer Other 1 Prostate cancer Other 2 Relation Name Status Comments Father Alexsander Mother Alayna Other 1 Other 2 Social History Tobacco Use Types Packs/Day Years Used Date Smoking Tobacco: Never Passive Smoke Exposure: Never Smokeless Tobacco: Never Tobacco Cessation:Counseling Given: Not Answered Alcohol Use Standard Drinks/Week Comments Yes 5 (1 standard drink = 0.6 oz pur e alcohol) PHQ-2A Answer Date Recorded Depression Risk 0 02/02/2024 Comments Unknown Sex and Gender Information Value Date Recorded Sex Assigned at Not on file Legal Sex Female 7:27 PM EDT Gender Identity Not on file Sexual Orientation Not on file Last Filed Vital Signs Vital Sign Reading Time Taken Comments Blood Pressure 129/85 02/02/2024 2:07 PM EDT Pulse 105 02/02/2024 1:57 PM EDT Temperature 36 C (96.8 F) 02/02/2024 1:57 PM EDT Respiratory Rate 18 02/02/2024 1:57 PM EDT Oxygen Saturation 99% 02/02/2024 1:57 PM EDT Inhaled Oxygen Concentration - - Weight 133 kg (292 lb 8.8 oz) 02/02/2024 1:57 PM EDT Height 170.2 cm (5' 7 ) 01/19/2019 11:03 AM EDT Body Mass Index 45.82 01/19/2019 11:03 AM EDT Plan of Treatment Upcoming Encounters Date Type Department Care Team (Late st Contact Info) Description 12/27/2024 12:45 PM EDT Office Visit [facility] [address] [place] [address] Sedrick Sykes MD [address] [place] [address] 02/14/2025 2:00 PM EDT [facility] [address] [place] [address] Marnie Gayle, SOCIAL MEDIA MARKETING MANAGER, DNP [address] [place] [address] 07/31/2025 2:30 PM EDT Ovarian Cancer Screening [facility] [address] [facility] [place] [address] Health Maintenance Due Date Last Done Comments Dental Oral Exam 1955 Dental X-Ray: Full Mouth 1955 [facility]-Hepatitis C Screening 1955 [facility]-Medicare Annual Wellness (AWV) 1955 [facility]-/Child/Adol SDOH Screenings 1955 [facility]- SDOH Screenings 1972 [facility]-Adult SDOH Screenings 1972 Dental Prophylaxis 11/25/1998 05/27/1998 CT Colonography 1999 FIT-DNA 1999 FIT 1999 FOBT 1999 Sigmoidoscopy 1999 Dental X-Ray: Bitewings 04/13/1999 04/12/1998 [facility]-RSV Vaccine: 60+ Years or (1 - Risk 60-74 years 1-dose series) 2014 [facility]-Diabetes: Hemoglobin A1C 06/09/2018 06/09/2017, 12/18/2015 [facility]-Breast Cancer Screening 11/07/202010/22, 11/07/2018, 11/09/2016, Additional history exists [facility]-Zoster Vaccines (2 of 2) 02/07/2021 12/13/2020 [facility]-DTaP,Tdap,and Td Vaccines (2 - Td or Tdap) 04/07/2021 04/07/2011 [facility]-Bone Density Scan 12/09/2023 12/08/2021 , 12/08/2021, 06/02/2019, Additional history exists [facility]-ZHXOV-34 Vaccine (2023- season) 2024 03/26/2023, 04/08/2022, 11/07/2021, Additional history exists [facility]-Depression Screening 02/01/2025 02/02/2024 Colonoscopy 07/10/2026 07/10/2016 [facility]-Colorectal Cancer Screening 07/10/2026 [facility]-Pneumococcal Vaccine: 50+ Years Completed 10/08/2022, 10/13/2021, 06/19/2020, Additional history exists [facility]-Influenza Vaccine Completed 04/13/2024 , 03/26/2023, 03/07/2022, Additional history exists [facility]-Obesity Intervention Completed 025, 02/17/2024, 01/26/2024, Additional history exists HPV Vaccines Aged Out No longer eligi ble based on patient's age to complete this topic [facility]-HIB Vaccines Aged Out No longer e ligible based on patient's age to complete this topic [facility]-Hepatitis A Vaccines Aged Out No longer eligible based on patient's age to complete this topic [facility]-IPV Vaccines Aged Out No longer e ligible based on patient's age to complete this topic [facility]-Rotavirus Vaccines Aged Out No lo nger eligible based on patient's age to complete this topic Procedures Procedure Name Priority Date/Time Associated Diagnosis Comments ROGERS VISUAL FIELD - OU - BOTH EYES Routine 08/16/2024 3:35 PM EDT Orbital mass MAMMOGRAPHY BREAST SCREENING TOMOSYNTHESIS BILATERAL Routine 11/07/2018 12:00 AM EDT HEMOGLOBIN A1C Routine 06/09/2017 11:50 AM EST COLONOSCOPY 07/10/2016 PROPHYLAXIS - ADULT Routine 05/27/1998 1 2:00 AM EST BITEWINGS - 4 RADIOGRAPHIC IMAGES Routine 04/12/1998 12:00 AM EST from Last 3 Months or Most Recently Relevant to Health Maintenance Results * Rogers Visual Field - OU - Both Eyes (08/16/2024 3:35 PM EDT) Anatomical Region Laterality Modality Head Visual Field Narrative 08/16/2024 3:35 PM EDT Rogers visual field (HVF) 24-2 Right eye (OD): full and reliable Left eye (OS): Full and reliable us Sedrick Sykes MD [facility] VISUAL FIELD Edited Res ult - Final * Mammography Breast Screening Tomosynthesis Bilateral (11/07/2018 12:00 AM EDT) Anatomical Region Laterality Modality Breast Bilateral Mammography Impressions 11/08/2018 11:48 AM EDT BI-RADS Assessment Category 1: Negative. RECOMMENDATION: Routine screening mammogram in 1 year. COMMUNICATION: The results and recommendations will be sent to the patient in a printed lay language version of the imaging report. The mammogram was read with the assistance of CAD and tomosynthesis. FINAL ATTESTATION: By electronically signing this report, I, the attending physician, attest that I have personally reviewed the images/data for the above examination and agree with the final edited report. Page 1 of 2 Patient Name:Nicol Aranda : 1955 Age: 63 Gender: femaleDate of Service: 11/07/2018 eferring Phy:Janusz Adrian M.D.Account: [id number] Dictated By: Dina Lugo M.D. Verified By: Danielle Pulido M.D. on 11/08/2018 at 11:42:34 AM Page 2 of 2 Narrative 11/08/2018 11:48 AM EDT REQUESTING PHYSICIAN: JANUSZ ADRIAN REASON FOR EXAMINATION/PROCEDURE: SCREEN EXAMINATION / PROCEDURE: Screening Mamm w/cad Nov 07 2018 - 15:44; MAGDALENA BILATERAL SCREENING Nov 07 2018 - 15:44; HISTORY: Patient is 63 years old and is seen for screening mammography. The patient has no family history of breast cancer. COMPARISON: The present examination has been compared to prior imaging [facility] 10[facility]24[facility]2013, 10/24/2014 and 11/09/2016 . FINDINGS: MAMMOGRAM There are scattered areas of fibroglandular density. No masses, suspicious microcalcifications or architectural distortion are evident. IMPRESSION: BI-RADS Assessment Category 1: Negative. RECOMMENDATION: Routine screening mammogram in 1 year. COMMUNICATION: The results and recommendations will be sent to the patient in a printed lay language version of the imaging report. The mammogram was read with the assistance of CAD and tomosynthesis. FINAL ATTESTATION: By electronically signing this report, I, the attending physician, attest that I have personally reviewed the images/data for the above examination and agree with the final edited report. Read By: DINA LUGO M.D. Sign ed By: DANIELLE PULIDO M.D. on 11/08/2018 at 11:47:50 Verified by: DANIELEL PULIDO M.D. on Nov 08 2018 11:47A Transcribed by: JEET on Nov 08 2018 11:47A Dictated by: DINA LUGO M.D. on Nov 08 2018 11:47A Patient Name:Nicol Aranda : 1955 Age: 63 Gender: femaleDate of Service: 11/07/2018 eferring Phy:Janusz Adrian M.D.Account: [id number] [place] [address] FINAL REPORT PROCEDURE: Tomosynthesis Bilateral Screening - bilateral , Screening Mammogram With Cad - bilateral HISTORY: Patient is 63 years old and is seen for screening mammography. The patient has no family history of breast cancer. COMPARISON: The present examination has been compared to prior imaging studies performed at [facility] on 10/24/2013, 10/24/2014 and 11/09/2016. FINDINGS: MAMMOGRAM There are scattered areas of fibroglandular density. No masses, suspicious microcalcifications or architectural distortion are evident. Procedure Note Danielle Pulido - 09/29/2020 REQUESTING PHYSICIAN: JANUSZ ADRIAN REASON FOR EXAMINATION/PROCEDURE: SCREEN EXAMINATION / PROCEDURE: Screening Mamm w/cad Nov 07 2018 - 15:44; MAGDALENA BILATERAL SCREENING Nov 07 2018 - 15:44; HISTORY: Patient is 63 years old and is seen for screening mammography. The patient has no family history of breast cancer. COMPARISON: The present examination has been compared to prior imaging studies performed at [facility] on 10/24/2013, 10/24/2014 and 11/09/2016 . FINDINGS: MAMMOGRAM There are scattered areas of fibroglandular density. No masses, suspicious microcalcifications or architectural distortion are evident. IMPRESSION: BI-RADS Assessment Category 1: Negative. RECOMMENDATION: Routine screening mammogram in 1 year. COMMUNICATION: The results and recommendations will be sent to the patient in a printed lay language version of the imaging report. The mammogram was read with the assistance of CAD and tomosynthesis. FINAL ATTESTATION: By electronically signing this report, I, the attending physician, attest that I have personally reviewed the images/data for the above examination and agree with the final edited report. Read By: DINA LUGO M.D. Sign ed By: DANIELLE PULIDO M.D. on 11/08/2018 at 11:47:50 Verified by: DANIELLE PULIDO M.D. on Nov 08 2018 11:47A Transcribed by: PSCB on Nov 08 2018 11:47A Dictated by: DINA LUGO M.D. on Nov 08 2018 11:47A Patient Name:Nicol Aranda : 1955 Age: 63 Gender: femaleDate of Service:11/07/2018 eferring Phy:Janusz Adrian M.D.Account: [id number] [place] [address] FINAL REPORT PROCEDURE: Tomosynthesis Bilateral Screening - bilateral , Screening Mammogram WithCad - bilateral HISTORY: Patient is 63 years old and is seen for screening mammography. Thepatient has no family history of breast cancer. COMPARISON: The present examination [facility]. FINDINGS: MAMMOGRAM There are scattered areas of fibroglandular density. No masses, suspicious microcalcifications or architectural distortion areevident. IMPRESSION: BI-RADS Assessment Category 1: Negative. RECOMMENDATION: Routine screening mammogram in 1 year. COMMUNICATION: The results and recommendations will be sent to the patient in a printedlay language version of the imaging report. The mammogram was read with the assistance of CAD and tomosynthesis. FINAL ATTESTATION: By electronically signing this report, I, the attending physician, attestthat I have personally reviewed the images/data for the above examination and agree with the final editedreport. Page 1 of 2 Patient Name:Nicol Aranda : 1955 Age: 63 Gender: femaleDate of Service:11/07/2018 eferring Phy:Janusz Adrian M.D.Account: [id number] Dictated By: Dina Lugo M.D. Verified By: Danielle Pulido M.D. on 11/08/2018 at 11:42:34 AM Page 2 of 2 Historical Provider MD FINLEY BI PROCEDURES Final R esult * Hemoglobin A1c (06/09/2017 11:50 AM EST) Hemoglobin A1c 5.6 4.7 - 6.0 % SUNQUEST Comment: Glycohemoglobin Reference Range, 0 years and up: 4.7 to 6.0% . HA1C Interpretive Data: Diagnosis of Diabetes: Diabetic > or = 6.5% Pre-diabetic 5.7 to 6.4% Non-diabetic < or = 5.6% . Glycemic Targets for Type I and Type II Diabetics: Non- Adults <7.0% Adults <6.0% Children and Adolescents <7.5% . Source: [place] [employer]. Standards of medical care in diabetes, 2017. Diabetes Care.2017:40 (suppl 1):S1-S135. . HbA1c assay performed by an ion-exchange chromatography method that is certified traceable to the DCCT. 06/09/2017 11:5 0 AM EST 06/09/2017 12:46 PM EST Historical Provider LAB BLOOD ORDERABLES Elvira olea Result SUNQUEST * COLONOSCOPY (07/10/2016) Anatomical Region Laterality Modality Endoscopy Narrative 07/10/2016 Ordered by an unspecified provider. Historical Provider GI PROCEDURE ORDERABLES F inal Result from Last 3 Months or Most Recently Relevant to Health Maintenance Insurance [employer] MEDICARE Care Teams Network Project Manager Relationship Specialty Start Date End Date Sobeida Alvarenga APRN [address] [place] [address] PCP - General 07/25/24
[2024-10-30 18:02] LABS: Free T4 (Free Thyroxine) 1.53 ng/dl (0.78-2.19)
[2024-10-30 21:38] LABS: Thyroid Stimulating Hormone 4.24 uIU/mL (0.465-4.68)
== END 2024-10-30 23:59 | disposition home or self-care (01) ==
LOC: LAB 15:58
PROVIDERS: PCP Nurse Practitioner Family; Visit Provider Nurse Practitioner Family
DX: E03.9 Hypothyroidism, unspecified (principal)
CPT/HCPCS: 36415; 84439; 84443

== ENCOUNTER 2024-11-08 13:28 | Outpatient (CLI) | payer MEDICARE, SELFPAY ==
--- OUTSIDE RECORDS SUMMARY | 2024-11-08 13:31 | XMS_ITS | Encounter Summary ---
Author Organization Healthcare Address [address] [place] [address] Care Team Providers Care Concrete Mixer Name Role Phone Janusz Ernst MD Primary Care Provider [phone] Sobeida Alvarenga APRN Primary Care Provider [phone] Encounter Details Date Type Department Care Team (Late Contact Info) Description 11/01/2023 Orders Only External Location [address] [place] [address] Provider, External Social History Tobacco Use Types [...] Description 12/27/2024 12:45 PM EDT Office Visit [facility] [address] [place] [address] Sedrick Sykes MD [address] [address] 02/14/2025 2:00 PM EDT Office Visit [facility] [address] [place] [address] Marnie Gayle, JACQUI, DNP [address] [place] [address] 07/31/2025 2:30 PM EDT Ovarian Cancer Screening [facility] [address] [facility] [place] [address] documented as of this [...] documented as of this encounter Care Teams Concrete Mixer Relationship Specialty Start Date End Date Janusz Ernst MD [address] [place] [address] PCP - General 01/17/21 07/24/24 Sobeida Alvarenga APRN [address] [place] [address] PCP - General 07/25/24 documented as of this encounter
--- OUTSIDE RECORDS SUMMARY | 2024-11-08 13:31 | XMS_ITS | Data Portability ---
Author Organization [facility] CLAUDE GironS [facility] CLOSED Address [address] [place] [address] Care Team Providers Care Content Administrator Name Role Phone DANN JONES Cooler Deliverer JOHAN ELISE Primary Care Provider [phone] Assessment Encounter Date Assessment Date Assessment LastModified [...] acid, serum or plasma 2022 023 [email or web address] [facility], [address] [place] [address], [phone], 05/05/2023 07:58:02 toxicolog y screen, urine 2022 023 [email or web address] [facility], [address] [place] [address], [address], 05/05/2023 07:58:02 lipid panel, serum 2022 023 [email or web address] [facility], [address] [place] [address], [address], 05/05/2023 07:58:01 CMP, serum or plasma 2022 023 [email or web address] [facility], [address] [place] [address], [address], 05/05/2023 07:58:01 CBC w/ auto diff 2022 023 [email or web address] [facility], [address] [place] [address], [address], 05/05/2023 07:58:01 TSH, serum or plasma 2022 023 [email or web address] [facility], [address] [place] [address], [address], 05/05/2023 07:58:02 Referral None recorded. Procedures None recorded. Surgeries None recorded. Imaging None recorded. Medication Orders tramadol 50 mg tablet [address] [facility], [address] [place] [address], [id number], 01/27/2023 14:14:33 levothyro xine 125 mcg tablet [address] [facility], [address] [place] [address], [id number], 01/27/2023 14:14:33 Patient TargetsNo targets recorded. Patient Instructions Encounter Date Encounter Id Patient Instructions Last Modified By Organization Details Last Modified Time 04/20/2022 [id number] discussed importance of taking AREDS 2 vitamins BID and checking grid QD (given with instructions/emily ng signs) MR with +2.50 NL recheck 1 yr with mac kaylen shah Not available 04/20/2022 14:35:10 10/08/2022 [id number] weight managemen t education dbeiting Not available 10/08/2022 13:32:35 advance care planning: care instructions dbeiting Not available 10/08/2022 13:32:36 labs reviewed scripts reviewed risks/benefits reviewed high risk meds reviewed continue current medication continue to monitor labs pneumovax 23 rtc 6 months with labs and prn dbeiting Not available 10/08/2022 07:30:23 05/03/2023 [id number] stable exam continue vitamins BID and check [...] oct dkielar Not available 05/03/2023 15:21:33 11/09/2023 [id number] unspecified righ t orbital mass she has [...] oct dkielar Not available 11/09/2023 14:09:42 05/05/2024 [id number] stable exam continue AREDS 2 vitamins BID [...] w/wo contr ast [place] [facility] [address] [facility] [place] [address] Patirichy leblanc Name: NICOL Brown ANA MARIA [...] que 350 (100 mL bottle of [facility] [address]- [id number] 1) was intrav enousl y admini stered to the patien t. 37 was wasted and discar ded. 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 On the [...] along the medial aspect of both orbits scholastic aptitude test grader ior to the globes . These could repres ent orbita l cavern ous venous malfor mation s (heman giomas ) venous varice s, or lympho prolif erativ e diseas e, but the appear ance is nonspe cific. . Interp reted By: Megan pichardo MD Electr onical ly Signed By: Megan pichardo MD on 024 1:49 PM dkielchino [facility] [address] [place], [address], 11/09/2023 14:06:48 11/09/19 24 11/09/2023 optic al coher ence tomog romeo, retin a No observ ation record ed. dkielar Not Available 2023 14:02:45 05/05/20 24 05/05/2024 optic al coher ence tomog romeo, retin a No observ ation record ed. dkielar Not Available 2023 15:56:37 Result Notes Documentation Provider Name and Address Organization Details Recorded Time Ct, Orbits, W/wo Contrast : [place] [place] [address] Patient Name: NICOL RODGERS Patient : 1955 Patient Ordering Provider: DANN JONES EXAM DATE: 11/01/2023 EXAM: CT ORBITS W/WO CONTRAST HISTORY: 68-year-old female with macular degeneration and possible masses behind the eyes. COMPARISON: None. TECHNIQUE: 0.67 mm axial slices were obtained through the orbits. Computer-generated axial, sagittal, and coronal reconstructions are provided from the source images. 63 mL Omnipaque 350 (100 mL bottle of [facility] [id number]) was intravenously administered to the patient. 37 was wasted and discarded. FINDINGS: There are masses along the medial wall of both orbits posterior to the globes. On the left, this measures 2.7 cm AP, and 2.0 x 1.2 cm in the coronal plane. On the right, this measures 2.5 cm AP, and 1.8 x 1.0 cm in the coronal plane. These masses are immediately adjacent to the medial and inferior rectus muscles. There are also adjacent to the optic nerves. There is no associated calcification or fat signal. There is no adjacent sinus disease. The globes are intact and the lenses are normally located. There is no evidence of intraconal or extraconal inflammatory process. The extraocular muscles are symmetric and normal in attenuation. The optic nerves appear normal. The lacrimal glands appear normal. There is possible mild enhancement of the masses along the medial aspect of the orbits. The visualized brain parenchyma appears normal. The visualized calvarium and facial bones are normal in appearance. There is no fracture. There is moderate mucosal thickening and bubbly appearing secretions in the maxillary sinuses. IMPRESSION: 1. There are masses along the medial aspect of both orbits posterior to the globes. These could represent orbital cavernous venous malformations (hemangiomas) venous varices, or lymphoproliferative disease, but the appearance is nonspecific.. Interpreted By: Ernesto Hinton MD JONES MD [address] [place] [phone] [place] [address] 11/09/2023 14:06:48 Problems Name Problem SNOMED Code Status Onset Date Resolution Date Notes Provider Name and Address Organization Details Recorded Time [facility] hyperten jacqueline 78569270 Active 2016 JANUSZ ERNST MD [address] [place] [id number] [place] [address] 7 13:23:59 Iron deficien cy 19537029 Active 2017 JANUSZ ERNST MD [address] [place] [phone] 8 14:01:11 Chronic pain syndrome 072346848 Active 2018 JANUSZ ERNST MD [address] [place] [address] 9 13:58:32 Obstruct silviano sleep apnea syndrome 64365785 Active 2018 BiPAP JANUSZ ERNST MD [address] [place] [address], [phone] [address] 9 14:04:34 Hyperlip idemia 56265439 Active 2020 JANUSZ ERNST MD [address] [place] [address], [address] , [facility] 1 13:16:58 Gout 60662501 Active [place] [address] [place] [address], [address] , [facility] 1 13:38:01 Nonexuda tive age-rela michelle macular degenera tion 405934198 Active 2020 DANN JONES MD [address] [place] [address], [address] , [facility] 3 15:02:04 Bilatera l age-rela michelle nuclear cataract s 52150940275 9100 Active 2020 DANN JONES MD [address] [place] [address], [address] , [facility] 3 15:02:04 Myopia 32323947 Active 2020 DANN JONES MD [address] [place] [address], [address] , [facility] 3 15:02:04 Hypermet ropia 10768364 Active 2020 DANN JONES MD [address] [place] [address], [address] , [facility] 3 15:02:04 Regular astigmat ism 49239211 Active 2020 DANN JONES MD [address] [place] [address], [address] , [facility] 3 15:02:04 Presbyop ia 05237815 Active 2020 DANN JONES MD [address] [place] [address], [address] , [facility] 3 15:02:04 Osteopen ia 854377973 Active 2021 JANUSZ ERNST MD [address] [place], [place] [address] [address] , [facility] 2 07:39:55 Morbid obesity 806687861 Active 2022 JANUSZ ERNST MD [address] [place] [address], [phone] [place] [address] 3 07:22:38 Thrombop hilia 647780548 Active 2022 JANUSZ ERNST MD [address] [place] [address] [place] [address] 3 07:23:15 Long-ter m current use of anticoag ulant 129343310 Active 2022 JANUSZ ERNST MD [address] [place] [address] 3 07:23:46 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 DANN JONES MD [address] [place], [place] [address] [place] [address] 4 14:31:47 Low back pain 385842760 Active 2015 From Automate d Load;Pro vider: Janusz Ernst;Nellie tatus: Active Not Available [facility] 6 06:28:23 Atrial fibrilla tion 97513686 Active 2015 Provider : Mckenzie Jules; Status: Active Not Available [facility] 6 06:28:25 Vitamin D deficien cy 71567837 Active 2015 Provider : Mckenzie Jules; Status: Active Not Available [facility] 6 06:28:25 Hyperten sive disorder 85422861 Completed 201509/25/2019 From Automate d Load;Pro vider: Janusz Ernst;S tatus: Active JANUSZ ERNST MD [address] [place] [address], [address] , [facility] 0 13:45:33 Hypothyr oidism 64575643 Active 2015 From Automate d Load;Pro vider: Janusz Ernst;S tatus: Active Not Available [facility] 6 06:28:26 Problem Notes Documentation Provider Name and Address Organization Details Recorded Time Cooler Deliverer Consult Note : [place] [address] [id number], Cindy L (id #[id number], : 1955) [facility] [address] [place] [address] Encounter Summary - Progress Note Date Printed: [...] received this fax in error, please visit [email or web address] Fax to notify the sender and confirm that the information will be destroyed. If you do not have internet access, please call to notify the sender and confirm that the information will be destroyed. Thank you for your attention and cooperation. [ID:[id number]] Patient Nicol Rodgers (67yo, F) #[id number] 1955 Patient Demographics: Address [address] [place] [address] Encounter Notes: Encounter Reason/Date complete eye exam [...] of arrival. Await instructions from provider's office. [id number] 13:20 Ht: 5 ft 7 in Results/InterpretationsNon [...] lenses. Assessment and Plan1. Nonexudative age-related macular kuzqkqlolukbN18.3131: Nonexudative age-related macular degeneration, bilateral, early dry stage 2. Bilateral age-related nuclear cataracts-mild trnfekyetadY64.13: Age-related nuclear cataract, bilateral 3. BznokcO67.11: Myopia, right eye Progressive glasses (Expiration Date: 04/20/2023)Right -Sph: -1.00Cyl: +1.25Axis: 180Add: +2.50Left -Sph: +0.50Cyl: +0.25Axis: 150Add: +2.50 4. YiphjsybrmmvfZ30.02: Hypermetropia, left eye 5. Regular harpvygspvtV18.223: Regular astigmatism, bilateral 6. BqjokvqjmwV32.4: Presbyopia Discussion Notesdiscussed importance of taking AREDS [...] prescribed JANUSZ ERNST MD metaxalone 800 mg lrhwhzYazbj34/28/16 filled [facility] metoprolol succinate ER 100 mg tablet,extended release 24 hrTAKE ONE TABLET BY MOUTH EVERY DAY FOR BLOOD BOHRMRKB70/19/22 filled surescripts omega 6-kyw-sin-fish oil 1,000 mg (120 mg-180 mg) capsuleDaily Internal Note:Frequency: daily;Medication Description: omega-3 polyunsaturated fatty acids; Dosage:1; Route:oral; refills: entered sidney.244 ondansetron 4 mg disintegrating tabletDISSOLVE ONE TABLET BY MOUTH THREE TIMES DAILY NEEDED FOR FZXQSP17/18/22 filled surescripts oxybutynin chloride ER 10 mg tablet,extended release 24 hrTAKE ONE TABLET BY MOUTH EVERY DAY01/17/22 filled surescripts peg 3350-electrolytes 236 gram-22.74 gram-6.74 gram-5.86 gram solutionTAKE ACCORDING TO PACKAGE CHWYWCMIYTNO63/16/21 filled surescripts phentermine 37.5 mg tabletTake one tablet by mouth daily (30 minutes before or 1-2 hour(s) after breakfast).10/23/20 filled surescripts potassium chloride ER 10 mEq tablet,extended release(part/cryst) 8 filled [facility] Suprep Bowel Prep Kit 17.5 gram-3.13 gram-1.6 gram oral solutionUSE GRPNOYAM08/16/21 prescribed DENISE VENTURA MD Symbicort 160 mcg-4.5 mcg/actuation HFA aerosol inhalerINHALE 2 PUFFS BY MOUTH TWICE DAILY02/11/22 filled surescripts traMADoL 50 mg tabletTAKE ONE TABLET BY MOUTH TWICE DAILY NEEDED MAY CAUSE HLECUCANRX92/17/22 filled surescripts trospium 20 mg klkepc17/10/17 filled [facility] Vitamin D 5,000 unit tabletTake 1 tablet(s) every day by oral route.04/02/20 entered JANUSZ ERNST MD warfarin 5 mg tabletTAKE ONE TABLET BY MOUTH EVERY DAY OR SWKJOTFX52/15/22 filled surescripts Family HistoryReviewed Family History Father - Carcinoma of prostate Mother - Legal blindness - blind in one eye Past Medical HistoryReviewed Past Medical History Glasses/Contacts:Y Vaccine HistoryVaccines not reviewed (last reviewed 04/09/2022) Vaccine Type Date Amt. Route Site [facility] Lot # Mfr. Exp. Date VIS VIS Given Book Cleaner COVID-19 COVID-19, mRNA, LNP-S, PF, 30 mcg/0.3 mL dose (Arc[employer]-Carbon [employer]on) 02/26/21 COVID-19 (SARS-COV-2) vaccine, unspecified 08/15/20 pfizer COVID-19 (SARS-COV-2) vaccine, unspecified 07/27/20 pfizer Influenza influenza, injectable, quadrivalent 03/07/21 influenza, injectable, quadrivalent 03/07/20 influenza, injectable, quadrivalent 03/16/19 influenza, injectable, quadrivalent 03/01/18 influenza 04/20/17 influenza 04/07/16 Pneumococcal Pneumococcal conjugate PCV20, polysaccharide [id number] conjugate, adjuvant, PF 10/13/21 0.5 mL Intramuscular Deltoid, Right [id number] Other demand generation manager 11/21/22 Pneumococcal Conjugate 06/27/21 10/13/21 Aliyah Simon pneumococcal conjugate PCV 13 12/02/18 Zoster zoster 08/05/20 zoster 06/07/20 Electronically Signed by: DANN JONES MD JANUSZ ENRST MD [address] [place], [address], [facility] 04/20/2022 16:44:31 Procedures Surgical History Date Name Laterality Status Provider Name and Address Organization Details Recorded Time 05/05/20 24 OCT/Retina completed DANN JONES MD [address] [place], [address], [facility] 05/05/2024 15:58:42 11/09/19 24 OCT/Retina completed DANN JONES MD [address] [place], [address], [facility] 11/09/2023 14:05:22 05/03/20 23 OCT/Retina completed DANN JONES MD [address] [place] [address], [address], [facility] 05/03/2023 15:03:12 04/20/20 22 FEB/ completed DANN JONES MD [address] [place] [address], [address], [facility] 04/20/2022 14:24:01 04/20/20 22 Refraction completed DANN JONES MD [address] [place] [address], [address], [facility] 04/20/2022 14:34:43 12/09/19 22 DXA Low Bone Mass 1 - No Tx completed NAFISA FLEMING MD [address] [place] [address], [address], [facility] 12/08/2021 16:53:13 06/12/19 22 Endoscopy Nasal; Biospy, Polypectomy or Debridement completed Ramona Woodard [facility] 06/12/2021 11:14:22 06/10/19 22 Septoplasty completed Remedios Briseno [facility] 06/12/2021 10:59:44 04/10/20 21 Refraction completed DANN JONES MD [address] [place] [address], [address], [facility] 04/10/2021 16:45:44 06/02/19 20 DXA Low Bone Mass 1 - No Tx completed NAFISA FLEMING MD [address] [place] [address], [address], [facility] 06/02/2019 12:45:31 03/07/19 90 Total Hysterectomy completed JANUSZ ERNST MD [address] [place] [address], [address], [facility] 08/19/2018 14:46:16 Cholecystectomy completed JANUSZ ERNST MD [address] [place] [address], [address], [facility] 06/17/2016 08:42:36 Gastric Bypass completed JANUSZ ERNST MD [address] [place] [address], [address], [facility] 06/17/2016 08:42:42 Imaging Results None recorded. Procedure [...] 122 mm[Hg] 80 mm[Hg] JANUSZ ERNST MD [address] [place] [address], [address] , [facility] 10/08/2022 13:22:49 Date Recorded Body height Body mass index (BMI) Body weight Provider Name and Address Organization Details Last Updated DateTime 10/08/2022 170.18 cm 48 kg/m2 950588.07 g Aliyah Simon [facility] 10/08/2022 13:15:36 Date Recorded Body height Provider Name an d Address Organization Details Last Updated DateTime 11/09/2023 170.18 cm Shruthi Yash [facility] 11/09/2023 13:14:13 Date Recorded Body height Provider Name an d Address Organization Details Last Updated DateTime 04/20/2022 170.18 cm Jacki Lima [facility] 13:20:40 Date Recorded Body height Provider Name an d Address Organization Details Last Updated DateTime 05/03/2023 170.18 cm Chris Mcmahan [facility] 05/03/2023 14:43:27 Date Recorded Body height Provider Name an d Address Organization Details Last Updated DateTime 05/05/2024 170.18 cm Tasia Calero [facility] 1 07/06/2023 15:06:42 Social History Question Answer Notes LastModified by Organizat ion Details LastModified Time Tobacco Smoking Status Never Smoker JANUSZ ERNST MD [address] [place] [address], [address], [facility] 06/17/2016 08:42:18 How Much Tobacco Do You Chew? None Information not available 08/19/2018 What Was The Date Of Your Most Recent Tobacco Screening? 10/08/2022 Information not available 10/08/2022 Sex: Female Functional Status Question Answer Note LastModified by Organizat ion Details LastModified Time What is your level of alcohol consumption? 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 Information not available 06/17/2016 Do you or [...] 16:00:35 Medical History Condition Response Diabetes N Bleeding Disorder N Obesity Y Atrial Fibrillation Y Eye Trauma N Age-related [...] unspecified formulation 7 completed JANUSZ ERNST MD [address] [place] [address], [address], [facility] 06/23/2017 14:01:23 influenza, unspecified formulation 6 completed JANUSZ ERNST MD [address] [place] [address], [address], [facility] 06/18/2016 13:04:54 Influenza, split virus, quadrivalent, preservative 8 completed Not Available [facility] 05/03/2023 14:21:49 Influenza, split virus, quadrivalent, preservative 9 completed Not Available [facility] 05/03/2023 14:21:49 Pneumococcal conjugate PCV 13 9 completed Not Available [facility] 05/03/2023 14:21:50 Pneumococcal conjugate PCV20, polysaccharide [id number] conjugate, adjuvant, PF 2 completed Aliyahfunmi Simon [facility] 10/13/2021 13:42:53 pneumococcal polysaccharide PPV23 3 completed Aliyah Simon [facility] 10/08/2022 13:39:47 COVID-19, mRNA, LNP-S, PF, 30 mcg/0.3 mL dose 1 completed Aliyah Simon [facility] 01/26/2023 08:51:22 Influenza, split virus, quadrivalent, preservative 1 completed Not Available [facility] 05/03/2023 14:21:49 influenza, unspecified formulation 2 completed Not Available [facility] 05/03/2023 14:21:49 zoster recombinant 1 completed Aliyah Simon [facility] 01/26/2023 08:51:22 Influenza, high-dose, quadrivalent, PF 0 completed Aliyah Simon [facility] 01/26/2023 08:51:22 COVID-19, mRNA, LNP-S, PF, 30 mcg/0.3 mL dose 1 completed Aliyah Simon [facility] 01/26/2023 08:51:22 COVID-19, mRNA, LNP-S, PF, 30 mcg/0.3 mL dose 1 completed Aliyah Simon [facility] 01/26/2023 08:51:22 COVID-19, mRNA, LNP-S, PF, 30 mcg/0.3 mL dose, jayla-sucrose 2 completed Aliyah Simon [facility] 01/26/2023 08:51:22 COVID-19, mRNA, LNP-S, bivalent, PF, 30 mcg/0.3 mL dose 2 completed Aliyah Simon [facility] 01/26/2023 08:51:22 pneumococcal polysaccharide PPV23 9 [facility] 08:51:22 Pneumococcal conjugate PCV 13 1 [facility] 01/26/2023 08:51:22 Past Encounters Encounter ID Performer Location Encounter Start Date Encounter Closed Date Diagnosis/Indication Diagnosis SNOMED-CT Code Diagnosis ICD10 Code Diagnosis Note [id number] JANUSZ ERNST MD [facility] [address] [place] [id number] 06/18/2016 12:50:50 06/18/2016 13:56:01 Essential hypertension 57531843 I10 Hypothyroidism 06750441 E03.9 Anemia 771451992 D64.9 Hyperlipidemia 02187437 E78.5 Vitamin D deficiency 347 11242 E55.9 Screening for malignant neoplasm of colon 646115551 Z12.11 Plantar fasciitis 850244 003 M72.2 Edema of l ower extremity 522146131 R60.0 Low back pain 800837149 M54.5 [id number] JANUSZ ERNST MD INTERNAL MEDICINE [facility] CLOSED [address] [place] [id number] 12/21/2016 13:17:10 12/21/2016 13:40:13 Essential hypertension 64409673 I10 Hypothyroidism 57098880 E03.9 Atrial fibrillation 4943 6004 I48.91 Hyperlipidemia 32211823 E78.5 Hyperglycemia 03610217 R 73.9 Anemia 941681060 D64.9 Vitamin D deficiency 347 18443 E55.9 Vitamin B1 2 deficiency (non anemic) 18117850 E53.8 Low back pain 046284505 M54.5 [id number] JANUSZ ERNST MD INTERNAL MEDICINE [facility] CLOSED [address] [place] [id number] 06/23/2017 13:35:30 06/23/2017 14:24:49 Adult health examination 923962028 Z00.00 Essential hypertension 78736492 I10 Dyslipidemia 070897778 E 78.5 Vitamin B1 2 deficiency (non anemic) 25485314 E53.8 Hypothyroidism 43295958 E03.9 Vitamin D deficiency 347 64863 E55.9 Iron deficiency 03325290 E61.1 Low back pain 641306178 M54.5 [id number] JANUSZ ERNST MD INTERNAL MEDICINE [facility] CLOS[facility] [address] [place] [address] 01/31/2018 13:23:02 01/31/2018 13:42:37 Essential hypertension 28273409 I10 Hypothyroidism 68701196 E03.9 Chronic pain syndrome 37 9431647 G89.4 Dyslipidemia 122612021 E 78.5 Vitamin D deficiency 347 30491 E55.9 Low back pain 842912143 M54.5 Fatigue 42462116 R53.83 [id number] JANUSZ ERNST MD INTERNAL MEDICINE [facility] CL[facility] [address] [address] 08/19/2018 14:33:25 08/19/2018 15:03:42 Essential hypertension 07247583 I10 Hypothyroidism 86472540 E03.9 Atrial fibrillation 4943 6004 I48.91 Low back pain 819453713 M54.5 Dyslipidemia 187211788 E 78.5 [id number] JANUSZ ERNST MD INTERNAL MEDICINE [facility] CLOSED [address] [place] [address] 12/09/2018 13:58:16 12/09/2018 14:19:36 Cellulitis of face 211763510 L03.843 [id number] JANUSZ ERNST MD INTERNAL MEDICINE [facility] CLOSED [address] [address] 03/27/2019 13:49:01 03/27/2019 14:45:25 Adult health examination 228630399 Z00.00 Essential hypertension 79537660 I10 Hypothyroidism 08586854 E03.9 Chronic pain syndrome 37 7881681 G89.4 Vitamin D deficiency 347 75063 E55.9 Long-term drug therapy 949391162 Z79.899 Pain in right knee 28173 64476 48751 M25.561 Screening for cardiovascular system disease 939911366 Z13.6 Menopausal syndrome 1237 06285 N95.9 [id number] NAFISA FLEMING MD BONE DENSITY [address] [place] [address] 06/02/2019 11:06:54 06/02/2019 11:29:47 Bone density finding [id number] M85.9 [id number] C GLORIA MARIN PA-C [facility] CLOSED [address] [place] [address] 06/02/2019 12:48:14 06/02/2019 13:43:08 Osteoarthritis of knee 906720307 M17.9 End-stage PF OA with questionab le [...] TKA as ultimate resolution of this pathology [id number] JANUSZ ERNST MD INTERNAL MEDICINE [facility] [address] [facility] [place], [place] [address] 09/25/2019 13:44:29 09/27/2019 08:33:32 Essential hypertension 65977801 I10 Hypothyroidism 34307087 E03.9 Atrial fibrillation 4943 6004 I48.91 Chronic pain syndrome 37 9351150 G89.4 Long-term drug therapy 744697533 Z79.253 [id number] JANUSZ ERNST MD INTERNAL MEDICINE [facility] [address] [facility] [place] [address] 04/02/2020 14:04:28 04/02/2020 14:36:26 Essential hypertension 67315756 I10 Hypothyroidism 76550392 E03.9 Atrial fibrillation 4943 6004 I48.91 Obstructiv e sleep apnea syndrome 30408448 G47.33 Chronic pain syndrome 37 3728531 G89.4 Long-term drug therapy 090055196 Z79.899 Dyslipidemia 331959623 E 78.5 Fatigue 37192144 R53.83 [id number] JANUSZ ERNST MD INTERNAL MEDICINE [address] [place] [address] 08/06/2020 09:40:03 08/06/2020 10:11:35 Essential hypertension 11833580 I10 Hypothyroidism 54384557 E03.9 Atrial fibrillation 4943 6004 I48.91 Long-term current use of anticoagulant 423726526 Z79.01 Rectal hemorrhage 605836 02 K62.5 [id number] DENISE VENTURA MD SURGERY SCHEDULE [address] [place] [address] 08/09/2020 12:53:58 08/09/2020 12:54:27 [id number] JANUSZ ERNST MD INTERNAL MEDICINE [address] [place] [address] 10/01/2020 13:55:22 10/01/2020 14:23:38 Adult health examination 617136095 Z00.00 Essential hypertension 18583826 I10 Dyslipidemia 310523729 E 78.5 Hypothyroidism 73796785 E03.9 Obstructiv e sleep apnea syndrome 48415229 G47.33 Fatigue 95212660 R53.83 Chronic pain syndrome 37 7989223 G89.4 Long-term drug therapy 415773814 Z79.899 Educated a bout weight management 890820436 Z71.3 Ophthalmic examination and evaluation 87055325 Z01.00 [id number] JANUSZ ERNST MD INTERNAL MEDICINE [address] [place] [address] 04/10/2021 13:26:09 04/10/2021 14:08:52 Essential hypertension 04056623 I10 Hyperlipidemia 67519655 E78.5 Hypothyroidism 75764519 E03.9 Atrial fibrillation 4943 6004 I48.91 Obstructiv e sleep apnea syndrome 03925209 G47.33 Hyperglycemia 97407612 R 73.9 Long-term drug therapy 725230706 Z79.899 Obesity 004323392 E66.9 Gout 70057519 M10.9 Chronic pain syndrome 37 4926831 G89.4 Nasal obstruction 759612 000 J34.89 Fatigue 22064389 R53.83 [id number] DANN JONES MD OPHTHALMO [address]RD [place] [address] 04/10/2021 14:52:07 04/10/2021 17:20:33 Nonexudative age-related macular degeneration 645851773 H35.3131 Bilateral age-related nuclear cataracts 9786131493 81857 H25.13 mild Myopia 11613240 H52.11 Hypermetropia 20620344 H 52.02 Regular astigmatism 6890 5002 H52.223 Presbyopia 35259134 H52. 4 [id number] ELIAN GERMAIN MD [place] [facility] [address] [place] [address] 06/12/2021 10:53:43 06/12/2021 13:38:23 Deviated nasal septum 172432679 J34.2 - S/p revision septoplast y (06/10/21) Hypertroph y of nasal turbinates 41553523 J34.3 - S/p bilateral SMR of inferior turbinates (06/10/21) Stenosis o f nasal valve 5210065859 1938265 J34.89 - S/p bilateral repair of nasalvalve stenosis (06/10/21) [id number] JANUSZ ERNST MD INTERNAL MEDICINE [place] [address] 10/13/2021 13:12:00 10/13/2021 14:24:22 Adult health examination 638098096 Z00.00 Essential hypertension 15407460 I10 Hyperlipidemia 71853019 E78.5 Hypothyroidism 00329120 E03.9 Atrial fibrillation 4943 6004 I48.91 Obstructiv e sleep apnea syndrome 83208581 G47.33 Long-term drug therapy 566381057 Z79.899 Menopausal syndrome 1237 60633 N95.9 Administra tion of pneumococcal vaccine 07301407 Z23 Chronic pain syndrome 37 3439614 G89.4 [id number] JANUSZ ERNST MD INTERNAL MEDICINE [address] [address] 10/21/2021 13:48:02 10/21/2021 13:56:02 Nik hematuria 989915509 R31.0 [id number] NAFISA FLEMING MD BONE DENSITY [address] [address] 12/08/2021 13:36:39 12/08/2021 13:55:34 Osteopenia 220106218 M85.89 [id number] JANUSZ ERNST MD INTERNAL MEDICINE [address] [address] 04/09/2022 13:06:31 04/09/2022 13:44:42 Essential hypertension 50316832 I10 Hyperlipidemia 18205900 E78.5 Atrial fibrillation 4943 6004 I48.91 Hypothyroidism 50144852 E03.9 Gout 90391164 M10.9 Chronic pain syndrome 37 8615466 G89.4 Long-term drug therapy 857452969 Z79.899 Obesity 483149620 E66.9 [id number] DANN JONES MD OPHTHALMO [address] ,[address] [place] [address] 04/20/2022 13:12:06 04/20/2022 15:17:09 Nonexudative age-related macular degeneration 198670901 H35.3131 Bilateral age-related nuclear cataracts 6912983003 85640 H25.13 mild progressio n Hypermetropia 57164107 H 52.02 Regular astigmatism 6890 5002 H52.223 Presbyopia 70013911 H52. 4 Myopia 66694722 H52.11 [id number] JANUSZ ERNST MD INTERNAL MEDICINE [address] [place] [address] 10/08/2022 13:09:28 10/12/2022 10:57:06 Adult health examination 950637446 Z00.00 Essential hypertension 30975357 I10 Hyperlipidemia 54161402 E78.5 Hypothyroidism 97948862 E03.9 Atrial fibrillation 4943 6004 I48.91 stablecont inue current medication continue to monitorco- managed with cardiology Gout 58142672 M10.9 Chronic pain syndrome 37 6469895 G89.4 Morbid obesity 214991012 E66.01 calorie restrictio nlow carbohydra te diet Thrombophilia 790066277 D68.69 stablecont inue current medication continue to monitorco- managed with cardiology Long-term current use of anticoagulant 369536818 Z79.01 stableno s/sx bleedingco ntinue current medication continue to monitor Long-term drug therapy 911763215 Z79.899 Administra tion of pneumococcal vaccine 62239419 Z23 [id number] DANN JONES MD OPHTHALMO LOG[address] [place],[address] [place] [address] 05/03/2023 14:20:39 05/03/2023 15:31:53 Nonexudative age-related macular degeneration 550527846 H35.3132 Bilateral age-related nuclear cataracts 2935420767 60377 H25.13 mild progressio n Myopia 04645926 H52.11 Hypermetropia 42937894 H 52.02 Regular astigmatism 6890 5002 H52.223 Presbyopia 80965235 H52. 4 [id number] DANN JONES MD OPHTHALMO [address] [place] [address] 11/09/2023 12:50:38 11/09/2023 14:12:53 Nonexudative age-related macular degeneration 025095350 H35.3132 Bilateral age-related nuclear cataracts 4541701303 00340 H25.13 mild progressio n Myopia 25348939 H52.11 Hypermetropia 00934689 H 52.02 Regular astigmatism 6890 5002 H52.223 Presbyopia 96100115 H52. 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 4 Health Concerns Section Related Observation LastModified by Organization Detai ls LastModified Time None Recorded Concern Status LastModified by Organization Details LastModified Time None Recorded Advance Directives Directive None Recorded Payers Insurance Date Sequence Insurance Name Policy Number Policy Fernandes Covered Member ID Fernandes Member ID Guarantor Name 05/11/2024 1 [facility] (MEDICARE REPLACEMENT/A DVANTAGE - PPO) [id number] Nicol Rodgers [id number] Nicol Rodgers 10/28/2023 1 [place] [id number] Nicol Rodgers [id number] Nicol Rodgers 12/09/2018 SLIDING FEE SCHEDULE - DISCOUNT Nicol Rodgers 03/27/2019 SLIDING FEE SCHEDULE - DISCOUNT Nicol Rodgers 10/28/2023 1 [place] PREFERRED PRIMARY (HMO) [id number] Nicol Rodgers [id number] Nicol Rodgers Notes Date Note Type Note Provider Name and Address Organization Details Recorded Time 3 text/html Medicare wellness visitHypertension is chronic, ongoing, stableHyperlipidemia is chronic, ongoing, stableHypothyroidism is chronic, ongoing, stableAfib is chronic, ongoing, stableGout is chronic, ongoing, stableOSA is chronic, ongoing, stable on BiPAP. She is benefiting from BiPAP JANUSZ ERNST MD [facility] [place], [address], [facility] 10/08/2022 13:33:35 OBGyn Episode No OBEpisode recorded.
--- OUTSIDE RECORDS SUMMARY | 2024-11-08 13:31 | XMS_ITS | Clinical Summary ---
Author Organization [facility] Address [address] [place] [address] Care Team Providers Care Solvent Mixer Name Role Phone Sobeida Alvarenga APRN Primary Care Provider [phone] Allergies No known active allergies Medications levothyroxine [...] Osteopenia 05/28/2014 PFO (patent foramen ovale) 06/20/2013 assisted current use of anticoagulant therapy 0 11/08/2012 [...] Description 08/16/2024 2:30 PM EDT Ancillary Procedure [facility] [address] [place] [address] 08/16/2024 2:15 PM EDT Office Visit [facility] [address] [place] [address] Sedrick Sykes MD Orbital mass (Primary Dx); [...] Description 12/27/2024 12:45 PM EDT Office Visit [facility] [address] [facility] [place] [address] Sedrick Sykes MD [address] [place] [address] 02/14/2025 2:00 PM EDT Office Visit [place] [facility] [address] [place] [address] Marnie Gayle, DIRECTOR OF DIRECT MARKETING, DNP [address] [place] [address] 07/31/2025 2:30 PM EDT Ovarian Cancer Screening [facility]CR [address] [facility] [place] [address] Health Maintenance Due Date Last Done Comments Dental Oral Exam 1955 Dental X-Ray: Full Mouth 1954 [facility]-Hepatitis C Screening 1955 [facility]-Medicare Annual Wellness (AWV) 1955 [facility]-Infant/Child/Adol SDOH Screenings 1955 [facility]- SDOH Screenings 1972 [...] 12/08/2021 , 12/08/2021, 06/02/2019, Additional history exists RTV-SFFRT-85 Vaccine (2023- season) 2024 03/26/2023, 04/08/2022, 11/07/2021, [...] Full and reliable us Sedrick Sykes MD [facility] VISUAL FIELD Edited Res ult - Final [...] of Service: 11/07/2018 eferring Phy:Janusz Adrian M.D.Account: [id number] Dictated By: Dina Lugo M.D. Verified By: [...] compared to prior imaging studies performed at [facility] on 10/24/2013, 10/24/2014 and 11/09/2016 . FINDINGS: [...] of Service: 11/07/2018 eferring Phy:Janusz Adrian M.D.Account: [id number] [place] [address] FINAL REPORT PROCEDURE: Tomosynthesis Bilateral Screening - bilateral , Screening Mammogram With Cad - bilateral HISTORY: Patient is 63 years old and is seen for screening mammography. The patient has no family history of breast cancer. COMPARISON: The present examination has been compared to prior imaging studies performed at [facility] on 10/24/2013, 10/24/2014 and 11/09/2016. FINDINGS: MAMMOGRAM [...] compared to prior imaging studies performed at [facility] on 10/24/2013, 10/24/2014 and 11/09/2016 . FINDINGS: [...] femaleDate of Service:11/07/2018 eferring Phy:Janusz Adrian M.D.Account: [id number] [place] [address] FINAL REPORT PROCEDURE: Tomosynthesis Bilateral Screening - bilateral , Screening Mammogram WithCad - bilateral HISTORY: Patient is 63 years old and is seen for screening mammography. Thepatient has no family history of breast cancer. COMPARISON: The present examination has been compared to prior imaging studiesperformed at [facility] on 10/24/2013, 10/24/2014 and 11/09/2016. FINDINGS: MAMMOGRAM [...] femaleDate of Service:11/07/2018 eferring Phy:Janusz Adrian M.D.Account: [id number] Dictated By: Dina Lugo M.D. Verified By: [...] <6.0% Children and Adolescents <7.5% . Source: [place] [employer]. Standards of medical care in [...] Health Maintenance Insurance [employer] MEDICARE Care Teams Solvent Mixer Relationship Specialty Start Date End Date Sobeida Alvarenga APRN [address] [place] [address] PCP - General 07/25/24
--- OUTSIDE RECORDS SUMMARY | 2024-11-08 13:31 | XMS_ITS | Encounter Summary ---
Author Organization Healthcare Address [address] [place] [address] Care Team Providers Care Timber Inspector Name Role Phone Janusz Ernst MD Primary Care Provider [phone] Sobeida Alvarenga APRN Primary Care Provider [phone] Encounter Details Date Type Department Care Team (Late Contact Info) Description 11/30/2018 Orders Only External Location [address] [place] [address] Provider, External Social History Tobacco Use Types [...] Description 12/27/2024 12:45 PM EDT Office Visit [facility] [address] [place] [address] Sedrick Sykes MD [address] [place] [address] 02/14/2025 2:00 PM EDT Office Visit [facility] [address] [place] [address] Marnei Gayle, JACQUI, DNP [address] [place] [address] 07/31/2025 2:30 PM EDT Ovarian Cancer Screening [facility] [address] [facility] [place] [address] documented as of this encounter Procedures [...] on filedocumented in this encounter Care Teams Timber Inspector Relationship Specialty Start Date End Date Janusz Ernst MD [address] [place] [address] PCP - General 01/17/21 07/24/24 Sobeida Alvarenga, REGULATORY AUDITOR [address] [place] [address] PCP - General 07/25/24 documented as of this encounter
--- OUTSIDE RECORDS SUMMARY | 2024-11-08 13:31 | XMS_ITS | Encounter Summary ---
Author Organization Healthcare Address [address] [place] [address] Care Team Providers Care Battalion Chief Name Role Phone Janusz Ernst MD Primary Care Provider [phone] Sobeida Alvarenga APRN Primary Care Provider [phone] Encounter Details Date Type Department Care Team (Late Contact Info) Description 11/01/2023 Orders Only External Location [address] [place] [address] Provider, External Social History Tobacco Use Types [...] Description 12/27/2024 12:45 PM EDT Office Visit [facility] [address] [place] [address] Sedrick Sykes MD [address] [address] 02/14/2025 2:00 PM EDT Office Visit [place] [facility] [address] [place] [address] Marnie Gayle, JACQUI, DNP [address] [place] [address] 07/31/2025 2:30 PM EDT Ovarian Cancer Screening [facility] [address] [facility] [place] [address] documented as of [...] documented as of this encounter Care Teams Battalion Chief Relationship Specialty Start Date End Date Janusz Ernst MD [address] [place] [address] PCP - General 01/17/21 07/24/24 Sobeida Alvarenga APRN [address] [place] [address] PCP - General 07/25/24 documented as of this encounter
--- OUTSIDE RECORDS SUMMARY | 2024-11-08 13:31 | XMS_ITS | Encounter Summary ---
Author Organization Healthcare Address [address] [place] [address] Care Team Providers Care Curbstone Setter Name Role Phone Janusz Ernst MD Primary Care Provider [phone] Sobeida Alvarenga APRN Primary Care Provider [phone] Encounter Details Date Type Department Care Team (Late Contact Info) Description 11/30/2018 Orders Only External Location [address] [place] [address] Provider, External Social History Tobacco Use Types [...] Description 12/27/2024 12:45 PM EDT Office Visit [facility] [address] [facility] [place] [address] Sedrick Sykes MD [address] [place] [address] 02/14/2025 2:00 PM EDT Office Visit [facility] [address] [place] [address] Marnie Gayle, JACQUI, DNP [address] [place] [address] 07/31/2025 2:30 PM EDT Ovarian Cancer Screening [facility] [address] [place] [address] documented as of this encounter Procedures [...] on filedocumented in this encounter Care Teams Curbstone Setter Relationship Specialty Start Date End Date Janusz Ernst MD [address] [place] [address] PCP - General 01/17/21 07/24/24 Sobeida Alvarenga, COMMERCIAL FRONT LOAD OPERATOR [address] [place] [address] PCP - General 07/25/24 documented as of this encounter
[2024-11-08 14:37] LABS: PHA INR Fingerstick 1.7 (0.9-1.1)
== END 2024-11-08 14:47 ==
LOC: ACC 13:28
PROVIDERS: Nurse Practitioner Family; PCP Nurse Practitioner Family; Visit Provider Nurse Practitioner Family
DX: I48.91 Unspecified atrial fibrillation (principal)
CPT/HCPCS: 85610; 99211; G0463

== ENCOUNTER 2024-12-04 13:39 | Outpatient (CLI) | payer MEDICARE, SELFPAY ==
--- OUTSIDE RECORDS SUMMARY | 2024-12-04 13:47 | XMS_ITS | Encounter Summary ---
Author Organization Healthcare Address [address] [place] [address] Care Team Providers Care Central Melt Specialist Name Role Phone Janusz Ernst MD Primary Care Provider [phone] Sobeida Alvarenga APRN Primary Care Provider [phone] Encounter Details Date Type Department Care Team (Late Contact Info) Description 11/01/2023 Orders Only External Location [address] [place] [address] Provider, External Social History Tobacco Use Types [...] Department Care Team (Late Contact Info) Description 02/14/2025 2:00 PM EDT Office Visit [place] [facility] [address] [place] [address] Marnie Gayle, JACQUI, DNP [address] [place] [address] 07/31/2025 2:30 PM EDT Ovarian Cancer Screening [facility] [address] [place] [address] documented as of this encounter Procedures [...] documented as of this encounter Care Teams Central Melt Specialist Relationship Specialty Start Date End Date Janusz Ernst MD [address] [place] [address] PCP - General 01/17/21 07/24/24 Sobeida Alvarenga, SIGHTSEEING GUIDE [address] [place] [address] PCP - General 07/25/24 documented as of this encounter
--- OUTSIDE RECORDS SUMMARY | 2024-12-04 13:47 | XMS_ITS | Encounter Summary ---
Author Organization Healthcare Address [address] [place] [address] Care Team Providers Care Asbestos Coverer Name Role Phone Janusz Ernst MD Primary Care Provider [phone] Sobeida Alvarenga APRN Primary Care Provider [phone] Encounter Details Date Type Department Care Team (Late Contact Info) Description 11/30/2018 Orders Only External Location [address] [place] [address] Provider, External Social History Tobacco Use Types [...] Description 02/14/2025 2:00 PM EDT Office Visit [place] [facility] [address] [place] [address] Marnie Gayle, JACQUI, DNP [address] [place] [address] 07/31/2025 2:30 PM EDT Ovarian Cancer Screening [facility] [address] [facility] [place] [address] documented as of this encounter Procedures [...] on filedocumented in this encounter Care Teams Asbestos Coverer Relationship Specialty Start Date End Date Janusz Ernst MD [address] [place] [address] PCP - General 01/17/21 07/24/24 Sobeida Alvarenga, JACQUI [address] [place] [address] PCP - General 07/25/24 documented as of this encounter
--- OUTSIDE RECORDS SUMMARY | 2024-12-04 13:48 | XMS_ITS | Data Portability ---
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 Name Role Phone DANN JONES Application Coordinator JOHAN ELISE Primary Care Provider Assessment Encounter [...] Time Details Appointments LEVEL 2 2024 02:30P Esthela JONES MD Not available Not available Not available Lab uric acid, serum or plasma 2022 023 [email or web address] [facility], [address] [place] [address], [phone], 05/05/2023 07:58:02 toxicolog y screen, urine 2022 023 [email or web address] [facility], [address] [place] [address], [phone], 05/05/2023 07:58:02 lipid panel, serum 2022 023 [email or web address] [facility], [address] [place], [address], 05/05/2023 07:58:01 CMP, serum or plasma 2022 023 [email or web address] [facility], [address] [place] [address], [phone], 05/05/2023 07:58:01 CBC w/ auto diff 2022 023 [email or web address] [facility], [address] [place] [address], [phone], 05/05/2023 07:58:01 TSH, serum or plasma 2022 023 [email or web address] [facility], [address] [place] [address], [phone], 05/05/2023 07:58:02 Referral None recorded. Procedures None recorded. Surgeries None recorded. Imaging None recorded. Medication Orders tramadol 50 mg tablet 2022 023 [facility], [address] [place] [address] [address] [place] [address], [phone], 01/27/2023 14:14:33 levothyro xine 125 mcg tablet 2022 023 [facility], [address] [place] [address], [id number], 01/27/2023 14:14:33 Patient TargetsNo targets recorded. Patient Instructions Encounter Date Encounter Id Patient Instructions Last Modified By Organization Details Last Modified Time 04/20/2022 [id number] discussed importance of taking AREDS 2 vitamins BID and checking grid QD (given with instructions/emily ng signs) MR with +2.50 NL recheck 1 yr with mac oct dkielar Not available 04/20/2022 14:35:10 10/08/2022 [id number] weight managemen t education dbeiting Not available 10/08/2022 13:32:35 advance care planning: care instructions dbeiting Not available 10/08/2022 13:32:36 labs reviewed scripts reviewed risks/benefits reviewed high risk meds reviewed continue current medication continue to monitor labs pneumovax 23 rtc 6 months with labs and prn dbeiting Not available 10/08/2022 07:30:23 05/03/2023 [id number] stable exam continue vitamins BID and check [...] oct dkielar Not available 05/03/2023 15:21:33 11/09/2023 [id number] unspecified righ t orbital mass she has [...] oct dkielar Not available 11/09/2023 14:09:42 05/05/2024 [id number] stable exam continue AREDS 2 vitamins BID [...] w/wo contr ast [place] [facility] [address] [place] [address] Patien t Name: NICOL Brown ANA MARIA Patirichy t : 1954 Patien t Orderi ng Provid er: DANN [...] Omnipa que 350 (100 mL bottle of [facility] [address]- 1414-9 1) was intrav enousl y admini stered to the patien t. 37 was wasted and discar ded. FINDIN GS: There are masses along the medial wall of both orbits cardiac cath lab manager ior to the globes . On the [...] along the medial aspect of both orbits cardiac cath lab manager ior to the globes . These could repres ent orbita l cavern ous venous malfor mation s (heman giomas ) venous varice s, or lympho prolif erativ e diseas e, but the appear ance is nonspe cific. . Interp reted By: Megan pichardo MD Electr onical ly Signed By: Megan pichardo MD on 024 1:49 PM dkielar [facility] [address] [place] [address], [phone], 11/09/2023 14:06:48 11/09/19 24 11/09/2023 optic al coher ence tomog romeo, retin a No observ ation record ed. dkielar Not Available 2023 14:02:45 05/05/20 24 05/05/2024 optic al coher ence tomog romeo, retin a No observ ation record ed. dkielar Not Available 2023 15:56:37 Result Notes Documentation Provider Name and Address Organization Details Recorded Time Ct, Orbits, W/wo Contrast : [address] [address] Patient Name: NICOL RODGERS Patient : 1955 [...] mL Omnipaque 350 (100 mL bottle of [facility] [address]-86) was intravenously administered to the patient. 37 [...] Interpreted By: Ernesto Hinton MD JONES MD [address] [place] [address] 11/09/2023 14:06:48 Problems Name Problem SNOMED Code Status Onset Date Resolution Date Notes Provider Name and Address Organization Details Recorded Time [facility] hyperten jacqueline 96441278 Active 2016 JANUSZ ERNST MD [address] [place] [address] 7 13:23:59 Iron deficien cy 38388477 Active 2017 JANUSZ ERNST MD [address] [place] [address] 8 14:01:11 Chronic pain syndrome 550823827 Active 2018 JANUSZ ERNST MD [address] [place] [address] 9 13:58:32 Obstruct silviano sleep apnea syndrome 82879310 Active 2018 BiPAP JANUSZ ERNST MD [address] [place] [id number] 11/04/201 9 14:04:34 Hyperlip idemia 46274852 Active 2020 JANUSZ ERNST MD [facility] [place], [address] , [facility] 1 13:16:58 Gout 17475215 Active 2020 JANUSZ ENRST MD [address] [place] [address] [place], [address] , [facility] 1 13:38:01 Nonexuda tive age-rela michelle macular degenera tion 764017683 Active 2020 DANN JONES MD [address] [place] [address], [address] , [facility] 3 15:02:04 Bilatera l age-rela michelle nuclear cataract s 77620665547 9100 Active 2020 DANN JONES MD [address] [place] [address], [address] , [facility] 3 15:02:04 Myopia 07369558 Active 2020 DANN JONES MD [address] [place] [address], [address] , [facility] 3 15:02:04 Hypermet ropia 40262863 Active 2020 DANN JONES MD [address] [place] [address] [place], [address] , [facility] 3 15:02:04 Regular astigmat ism 20711874 Active 2020 DANN JONES MD [address] [place] [address], [address] , [facility] 3 15:02:04 Presbyop ia 40818478 Active 2020 DNAN JONES MD [address] [place] [address] [place], [address] , [facility] 3 15:02:04 Osteopen ia 181047486 Active 2021 JANUSZ ERNST MD [address] [place] [address] [place], [address] , [facility] 2 07:39:55 Morbid obesity 590675478 Active 2022 JANUSZ ERNST MD [address] [place] [address], [address] , [facility] 3 07:22:38 Thrombop hilia 590604027 Active 2022 JANUSZ ERNST MD [address] [place] [address] , [facility] 3 07:23:15 Long-ter m current use of anticoag ulant 281843978 Active 2022 JANUSZ ERNST MD [address] [place] [address] 3 07:23:46 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 DANN JONES MD [address] [place] [address] , [facility] 4 14:31:47 Low back pain 401671795 Active 2015 From Automate d Load;Pro vider: Kevin Ernst: Active Not Available [facility] 6 06:28:23 Atrial fibrilla tion 15273582 Active 2015 Provider : Mckenzie Jules; Status: Active Not Available [facility] 6 06:28:25 Vitamin D deficien cy 47008860 Active 2015 Provider : Mckenzie Jules; Status: Active Not Available [facility] 6 06:28:25 Hyperten sive disorder 45529961 Completed 201509/25/2019 From Automate d Load;Pro vider: Janusz Ernst;Nellie tatus: Active JANUSZ ERNST MD [address] [place] [address], [address] , [facility] 0 13:45:33 Hypothyr oidism 79483176 Active 2015 From Automate d Load;Pro vider: Kevin Ernst tatus: Active Not Available [facility] 06:28:26 Problem Notes Documentation Provider Name and Address Organization Details Recorded Time Application Coordinator Consult Note : [facility] [address] [facility] [address]SSBHUW, Cindy L (id #[id number], : 1955) [facility] [address] [place] [address] Encounter Summary - Progress Note Date Printed: [...] received this fax in error, please visit [email or web address] Fax to notify the sender and confirm that the information will be destroyed. If you do not have internet access, please call to notify the sender and confirm that the information will be destroyed. Thank you for your attention and cooperation. [ID:[id number]] Patient Nicol Rodgers (67yo, F) #[id number] 1955 Patient Demographics: Address [address] [place] [address] Encounter Notes: Encounter Reason/Date complete eye exam [...] of arrival. Await instructions from provider's office. [id number] 13:20 Ht: 5 ft 7 in Results/InterpretationsNon [...] lenses. Assessment and Plan1. Nonexudative age-related macular crrfbnjamlijE58.3131: Nonexudative age-related macular degeneration, bilateral, early dry stage 2. Bilateral age-related nuclear cataracts-mild dhumzgkzadpF52.13: Age-related nuclear cataract, bilateral 3. PupwbnW59.11: Myopia, right eye Progressive glasses (Expiration Date: 04/20/2023)Right -Sph: -1.00Cyl: +1.25Axis: 180Add: +2.50Left -Sph: +0.50Cyl: +0.25Axis: 150Add: +2.50 4. NssimjptlgsycC76.02: Hypermetropia, left eye 5. Regular wcdrmsyrexpQ04.223: Regular astigmatism, bilateral 6. LnjufavcwaV51.4: Presbyopia Discussion Notesdiscussed importance of taking AREDS 2 vitamins BID and checking grid QD (given with instructions/warning signs)MR with +2.50 NLrecheck 1 yr with mac oct Return to Office JANUSZ ERNST MD for MEDICARE WELLNESS VISIT at [facility] on 10/08/2022 at 01:15 PM to see DANN JONES MD for COMPLETE EYE EXAM at OPHTHALMOLOGY [facility] on or around 04/20/2023 Patient Medical History: [...] prescribed JANUSZ ERNST MD metaxalone 800 mg vdbvncFaayg18/28/16 filled [facility] metoprolol succinate ER 100 mg tablet,extended release 24 hrTAKE ONE TABLET BY MOUTH EVERY DAY FOR BLOOD XKPVCEQV99/19/22 filled surescripts omega 3-hhf-vqs-fish oil 1,000 mg (120 mg-180 mg) capsuleDaily Internal Note:Frequency: daily;Medication Description: omega-3 polyunsaturated fatty acids; Dosage:1; Route:oral; refills: entered [facility].244 ondansetron 4 mg disintegrating tabletDISSOLVE ONE TABLET BY MOUTH THREE TIMES DAILY NEEDED FOR PNMNHL14/18/22 filled surescripts oxybutynin chloride ER 10 mg tablet,extended release 24 hrTAKE ONE TABLET BY MOUTH EVERY DAY01/17/22 filled surescripts peg 3350-electrolytes 236 gram-22.74 gram-6.74 gram-5.86 gram solutionTAKE ACCORDING TO PACKAGE VSXKNEBDJFMU77/16/21 filled surescripts phentermine 37.5 mg tabletTake one tablet by mouth daily (30 minutes before or 1-2 hour(s) after breakfast).10/23/20 filled surescripts potassium chloride ER 10 mEq tablet,extended release(part/cryst) 8 filled [facility] Suprep Bowel Prep Kit 17.5 gram-3.13 gram-1.6 gram oral solutionUSE GEDNWGOZ54/16/21 prescribed DENISE VENTURA MD Symbicort 160 mcg-4.5 mcg/actuation HFA aerosol inhalerINHALE 2 PUFFS BY MOUTH TWICE DAILY02/11/22 filled surescripts traMADoL 50 mg tabletTAKE ONE TABLET BY MOUTH TWICE DAILY NEEDED MAY CAUSE QHHRCFXHOK69/17/22 filled surescripts trospium 20 mg qmwuqo54/10/17 filled [facility] Vitamin D 5,000 unit tabletTake 1 tablet(s) every day by oral route.04/02/20 entered JANUSZ ERNST MD warfarin 5 mg tabletTAKE ONE TABLET BY MOUTH EVERY DAY OR OJIWERRP78/15/22 filled surescripts Family HistoryReviewed Family History Father - Carcinoma of prostate Mother - Legal blindness - blind in one eye Past Medical HistoryReviewed Past Medical History Glasses/Contacts:Y Vaccine HistoryVaccines not reviewed (last reviewed 04/09/2022) Vaccine Type Date Amt. Route Site [facility] Lot # Mfr. Exp. Date VIS VIS [place] COVID-19 COVID-19, mRNA, LNP-S, PF, 30 mcg/0.3 mL dose ([facility]) 02/26/21 COVID-19 (SARS-COV-2) vaccine, unspecified 08/15/20 pfizer COVID-19 (SARS-COV-2) vaccine, unspecified 07/27/20 pfizer Influenza influenza, injectable, quadrivalent 03/07/21 influenza, injectable, quadrivalent 03/07/20 influenza, injectable, quadrivalent 03/16/19 influenza, injectable, quadrivalent 03/01/18 influenza 04/20/17 influenza 04/07/16 Pneumococcal Pneumococcal conjugate PCV20, polysaccharide [id number] conjugate, adjuvant, PF 10/13/21 0.5 mL Intramuscular Deltoid, Right [id number] Other mainframe developer 11/21/22 Pneumococcal Conjugate 06/27/21 10/13/21 Aliyah Simon pneumococcal conjugate PCV 13 12/02/18 Zoster zoster 08/05/20 zoster 06/07/20 Electronically Signed by: DANN JONES MD JANUSZ ERNST MD [address] [place] [address] [place], [address], [facility] 04/20/2022 16:44:31 Procedures Surgical History Date Name Laterality Status Provider Name and Address Organization Details Recorded Time 05/05/20 24 OCT/Retina completed DANN JONES MD [facility] [place], [address], [facility] 05/05/2024 15:58:42 11/09/19 24 OCT/Retina completed DANN JONES MD [facility] [place], [address], [facility] 11/09/2023 14:05:22 05/03/20 23 OCT/Retina completed DANN JONES MD [address] [place] [address], [address], [facility] 05/03/2023 15:03:12 04/20/20 22 OCT/Retina completed DANN JONES MD [address] [place] [address], [address], [facility] 04/20/2022 14:24:01 04/20/20 22 Refraction completed DANN JONES MD [address] [place] [address], [address], [facility] 04/20/2022 14:34:43 12/09/19 22 DXA Low Bone Mass 1 - No Tx completed NAFISA FLEMING MD [address] [place] [address], [address], [facility] 12/08/2021 16:53:13 06/12/19 22 Endoscopy Nasal; Biospy, Polypectomy or Debridement completed Ramona Woodard [facility] 06/12/2021 11:14:22 06/10/19 22 Septoplasty completed Remedios Briseno [facility] 06/12/2021 10:59:44 04/10/20 21 Refraction completed DANN JONES MD [address] [place] [address], [address], [facility] 04/10/2021 16:45:44 06/02/19 20 DXA Low Bone Mass 1 - No Tx completed NAFISA FLEMING MD [address] [place] [address], [address], [facility] 06/02/2019 12:45:31 03/07/19 90 Total Hysterectomy completed JANUSZ ERNST MD [address] [place] [address], [address], [facility] 08/19/2018 14:46:16 Cholecystectomy completed JANUSZ ERNST MD [address] [place] [address], [address], [facility] 06/17/2016 08:42:36 Gastric Bypass completed JANUSZ ERNST MD [address] [place] [address], [address], [facility] 06/17/2016 08:42:42 Imaging Results None recorded. Procedure [...] Date Recorded Heart rate Respiratory rate Systolic And Diastolic Provider Name and Address Organization Details Last Updated DateTime 10/08/2022 80 /min 12 /min 122/80 mm[Hg] JANUSZ ERNST MD [address] [place] [address], [address], [facility] 10/08/2022 13:22:49 Date Recorded Body height Body mass index (BMI) Body weight Provider Name and Address Organization Details Last Updated DateTime 10/08/2022 170.18 cm 48 kg/m2 099559.07 g Aliyah Simon [facility] 10/08/2022 13:15:36 Date Recorded Body height Provider Name an d Address Organization Details Last Updated DateTime 11/09/2023 170.18 cm Shruthi Yash [facility] 11/09/2023 13:14:13 Date Recorded Body height Provider Name an d Address Organization Details Last Updated DateTime 04/20/2022 170.18 cm Jacki Lima [facility] 13:20:40 Date Recorded Body height Provider Name an d Address Organization Details Last Updated DateTime 05/03/2023 170.18 cm Chris Mcmahan [facility] 05/03/2023 14:43:27 Date Recorded Body height Provider Name an d Address Organization Details Last Updated DateTime 05/05/2024 170.18 cm Tasia Calero [facility] 1 07/06/2023 15:06:42 Social History Question Answer Notes LastModified by Organizat ion Details LastModified Time Tobacco Smoking Status Never Smoker JANUSZ ERNST MD [address] [place] [address] [place], [address], [facility] 06/17/2016 08:42:18 How Much Tobacco Do You Chew? None Information not available 08/19/2018 What Was The Date Of Your Most Recent Tobacco Screening? 10/08/2022 Information not available 10/08/2022 Sex: Female Functional Status Question Answer Note LastModified by Organizat ion Details LastModified Time What is your level of alcohol consumption? 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 Never used electronic cigarettes Information not available 10/01/2020 Mental Status None recorded. Family History Relationship Description Onset Age of this Age Resolved Age Notes LastModified by Organization Details LastModified Time Father Carcinoma of prostate dbeiting Not available 2016 08:42:10 Mother Legal blindness blind in one eye [id number] Not available 04/10/2021 16:00:35 Medical History Condition [...] unspecified formulation 7 completed JANUSZ ERNST MD [address] [place] [address], [phone], [facility] 06/23/2017 14:01:23 influenza, unspecified formulation 6 completed JANUSZ ERNST MD [address] [place] [address], [address], [facility] 06/18/2016 13:04:54 Influenza, split virus, quadrivalent, preservative 8 completed Not Available [facility] 05/03/2023 14:21:49 Influenza, split virus, quadrivalent, preservative 9 completed Not Available [facility] 05/03/2023 14:21:49 Pneumococcal conjugate PCV 13 9 completed Not Available [facility] 05/03/2023 14:21:50 Pneumococcal conjugate PCV20, polysaccharide [id number] conjugate, adjuvant, PF 2 completed Aliyah Simon [facility] 10/13/2021 13:42:53 pneumococcal polysaccharide PPV23 3 completed Aliyah Simon [facility] 10/08/2022 13:39:47 COVID-19, mRNA, LNP-S, PF, 30 mcg/0.3 mL dose 1 completed Aliyah Simon [facility] 01/26/2023 08:51:22 Influenza, split virus, quadrivalent, preservative 1 completed Not Available [facility] 05/03/2023 14:21:49 influenza, unspecified formulation 2 completed Not Available [facility] 05/03/2023 14:21:49 zoster recombinant 1 completed Aliyah Simon [facility] 01/26/2023 08:51:22 Influenza, high-dose, quadrivalent, PF 0 completed Aliyah Simon [facility] 01/26/2023 08:51:22 COVID-19, mRNA, LNP-S, PF, 30 mcg/0.3 mL dose 1 completed Aliyah Simon [facility] 01/26/2023 08:51:22 COVID-19, mRNA, LNP-S, PF, 30 mcg/0.3 mL dose 1 completed Aliyah Simon [facility] 01/26/2023 08:51:22 COVID-19, mRNA, LNP-S, PF, 30 mcg/0.3 mL dose, jayla-sucrose 2 completed Aliyah Simon [facility] 01/26/2023 08:51:22 COVID-19, mRNA, LNP-S, bivalent, PF, 30 mcg/0.3 mL dose 2 completed Aliyah Simon [facility] 01/26/2023 08:51:22 pneumococcal polysaccharide PPV23 9 [facility] 01/26/[facility] 08:51:22 Pneumococcal conjugate PCV 13 1 [facility] 01/26/2023 08:51:22 Past Encounters Encounter ID Performer Location Encounter Start Date Encounter Closed Date Diagnosis/Indication Diagnosis SNOMED-CT Code Diagnosis ICD10 Code Diagnosis Note [id number] JANUSZ ERNST MD [facility] CLOS[facility] [address],[place] [address] 1 06/18/2016 12:50:50 06/18/2016 13:56:01 Essential hypertension 31042468 I10 Hypothyroidism 96612609 E03.9 Anemia 852984288 D64.9 Hyperlipidemia 94482531 E78.5 Vitamin D deficiency 347 45158 E55.9 Screening for malignant neoplasm of colon 697681122 Z12.11 Plantar fasciitis 112772 003 M72.2 Edema of l ower extremity 448365345 R60.0 Low back pain 662986815 M54.5 [id number] JANUSZ ERNST MD [facility] CL[facility] [address],[place] [place] [address] 12/21/2016 13:17:10 12/21/2016 13:40:13 Essential hypertension 20073516 I10 Hypothyroidism 42373861 E03.9 Atrial fibrillation 4943 6004 I48.91 Hyperlipidemia 87018346 E78.5 Hyperglycemia 60193615 R 73.9 Anemia 554126830 D64.9 Vitamin D deficiency 347 55235 E55.9 Vitamin B1 2 deficiency (non anemic) 91904794 E53.8 Low back pain 224577925 M54.5 [id number] JANUSZ ERNST MD [facility] [address] [address] 1 06/23/2017 13:35:30 06/23/2017 14:24:49 Adult health examination 819824233 Z00.00 Essential hypertension 49097027 I10 Dyslipidemia 214532462 E 78.5 Vitamin B1 2 deficiency (non anemic) 03589421 E53.8 Hypothyroidism 08820315 E03.9 Vitamin D deficiency 347 04939 E55.9 Iron deficiency 65451822 E61.1 Low back pain 634662094 M54.5 [id number] JANUSZ ERNST MD [facility] [address] [place] [address] 01/31/2018 13:23:02 01/31/2018 13:42:37 Essential hypertension 76417382 I10 Hypothyroidism 21975080 E03.9 Chronic pain syndrome 37 0552876 G89.4 Dyslipidemia 716376253 E 78.5 Vitamin D deficiency 347 59154 E55.9 Low back pain 660118766 M54.5 Fatigue 64702501 R53.83 [id number] JANUSZ ERNST MD [facility] [address] [address] 08/19/2018 14:33:25 08/19/2018 15:03:42 Essential hypertension 27197137 I10 Hypothyroidism 68113590 E03.9 Atrial fibrillation 4943 6004 I48.91 Low back pain 539458586 M54.5 Dyslipidemia 992227540 E 78.5 [id number] JANUSZ ERNST MD [facility] [address] [place] [address] 12/09/2018 13:58:16 12/09/2018 14:19:36 Cellulitis of face 664660288 L03.201 [id number] JANUSZ ERNST MD [facility] CL[facility] [address] [address] 03/27/2019 13:49:01 03/27/2019 14:45:25 Adult health examination 463576350 Z00.00 Essential hypertension 86358602 I10 Hypothyroidism 55932872 E03.9 Chronic pain syndrome 37 0157072 G89.4 Vitamin D deficiency 347 92929 E55.9 Long-term drug therapy 294741987 Z79.899 Pain in right knee 16004 63437 16151 M25.561 Screening for cardiovascular system disease 180147759 Z13.6 Menopausal syndrome 1237 12908 N95.9 [id number] NAFISA FLEMING MD BONE DENSITY [address] [place] [address] 06/02/2019 11:06:54 06/02/2019 11:29:47 Bone density finding 520632317 M85.9 [id number] C GLORIA MARIN PA-C [facility] CL[facility] [address] [place] [id number] 06/02/2019 12:48:14 06/02/2019 13:43:08 Osteoarthritis of knee 454430507 M17.9 End-stage PF OA with questionab le [...] TKA as ultimate resolution of this pathology [id number] JANUSZ ERNST MD [facility] [address] [facility] [place], [place] [address] 09/25/2019 13:44:29 09/27/2019 08:33:32 Essential hypertension 04440668 I10 Hypothyroidism 58887448 E03.9 Atrial fibrillation 4943 6004 I48.91 Chronic pain syndrome 37 2414062 G89.4 Long-term drug therapy 580072734 Z79.495 [id number] JANUSZ ERNST MD INTERNAL MEDICINE [facility] [address] [facility] [place] [address] 04/02/2020 14:04:28 04/02/2020 14:36:26 Essential hypertension 16581588 I10 Hypothyroidism 28294692 E03.9 Atrial fibrillation 4943 6004 I48.91 Obstructiv e sleep apnea syndrome 38723620 G47.33 Chronic pain syndrome 37 7040975 G89.4 Long-term drug therapy 666599757 Z79.899 Dyslipidemia 873464341 E 78.5 Fatigue 74355948 R53.83 [id number] JANUSZ ERNST MD INTERNAL MEDICINE [address] [place] [address] 08/06/2020 09:40:03 08/06/2020 10:11:35 Essential hypertension 31341256 I10 Hypothyroidism 82474523 E03.9 Atrial fibrillation 4943 6004 I48.91 Long-term current use of anticoagulant 120046128 Z79.01 Rectal hemorrhage 940388 02 K62.5 [id number] DENISE VENTURA MD SURGERY SCHEDULE [address] [place] [address] 08/09/2020 12:53:58 08/09/2020 12:54:27 [id number] JANUSZ ERNST MD INTERNAL MEDICINE [address] [place] [address] 10/01/2020 13:55:22 10/01/2020 14:23:38 Adult health examination 330239037 Z00.00 Essential hypertension 91859614 I10 Dyslipidemia 048192180 E 78.5 Hypothyroidism 68603945 E03.9 Obstructiv e sleep apnea syndrome 78968406 G47.33 Fatigue 98216470 R53.83 Chronic pain syndrome 37 8329901 G89.4 Long-term drug therapy 475049569 Z79.899 Educated a bout weight management 664045229 Z71.3 Ophthalmic examination and evaluation 59210796 Z01.00 [id number] JANUSZ ERNST MD INTERNAL MEDICINE [address] [place] [address] 04/10/2021 13:26:09 04/10/2021 14:08:52 Essential hypertension 83117883 I10 Hyperlipidemia 80414962 E78.5 Hypothyroidism 79121531 E03.9 Atrial fibrillation 4943 6004 I48.91 Obstructiv e sleep apnea syndrome 26137871 G47.33 Hyperglycemia 94742791 R 73.9 Long-term drug therapy 675412639 Z79.899 Obesity 301083430 E66.9 Gout 13027675 M10.9 Chronic pain syndrome 37 7867846 G89.4 Nasal obstruction 454592 000 J34.89 Fatigue 10630221 R53.83 [id number] DANN JONES MD OPHTHALMO [address] [place] [address] 04/10/2021 14:52:07 04/10/2021 17:20:33 Nonexudative age-related macular degeneration 449980443 H35.3131 Bilateral age-related nuclear cataracts 6918726920 67916 H25.13 mild Myopia 61780794 H52.11 Hypermetropia 31828511 H 52.02 Regular astigmatism 6890 5002 H52.223 Presbyopia 34274505 H52. 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 J34.89 - S/p bilateral repair of nasalvalve stenosis (06/10/21) [id number] JANUSZ ERNST MD INTERNAL MEDICINE [place] [address] 10/13/2021 13:12:00 10/13/2021 14:24:22 Adult health examination 998911417 Z00.00 Essential hypertension 05187112 I10 Hyperlipidemia 29762907 E78.5 Hypothyroidism 12349942 E03.9 Atrial fibrillation 4943 6004 I48.91 Obstructiv e sleep apnea syndrome 74637582 G47.33 Long-term drug therapy 399875527 Z79.899 Menopausal syndrome 1237 07646 N95.9 Administra tion of pneumococcal vaccine 43121379 Z23 Chronic pain syndrome 37 5856197 G89.4 [id number] JANUSZ ERNST MD INTERNAL MEDICINE [place] [address] 10/21/2021 13:48:02 10/21/2021 13:56:02 Nik hematuria 665877115 R31.0 [id number] NAFISA FLEMING MD BONE DENSITY [address] [address] 12/08/2021 13:36:39 12/08/2021 13:55:34 Osteopenia 682583288 M85.89 [id number] JANUSZ ERNST MD INTERNAL MEDICINE [address] [address] 04/09/2022 13:06:31 04/09/2022 13:44:42 Essential hypertension 94372750 I10 Hyperlipidemia 23202096 E78.5 Atrial fibrillation 4943 6004 I48.91 Hypothyroidism 00165933 E03.9 Gout 66300016 M10.9 Chronic pain syndrome 37 7020443 G89.4 Long-term drug therapy 559460188 Z79.899 Obesity 042912834 E66.9 [id number] DANN JONES MD OPHTHALMO [facility] [address] [place] [address] 04/20/2022 13:12:06 04/20/2022 15:17:09 Nonexudative age-related macular degeneration 144875148 H35.3131 Bilateral age-related nuclear cataracts 0463377159 81703 H25.13 mild progressio n Hypermetropia 16923413 H 52.02 Regular astigmatism 6890 5002 H52.223 Presbyopia 15418619 H52. 4 Myopia 42943194 H52.11 [id number] JANUSZ ERNST MD INTERNAL MEDICINE [address] [place] [address] 10/08/2022 13:09:28 10/12/2022 10:57:06 Adult health examination 119842166 Z00.00 Essential hypertension 10511575 I10 Hyperlipidemia 42402047 E78.5 Hypothyroidism 69768445 E03.9 Atrial fibrillation 4943 6004 I48.91 stablecont inue current medication continue to monitorco- managed with cardiology Gout 93522165 M10.9 Chronic pain syndrome 37 5214782 G89.4 Morbid obesity 960327963 E66.01 calorie restrictio nlow carbohydra te diet Thrombophilia 674824242 D68.69 stablecont inue current medication continue to monitorco- managed with cardiology Long-term current use of anticoagulant 714984338 Z79.01 stableno s/sx bleedingco ntinue current medication continue to monitor Long-term drug therapy 274394174 Z79.899 Administra tion of pneumococcal vaccine 12406902 Z23 [id number] DANN JONES MD OPHTHALMO [place] [address] [place],[address] [place] [address] 05/03/2023 14:20:39 05/03/2023 15:31:53 Nonexudative age-related macular degeneration 808438767 H35.3132 Bilateral age-related nuclear cataracts 6648472857 96145 H25.13 mild progressio n Myopia 93146120 H52.11 Hypermetropia 63029419 H 52.02 Regular astigmatism 6890 5002 H52.223 Presbyopia 35026429 H52. 4 [id number] DANN JONES MD OPHTHALMO [address] [place] [address] 11/09/2023 12:50:38 11/09/2023 14:12:53 Nonexudative age-related macular degeneration 646958526 H35.3132 Bilateral age-related nuclear cataracts 4131438367 11760 H25.13 mild progressio n Myopia 78718138 H52.11 Hypermetropia 16629886 H 52.02 Regular astigmatism 6890 5002 H52.223 Presbyopia 35478261 H52. 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 4 Health Concerns Section Related Observation LastModified by Organization Detai ls LastModified Time None Recorded Concern Status LastModified by Organization Details LastModified Time None Recorded Advance Directives Directive None Recorded Payers Insurance Date Sequence Insurance Name Policy Number Policy Fernandes Covered Member ID Fernandes Member ID Guarantor Name 05/11/2024 1 [facility] (MEDICARE REPLACEMENT/A DVANTAGE - PPO) [id number] Nicol Rodgesr [id number] Nicol Rodgers 10/28/2023 1 [employer] [employer] [place] [id number] Nicol Rodgers [id number] Nicol Rodgers 12/09/2018 SLIDING FEE SCHEDULE - DISCOUNT Nicol Rodgers 03/27/2019 SLIDING FEE SCHEDULE - DISCOUNT Nicol Kevin Rodgers 10/28/2023 1 [place] PREFERRED PRIMARY (HMO) [id number] Nicol Kevin Rodgers [id number] Nicol Rodgers Notes Date Note Type Note Provider Name and Address Organization Details Recorded Time 3 text/html Medicare wellness visitHypertension is chronic, ongoing, stableHyperlipidemia is chronic, ongoing, stableHypothyroidism is chronic, ongoing, stableAfib is chronic, ongoing, stableGout is chronic, ongoing, stableOSA is chronic, ongoing, stable on BiPAP. She is benefiting from BiPAP JANUSZ ERNST MD [address] [place], [address], [facility] 10/08/2022 13:33:35 OBGyn Episode No OBEpisode recorded.
--- OUTSIDE RECORDS SUMMARY | 2024-12-04 13:48 | XMS_ITS | Encounter Summary ---
Author Organization Healthcare Address [address] [place] [address] Care Team Providers Care Plant Taxonomy Teacher Name Role Phone Janusz Ernst MD Primary Care Provider [phone] Sobeida Alvarenga APRN Primary Care Provider [phone] Encounter Details Date Type Department Care Team (Late Contact Info) Description 11/30/2018 Orders Only External Location [address] [place] [address] Provider, External Social History Tobacco Use Types [...] Description 02/14/2025 2:00 PM EDT Office Visit [place] [facility] [address], [address] [place] [address] Marnie Gayle, JACQUI, DNP [address] [place] [address] 07/31/2025 2:30 PM EDT Ovarian Cancer Screening [facility] [address] [facility] [place] [address] documented as of this [...] on filedocumented in this encounter Care Teams Plant Taxonomy Teacher Relationship Specialty Start Date End Date Janusz Ernst MD [address] [place] [address] PCP - General 01/17/21 07/24/24 Sobeida Alvarenga, RETAIL EVENT ASSISTANT [address] [place] [address] PCP - General 07/25/24 documented as of this encounter
--- OUTSIDE RECORDS SUMMARY | 2024-12-04 13:48 | XMS_ITS | Encounter Summary ---
Author Organization Healthcare Address [address] [place] [address] Care Team Providers Care Home Care Attendant Name Role Phone Janusz Ernst MD Primary Care Provider [phone] Sobeida Alvarenga APRN Primary Care Provider [phone] Encounter Details Date Type Department Care Team (Late Contact Info) Description 11/01/2023 Orders Only External Location [address] [place] [address] Provider, External Social History Tobacco Use Types [...] Description 02/14/2025 2:00 PM EDT Office Visit [place] [facility] [address], [address] [place] [address] Marnie Gayle, JACQUI, DNP [address] [place] [address] 07/31/2025 2:30 PM EDT Ovarian Cancer Screening [facility] [address] [facility] [place] [address] documented as of this encounter Procedures [...] documented as of this encounter Care Teams Home Care Attendant Relationship Specialty Start Date End Date Janusz Ernst MD [address] [place] [address] PCP - General 01/17/21 07/24/24 Sobeida Alvarenga, BEAUTY SHOP MANAGER [address] [place] [address] PCP - General 07/25/24 documented as of this encounter
--- OUTSIDE RECORDS SUMMARY | 2024-12-04 13:48 | XMS_ITS | Clinical Summary ---
Author Organization [facility] Address [address] [place] [address] Care Team Providers Care Zone Supervisor Firearms Name Role Phone Sobeida Alvarenga APRN Primary Care Provider [phone] Allergies No known active allergies Medications levothyroxine [...] Osteopenia 05/28/2014 PFO (patent foramen ovale) 06/20/2013 longterm current use of anticoagulant therapy 0 11/08/2012 Cardiac murmur 10/26/2012 Essential hypertension 10/26/2012 Hypothyroidism 10/26/2012 Obesity 10/26/2012 Pain in joint 10/26/2012 Resolved Problems Problem Noted Date Diagnosed Date Resolved Date Recurrent UTI 02/04/2022 02/17/2024 Hematuria 02/04/2022 02/17/2024 Gout 04/10/2021 02/17/2024 Hyperlipidemia 04/10/2021 02/17/2024 Obstructive sleep apnea syndrome 03/27/2019 02/04/2022 Dyslipidemia 06/23/2017 02/04/2022 Iron deficiency 06/23/2017 02/17/2024 Immunizations Immunization Administration Dates Next Due Hep [...] Care Team (Late st Contact Info) Description 02/14/2025 2:00 PM EDT Office Visit [place] [facility] [address], [address] [place] [address] Marnie Gayle, MECHANICAL ENGINEERING INTERN, DNP [address] [place] [address] 07/31/2025 2:30 PM EDT Ovarian Cancer Screening [facility] [address] [facility] [place] [address] Health Maintenance Due Date Last Done Comments [facility]-Hepatitis C Screening 1955 [facility]-Medicare Annual Wellness (AWV) 1955 [facility]-/Child/Adol SDOH Screenings 1955 [facility]- SDOH Screenings 1972 [facility]-Adult SDOH Screenings 1972 CT Colonography 1999 FIT-DNA 1999 FIT 1999 FOBT 1999 Sigmoidoscopy 1999 [facility]-RSV Vaccine: 60+ Years or (1 - Risk 60-74 years 1-dose series) 2014 [facility]-Diabetes: Hemoglobin A1C 06/09/2018 06/09/2017, 12/18/2015 [facility]-Breast Cancer Screening 11/07/202010/22, 11/07/2018, 11/09/2016, Additional history exists [facility]-Zoster Vaccines (2 of 2) 02/07/2021 12/13/2020 [facility]-DTaP,Tdap,and Td Vaccines (2 - Td or Tdap) 04/07/2021 04/07/2011 [facility]-Bone Density Scan 12/09/2023 12/08/2021 , 12/08/2021, 06/02/2019, Additional history exists MUF-[id number]-39 Vaccine ( season) 2024 03/26/2023, 04/08/2022, 11/07/2021, Additional history exists [facility]-Influenza Vaccine (#1) 01/22/202504/13, 03/26/2023, 03/07/2022, Additional history exists [facility]-Depression Screening 02/01/2025 02/02/2024 Colonoscopy 07/10/2026 07/10/2016 [facility]-Colorectal Cancer Screening 07/10/2026 [facility]-Pneumococcal Vaccine: 50+ Years Completed 10/08/2022, 10/13/2021, 06/19/2020, Additional history exists [facility]-Obesity Intervention Completed 025, [...] Procedure Name Priority Date/Time Associated Diagnosis Comments MAMMOGRAPHY BREAST SCREENING TOMOSYNTHESIS BILATERAL Routine 11/07/2018 12:00 AM EDT HEMOGLOBIN A1C Routine 06/09/2017 11:50 AM EST COLONOSCOPY 07/10/2016 from Last 3 Months or Most Recently Relevant to Health Maintenance Results * Mammography Breast Screening Tomosynthesis Bilateral (11/07/2018 [...] of Service: 11/07/2018 eferring Phy:Janusz Adrian M.D.Account: [id number] Dictated By: Dina Lugo M.D. Verified By: Danielle Pulido M.D. on 11/08/2018 at 11:42:34 AM Page 2 of 2 Narrative 11/08/2018 11:48 AM EDT REQUESTING PHYSICIAN: JANUSZ ADRIAN REASON FOR EXAMINATION/PROCEDURE: SCREEN EXAMINATION / PROCEDURE: Screening Mamm w/cad Nov 07 2018 - 15:44; MAGDALENA BILATERAL SCREENING Nov 07 2018 15:44; HISTORY: Patient is 63 years old and is seen for screening mammography. The patient has no family history of breast cancer. COMPARISON: The present examination has been compared to prior imaging studies performed at [facility] on 10/24/2013, 10/24/2014 and 11/09/2016 . [...] on Nov 08 2018 11:47A Transcribed by: [facility] on Nov 08 2018 11:47A Dictated by: DINA LUGO M.D. on Nov 08 2018 11:47A Patient Name:Nicol Aranda : 1955 Age: 63 Gender: femaleDate of Service: 11/07/2018 eferring Phy:Janusz Adrian M.D.Account: [id number] [place] [address] FINAL REPORT PROCEDURE: Tomosynthesis Bilateral Screening - bilateral , Screening Mammogram With Cad - bilateral HISTORY: Patient is 63 years old and is seen for screening mammography. The patient has no family history of breast cancer. COMPARISON: The present examination has been compared to prior imaging studies performed at [facility] on 10/24/2013, 10/24/2014 and 11/09/2016. FINDINGS: MAMMOGRAM There are scattered areas of fibroglandular density. No masses, suspicious microcalcifications or architectural distortion are evident. Procedure Note Danielle Pulido Wen - 09/29/2020 REQUESTING PHYSICIAN: JANUSZ ADRIAN REASON FOR EXAMINATION/PROCEDURE: SCREEN EXAMINATION / PROCEDURE: Screening Mamm w/cad Nov 07 2018 - 15:44; MAGDALENA BILATERAL SCREENING Nov 07 2018 - 15:44; HISTORY: Patient is 63 years old and is seen for screening mammography. The patient has no family history of breast cancer. COMPARISON: The present examination has been compared to prior imaging studies performed at [facility] on 10/24/2013, 10/24/2014 and 11/09/2016 . [...] on Nov 08 2018 11:47A Transcribed by: [facility] on Nov 08 2018 11:47A Dictated by: DINA LUGO M.D. on Nov 08 2018 11:47A Patient Name:Nicol Aranda : 1955 Age: 63 Gender: femaleDate of Service:11/07/2018 eferring Phy:Janusz Adrian M.D.Account: [id number] [place] [address] FINAL REPORT PROCEDURE: Tomosynthesis Bilateral Screening - bilateral , Screening Mammogram WithCad - bilateral HISTORY: Patient is 63 years old and is seen for screening mammography. Thepatient has no family history of breast cancer. COMPARISON: The present examination has been compared to prior imaging studiesperformed [facility] 10/24/2013, 10/24/2014 and 11/09/2016. FINDINGS: [...] femaleDate of Service:11/07/2018 eferring Phy:Janusz Adrian M.D.Account: [id number] Dictated By: Dina Lugo M.D. Verified By: [...] <6.0% Children and Adolescents <7.5% . Source: [place] Diabetes Association. Standards of medical care in diabetes, 2017. Diabetes Care.2017:40 (suppl 1):S1-S135. . HbA1c assay performed by an ion-exchange chromatography method that is certified traceable to the DCCT. 06/09/2017 11:5 0 AM EST 06/09/2017 12:46 PM EST Historical Provider LAB BLOOD ORDERABLES Elvira l Result SUNQUEST * COLONOSCOPY (07/10/2016) Anatomical Region Laterality Modality Endoscopy Narrative 07/10/2016 Ordered by an unspecified provider. Historical Provider GI PROCEDURE ORDERABLES F inal Result from Last 3 Months or Most Recently Relevant to Health Maintenance Insurance [facility] MEDICARE Care Teams Zone Supervisor Firearms Relationship Specialty Start Date End Date Sobeida Alvarenga, MECHANICAL ENGINEERING INTERN [address] [place] [address] PCP - General 07/25/24
[2024-12-04 15:32] LABS: PHA INR Fingerstick 1.5 (0.9-1.1)
== END 2024-12-04 15:34 ==
LOC: ACC 13:40
PROVIDERS: Nurse Practitioner Family; PCP Nurse Practitioner Family; Visit Provider Nurse Practitioner Family
DX: I48.91 Unspecified atrial fibrillation (principal)
CPT/HCPCS: 85610; 99211; G0463

== ENCOUNTER 2024-12-25 13:24 | Outpatient (CLI) | payer MEDICARE, SELFPAY ==
--- OUTSIDE RECORDS SUMMARY | 2024-12-07 10:45 | XMS_ITS | Encounter Summary ---
[facility] Address [address] [place] [address] Care Team Providers Care Crewman Armoured Personnel Carrier [id number] Name Role Phone Sobeida Alvarenga APRN Primary Care Provider [phone] Reason for Visit * Reason Comments Atrial fibrillation, persistent Encounter Details Date Type Department Care Team (Late st Contact Info) Description 12/07/2024 10:45 AM EDT Office Visit [facility] [address] [facility] [address] [place] [address] Miranda Armijo APRN 1720 [facility] [address] [place] [address] Atrial fibrillation, persistent (Primary Dx); Primary hypertension; DIAN (obstructive sleep apnea) Social History Tobacco Use Types Packs/Day Years Used Date Smoking Tobacco: Never Smokeless Tobacco: Never Alcohol Use Standard Drinks/Week Comments Yes 6 (1 standard drink = 0.6 oz pur e alcohol) occasionally AUDIT-C Answer Date Recorded Q1: How often do you have a drink containing alc ohol? 2-3 times a week 12/01/2023 Q2: How many drinks containi ng alcohol do you have on a typical day when you are drinking? 3 or 4 12/01/2023 Q3: How often do you have si x or more drinks on one occasion? Weekly 12/01/2023 Abuse Screen Answer Date Recorded Feels Unsafe at Home or Work/School no 12/01/2023 Feels Threatened by Someone no 07/1 Does Anyone Try to Keep You From Having Contact with Others or Doing Things Outside Your Home? no 12/01/2023 Physical Signs of Abuse Present no 12/01/2023 Housing Stability Answer Date Recorded Current Living Arrangements home 11/21 Potentially Unsafe Housing Conditions Not on geneva e 12/01/2023 Disabilities Answer Date Recorded Difficulty Concentrating, Remembering or Making Decisions no 12/01/2023 Difficulty Managing Errands Independently no 12/01/2023 Education Answer Date Recorded Help with school or training? Not on file Preferred Language Malay 11/24/2023 Comments Unknown Sex and Gender Information Value Date Recorded Sex Assigned at Not on file Legal Sex Female 3:40 PM EDT Gender Identity Not on file Sexual Orientation Not on file documented as of this encounter Last Filed Vital Signs Vital Sign Reading Time Taken Comments Blood Pressure 120/72 12/07/2024 10:48 AM EDT Pulse 43 12/07/2024 10:48 AM EDT notified Miranda OSMAN of result Temperature - - Respiratory Rate - - Oxygen Saturation 98% 12/07/2024 10: 48 AM EDT Inhaled Oxygen Concentration - - Weight 135 kg (297 lb) 12/07/2024 10:48 AM EDT Height 162.6 cm (5' 4 ) 12/07/2024 10:4 8 AM EDT Body Mass Index 50.98 12/07/2024 10:48 AM EDT documented in this encounter Progress Notes * Miranda Armijo APRN - 12/07/2024 10:45 AM EDT Nicol Aranda [id number] 1955 [facility] Referring Provider: No ref. provider found Sobeida Alvarenga, JACQUI [address] [place] [address] [facility] [address] Chief Complaint Patient presents with Atrial fibrillation, persistent Problem List Persistent atrial fibrillation [id number] (Age, Sex, HTN, CHF) , anticoagulated with warfarin AAD: failed sotalol and tikosyn ECV x2 PVA: 12/01/23 Chronic systolic heart failure CCTA: No evidence of ischemia Echo, 08/12/23: EF 45% CT Coronary calcium score, 08/27/23: Zero Cardiac MRI, 01/05/24: LV 57%, no CMR evidence of LV myocardial scarring HTN Hyperlipidemia DIAN- no device. Home study was positive, lab study was not. Mild persistent asthma Pulmonary nodule Gout Bilateral orbital mass Face cellulitis History of Present Illness Nicol Aranda is a 69 y.o. female who presents to my electrophysiology clinic for follow up of atrial fibrillation s/p PVA in November. After the procedure patient went back into atrial fibrillation. She was loaded with flecainide and cardioverted. Since her cardioversion she has remained in normal sinus rhythm. Saw the patient, she has been doing well from a cardiac standpoint. She denies palpitations, shortness of breath, or syncope. Patient does have some lightheadedness/dizziness and heart rate is currently in the 40s. Blood pressure is well-controlled. Patient is anticoagulated with warfarin and denies any bleeding complications or strokelike symptoms. Outpatient Medications Marked as Taking for the 12/07/24 encounter (Office Visit) with Miranda Armijo APRN Medication Sig Dispense Refill colchicine 0.6 MG tablet Take 1 tablet by mouth As Needed for Muscle / Joint Pain. Farxiga 10 MG tablet Take 10 mg by mouth Daily. flecainide (TAMBOCOR) 50 MG tablet Take 1 tablet by mouth 2 (Two) Times a Day. 180 tablet 2 furosemide (LASIX) 20 MG tablet Take 1 tablet by mouth As Needed. Pt states she doesn't take daily,more PRN levothyroxine (SYNTHROID, LEVOTHROID) 125 MCG tablet TAKE ONE TABLET BY MOUTH EVERY DAY. Schedule aphysical losartan (COZAAR) 100 MG tablet Take 1 tablet by mouth Daily. oxybutynin XL (DITROPAN-XL) 10 MG 24 hr tablet Take 1 tablet by mouth Daily. traMADol (ULTRAM) 50 MG tablet TAKE ONE TABLET BY MOUTH TWICE DAILY NEEDED MAY CAUSE DROWSINESS warfarin (COUMADIN) 5 MG tablet Take 0.5-1 tablets by mouth Daily. 5 mg on Wednesday, Wednesday, and Wednesday. 2.5 mg on Wednesday, Wednesday, Wednesday. [DISCONTINUED] metoprolol succinate XL (TOPROL-XL) 100 MG 24 hr tablet Take 1 tablet by mouth Daily. Physical Exam Vitals: 12/07/24 1048 BP: 120/72 BP Location: Left arm Patient Position: Sitting Pulse: (!) 43 SpO2: 98% Weight: 135 kg (297 lb) Height: 162.6 cm (64 ) Body mass index is 50.98 kg/m??. Constitutional: Appearance: Healthy appearance. Neck: Vascular: JVD normal. Pulmonary: Effort: Pulmonary effort is normal. Breath sounds: Normal breath sounds. Cardiovascular: Normal rate. Regular rhythm. Normal S1. Normal S2. Murmurs: There is no murmur. No gallop. No rub. Pulses: Intact distal pulses. Edema: Peripheral edema absent. Neurological: General: No focal deficit present. Diagnostic Data Procedures EKG: Cardia, 43 bpm, WA 208, QRS 92, QT/QTc 450/380 Lab Results Component Value Date GLUCOSE 98 03/07/2024 CALCIUM 8.6 03/07/2024 NA 140 03/07/2024 K 4.5 03/07/2024 CO2 22.0 03/07/2024 CL 106 03/07/2024 BUN 15 03/07/2024 CREATININE 1.03 (H) 03/07/2024 EGFRIFAFRI 61 01/25/2024 BCR 14.6 03/07/2024 ANIONGAP 12.0 03/07/2024 Lab Results Component Value Date WBC 5.18 03/07/2024 HGB 11.4 (L) 03/07/2024 HCT 37.2 03/07/2024 MCV 88.8 03/07/2024 PLT 222 03/07/2024 Lab Results Component Value Date INR 3.94 (H) 03/07/2024 INR 3.19 (H) 12/01/2023 PROTIME 38.5 (H) 03/07/2024 PROTIME 32.9 (H) 12/01/2023 Lab Results Component Value Date TSH 2.780 11/24/2023 I personally viewed and interpreted the patient's EKG/Telemetry/lab data Nicol Aranda reports that she has never smoked. She has never used smokeless tobacco. I have educated her on the risk of diseases from using tobacco products such as cancer, COPD, and heart disease. ACP discussion was declined by the patient. Patient does not have an advance directive, declines further assistance. Assessment and Plan Diagnoses and all orders for this visit: 1. Atrial fibrillation, persistent (Primary) 2. Primary hypertension 3. DIAN (obstructive sleep apnea) Other orders - metoprolol succinate XL (TOPROL-XL) 50 MG 24 hr tablet; Take 1 tablet by mouth Daily. Dispense: 90 tablet; Refill: 3 Persistent atrial fibrillation -[id number] 4 (Age, Sex, HTN, CHF) , anticoagulated with warfarin -PVA: 12/01/23 -ECV, 03/07/24 -Maintaining sinus rhythm on flecainide and metoprolol. Stable on EKG today. - Patient having some lightheadedness and dizziness. Will decrease metoprolol XL to 50 mg daily to see if this improves. Hypertension -Blood pressure well-controlled today. -Recommend diet, exercise, weight loss, and reduce salt intake DIAN -Patient states she does not have sleep apnea and does not use a device. -Home test positive, lab test negative according to patient. Follow-Up Return in about 6 months (around 06/09/2025). Thank you for allowing me to participate in the care of your patient. Please to not hesitate to contact me with additional questions or concerns. documented in this encounter Plan of Treatment Upcoming Encounters Date Type Department Care Team (Late st Contact Info) Description 06/14/2025 2:00 PM EST Office Visit [facility] [address] [address] Richy Michel MD [address] [address] documented as of this encounter Visit Diagnoses Diagnosis Atrial fibrillation, persistent- Primary Primary hypertension Unspecified essential hypertension DIAN (obstructive sleep apnea) Obstructive sleep apnea (adult) (pediatric) documented in this encounter Care Teams Crewman Armoured Personnel Carrier M113 Relationship Specialty Start Date End Date Sobeida Alvarenga APRN [address] [place] [address] PCP - General Nurse Practitioner 11/08/23 documented as of this encounter
--- OUTSIDE RECORDS SUMMARY | 2024-12-25 13:26 | XMS_ITS | Encounter Summary ---
Author Organization Healthcare Address [address] [place] [address] Care Team Providers Care Translator Name Role Phone Janusz Ernst MD Primary Care Provider [phone] Sobeida Alvarenga APRN Primary Care Provider [phone] Encounter Details Date Type Department Care Team (Late Contact Info) Description 11/01/2023 Orders Only External Location [address] [place] [address] Provider, External Social History Tobacco Use Types [...] Description 02/14/2025 2:00 PM EDT Office Visit [facility] [address] [place] [address] Marnie Gayle, JACQUI, DNP [address] [place] [address] 07/31/2025 2:30 PM EDT Ovarian Cancer Screening [facility] [address] [facility] [place] [address] documented as of this encounter Procedures [...] documented as of this encounter Care Teams Translator Relationship Specialty Start Date End Date Janusz Ernst MD [address] [place] [address] PCP - General 01/17/21 07/24/24 Sobeida Alvarenga, RIPRAP PLACING SUPERVISOR [address] [place] [address] PCP - General 07/25/24 documented as of this encounter
--- OUTSIDE RECORDS SUMMARY | 2024-12-25 13:26 | XMS_ITS | Encounter Summary ---
Author Organization [facility] Address [address] [place] [address] Care Team Providers Care Bioinformatics Software Engineer Name Role Phone Janusz Ernst MD Primary Care Provider [phone] Sobeida Alvarenga APRN Primary Care Provider [phone] Encounter Details Date Type Department Care Team (Late Contact Info) Description 11/30/2018 Orders Only External Location [address] [place] [address] Provider, External Social History Tobacco Use Types [...] Office Visit [facility] [address] [place] [address] Marnie Gayle, JACQUI, DNP [address] [place] [address] 07/31/2025 2:30 PM EDT Ovarian Cancer Screening [facility] [address] [facility] [place] [address] documented as of this [...] on filedocumented in this encounter Care Teams Bioinformatics Software Engineer Relationship Specialty Start Date End Date Janusz Ernst MD [address] [place] [address] PCP - General 01/17/21 07/24/24 Sobeida Alvarenga, JACQUI [address] [place] [address] PCP - General 07/25/24 documented as of this encounter
--- OUTSIDE RECORDS SUMMARY | 2024-12-25 13:26 | XMS_ITS | Encounter Summary ---
Author Organization [facility] Address [address] [place] [address] Care Team Providers Care Spring Former Machine Name Role Phone Lyle Sobeida JACQUI Primary Care Provider [phone] Encounter Details Date Type Department Care Team (Latest Contact Info) Description 12/07/2024 Travel Social History Tobacco Use Types Packs/Day Years [...] no 12/01/2023 Feels Threatened by Someone no 11/21 Does Anyone Try to Keep You From [...] or training? Not on file Preferred Language Lao 11/24/2023 Comments Unknown Sex and Gender Information Value Date Recorded Sex Assigned at Not on file Legal Sex Female 3:40 PM EDT Gender Identity Not on file Sexual Orientation Not on file documented as of this encounter Plan of Treatment Upcoming Encounters Date Type Department Care Team (Late st Contact Info) Description 06/14/2025 2:00 PM EST Office Visit [facility] [address] [facility] [address] [place] [address] Rcihy Michel MD 1720 [facility] [address] [place] [address] documented as of this encounter Visit Diagnoses Not on filedocumented in this encounter Care Teams Spring Former Machine Relationship Specialty Start Date End Date Sobeida Alvarenga APRN [address] [place] [address] PCP - General Nurse Practitioner 11/08/23 documented as of this encounter
--- OUTSIDE RECORDS SUMMARY | 2024-12-25 13:26 | XMS_ITS | Clinical Summary ---
Author Organization [facility] Address [address] [place] [address] Care Team Providers Care Pulping Machine Operator Name Role Phone Lyle Sobeida JACQUI Primary Care Provider [phone] Allergies No known active allergies Medications furosemide (LASIX) 20 MG tablet Take 1 tablet by mouth As Needed. Pt states she doesn't take daily, more PRN 4 Active levothyroxine (SYNTHROID, LEVOTHROID) 125 MCG tablet TAKE ONE TABLET BY MOUTH EVERY DAY. Schedule a physical 4 Active oxybutynin XL (DITROPAN-XL) 10 MG 24 hr tablet Take 1 tablet by mouth Daily. 3 Active traMADol (ULTRAM) 50 MG tablet TAKE ONE TABLET BY MOUTH TWICE DAILY NEEDED MAY CAUSE DROWSINESS 4 Active warfarin (COUMADIN) 5 MG tablet Take 0.5-1 tablets by mouth Daily. 5 mg on Wednesday, Wednesday, and Wednesday. 2.5 mg on Wednesday, Wednesday, Wednesday. Active colchicine 0.6 MG tablet Take 1 tablet by mouth As Needed for Muscle / Joint Pain. Active Farxiga 10 MG tablet Take 10 mg by mouth Daily. Active flecainide (TAMBOCOR) 50 MG tablet Take 1 tablet by mouth 2 (Two) Times a Day. 180 tablet 2 5 Active losartan (COZAAR) 100 MG tablet Take 1 tablet by mouth Daily. 5 Active metoprolol succinate XL (TOPROL-XL) 50 MG 24 hr tablet Take 1 tablet by mouth Daily. 90 tablet 3 Active allopurinol (ZYLOPRIM) 100 MG tablet Take 1 tablet by mouth Daily. 12/08/19 25 Discontinu ed(*Therap y completed) metoprolol succinate XL (TOPROL-XL) 100 MG 24 hr tablet Take 1 tablet by mouth Daily. 12/08/19 25 Discontinu ed(*Therap y completed) Active Problems Problem Noted Date Diagnosed Date Atrial fibrillation, persistent 11/11/2023 HTN (hypertension) 11/11/2023 DIAN (obstructive sleep apnea) 11/11/2023 Encounters Date Type Department Care Team Description 12/07/2024 10:45 AM EDT Office Visit [facility] [address] [place] [address] [address] [place] [address] Miranda Armijo APRN Atrial fibrillation, persistent (Primary Dx); Primary hypertension; DIAN (obstructive sleep apnea) 12/07/2024 Travel from Last 3 Months Family History Medical History Relation Name Comments Heart attack Father Alexsander Hypertension Mother Alayna Relation Name Status Comments Father Alexsander Mother Alayna Social History Tobacco Use Types Packs/Day Years Used Date Smoking Tobacco: Never Smokeless Tobacco: Never Tobacco Cessation:Counseling Given: Not Answered Alcohol Use Standard Drinks/Week Comments Yes 6 [...] or training? Not on file Preferred Language Argentine 11/24/2023 Comments Unknown Sex and Gender Information Value Date Recorded Sex Assigned at Not on file Legal Sex Female 3:40 PM EDT Gender Identity Not on file Sexual Orientation Not on file Last Filed Vital Signs Vital Sign Reading Time Taken Comments Blood Pressure 120/72 12/07/2024 10:48 AM EDT Pulse 43 12/07/2024 10:48 AM EDT notified Miranda OSMAN of result Temperature 36 C (96.8 F) 03/07/2024 12:20 PM EDT Respiratory Rate 16 03/07/2024 1:30 PM EDT Oxygen Saturation 98% 12/07/2024 10: 48 AM EDT Inhaled Oxygen Concentration - - Weight 135 kg (297 lb) 12/07/2024 10:48 AM EDT Height 162.6 cm (5' 4 ) 12/07/2024 10:4 8 AM EDT Body Mass Index 50.98 12/07/2024 10:48 AM EDT Plan of Treatment Upcoming Encounters Date Type Department Care Team (Late st Contact Info) Description 06/14/2025 2:00 PM EST Office Visit [facility] [address] [facility] [address] [place] [address] Richy Michel MD 1720 [facility] [address] [place] [address] Health Maintenance Due Date Last Done Comments COLOGUARD 1999 COLON CANCER SCREENING 5 YEA R SIGMOIDOSCOPY 1999 CT COLONOGRAPHY 1999 FECAL OCCULT BLOOD TEST 1999 FIT Testing (1 year) 1999 MAMMOGRAM 11/07/2020 11/07/2018, 10/22, 11/09/2016, Additional history exists ZOSTER VACCINE (2 of 2) 02/07/2021 12/13/2020 ANNUAL WELLNESS VISIT 11/11/2023 HEPATITIS C SCREENING 11/11/2023 DXA SCAN 12/09/2023 12/08/2021, 06/02/2019 COVID-19 Vaccine (7 2023- 5 season) 2024 03/26/2023, 04/08/2022, 11/07/2021, Additional history exists INFLUENZA VACCINE 02/21/2025 04/13/2024, , 03/07/2022, Additional history exists COLONOSCOPY 07/10/2026 07/10/2016, 07/10/2016 COLORECTAL CANCER SCREENING 07/10/2026 TDAP/TD VACCINES (3 - Td or Tdap) 09/28/2034 025, 04/07/2011 Pneumococcal Vaccine 50+ Completed 023, 10/13/2021, 06/19/2020, Additional history exists Procedures Procedure Name Priority Date/Time Associated Diagnosis Comments SCANNED EKG 12/07/2024 from Last 3 Months Results * ECG Scan (12/07/2024) Miranda Armijo APRN ECG ORDERABLES Final Result from Last 3 Months Insurance [facility] Medicare [employer] PPO Advance Directives Documents on File Type Date Recorded Patient Qual Research Manager Expl anation LIVING WILL - SCAN 11/12/2023 8:05 AM MATTHEW CANO WILL DIRECTIVE, BHLEX, 05/15/2019 Care Teams Pulping Machine Operator Relationship Specialty Start Date End Date Sobeida Alvarenga APRN [address] [place] [address] PCP - General Nurse Practitioner 11/08/23
--- OUTSIDE RECORDS SUMMARY | 2024-12-25 13:26 | XMS_ITS | Clinical Summary ---
Author Organization [facility] Address [address] 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 0 11/08/2012 [...] Office Visit [place] [facility] [address] [place] [address] Marnie Gayle, MANAGER OF TAX, DNP [address] [place] [address] 07/31/2025 2:30 PM EDT Ovarian Cancer Screening [facility] [address] [facility] [place] [address] Health Maintenance Due Date Last Done Comments [facility]-Hepatitis C Screening 1955 [facility]-Medicare Annual Wellness (AWV) 1955 [facility]-Infant/Child/Adol SDOH Screenings [...] 12/08/2021 , 12/08/2021, 06/02/2019, Additional history exists [id number] Vaccine ( season) 2024 03/26/2023, 04/08/2022, 11/07/2021, [...] of Service: 11/07/2018 eferring Phy:Janusz Adrian M.D.Account: [id number] Dictated By: Dina Lugo M.D. Verified By: [...] compared to prior imaging studies performed at [facility] on 10/24/2013, 10/24/2014 and 11/09/2016 . [...] on Nov 08 2018 11:47A Transcribed by: [facility] on Nov 08 2018 11:47A Dictated by: DINA LUGO M.D. on Nov 08 2018 11:47A Patient Name:Nicol Aranda : 1955 Age: 63 Gender: femaleDate of Service: 11/07/2018 eferring Phy:Janusz Adrian M.D.Account: [id number] [place] [address] FINAL REPORT PROCEDURE: Tomosynthesis Bilateral Screening - bilateral , Screening Mammogram With Cad - bilateral HISTORY: Patient is 63 years old and is seen for screening mammography. The patient has no family history of breast cancer. COMPARISON: The present examination has been compared to prior imaging studies performed at [facility] on 10/24/2013, 10/24/2014 and 11/09/2016. FINDINGS: [...] compared to prior imaging studies performed at [facility] on 10/24/2013, 10/24/2014 and 11/09/2016 . [...] on Nov 08 2018 11:47A Transcribed by: [facility] on Nov 08 2018 11:47A Dictated by: DINA LUGO M.D. on Nov 08 2018 11:47A Patient Name:Nicol Aranda : 1955 Age: 63 Gender: femaleDate of Service:11/07/2018 eferring Phy:Janusz Adrian M.D.Account: [id number] [place] [address] FINAL REPORT PROCEDURE: Tomosynthesis Bilateral Screening - bilateral , Screening Mammogram WithCad - bilateral HISTORY: Patient is 63 years old and is seen for screening mammography. Thepatient has no family history of breast cancer. COMPARISON: The present examination has been compared to prior imaging studiesperformed at [facility] on 10/24/2013, 10/24/2014 and 11/09/2016. FINDINGS: [...] femaleDate of Service:11/07/2018 eferring Phy:Janusz Adrian M.D.Account: [id number] Dictated By: Dina Lugo M.D. Verified By: [...] <6.0% Children and Adolescents <7.5% . Source: [place] [employer]. Standards of medical care in [...] Relevant to Health Maintenance Insurance [facility] MEDICARE Care Teams Cow Puncher Relationship Specialty Start Date End Date Sobeida Alvarenga, MANAGER OF TAX [address] [place] [address] PCP - General 07/25/24
--- OUTSIDE RECORDS SUMMARY | 2024-12-25 13:26 | XMS_ITS | Encounter Summary ---
Author Organization Healthcare Address [address] [place] [address] Care Team Providers Care System Specialist Name Role Phone Janusz Ernst MD Primary Care Provider [phone] Sobeida Alvarenga APRN Primary Care Provider [phone] Encounter Details Date Type Department Care Team (Late Contact Info) Description 11/30/2018 Orders Only External Location [address] [place] [address] Provider, External Social History Tobacco Use Types [...] Description 02/14/2025 2:00 PM EDT Office Visit [facility] [address], [address] [place] [address] Marnie Gayle, JACQUI, DNP [address] [place] [address] 07/31/2025 2:30 PM EDT Ovarian Cancer Screening [facility] [address] [facility] [place] [address] documented as [...] on filedocumented in this encounter Care Teams System Specialist Relationship Specialty Start Date End Date Janusz Ernst MD [address] [place] [address] PCP - General 01/17/21 07/24/24 Sobeida Alvarenga, TEST DESK OPERATOR [address] [place] [address] PCP - General 07/25/24 documented as of this encounter
--- OUTSIDE RECORDS SUMMARY | 2024-12-25 13:26 | XMS_ITS | Encounter Summary ---
Author Organization Healthcare Address [address] [place] [address] Care Team Providers Care Photographic Equipment Mechanic Name Role Phone Janusz Ernst MD Primary Care Provider [phone] Sobeida Alvarenga APRN Primary Care Provider [phone] Encounter Details Date Type Department Care Team (Late Contact Info) Description 11/01/2023 Orders Only External Location [address] [place] [address] Provider, External Social History Tobacco Use Types [...] Description 02/14/2025 2:00 PM EDT Office Visit [place] [facility] [address] [place] [address] Marnie Gayle, JACQUI, DNP [address] [place] [address] 07/31/2025 2:30 PM EDT Ovarian Cancer Screening [facility] [address] [place] [address] documented as of this encounter Procedures [...] documented as of this encounter Care Teams Photographic Equipment Mechanic Relationship Specialty Start Date End Date Janusz Ernst MD [address] [place] [address] PCP - General 01/17/21 07/24/24 Sobeida Alvarenga, NATIONAL SERVICE OFFICER [address] [place] [address] PCP - General 07/25/24 documented as of this encounter
[2024-12-25 13:55] LABS: PHA INR Fingerstick 1.9 (0.9-1.1)
== END 2024-12-25 13:57 ==
LOC: ACC 13:24
PROVIDERS: PCP Nurse Practitioner Family; Visit Provider Nurse Practitioner Family
DX: I48.91 Unspecified atrial fibrillation (principal)
CPT/HCPCS: 85610; 99211; G0463

== ENCOUNTER 2025-01-24 14:33 | Outpatient (CLI) | payer MEDICARE, SELFPAY ==
--- OUTSIDE RECORDS SUMMARY | 2024-12-07 10:45 | XMS_ITS | Encounter Summary ---
[facility] Address [address] [place] [address] Care Team Providers Care Director Toxicology Name Role Phone Sobeida Alvarenga APRN Primary Care Provider [phone] Reason for Visit * Reason Comments Atrial fibrillation, persistent Encounter Details Date Type Department Care Team (Late st Contact Info) Description 12/07/2024 10:45 AM EDT Office Visit [facility] [address] [facility] [address] [place] [address] Miranda Armijo APRN 1720 [facility] [address] [place] [address] Atrial fibrillation, persistent (Primary Dx); [...] or training? Not on file Preferred Language Swedish 11/24/2023 Comments Unknown Sex and Gender Information [...] - 12/07/2024 10:45 AM EDT Nicol Aranda [id number] 1955 [facility] Referring Provider: No ref. provider found Sobeida Alvarenga, JACQUI [address] [place] [address] [facility] [address] Chief Complaint Patient presents with Atrial fibrillation, persistent Problem List Persistent atrial fibrillation [id number] 4 (Age, Sex, HTN, CHF) , anticoagulated [...] Diagnostic Data Procedures EKG: Cardia, 43 bpm, NV 208, QRS 92, QT/QTc 450/380 Lab Results [...] 90 tablet; Refill: 3 Persistent atrial fibrillation -[id number] 4 (Age, Sex, HTN, CHF) , anticoagulated [...] Description 06/14/2025 2:00 PM EST Office Visit [facility] [address] [address] Richy Michel MD [address] [address] documented as of this encounter Visit Diagnoses Diagnosis Atrial fibrillation, persistent- Primary Primary hypertension Unspecified essential hypertension DIAN (obstructive sleep apnea) Obstructive sleep apnea (adult) (pediatric) documented in this encounter Care Teams Director Toxicology Relationship Specialty Start Date End Date Sobeida Alvarenga APRN [address] [place] [address] [place] [address] PCP - General Nurse Practitioner 11/08/23 documented as of this encounter
--- OUTSIDE RECORDS SUMMARY | 2025-01-24 14:42 | XMS_ITS | Encounter Summary ---
Author Organization Healthcare Address [address] [place] [address] Care Team Providers Care Special Education Teachers Name Role Phone Janusz Ernst MD Primary Care Provider [phone] Sobeida Alvarenga APRN Primary Care Provider [phone] Encounter Details Date Type Department Care Team (Late Contact Info) Description 11/01/2023 Orders Only External Location [address] [place] [address] Provider, External Social History Tobacco Use Types [...] Description 02/14/2025 2:00 PM EDT Office Visit [place] [facility] [address] [place] [address] Marnie Gayle, JACQUI, DNP [address] [place] [address] 07/31/2025 2:30 PM EDT Ovarian Cancer Screening [facility] [address] [place] [address] documented as of this encounter Procedures [...] documented as of this encounter Care Teams Special Education Teachers Relationship Specialty Start Date End Date Janusz Ernst MD [address] [place] [address] PCP - General 01/17/21 07/24/24 Sobeida Alvarenga, KITCHEN OPERATOR [address] [place] [address] PCP - General 07/25/24 documented as of this encounter
--- OUTSIDE RECORDS SUMMARY | 2025-01-24 14:42 | XMS_ITS | Encounter Summary ---
Author Organization [facility] ystem Address [address] [place] [address] Care Team Providers Care Pathology Secretary Name Role Phone Lyle Sobeida JACQUI Primary Care Provider [phone] Encounter Details Date Type Department Care Team [...] or training? Not on file Preferred Language Vietnamese 11/24/2023 Comments Unknown Sex and Gender Information Value Date Recorded Sex Assigned at Not on file Legal Sex Female 3:40 PM EDT Gender Identity Not on file Sexual Orientation Not on file documented as of this encounter Plan of Treatment Upcoming Encounters Date Type Department Care Team (Late st Contact Info) Description 06/14/2025 2:00 PM EST Office Visit [facility] [address] [facility] [address] [place] [address] Richy Michel MD [address] [facility] [address] [place] [address] documented as of this encounter Visit Diagnoses Not on filedocumented in this encounter Care Teams Pathology Secretary Relationship Specialty Start Date End Date Sobeida Alvarenga APRN [address] [place] [address] PCP - General Nurse Practitioner 11/08/23 documented as of this encounter
--- OUTSIDE RECORDS SUMMARY | 2025-01-24 14:42 | XMS_ITS | Clinical Summary ---
Author Organization [facility] ystem Address [address] [place] [address] Care Team Providers Care Burning Machine Operator Name Role Phone Lyle Sobeida JACQUI Primary Care Provider [phone] Allergies No known active allergies Medications furosemide (LASIX) 20 MG tablet Take 1 tablet by mouth As Needed. Pt states she doesn't take daily, more PRN 10/06/2023 Active levothyroxine (SYNTHROID, LEVOTHROID) 125 MCG tablet TAKE ONE TABLET BY MOUTH EVERY DAY. Schedule a physical 06/29/2023 Active oxybutynin XL (DITROPAN-XL) 10 MG 24 hr tablet Take 1 tablet by mouth Daily. 02/16/2023 Active traMADol (ULTRAM) 50 MG tablet TAKE ONE TABLET BY MOUTH TWICE DAILY NEEDED MAY CAUSE DROWSINESS 10/06/2023 Active warfarin (COUMADIN) 5 MG tablet Take [...] (Two) Times a Day. 180 tablet 2 09/11/2024 Active losartan (COZAAR) 100 MG tablet Take 1 tablet by mouth Daily. 11/27/2024 Active metoprolol succinate XL (TOPROL-XL) 50 MG 24 hr tablet Take 1 tablet by mouth Daily. 90 tablet 3 12/07/2024 Active Active Problems Problem Noted Date Diagnosed Date Atrial fibrillation, persistent 11/11/2023 HTN (hypertension) 11/11/2023 DIAN (obstructive sleep apnea) 11/11/2023 Encounters Date Type Department Care Team Description 12/07/2024 10:45 AM EDT Office Visit [facility] [address] [place] [address] [address] [place] [address] Miranda Armijo APRN Atrial fibrillation, persistent (Primary [...] or training? Not on file Preferred Language Kinyarwanda 11/24/2023 Comments Unknown Sex and Gender Information Value Date Recorded Sex Assigned at Not on file Legal Sex Female 3:40 PM EDT Gender Identity Not on file Sexual Orientation Not on file Last Filed Vital Signs Vital Sign Reading Time Taken Comments Blood Pressure 120/72 12/07/2024 10:48 AM EDT Pulse 43 12/07/2024 10:48 AM EDT notified Miranda JACQUI of result Temperature 36 C (96.8 F) [...] Description 06/14/2025 2:00 PM EST Office Visit [facility] [address] [facility] [address] [place] [address] Richy Michel MD [address] [facility] [address] [place] [address] Health Maintenance Due Date Last Done Comments COLOGUARD 1999 COLON CANCER SCREENING 5 YEA R SIGMOIDOSCOPY 1999 CT COLONOGRAPHY 1999 FECAL OCCULT BLOOD TEST 1999 FIT Testing (1 year) 1999 MAMMOGRAM 11/07/2020 11/07/2018, 10/22, 11/09/2016, Additional history exists ZOSTER VACCINE (2 of 2) 02/07/2021 12/13/2020 ANNUAL WELLNESS VISIT 11/11/2023 HEPATITIS C SCREENING 11/11/2023 DXA SCAN 12/09/2023 12/08/2021, 06/02/2019 COVID-19 Vaccine (2023-2 5 season) 2024 03/26/2023, 04/08/2022, 11/07/2021, Additional [...] 3 Months Results * ECG Scan (12/07/2024) us Miranda Armijo APRN ECG ORDERABLES Final Result from Last [address] [facility] [employer] PPO Advance Directives Documents on File Type Date Recorded Patient Principal Account Clerk Expl anation LIVING WILL - SCAN 11/12/2023 8:05 AM MATTHEW JEROME WILL DIRECTIVE, BHLEX, 05/15/2019 Care Teams Burning Machine Operator Relationship Specialty Start Date End Date Sobeida Alvarenga APRN [address] [place] [address] [place] [address] PCP - General Nurse Practitioner 11/08/23
--- OUTSIDE RECORDS SUMMARY | 2025-01-24 14:42 | XMS_ITS | Encounter Summary ---
Author Organization Healthcare Address [address] [place] [address] Care Team Providers Care Science Instructor Name Role Phone Janusz Ernst MD Primary Care Provider [phone] Sobeida Alvarenga APRN Primary Care Provider [phone] Encounter Details Date Type Department Care Team (Late Contact Info) Description 11/01/2023 Orders Only External Location [address] [place] [address] Provider, External Social History Tobacco Use Types [...] Description 02/14/2025 2:00 PM EDT Office Visit [place] [facility] [address], [address] [place] [address] Marnie Gayle, JACQUI, DNP [address] [place] [address] 07/31/2025 2:30 PM EDT Ovarian Cancer Screening [facility] [address] [facility] [place] [address] documented as of this encounter Procedures [...] documented as of this encounter Care Teams Science Instructor Relationship Specialty Start Date End Date Janusz Ernst MD [address] [place] [address] PCP - General 01/17/21 07/24/24 Sobeida Alvarenga, EXPORT CLERK [address] [place] [address] PCP - General 07/25/24 documented as of this encounter
--- OUTSIDE RECORDS SUMMARY | 2025-01-24 14:42 | XMS_ITS | Encounter Summary ---
Author Organization Healthcare Address [address] [place] [address] Care Team Providers Care Wind Field Manager Name Role Phone Janusz Ernst MD Primary Care Provider [phone] Sobeida Alvarenga APRN Primary Care Provider [phone] Encounter Details Date Type Department Care Team (Late Contact Info) Description 11/30/2018 Orders Only External Location [address] [place] [address] Provider, External Social History Tobacco Use Types [...] Description 02/14/2025 2:00 PM EDT Office Visit [place] [facility] [address] [place] [address] Marnie Gayle, JACQUI, DNP [address] [place] [address] 07/31/2025 2:30 PM EDT Ovarian Cancer Screening [facility] [address] [facility] [place] [address] documented as of this [...] on filedocumented in this encounter Care Teams Wind Field Manager Relationship Specialty Start Date End Date Janusz Ernst MD [address] [place] [address] PCP - General 01/17/21 07/24/24 Sobeida Alvarenga, JACQUI [address] [place] [address] PCP - General 07/25/24 documented as of this encounter
--- OUTSIDE RECORDS SUMMARY | 2025-01-24 14:42 | XMS_ITS | Clinical Summary ---
Author Organization [facility] Address [address] 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 current use of anticoagulant therapy 0 11/08/2012 [...] Office Visit [place] [facility] [address] [place] [address] Marnie Gayle, LIFE SCIENCE TAXONOMIST, DNP [address] [place] [address] 07/31/2025 2:30 PM EDT Ovarian Cancer Screening [facility] [address] [facility] [place] [address] Health Maintenance Due [...] 12/08/2021 , 12/08/2021, 06/02/2019, Additional history exists [id number] Vaccine ( season) 2024 03/26/2023, 04/08/2022, 11/07/2021, [...] of Service: 11/07/2018 eferring Phy:Janusz Adrian M.D.Account: [id number] Dictated By: Dina Lugo M.D. Verified By: [...] compared to prior imaging studies performed at [facility] on 10/24/2013, 10/24/2014 and 11/09/2016 . [...] on Nov 08 2018 11:47A Transcribed by: [facility] on Nov 08 2018 11:47A Dictated by: DINA LUGO M.D. on Nov 08 2018 11:47A Patient Name:Nicol Aranda : 1955 Age: 63 Gender: femaleDate of Service: 11/07/2018 eferring Phy:Janusz Adrian M.D.Account: [id number] [place] [address] FINAL REPORT PROCEDURE: Tomosynthesis Bilateral Screening - bilateral , Screening Mammogram With Cad - bilateral HISTORY: Patient is 63 years old and is seen for screening mammography. The patient has no family history of breast cancer. COMPARISON: The present examination has been compared to prior imaging studies performed at [facility] on 10/24/2013, 10/24/2014 and 11/09/2016. FINDINGS: [...] compared to prior imaging studies performed at [facility] on 10/24/2013, 10/24/2014 and 11/09/2016 . [...] on Nov 08 2018 11:47A Transcribed by: [facility] on Nov 08 2018 11:47A Dictated by: DINA LUGO M.D. on Nov 08 2018 11:47A Patient Name:Nicol Aranda : 1955 Age: 63 Gender: femaleDate of Service:11/07/2018 eferring Phy:Janusz Adrian M.D.Account: [id number] [place] [address] FINAL REPORT PROCEDURE: Tomosynthesis Bilateral Screening - bilateral , Screening Mammogram WithCad - bilateral HISTORY: Patient is 63 years old and is seen for screening mammography. Thepatient has no family history of breast cancer. COMPARISON: The present examination has been compared to prior imaging studiesperformed at [facility] on 10/24/2013, 10/24/2014 and 11/09/2016. FINDINGS: [...] femaleDate of Service:11/07/2018 eferring Phy:Janusz Adrian M.D.Account: [id number] Dictated By: Dina Lugo M.D. Verified By: Danielle Pulido M.D. on 11/08/2018 at 11:42:34 AM Page 2 of 2 Historical Provider IMG BI PROCEDURES Final Resu lt * Hemoglobin A1c (06/09/2017 11:50 AM EST) [...] <6.0% Children and Adolescents <7.5% . Source: [place] [employer]. Standards of medical care in diabetes, 2017. Diabetes Care.2017:40 (suppl 1):S1-S135. . HbA1c assay performed by an ion-exchange chromatography method that is certified traceable to the DCCT. 06/09/2017 11:5 0 AM EST 06/09/2017 12:46 PM EST Historical Provider LAB BLOOD ORDERABLES Final R esult SUNQUEST * COLONOSCOPY (07/10/2016) Anatomical Region Laterality Modality Endoscopy Narrative 07/10/2016 Ordered by an unspecified provider. Historical Provider GI PROCEDURE ORDERABLES Elvira l Result from Last 3 Months or Most Recently Relevant to Health Maintenance Insurance [facility] MEDICARE Care Teams Chemical Waste Management Technician Relationship Specialty Start Date End Date Sobeida Alvarenga, JACQUI [address] [place] [address] PCP - General 07/25/24
--- OUTSIDE RECORDS SUMMARY | 2025-01-24 14:42 | XMS_ITS | Encounter Summary ---
Author Organization Healthcare Address [address] [place] [address] Care Team Providers Care Cold Strip Feeder Name Role Phone Janusz Ernst MD Primary Care Provider [phone] Sobeida Alvarenga APRN Primary Care Provider [phone] Encounter Details Date Type Department Care Team (Late Contact Info) Description 11/30/2018 Orders Only External Location [address] [place] [address] Provider, External Social History Tobacco Use Types [...] Description 02/14/2025 2:00 PM EDT Office Visit [place] [facility] [address], [address] [place] [address] Marnie Gayle, JACQUI, DNP [address] [place] [address] 07/31/2025 2:30 PM EDT Ovarian Cancer Screening [facility] [address] [facility] [place] [address] documented as [...] on filedocumented in this encounter Care Teams Cold Strip Feeder Relationship Specialty Start Date End Date Janusz Ernst MD [address] [place] [address] PCP - General 01/17/21 07/24/24 Sobeida Alvarenga, HOTEL ROOM ATTENDANT [address] [place] [address] PCP - General 07/25/24 documented as of this encounter
[2025-01-24 15:51] LABS: PHA INR Fingerstick 2.3 (0.9-1.1)
== END 2025-01-24 15:57 ==
LOC: ACC 14:34
PROVIDERS: PCP Nurse Practitioner Family; Visit Provider Nurse Practitioner Family
DX: I48.91 Unspecified atrial fibrillation (principal)
CPT/HCPCS: 85610; 99211; G0463

== ENCOUNTER 2025-02-15 11:56 | Outpatient (CLI) | payer MEDICARE, SELFPAY ==
--- OUTSIDE RECORDS SUMMARY | 2025-02-14 14:00 | XMS_ITS | Encounter Summary ---
Author Organization [facility] Address [address] [place] [address] Care Team Providers Care Scrubber Machine Tender Name Role Phone Sobeida Alvarenga APRN Primary Care Provider [phone] Marnie Gayle APRN, DNP Unavailable [phone] Reason for Visit * Reason Comments Follow-up Telehealth Statement Patient VerificationPatient identity has been confirmed using name and date of ? YesAuthorizations and Agreements/Telemedicine Consent sent and consent confirmed? YesPatient Location: Home/OtherPatient confirms they are physically located in [place]? YesIf the patient is not physically located in [place], the provider has confirmed with [facility] that the provider is authorized to provide services in patient's stated location? YesProvider Location: [facility] facili Encounter Details Date Type Department Care Team (Latest Contact Info) Description 02/14/2025 2:00 PM EDT Office Visit [place] [facility] [address] [place] [address] Marnie Gayle, JACQUI, DNP [address] [place] [address] Postmenopausal atrophic vaginitis (Primary Dx); [...] Notes * Progress Notes - Marnie Gayle, POWER PLANT ENGINEER, DNP - 02/14/2025 2:00 PM EDT [facility] Note Patient Verification Patient identity has been confirmed using name and date of ? Yes Authorizations and Agreements/Telemedicine Consent sent and consent confirmed? Yes Patient Location: Patient's Home Patient confirms they are physically located in [place]? Yes If the patient is not physically located in [place], the provider has confirmed with [facility] thatthe provider is authorized to provide services in patient's stated location? N/A Provider Location: [facility] Facility CC: Follow-up (Telehealth Statement/Patient Verification/Patient identity has been confirmed using name and date of ? Yes/Authorizations and Agreements/Telemedicine Consent sent and consent confirmed? Yes//Patient Location: Home/Other/Patient confirms they are physically located in [place]? Yes/If the patient is not physically located in [place], the provider has confirmed with [employer] that the provider is authorized to provide services in patient's stated location? Yes//Provider Location: [facility] facili) HPI: Nicol Aranda is a [...] scans) -December 15, 2021: Operative report from [facility] indicates cystoscopy performed by Dr. Mejia for [...] 2023. Ablation CARDIOVERSION N/A Elective Cardioversion from [employer] CHOLECYSTECTOMY N/A Cholecystectomy from [employer] COLONOSCOPY GASTRIC RESTRICTION SURGERY N/A Gastric Surgery For Morbid Obesity Gastric Bypass from [employer] HYSTERECTOMY N/A Hysterectomy from [employer] NOSE SURGERY FHx: Family History Problem Relation [...] Location: Home/Other/Patient confirmsthey are physically located in [place]? Yes/If the patient is not physically located in [place], the provider has confirmed with [facility] that the provider is authorized to provide services in patient's stated location? Yes//Provider Location: [facility] facili) She opted to continue oxybutynin [...] Care Team (Late st Contact Info) Description 07/31/2025 2:30 PM EDT Ovarian Cancer Screening [facility] [facility] [address] [facility] [place] [phone] documented as of this encounter Visit Diagnoses [...] documented as of this encounter Care Teams Scrubber Machine Tender Relationship Specialty Start Date End Date Sobeida Alvarenga APRN [address] [place] [address] PCP - General 07/25/24 Marnie Gayle APRN, DNP [address] [facility] [address] [place] [address] Nurse Practitioner Urology 02/14/25 documented as of this encounter
--- OUTSIDE RECORDS SUMMARY | 2025-02-15 12:01 | XMS_ITS | Clinical Summary ---
Author Organization [facility] Address [address] [place] [address] Care Team Providers Care Supervisor Chassis Assembly Name Role Phone Lyle Sobeida JACQUI Primary Care Provider [phone] Allergies No known active allergies Medications furosemide [...] 12/07/2024 10:45 AM EDT Office Visit [facility] [address] [place] [address] [address] [place] [address] Miranda Armijo APRN Atrial fibrillation, [...] or training? Not on file Preferred Language Arabic 11/24/2023 Comments Unknown Sex and Gender Information [...] 06/14/2025 2:00 PM EST Office Visit [facility] [address] [facility] [address] [place] [phone] Richy Michel MD [address] [facility] [address] [place] [address] Health Maintenance Due Date Last Done Comments COLOGUARD 1999 COLON CANCER SCREENING 5 YEA R SIGMOIDOSCOPY 1999 [address] COLONOGRAPHY 1999 FECAL OCCULT BLOOD TEST 1999 FIT Testing (1 year) 1999 MAMMOGRAM 11/07/2020 11/07/2018, 10/22, 11/09/2016, Additional history exists ZOSTER VACCINE (2 of 2) 02/07/2021 12/13/2020 ANNUAL WELLNESS VISIT 11/11/2023 HEPATITIS C SCREENING 11/11/2023 DXA SCAN 12/09/2023 12/08/2021, 06/02/2019 INFLUENZA VACCINE 12/22/2024 04/13/2024, , 03/07/2022, Additional history exists COVID-19 Vaccine (2024-2 6 season) 2025 03/26/2023, 04/08/2022, 11/07/2021, Additional history exists COLONOSCOPY 07/10/2026 07/10/2016, 07/10/2016 [...] Final Result from Last 3 Months Insurance [facility] [employer] PPO Advance Directives Documents on File Type Date Recorded Patient Swatcher Expl anation LIVING WILL - SCAN 11/12/2023 8:05 AM MATTHEW JEROME WILL DIRECTIVE, BHLEX, 05/15/2019 Care Teams Supervisor Chassis Assembly Relationship Specialty Start Date End Date Sobeida Alvarenga APRN [address] [place] [address] [place] [address] PCP - General Nurse Practitioner 11/08/23
--- OUTSIDE RECORDS SUMMARY | 2025-02-15 12:01 | XMS_ITS | Encounter Summary ---
Author Organization Healthcare Address [address] [place] [address] Care Team Providers Care Pharmacy Informatics Manager Name Role Phone Janusz Ernst MD Primary Care Provider [phone] Sobeida Alvarenga APRN Primary Care Provider [phone] Marnie Gayle APRN, DNP Unavailable [phone] Encounter Details Date Type Department Care Team (Late st Contact Info) Description 11/01/2023 Orders Only External Location [address] [place] [address] Provider, External Social History Tobacco Use Types [...] 07/31/2025 2:30 PM EDT Ovarian Cancer Screening [place] [facility] [address] [facility] [place] [phone] documented as of this encounter Procedures Procedure [...] documented as of this encounter Care Teams Pharmacy Informatics Manager Relationship Specialty Start Date End Date Janusz Ernst MD [address] [place] [address] PCP - General 01/17/21 07/24/24 Sobeida Alvarenga APRN [address] [place] [address] PCP - General 07/25/24 Marnie Gayle APRN, DNP [address] [place] [address] Nurse Practitioner Urology 02/14/25 documented as of this encounter
--- OUTSIDE RECORDS SUMMARY | 2025-02-15 12:01 | XMS_ITS | Encounter Summary ---
Author Organization Healthcare Address [address] [place] [address] Care Team Providers Care Tobacco Stripper Hand Name Role Phone Janusz Ernst MD Primary Care Provider + [phone] Sobeida Alvarenga APRN Primary Care Provider [phone] Marnie Gayle APRN, DNP Unavailable [phone] Encounter Details Date Type Department Care Team (Late st Contact Info) Description 11/30/2018 Orders Only External Location [address] [place] [address] Provider, External Social History Tobacco Use Types [...] 07/31/2025 2:30 PM EDT Ovarian Cancer Screening [place] [facility] [address] [facility] [place] [phone] documented as of this encounter Procedures Procedure [...] on filedocumented in this encounter Care Teams Tobacco Stripper Hand Relationship Specialty Start Date End Date Klever, Janusz Merchant MD [address] [place] [address] PCP - General 01/17/21 07/24/24 Sobeida Alvarenga APRN [address] [place] [address] PCP - General 07/25/24 Marnie Gayle APRN, DNP [address] [place] [address] Nurse Practitioner Urology 02/14/25 documented as of this encounter
--- OUTSIDE RECORDS SUMMARY | 2025-02-15 12:01 | XMS_ITS | Clinical Summary ---
Author Organization [facility] Address [address] [place] [address] Care Team Providers Care Glass Production Machine Operator Name Role Phone Sobeida Alvarenga APRN Primary Care Provider [phone] Marnie Gayle APRN, DNP Unavailable Allergies Active Allergy Reactions Criticality Noted Date Comments Lisinopril Cough Low 09/28/2024 Medications levothyroxine (Synthroid, Levoxyl) 125 MCG tablet levothyroxine 125 mcg tablet TAKE ONE TABLET BY MOUTH EVERY DAY 11/09/19 13 Active metoprolol succinate XL (Toprol-XL) 100 MG 24 hr tablet Take 1 tablet (100 mg) by mouth 1 (one) time each day. 01/24/20 21 Active traMADol (Ultram) 50 MG tablet tramadol 50 mg tablet TAKE ONE TABLET BY MOUTH TWICE DAILY NEEDED MAY CAUSE DROWSINESS 02/10/20 13 Active warfarin (Coumadin) 5 MG tablet 5 mg on // and 2.5 mg on Mo/We/Fr 12/17/19 17 Active allopurinol (Zyloprim) 100 MG tablet Take 1 tablet (100 mg) by mouth 1 (one) time each day. 12/17/19 23 Active dapagliflozin (Farxiga) 10 MG tablet Take 1 tablet (10 mg) by mouth 1 (one) time each day. Active oxybutynin XL (Ditropan-XL) 10 MG 24 hr tablet Take 1 tablet by mouth daily. Do not crush, chew, or split. 90 tablet 3 02/15/20 25 2025 Active lisinopril 20 MG tablet lisinopril 20 mg tablet TAKE ONE TABLET BY MOUTH EVERY DAY 03/05/20 15 2024 Discontinued oxybutynin XL (Ditropan-XL) 10 MG 24 hr tablet Take 1 tablet (10 mg) by mouth 1 (one) time each day. Do not crush, chew, or split. 90 tablet 3 02/17/20 24 2024 Discontinued(R eorder) Active Problems Problem Noted Date Diagnosed Date Cough due to CHANTELL inhibitor 02/14/2025 Pressure sensation in ear 02/14/2025 Systolic murmur 02/14/2025 Anterior cervical lymphadenopathy 02/17/2024 Overview (02/17/2024): 2019 Asthma 02/17/2024 Dyspnea on exertion 02/17/2024 SOB (shortness of breath) 02/17/2024 Edema 02/17/2024 Heart failure with reduced ejection fraction Heel pain 02/17/2024 Internal hemorrhoid, bleeding 02/17/2024 Overview (02/17/2024): 2020 Knee pain 02/17/2024 Mild persistent asthma 02/17/2024 Multiple pulmonary nodules 02/17/2024 Pulmonary nodule, left 02/17/2024 Opioid use 02/17/2024 Positive PPD, treated 02/17/2024 Prediabetes 02/17/2024 Orbital mass 12/15/2023 Bilateral dry eyes 12/15/2023 Ptosis of both eyelids 12/15/2023 Dermatochalasis of both upper eyelids 12/15/2023 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 Urge incontinence 02/04/2022 Hypermetropia 04/10/2021 Myopia 04/10/2021 Nonexudative age-related macular degeneration Regular astigmatism 04/10/2021 Chronic pain syndrome 03/27/2019 Tricuspid regurgitation 09/08/2017 Longstanding persistent atrial fibrillation 05/24 Postmenopausal atrophic vaginitis 10/30/2016 Sjogren's disease 10/30/2016 Urinary incontinence 10/30/2016 Cardiomyopathy 08/31/2016 History of cardioversion 08/31/2016 Hx of cholecystectomy 08/31/2016 H/O: hysterectomy 08/31/2016 Atrial fibrillation 03/16/2016 Low back pain 06/21/2015 Bilateral sensorineural hearing loss 08/20/2014 DJD (degenerative joint disease), ankle and foot 05/28/2014 Hammertoe 05/28/2014 Osteopenia 05/28/2014 PFO (patent foramen ovale) 06/20/2013 oil heaterman current use of anticoagulant therapy 0 11/08/2012 Cardiac murmur 10/26/2012 Essential hypertension 10/26/2012 Hypothyroidism 10/26/2012 Obesity 10/26/2012 Pain in joint 10/26/2012 Resolved Problems Problem Noted Date Diagnosed Date Resolved Date Cellulitis of left foot 02/17/202401/23 Cellulitis, face 02/17/2024 02/14/2025 Knee effusion, left 02/17/2024 02/15/20 Leg pain 02/17/2024 02/14/2025 Thrombophilia 10/08/2022 02/16/2023 02/14/2025 Recurrent UTI 02/04/2022 02/17/2024 Hematuria 02/04/2022 02/17/2024 Age-related nuclear cataract of both eyes 04/10/2021 02/11/2025 Gout 04/10/2021 02/17/2024 Hyperlipidemia 04/10/2021 02/17/2024 Presbyopia 04/10/2021 02/11/2025 Obstructive sleep apnea syndrome 03/27/2019 02/04/2022 Dyslipidemia 06/23/2017 02/04/2022 Iron deficiency 06/23/2017 02/17/2024 History of gastric surgery 08/31/2016 0 02/11/2025 Vitamin D deficiency 03/16/2016 025 Foot joint hypermobility 05/28/2014 Hallux limitus 05/28/2014 02/14/2025 Encounters Date Type Department Care Team Description 02/14/2025 2:00 PM EDT [facility] Visit [facility] [address] [place] [address] Marnie Gayle, MANAGER TELEMARKETING, DNP Postmenopausal atrophic vaginitis (Primary Dx); Recurrent UTI; Urge incontinence 02/14/2025 Travel 02/07/2025 Travel from Last 3 Months Immunizations Immunization [...] 07/31/2025 2:30 PM EDT Ovarian Cancer Screening [place] [facility] [address] [facility] [place] [address] Health Maintenance Due Date Last Done Comments [facility]-Hepatitis C Screening 1955 [facility]-Medicare Annual Wellness [...] [facility]-Zoster Vaccines (2 of 2) 02/07/2021 12/13/2020 [facility]-Bone Density Scan 12/09/2023 12/08/2021 , 12/08/2021, 06/02/2019, Additional history exists [facility]-JWPLW-07 Vaccine ( season) 2025 03/26/2023, 04/08/2022, 11/07/2021, Additional history exists [facility]-Influenza Vaccine (#1) 01/22/202504/13, 03/26/2023, 03/07/2022, Additional history exists [facility]-Depression Screening 02/01/2025 02/02/2024 Colonoscopy 07/10/2026 07/10/2016 [facility]-Colorectal Cancer Screening 07/10/2026 [facility]-DTaP,Tdap,and Td Vaccines (3 - Td or Tdap) 09/28/2034 09/28/2024, 04/07/2011 [facility]-Pneumococcal Vaccine: 50+ Years Completed 10/08/2022, 10/13/2021, 06/19/2020, Additional history exists [facility]-Obesity Intervention Completed 025, 08/16/2024, 02/17/2024, Additional history exists HPV Vaccines Aged Out [...] of Service: 11/07/2018 eferring Phy:Janusz Adrian M.D.Account: [id number] Dictated By: Dina Luog M.D. Verified By: Danielle Pulido M.D. on [...] on Nov 08 2018 11:47A Transcribed by: [facility] on Nov 08 2018 11:47A Dictated by: DINA LUGO M.D. on Nov 08 2018 11:47A Patient Name:Nicol Aranda : 1955 Age: 63 Gender: femaleDate of Service: 11/07/2018 eferring Phy:Janusz Adrian M.D.Account: [id number] [place] [address] FINAL REPORT PROCEDURE: Tomosynthesis Bilateral Screening - [...] on Nov 08 2018 11:47A Transcribed by: [facility] on Nov 08 2018 11:47A Dictated by: DINA LUGO M.D. on Nov 08 2018 11:47A Patient Name:Nicol Aranda : 1955 Age: 63 Gender: femaleDate of Service:11/07/2018 eferring Phy:Janusz Adrian M.D.Account: [id number] [place] [address] FINAL REPORT PROCEDURE: Tomosynthesis Bilateral Screening - [...] femaleDate of Service:11/07/2018 eferring Phy:Janusz Adrian M.D.Account: [id number] Dictated By: Dina Lugo M.D. Verified By: Danielle Pulido M.D. on 11/08/2018 at 11:42:34 AM Page 2 of 2 us Historical Provider IMG BI PROCEDURES Final Resu [...] <6.0% Children and Adolescents <7.5% . Source: [place] [employer]. Standards of medical care in [...] Most Recently Relevant to Health Maintenance Insurance [facility] MEDICARE [facility] MEDICA Care Teams Glass Production Machine Operator Relationship Specialty Start Date End Date Sobeida Alvarenga APRN [address] [place] [address] PCP - General 07/25/24 Marnie Gayle APRN, DNP [address] [place] [address] Nurse Practitioner Urology 02/14/25
--- OUTSIDE RECORDS SUMMARY | 2025-02-15 12:01 | XMS_ITS | Encounter Summary ---
Author Organization Healthcare Address [address] [place] [address] Care Team Providers Care Chemical Sales Representative Name Role Phone Sobeida Alvarenga APRN Primary Care Provider [phone] Marnie Gayle APRN, DNP Unavailable [phone] Encounter Details Date Type Department Care Team (Latest Contact Info) Description 02/14/2025 Travel Social History Tobacco Use Types Packs/Day [...] 07/31/2025 2:30 PM EDT Ovarian Cancer Screening [place] [facility] [address] [facility] [place] [phone] documented as of this encounter Visit Diagnoses Not on filedocumented in this encounter Additional Health Concerns Assessment Noted Time A fall risk assessment has been complete d for the patient 08/16/2024 2:13 PM EDT A Body Mass Index follow-up plan has been documented for the patient 02/14/2025 5:37 PM EDT documented as of this encounter Care Teams Chemical Sales Representative Relationship Specialty Start Date End Date Sobeida Alvarenga APRN [address] [place] [address] PCP - General 07/25/24 Marnie Gayle APRN, KARIN [address] [facility] [address] [place] [address] Nurse Practitioner Urology 02/14/25 documented as of this encounter
--- OUTSIDE RECORDS SUMMARY | 2025-02-15 12:01 | XMS_ITS | Encounter Summary ---
Author Organization Healthcare Address [address] [place] [address] Care Team Providers Care Bass Guitar Teacher Name Role Phone Sobeida Alvarenga APRN Primary Care Provider [phone] Encounter Details Date Type Department Care Team (Latest Contact Info) Description 02/07/2025 Travel Social History Tobacco Use Types Packs/Day [...] 07/31/2025 2:30 PM EDT Ovarian Cancer Screening [place] [facility] [address] [facility] [place] [phone] documented as of this encounter Visit Diagnoses Not on filedocumented in this encounter Additional Health Concerns Assessment Noted Time A fall risk assessment has been complete d for the patient 08/16/2024 2:13 PM EDT A Body Mass Index follow-up plan has been documented for the patient 08/16/2024 4:08 PM EDT documented as of this encounter Care Teams Bass Guitar Teacher Relationship Specialty Start Date End Date Sobeida Alvarenga APRN [address] [place] [address] PCP - General 07/25/24 documented as of this encounter
--- OUTSIDE RECORDS SUMMARY | 2025-02-15 12:01 | XMS_ITS | Encounter Summary ---
Author Organization Healthcare Address [address] [place] [address] Care Team Providers Care Candy Catcher Name Role Phone Janusz Ernst MD Primary Care Provider + [phone] Sobeida Alvarenga APRN Primary Care Provider [phone] Marnie Gayle APRN, DNP Unavailable [phone] Encounter Details Date Type Department Care Team (Late st Contact Info) Description 11/30/2018 Orders Only External Location [address] [place] [address] Provider, External Social History Tobacco Use Types [...] 07/31/2025 2:30 PM EDT Ovarian Cancer Screening [place] [facility] [address] [facility] [place] [phone] documented as of this encounter Procedures Procedure [...] on filedocumented in this encounter Care Teams Candy Catcher Relationship Specialty Start Date End Date Janusz Ernst MD [address] [place] [address] PCP - General 01/17/21 07/24/24 Sobeida Alvarenga APRN [address] [place] [address] PCP - General 07/25/24 Marnie Gayle APRN, DNP [address] [place] [address] Nurse Practitioner Urology 02/14/25 documented as of this encounter
--- OUTSIDE RECORDS SUMMARY | 2025-02-15 12:01 | XMS_ITS | Encounter Summary ---
Author Organization Healthcare Address [address] [place] [address] Care Team Providers Care Tape Sewing Machine Operator Name Role Phone Janusz Ernst MD Primary Care Provider [phone] Sobeida Alvarenga APRN Primary Care Provider [phone] Marnie Gayle APRN, DNP Unavailable [phone] Encounter Details Date Type Department Care Team (Late st Contact Info) Description 11/01/2023 Orders Only External Location [address] [place] [address] Provider, External Social History Tobacco Use Types [...] 07/31/2025 2:30 PM EDT Ovarian Cancer Screening [place] [facility] [address] [facility] [place] [phone] documented as of this encounter Procedures Procedure [...] documented as of this encounter Care Teams Tape Sewing Machine Operator Relationship Specialty Start Date End Date Janusz Ernst MD [address] [place] [address] PCP - General 01/17/21 07/24/24 Sobeida Alvarenga APRN [address] [place] [address] PCP - General 07/25/24 Marnie Gayle APRN, DNP [address] [place] [address] Nurse Practitioner Urology 02/14/25 documented as of this encounter
== END 2025-02-15 23:59 | disposition home or self-care (01) ==
LOC: RT 11:57
PROVIDERS: PCP Nurse Practitioner Family; Visit Provider Physician Assistant
DX: I48.91 Unspecified atrial fibrillation (principal); I48.92 Unspecified atrial flutter; I49.3 Ventricular premature depolarization
CPT/HCPCS: 93270

== ENCOUNTER 2025-02-20 12:52 | Outpatient (CLI) | payer MEDICARE, SELFPAY ==
--- OUTSIDE RECORDS SUMMARY | 2025-02-14 14:00 | XMS_ITS | Encounter Summary ---
Author Organization [facility] Address [address] [place] [address] Care Team Providers Care Manufacturing Engineering Director Name Role Phone Sobeida Alvarenga APRN Primary Care Provider [phone] Marnie Gayle APRN, DNP Unavailable [phone] Reason for Visit * Reason Comments Follow-up Telehealth Statement Patient VerificationPatient identity has been confirmed using name and date of ? YesAuthorizations and Agreements/Telemedicine Consent sent and consent confirmed? YesPatient Location: Home/OtherPatient confirms they are physically located in [place]? YesIf the patient is not physically located in [place], the provider has confirmed with [facility] that the provider is authorized to provide services in patient's stated location? YesProvider Location: [facility] facili Encounter Details Date Type Department Care Team (Latest Contact Info) Description 02/14/2025 2:00 PM EDT Office Visit [place] [facility] [address] [place] [address] Marnie Gayle, JACQUI, DNP [address] [place] [address] Postmenopausal atrophic vaginitis (Primary Dx); [...] Notes * Progress Notes - Marnie Gayle, FLAVORING MACHINE OPERATOR, DNP - 02/14/2025 2:00 PM EDT [facility] Note Patient Verification Patient identity has been confirmed using name and date of ? Yes Authorizations and Agreements/Telemedicine Consent sent and consent confirmed? Yes Patient Location: Patient's Home Patient confirms they are physically located in [place]? Yes If the patient is not physically located in [place], the provider has confirmed with [facility] thatthe provider is authorized to provide services in patient's stated location? N/A Provider Location: [facility] Facility CC: Follow-up (Telehealth Statement/Patient Verification/Patient identity has been confirmed using name and date of ? Yes/Authorizations and Agreements/Telemedicine Consent sent and consent confirmed? Yes//Patient Location: Home/Other/Patient confirms they are physically located in [place]? Yes/If the patient is not physically located in [place], the provider has confirmed with [employer] that the provider is authorized to provide services in patient's stated location? Yes//Provider Location: [facility] fac[facility]) HPI: Nicol Aranda is a [...] scans) -December 15, 2021: Operative report from [facility] indicates cystoscopy performed by Dr. Mejia for [...] 2023. Ablation CARDIOVERSION N/A Elective Cardioversion from [employer] CHOLECYSTECTOMY N/A Cholecystectomy from [employer] COLONOSCOPY GASTRIC RESTRICTION SURGERY N/A Gastric Surgery For Morbid Obesity Gastric Bypass from [employer] HYSTERECTOMY N/A Hysterectomy from [employer] NOSE SURGERY FHx: Family History Problem Relation [...] Location: Home/Other/Patient confirmsthey are physically located in [place]? Yes/If the patient is not physically located in [place], the provider has confirmed with [facility] that the provider is authorized to provide services in patient's stated location? Yes//Provider Location: [facility] facili) She opted to continue oxybutynin [...] Upcoming Encounters Date Type Department Care Team ([facility] st Contact Info) Description 07/31/2025 2:30 PM EDT Ovarian Cancer Screening [facility] [address] [facility] [place] [phone] 02/20/2026 11:40 AM EDT Office Visit Medical Office Building Urology [address] [facility] [address] [facility], [address] [place] [address] Marnie Gayle APRN, DNP [address] [facility] [place] [address] documented as of this encounter Visit Diagnoses [...] documented as of this encounter Care Teams Manufacturing Engineering Director Relationship Specialty Start Date End Date Sobeida Alvarenga APRN [address] [place] [address] PCP - General 07/25/24 Marnie Gayle APRN, DNP [address] [address] Nurse Practitioner Urology 02/14/25 documented as of this encounter
--- OUTSIDE RECORDS SUMMARY | 2025-02-20 12:54 | XMS_ITS | Encounter Summary ---
Author Organization Healthcare Address [address] [place] [address] Care Team Providers Care Dairy Equipment Mechanic Name Role Phone Janusz Ernst MD Primary Care Provider [phone] Sobeida Alvarenga APRN Primary Care Provider [phone] Marnie Gayle APRN, KARIN Unavailable [phone] Encounter Details Date Type Department Care Team (Late Contact Info) Description 11/30/2018 Orders Only External Location [address] [place] [address] Provider, External Social History Tobacco Use Types [...] Department Care Team (Late Contact Info) Description 07/31/2025 2:30 PM EDT Ovarian Cancer Screening [place] [facility] [address] [facility] [place] [phone] 02/20/2026 11:40 AM EDT Office Visit Medical Office Building Urology [address] [facility], [address] [place] [address] Marnie Gayle APRN, KARIN [address] [place] [address] documented as of this encounter Procedures Procedure [...] on filedocumented in this encounter Care Teams Dairy Equipment Mechanic Relationship Specialty Start Date End Date Janusz Ernst MD [address] [place] [address] PCP - General 01/17/21 07/24/24 Sobeida Alvarenga APRN [address] [place] [address] PCP - General 07/25/24 Marnie Gayle APRN, DNP [address] [place] [address] Nurse Practitioner Urology 02/14/25 documented as of this encounter
--- OUTSIDE RECORDS SUMMARY | 2025-02-20 12:54 | XMS_ITS | Encounter Summary ---
Author Organization Healthcare Address [address] [place] [address] Care Team Providers Care Title Coordinator Name Role Phone Sobeida Alvarenga APRN Primary Care Provider [phone] Marnie Gayle APRN, DNP Unavailable [phone] Encounter Details Date Type Department Care Team [...] 07/31/2025 2:30 PM EDT Ovarian Cancer Screening [place] [facility] [address] [place] [phone] 02/20/2026 11:40 AM EDT Office Visit Medical Office Building Urology [address] [facility], [address] [place] [address] Marnie Gayle APRN, DNP [address] [place] [address] documented as of this encounter Visit Diagnoses Not on filedocumented in this encounter Additional Health Concerns Assessment Noted Time A fall risk assessment has been complete d for the patient 08/16/2024 2:13 PM EDT A Body Mass Index follow-up plan has been documented for the patient 02/14/2025 5:37 PM EDT documented as of this encounter Care Teams Title Coordinator Relationship Specialty Start Date End Date Sobeida Alvarenga APRN [address] [place] [address] PCP - General 07/25/24 Marnie Gayle APRN, DNP [address] [address] Nurse Practitioner Urology 02/14/25 documented as of this encounter
--- OUTSIDE RECORDS SUMMARY | 2025-02-20 12:54 | XMS_ITS | Encounter Summary ---
Author Organization Healthcare Address [address] [address] Care Team Providers Care Loop Tacker Name Role Phone Janusz Ernst MD Primary Care Provider + [phone] Sobeida Alvarenga APRN Primary Care Provider [phone] Marnie Gayle APRN, DNP Unavailable [phone] Encounter Details Date Type Department Care Team (Late Contact Info) Description 11/01/2023 Orders Only External Location [address] [place] [address] Provider, External Social History Tobacco Use Types [...] 07/31/2025 2:30 PM EDT Ovarian Cancer Screening [place] [facility] [address] [facility] [place] [phone] 02/20/2026 11:40 AM EDT Office Visit Medical Office Building Urology [address] [facility], [address] [place] [address] Marnie Gayle, JACQUI, DNP [address] [place] [address] documented as of this encounter [...] documented as of this encounter Care Teams Loop Tacker Relationship Specialty Start Date End Date Janusz Ernst MD [address] [place] [address] PCP - General 01/17/21 07/24/24 Sobeida Alvarenga APRN [address] [place] [address] PCP - General 07/25/24 Marnie Gayle APRN, DNP [address] [place] [address] Nurse Practitioner Urology 02/14/25 documented as of this encounter
--- OUTSIDE RECORDS SUMMARY | 2025-02-20 12:54 | XMS_ITS | Encounter Summary ---
Author Organization Healthcare Address [address] [place] [address] Care Team Providers Care Stripper Preliminary Name Role Phone Sobeida Alvarenga APRN Primary Care Provider [phone] Encounter Details Date Type Department Care Team [...] 07/31/2025 2:30 PM EDT Ovarian Cancer Screening [place] [facility] [address] [facility] [place] [phone] 02/20/2026 11:40 AM EDT Office Visit Medical Office Building Urology [address] [facility], [address] [place] [address] Marnie Gayle APRN, DNP [address] [place] [address] documented as of this encounter Visit Diagnoses Not on filedocumented in this encounter Additional Health Concerns Assessment Noted Time A fall risk assessment has been complete d for the patient 08/16/2024 2:13 PM EDT A Body Mass Index follow-up plan has been documented for the patient 08/16/2024 4:08 PM EDT documented as of this encounter Care Teams Stripper Preliminary Relationship Specialty Start Date End Date Sobeida Alvarenga APRN [address] [place] [address] PCP - General 07/25/24 documented as of this encounter
--- OUTSIDE RECORDS SUMMARY | 2025-02-20 12:54 | XMS_ITS | Encounter Summary ---
Author Organization Healthcare Address [address] [place] [address] Care Team Providers Care Parts Sales Manager Name Role Phone Janusz Ernst MD Primary Care Provider + [phone] Sobeida Alvarenga APRN Primary Care Provider [phone] Marnie Gayle APRN, DNP Unavailable [phone] Encounter Details Date Type Department Care Team (Late Contact Info) Description 11/01/2023 Orders Only External Location [address] [place] [address] Provider, External Social History Tobacco Use Types [...] 07/31/2025 2:30 PM EDT Ovarian Cancer Screening [place] [facility] [address] [facility] [place] [phone] 02/20/2026 11:40 AM EDT Office Visit Medical Office Building Urology [address] [facility], [address] [place] [address] Marnie Gayle, JACUQI, DNP [address] [place] [address] documented as of this encounter [...] documented as of this encounter Care Teams Parts Sales Manager Relationship Specialty Start Date End Date Janusz Ernst MD [address] [place] [address] PCP - General 01/17/21 07/24/24 Sobeida Alvarenga APRN [address] [place] [address] PCP - General 07/25/24 Marnie Gayle APRN, DNP [address] [place] [address] Nurse Practitioner Urology 02/14/25 documented as of this encounter
--- OUTSIDE RECORDS SUMMARY | 2025-02-20 12:54 | XMS_ITS | Clinical Summary ---
Author Organization [facility] Address [address] [place] [address] Care Team Providers Care Bike Shop Manager Name Role Phone Lyle Sobeida JACQUI Primary Care Provider [phone] Allergies No known active allergies Medications furosemide [...] Description 12/07/2024 10:45 AM EDT Office Visit [facility] [address] [place] [address] [address] [place] [address] Miranda Armijo APRN Atrial fibrillation, [...] or training? 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
--- OUTSIDE RECORDS SUMMARY | 2025-02-20 12:54 | XMS_ITS | Clinical Summary ---
Author Organization [facility] Address [address] 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 therapy 0 11/08/2012 [...] Description 02/14/2025 2:00 PM EDT Office Visit [place] [facility] [address], [address] [place] [address] Marnie Gayle, TELECOMMUNICATIONS FACILITY EXAMINER, DNP Postmenopausal atrophic vaginitis (Primary Dx); Recurrent [...] Upcoming Encounters Date Type Department Care Team ([facility] st Contact Info) Description 07/31/2025 2:30 PM EDT Ovarian Cancer Screening [place] [facility] [address] [facility] [place] [address] 02/20/2026 11:40 AM EDT Office Visit Medical Office Building Urology [address], [address] [place] [address] Marnie Gayle, TELECOMMUNICATIONS FACILITY EXAMINER, DNP [address] [place] [address] Health Maintenance Due Date Last Done Comments [...] 12/08/2021 , 12/08/2021, 06/02/2019, Additional history exists [id number] Vaccine (2024- season) 2025 03/26/2023, 04/08/2022, 11/07/2021, Additional history [...] of Service: 11/07/2018 eferring Phy:Janusz Adrian M.D.Account: [id number] Dictated By: Dina Lugo M.D. Verified By: [...] compared to prior imaging studies performed at [facility] on 10/24/2013, 10/24/2014 and 11/09/2016 . [...] on Nov 08 2018 11:47A Transcribed by: [facility] on Nov 08 2018 11:47A Dictated by: DINA LUGO M.D. on Nov 08 2018 11:47A Patient Name:Nicol Aranda : 1955 Age: 63 Gender: femaleDate of Service: 11/07/2018 eferring Phy:Janusz Adrian M.D.Account: [id number] [place] [address] FINAL REPORT PROCEDURE: Tomosynthesis Bilateral Screening - bilateral , Screening Mammogram With Cad - bilateral HISTORY: Patient is 63 years old and is seen for screening mammography. The patient has no family history of breast cancer. COMPARISON: The present examination has been compared to prior imaging studies performed at [facility] on 10/24/2013, 10/24/2014 and 11/09/2016. FINDINGS: [...] compared to prior imaging studies performed at [facility] on 10/24/2013, 10/24/2014 and 11/09/2016 . [...] on Nov 08 2018 11:47A Transcribed by: [facility] on Nov 08 2018 11:47A Dictated by: DINA LUGO M.D. on Nov 08 2018 11:47A Patient Name:Nicol Aranda : 1955 Age: 63 Gender: femaleDate of Service:11/07/2018 eferring Phy:Janusz Adrian M.D.Account: [id number] [place] [address] FINAL REPORT PROCEDURE: Tomosynthesis Bilateral Screening - bilateral , Screening Mammogram WithCad - bilateral HISTORY: Patient is 63 years old and is seen for screening mammography. Thepatient has no family history of breast cancer. COMPARISON: The present examination has been compared to prior imaging studiesperformed at [facility] on 10/24/2013, 10/24/2014 and 11/09/2016. FINDINGS: [...] femaleDate of Service:11/07/2018 eferring Phy:Janusz Adrian M.D.Account: [id number] Dictated By: Dina Lugo M.D. Verified By: [...] <6.0% Children and Adolescents <7.5% . Source: [place] [employer]. Standards of medical care in diabetes, 2017. Diabetes Care.2017:40 (suppl 1):S1-S135. . HbA1c assay performed by an ion-exchange chromatography method that is certified traceable to the DCCT. 06/09/2017 11:5 0 AM EST 06/09/2017 12:46 PM EST us Historical Provider LAB BLOOD ORDERABLES Final R esult SUNQUEST * COLONOSCOPY (07/10/2016) Anatomical Region Laterality Modality Endoscopy Narrative 07/10/2016 Ordered by an unspecified provider. Historical Provider GI PROCEDURE ORDERABLES Elvira l Result from Last 3 Months or Most Recently Relevant to Health Maintenance Insurance [facility] MEDICARE [facility] MEDICA Care Teams Body Repairer Relationship Specialty Start Date End Date Sobeida Alvarenga APRN [address] [id number] PCP - General 07/25/24 Marnie Gayle APRN, DNP [id number] [place] [address] Nurse Practitioner Urology 02/14/25
--- OUTSIDE RECORDS SUMMARY | 2025-02-20 12:54 | XMS_ITS | Encounter Summary ---
Author Organization Healthcare Address [address] [place] [address] Care Team Providers Care Neuropsychology Medical Consultant Name Role Phone Janusz Ernst MD Primary Care Provider + [phone] Sobeida Alvarenga APRN Primary Care Provider [phone] Marnie Gayle APRN, KARIN Unavailable [phone] Encounter Details Date Type Department Care Team (Late Contact Info) Description 11/30/2018 Orders Only External Location [address] [place] [phone] Provider, External Social History Tobacco Use Types [...] 07/31/2025 2:30 PM EDT Ovarian Cancer Screening [place] [facility] [address] [place] [phone] 02/20/2026 11:40 AM EDT Office Visit Medical Office Building Urology [address] [facility], [address] [place] [address] Marnie Gayle APRN, KARIN [address] [place] [address] documented as of this encounter [...] on filedocumented in this encounter Care Teams Neuropsychology Medical Consultant Relationship Specialty Start Date End Date Janusz Ernst MD [address] [place] [address] PCP - General 01/17/21 07/24/24 Sobeida Alvarenga APRN [address] [place] [address] PCP - General 07/25/24 Marnie Gayle APRN, DNP [address] [place] [address] Nurse Practitioner Urology 02/14/25 documented as of this encounter
--- NOTE | 2025-02-20 13:00 | MM_ITS ---
PROCEDURE INFORMATION: Exam: MG Bilateral Screening 3D Mammography Exam date and time: 02/20/2025 1:06 PM Age: 69 years old Clinical indication: Screening examination. TECHNIQUE: Imaging protocol: Bilateral Screening tomosynthesis and 2D mammography including computer-aided detection (CAD) when performed. COMPARISON: 1. MG MM DIG SCREENING MAMM BI W/CAD 02/04/2024 3:16 PM 2. MG MM DIG SCREENING MAMM BI W/CAD 01/06/2022 3:55 PM FINDINGS: MAMMOGRAPHY: Breast composition: There are scattered areas of fibroglandular density. Mass: None. Architectural distortion: None. Calcifications: No suspicious calcifications. Asymmetric density: None. Skin thickening: None. Axillary adenopathy: None. IMPRESSION: No mammographic evidence of malignancy. Annual screening is recommended unless otherwise clinically indicated. ASSESSMENT: BI-RADS Category 1: Negative.
== END 2025-02-20 23:59 | disposition home or self-care (01) ==
LOC: RAD 12:52
PROVIDERS: PCP Nurse Practitioner Family; Visit Provider Nurse Practitioner Family
DX: Z12.31 Encounter for screening mammogram for malignant neoplasm of breast (principal); R92.323 Mammographic fibroglandular density, bilateral breasts
CPT/HCPCS: 77063; 77067

== ENCOUNTER 2025-03-09 14:22 | Outpatient (CLI) | payer MEDICARE, SELFPAY ==
--- OUTSIDE RECORDS SUMMARY | 2025-02-14 14:00 | XMS_ITS | Encounter Summary ---
Author Organization [facility] Address [address] [place] [address] Care Team Providers Care Statistical Machine Servicer Name Role Phone Sobeida Alvarenga APRN Primary Care Provider [phone] Marnie Gayle APRN, DNP Unavailable [phone] Reason for Visit * Reason Comments Follow-up Telehealth Statement Patient VerificationPatient identity has been confirmed using name and date of ? YesAuthorizations and Agreements/Telemedicine Consent sent and consent confirmed? YesPatient Location: Home/OtherPatient confirms they are physically located in [place]? YesIf the patient is not physically located in [place], the provider has confirmed with [facility] that the provider is authorized to provide services in patient's stated location? YesProvider Location: [facility] facili Encounter Details Date Type Department Care Team (Latest Contact Info) Description 02/14/2025 2:00 PM EDT Office Visit [place] [facility] [address] [place] [address] Marnie Gayle, JACQUI, DNP [address] [place] [address] Postmenopausal atrophic vaginitis (Primary Dx); [...] Notes * Progress Notes - Marnie Gayle, NEUROLOGY TECHNICIAN, DNP - 02/14/2025 2:00 PM EDT [facility] Note Patient Verification Patient identity has been confirmed using name and date of ? Yes Authorizations and Agreements/Telemedicine Consent sent and consent confirmed? Yes Patient Location: Patient's Home Patient confirms they are physically located in [place]? Yes If the patient is not physically located in [place], the provider has confirmed with [facility] thatthe provider is authorized to provide services in patient's stated location? N/A Provider Location: [facility] [place] Facility CC: Follow-up (Telehealth Statement/Patient Verification/Patient identity has been confirmed using name and date of ? Yes/Authorizations and Agreements/Telemedicine Consent sent and consent confirmed? Yes//Patient Location: Home/Other/Patient confirms they are physically located in [place]? Yes/If the patient is not physically located in [place], the provider has confirmed with [employer] that the provider is authorized to provide services in patient's stated location? Yes//Provider Location: [facility] facili) HPI: Nicol Aranda is a 69 [...] scans) -December 15, 2021: Operative report from [facility] indicates cystoscopy performed by Dr. Mejia for [...] 2023. Ablation CARDIOVERSION N/A Elective Cardioversion from [employer] CHOLECYSTECTOMY N/A Cholecystectomy from [employer] COLONOSCOPY GASTRIC RESTRICTION SURGERY N/A Gastric Surgery For Morbid Obesity Gastric Bypass from [employer] HYSTERECTOMY N/A Hysterectomy from [employer] NOSE SURGERY FHx: Family History Problem Relation [...] Location: Home/Other/Patient confirmsthey are physically located in [place]? Yes/If the patient is not physically located in [place], the provider has confirmed with [facility] that the provider is authorized to provide services in patient's stated location? Yes//Provider Location: [facility] facili) She opted to continue oxybutynin ER [...] Upcoming Encounters Date Type Department Care Team ([facility] st Contact Info) Description 07/31/2025 2:30 PM EDT Ovarian Cancer Screening [place] [facility] [address] [facility] [place] [phone] 02/20/2026 11:40 AM EDT Office Visit Medical Office Building Urology [address] [facility] [address], [address] [place] [address] Marnie Gayle APRN, DNP [address] [facility] [place] [address] documented as of this encounter Visit Diagnoses [...] documented as of this encounter Care Teams Statistical Machine Servicer Relationship Specialty Start Date End Date Sobeida Alvarenga APRN [address] [place] [address] PCP - General 07/25/24 Marnie Gayle APRN, DNP [address] [address] Nurse Practitioner Urology 02/14/25 documented as of this encounter
--- OUTSIDE RECORDS SUMMARY | 2025-03-09 14:26 | XMS_ITS | Encounter Summary ---
Author Organization Healthcare Address [address] [place] [address] Care Team Providers Care Ur Coordinator Name Role Phone Sobeida Alvarenga APRN Primary Care Provider [phone] Marnie Gayle APRN, DNP Unavailable [phone] Encounter Details Date Type Department Care Team [...] 07/31/2025 2:30 PM EDT Ovarian Cancer Screening [place] [facility] [address] [facility] [place] [phone] 02/20/2026 11:40 AM EDT Office Visit Medical Office Building Urology [address] [facility], [address] [place] [address] Marnie Gayle APRN, DNP [address] [place] [address] documented as of this encounter Visit Diagnoses Not on filedocumented in this encounter Additional Health Concerns Assessment Noted Time A fall risk assessment has been complete d for the patient 08/16/2024 2:13 PM EDT A Body Mass Index follow-up plan has been documented for the patient 02/14/2025 5:37 PM EDT documented as of this encounter Care Teams Ur Coordinator Relationship Specialty Start Date End Date Sobeida Alvarenga APRN [address] [place] [address] PCP - General 07/25/24 Marnie Gayle APRN, DNP [address] [address] Nurse Practitioner Urology 02/14/25 documented as of this encounter
--- OUTSIDE RECORDS SUMMARY | 2025-03-09 14:26 | XMS_ITS | Encounter Summary ---
Author Organization Healthcare Address [address] [place] [address] Care Team Providers Care Ethylene Oxide Panelboard Operator Name Role Phone Sobeida Alvarenga APRN Primary Care Provider [phone] Encounter Details Date Type Department Care Team [...] 07/31/2025 2:30 PM EDT Ovarian Cancer Screening [place] [facility] [address] [facility] [place] [phone] 02/20/2026 11:40 AM EDT Office Visit Medical Office Building Urology [address] [facility], [address] [place] [address] Marnie Gayle APRN, DNP [address] [place] [address] documented as of this encounter Visit Diagnoses Not on filedocumented in this encounter Additional Health Concerns Assessment Noted Time A fall risk assessment has been complete d for the patient 08/16/2024 2:13 PM EDT A Body Mass Index follow-up plan has been documented for the patient 08/16/2024 4:08 PM EDT documented as of this encounter Care Teams Ethylene Oxide Panelboard Operator Relationship Specialty Start Date End Date Sobeida Alvarenga APRN [address] [place] [address] PCP - General 07/25/24 documented as of this encounter
--- OUTSIDE RECORDS SUMMARY | 2025-03-09 14:27 | XMS_ITS | Clinical Summary ---
Author Organization [facility] Address [address] [place] [address] Care Team Providers Care Waiter/Waitress Tourist Class Name Role Phone Lyle Sobeida JACQUI Primary Care Provider [phone] Allergies No known active allergies Medications furosemide [...] Description 12/07/2024 10:45 AM EDT Office Visit [facility] [address] [place] [address] [address] [place] [address] Miranda Armijo APRN Atrial fibrillation, [...] or training? 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
--- OUTSIDE RECORDS SUMMARY | 2025-03-09 14:27 | XMS_ITS | Encounter Summary ---
Author Organization Healthcare Address [address] [place] [address] Care Team Providers Care Wood Processing Worker Name Role Phone Janusz Ernst MD Primary Care Provider + [phone] Sobeida Alvarenga APRN Primary Care Provider [phone] Marnie Gayle APRN, DNP Unavailable [phone] Encounter Details Date Type Department Care Team (Late Contact Info) Description 11/01/2023 Orders Only External Location [address] [place] [phone] Provider, External Social History Tobacco Use Types [...] 07/31/2025 2:30 PM EDT Ovarian Cancer Screening [place] [facility] [address] [facility] [place] [phone] 02/20/2026 11:40 AM EDT Office Visit Medical Office Building Urology [address] [facility], [address] [place] [address] Marnie Gayle, JACQUI, DNP [address] [place] [address] documented as of this encounter [...] documented as of this encounter Care Teams Wood Processing Worker Relationship Specialty Start Date End Date Janusz Ernst MD [address] [place] [address] PCP - General 01/17/21 07/24/24 Sobeida Alvarenga APRN [address] [place] [address] PCP - General 07/25/24 Marnie Gayle APRN, DNP [address] [place] [address] Nurse Practitioner Urology 02/14/25 documented as of this encounter
--- OUTSIDE RECORDS SUMMARY | 2025-03-09 14:27 | XMS_ITS | Encounter Summary ---
Author Organization Healthcare Address [address] [place] [address] Care Team Providers Care Boiler House Inspector Name Role Phone Janusz Ernst MD Primary Care Provider + [phone] Sobeida Alvarenga APRN Primary Care Provider [phone] Marnie Gayle APRN, DNP Unavailable [phone] Encounter Details Date Type Department Care Team (Late Contact Info) Description 11/01/2023 Orders Only External Location [address] [place] [phone] Provider, External Social History Tobacco Use Types [...] 07/31/2025 2:30 PM EDT Ovarian Cancer Screening [place] [facility] [address] [facility] [place] [phone] 02/20/2026 11:40 AM EDT Office Visit Medical Office Building Urology [address] [facility], [address] [place] [address] Marnie Gayle, JACQUI, DNP [address] [place] [address] documented as of this encounter [...] documented as of this encounter Care Teams Boiler House Inspector Relationship Specialty Start Date End Date Janusz Ernst MD [address] [place] [address] PCP - General 01/17/21 07/24/24 Sobeida Alvarenga APRN [address] [place] [address] PCP - General 07/25/24 Marnie Gayle APRN, DNP [address] [place] [address] Nurse Practitioner Urology 02/14/25 documented as of this encounter
--- OUTSIDE RECORDS SUMMARY | 2025-03-09 14:27 | XMS_ITS | Clinical Summary ---
Author Organization [facility] Address [address] [place] [address] Care Team Providers Care Home Health Care Social Worker Name Role Phone Sobeida Alvarenga APRN Primary Care Provider [phone] Marnie Gayle APRN, DNP Unavailable [phone] Allergies Active Allergy Reactions Criticality Noted Date [...] Osteopenia 05/28/2014 PFO (patent foramen ovale) 06/20/2013 nursing home current use of anticoagulant therapy 0 11/08/2012 [...] Description 02/14/2025 2:00 PM EDT Office Visit [facility] [address] [place] [address] Marnie Gayle, ETHYLBENZENE CONVERTER HELPER, DNP Postmenopausal atrophic vaginitis (Primary Dx); Recurrent [...] 07/31/2025 2:30 PM EDT Ovarian Cancer Screening [place] [facility] [address] [facility] [place] [phone] 02/20/2026 11:40 AM EDT Office Visit Medical Office Building Urology [address], [address] [place] [address] Marnie Gayle, ETHYLBENZENE CONVERTER HELPER, DNP [address] [place] [address] Health Maintenance Due Date Last [...] 12/08/2021 , 12/08/2021, 06/02/2019, Additional history exists [id number] Vaccine (2024- season) 2025 03/26/2023, 04/08/2022, 11/07/2021, [...] of Service: 11/07/2018 eferring Phy:Janusz Adrian M.D.Account: [id number] Dictated By: Dina Lugo M.D. Verified By: [...] compared to prior imaging studies performed at [facility] on 10/24/2013, 10/24/2014 and 11/09/2016 . [...] on Nov 08 2018 11:47A Transcribed by: [facility] on Nov 08 2018 11:47A Dictated by: DINA LUGO M.D. on Nov 08 2018 11:47A Patient Name:Nicol Aranda : 1955 Age: 63 Gender: femaleDate of Service: 11/07/2018 eferring Phy:Janusz Adrian M.D.Account: [id number] [place] [address] FINAL REPORT PROCEDURE: Tomosynthesis Bilateral Screening - bilateral , Screening Mammogram With Cad - bilateral HISTORY: Patient is 63 years old and is seen for screening mammography. The patient has no family history of breast cancer. COMPARISON: The present examination has been compared to prior imaging studies performed at [facility] on 10/24/2013, 10/24/2014 and 11/09/2016. FINDINGS: MAMMOGRAM There are scattered areas of fibroglandular density. No masses, suspicious microcalcifications or architectural distortion are evident. Procedure Note Danielle Pulido Wen - 09/29/2020 REQUESTING PHYSICIAN: JANUSZ ADRIAN REASON FOR EXAMINATION/PROCEDURE: SCREEN EXAMINATION / PROCEDURE: Screening Mamm w/cad Nov 07 2018 - 15:44; MAGDAELNA BILATERAL SCREENING Nov 07 2018 15:44; HISTORY: Patient is 63 years old and is seen for screening mammography. The patient has no family history of breast cancer. COMPARISON: The present examination has been compared to prior imaging studies performed at [facility] on 10/24/2013, 10/24/2014 and 11/09/2016 . [...] on Nov 08 2018 11:47A Transcribed by: [facility] on Nov 08 2018 11:47A Dictated by: DINA LUGO M.D. on Nov 08 2018 11:47A Patient Name:Nicol Aranda : 1955 Age: 63 Gender: femaleDate of Service:11/07/2018 eferring Phy:Janusz Adrian M.D.Account: [id number] [place] [address] FINAL REPORT PROCEDURE: Tomosynthesis Bilateral Screening - bilateral , Screening Mammogram WithCad - bilateral HISTORY: Patient is 63 years old and is seen for screening mammography. Thepatient has no family history of breast cancer. COMPARISON: The present examination has been compared to prior imaging studiesperformed at [facility] on 10/24/2013, 10/24/2014 and 11/09/2016. FINDINGS: [...] femaleDate of Service:11/07/2018 eferring Phy:Janusz Adrian M.D.Account: [id number] Dictated By: Dina Lugo M.D. Verified By: [...] <6.0% Children and Adolescents <7.5% . Source: [place] [employer]. Standards of medical care in [...] Most Recently Relevant to Health Maintenance Insurance [facility] MEDICARE [facility] MEDICA Care Teams Home Health Care Social Worker Relationship Specialty Start Date End Date Sobeida Alvarenga APRN [address] [phone] PCP - General 07/25/24 Marnie Gayle APRN, DNP [address] [place] [address] Nurse Practitioner Urology 02/14/25
--- OUTSIDE RECORDS SUMMARY | 2025-03-09 14:27 | XMS_ITS | Encounter Summary ---
Author Organization Healthcare Address [address] [place] [address] Care Team Providers Care Business Coordinator Name Role Phone Janusz Ernst MD Primary Care Provider + [phone] Sobeida Alvarenga APRN Primary Care Provider [phone] Marnie Gayle APRN, KARIN Unavailable [phone] Encounter Details Date Type Department Care Team (Late Contact Info) Description 11/30/2018 Orders Only External Location [address] [place] [id number] Provider, External Social History Tobacco Use Types [...] 07/31/2025 2:30 PM EDT Ovarian Cancer Screening [place] [facility] [address] [facility] [place] [phone] 02/20/2026 11:40 AM EDT Office Visit Medical Office Building Urology [address] [facility], [address] [place] [address] Marnie Gayle APRN, KARIN [address] [place] [address] documented as of this encounter [...] on filedocumented in this encounter Care Teams Business Coordinator Relationship Specialty Start Date End Date Janusz Ernst MD [address] [place] [address] PCP - General 01/17/21 07/24/24 Sobeida Alvarenga APRN [address] [place] [address] PCP - General 07/25/24 Marnie Gayle APRN, DNP [address] [place] [address] Nurse Practitioner Urology 02/14/25 documented as of this encounter
--- OUTSIDE RECORDS SUMMARY | 2025-03-09 14:27 | XMS_ITS | Encounter Summary ---
Author Organization Healthcare Address [address] [place] [address] Care Team Providers Care Home Care Assistant Name Role Phone Janusz Ernst MD Primary Care Provider + [phone] Sobeida Alvarenga APRN Primary Care Provider [phone] Marnie Gayle APRN, KARIN Unavailable [phone] Encounter Details Date Type Department Care Team (Late Contact Info) Description 11/30/2018 Orders Only External Location [address] [place] [phone] Provider, External Social History Tobacco Use Types [...] 07/31/2025 2:30 PM EDT Ovarian Cancer Screening [place] [facility] [address] [facility] [place] [phone] 02/20/2026 11:40 AM EDT Office Visit Medical Office Building Urology [address] [facility], [address] [place] [address] Marnie Gayle APRN, KARIN [address] [place] [address] documented as of this encounter [...] on filedocumented in this encounter Care Teams Home Care Assistant Relationship Specialty Start Date End Date Janusz Ernst MD [address] [place] [address] PCP - General 01/17/21 07/24/24 Sobeida Alvarenga APRN [address] [place] [address] PCP - General 07/25/24 Marnie Gayle APRN, DNP [address] [place] [address] Nurse Practitioner Urology 02/14/25 documented as of this encounter
[2025-03-09 15:29] LABS: PHA INR Fingerstick 2.3 (0.9-1.1)
== END 2025-03-09 15:34 ==
LOC: ACC 14:22
PROVIDERS: PCP Nurse Practitioner Family; Visit Provider Nurse Practitioner Family
DX: I48.91 Unspecified atrial fibrillation (principal); Z79.01 Long term (current) use of anticoagulants
CPT/HCPCS: 85610; 99211; G0463

== ENCOUNTER 2025-03-23 12:20 | Outpatient (CLI) | payer MEDICARE, SELFPAY ==
--- OUTSIDE RECORDS SUMMARY | 2025-03-23 12:22 | XMS_ITS | Data Portability ---
Author Organization [facility] ASHISH Giron DARBY CLOSED Address [address] [place] [address] Care Team Providers Care Quality Nurse Name Role Phone DANN JONES Operations And Maintenance Technican JOHAN ELISE Primary Care Provider Assessment Encounter [...] acid, serum or plasma 2022 023 [email or web address] [facility], [address] [place] [address], [phone], 05/05/2023 07:58:02 toxicolog y screen, urine 2022 023 [email or web address] [facility], [address] [place] [address], [address], 05/05/2023 07:58:02 lipid panel, serum 2022 023 [email or web address] [facility], [address] [place], [address], 05/05/2023 07:58:01 CMP, serum or plasma 2022 023 [email or web address] [facility], [address] [place] [address], [address], 05/05/2023 07:58:01 CBC w/ auto diff 2022 023 [email or web address] [facility], [address] [place] [address], [phone], 05/05/2023 07:58:01 TSH, serum or plasma 2022 023 [email or web address] [facility], [address] [place] [address], [address], 05/05/2023 07:58:02 Referral None recorded. Procedures None recorded. Surgeries None recorded. Imaging None recorded. Medication Orders tramadol 50 mg tablet 2022 023 [facility], [address] [place] [address] [address] [place] [address], [id number], 01/27/2023 14:14:33 levothyro xine 125 mcg tablet 2022 023 [facility], [address] [place] [address], [phone], 01/27/2023 14:14:33 Patient TargetsNo targets recorded. Patient Instructions Encounter Date Encounter Id Patient Instructions Last Modified By Organization Details Last Modified Time 04/20/2022 [id number] discussed importance of taking AREDS 2 vitamins BID and checking grid QD (given with instructions/emily ng signs) MR with +2.50 NL recheck 1 yr with mac oct [email or web address] Not available 04/20/2022 14:35:10 10/08/2022 [id number] weight managemen t education dbeiting Not available 10/08/2022 13:32:35 advance care planning: care instructions dbeiting Not available 10/08/2022 13:32:36 labs reviewed scripts reviewed risks/benefits reviewed high risk meds reviewed continue current medication continue to monitor labs pneumovax 23 rtc 6 months with labs and prn dbeiting Not available 10/08/2022 07:30:23 05/03/2023 [id number] stable exam continue vitamins BID and check [...] oct dkielar Not available 05/03/2023 15:21:33 11/09/2023 [id number] unspecified righ t orbital mass she has [...] oct dkielar Not available 11/09/2023 14:09:42 05/05/2024 [id number] stable exam continue AREDS 2 vitamins BID [...] w/wo contr ast [place] [facility] [address] [facility] [place] [address] Patien t Name: NICOL Brown ANA MARIA [...] Omnipa que 350 (100 mL bottle of [facility] [place] [address]- 1414-9 1) was intrav enousl y admini stered to the patien t. 37 was wasted and discar ded. FINDIN GS: There are masses along the medial wall of both orbits purchasing analyst ior to the globes . On the [...] along the medial aspect of both orbits purchasing analyst ior to the globes . These could repres ent orbita l cavern ous venous malfor mation s (heman giomas ) venous varice s, or lympho prolif erativ e diseas e, but the appear ance is nonspe cific. . Interp reted By: Megan pichardo MD Electr onical ly Signed By: Megan pichardo MD on 024 1:49 PM [email or web address] [facility] [address] [place], [address], 02/13/2025 12:51:03 11/09/19 24 11/09/2023 optic al coher ence tomog romeo, retin a No observ ation record ed. dkielar Not Available 2023 14:02:45 05/05/20 24 05/05/2024 optic al coher ence tomog romeo, retin a No observ ation record ed. dkielar Not Available 2023 15:56:37 Result Notes Documentation Provider Name and Address Organization Details Recorded Time Ct, Orbits, W/wo Contrast : [address] [address] Patient Name: NICOL RODGERS Patient : 1955 [...] mL Omnipaque 350 (100 mL bottle of [facility] [place] [address]-52) was intravenously administered to the patient. 37 [...] Interpreted By: Ernesto Hinton MD JONES MD [address] [place] [address], [phone] 02/13/2025 12:51:03 Problems Name Problem SNOMED Code Status Onset Date Resolution Date Notes Provider Name and Address Organization Details Recorded Time Low back pain 022923521 Active 2015 From Automate d Load;Pro vider: Kevin Adrian tatus: Active Not Available Count includes the [facility] 6 06:28:23 Hyperten sive disorder 95846989 Completed 201509/25/2019 From Automate d Load;Pro vider: Janusz Adrian;Nellie tatus: Active JANUSZ ADRIAN MD [address] [place] [address], [address] , [facility] 0 13:45:33 Hypothyr oidism 01095128 Active 2015 From Automate d Load;Pro vider: Kevin Adrian tatus: Active Not Available Count includes the [facility] 6 06:28:26 Atrial fibrilla tion 03597545 Active 2015 Provider : Mckenzie Jules; Status: Active Not Available Count includes the [facility] 6 06:28:25 Vitamin D deficien cy 51139482 Active 2015 Provider : Mckenzie Jules; Status: Active Not Available [facility] 6 06:28:25 [facility] hyperten jacqueline 82252179 Active 2016 JANUSZ ADRIAN MD [address] [place] [address], [address] , [facility] 7 13:23:59 Iron deficien cy 14201321 Active 2017 JANUSZ ADRIAN MD [address] [place] [address], [address] , [facility] 8 14:01:11 Chronic pain syndrome 836327946 Active 2018 JANUSZ ADRIAN MD [address] [place] [address], [address] , [facility] 9 13:58:32 Obstruct silviano sleep apnea syndrome 44921704 Active 2018 BiPAP JANUSZ ADRIAN MD [address] [place] [address], [address] , [facility] 9 14:04:34 Hyperlip idemia 02369872 Active 2020 JANUSZ ADRIAN MD [address] [place] [address], [address] , [facility] 1 13:16:58 Gout 53211827 Active 2020 JANUSZ ADRIAN MD [address] [place] [address], [address] , [facility] 1 13:38:01 Nonexuda tive age-rela michelle macular degenera tion 856251513 Active 2020 DANN JONES MD [address] [place] [address], [address] , [facility] 3 15:02:04 Bilatera l age-rela michelle nuclear cataract s 63072229299 9100 Active 2020 DANN JONES MD [address] [place] [address], [address] , [facility] 3 15:02:04 Myopia 88000709 Active 2020 DANN JONES MD [address] [place] [address], [address] , [facility] 3 15:02:04 Hypermet ropia 71061863 Active 2020 DANN JONES MD [address] [place] [address], [address] , [facility] 3 15:02:04 Regular astigmat ism 31777086 Active 2020 DANN JONES MD [address] [place] [address], [address] , [facility] 3 15:02:04 Presbyop ia 55029756 Active 2020 DANN JONES MD [address] [place] [address], [address] , [facility] 3 15:02:04 Osteopen ia 833562475 Active 2021 JANUSZ ADRIAN MD [address] [place] [address], [address] , [facility] 2 07:39:55 Morbid obesity 233133976 Active 2022 JANUSZ ADRIAN MD [address] [place] [address], [address] , [facility] 3 07:22:38 Thrombop hilia 163182686 Active 2022 JANUSZ ADRIAN MD [address] [place] [address], [address] , [facility] 3 07:23:15 Long-ter m current use of anticoag ulant 263133269 Active 2022 JANUSZ ADRIAN MD [address] [place] [address], [address] , [facility] 3 07:23:46 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 DANN JONES MD [address] [place] [address], [address] , [facility] 14:31:47 Problem Notes Documentation Provider Name and Address Organization Details Recorded Time Operations And Maintenance Technican Consult Note : [facility] [address] [address]JOJNTI, Cindy L (id #[id number], : 1955) [facility] [address] [place] [address] Encounter Summary - Progress Note Date Printed: [...] received this fax in error, please visit [email or web address] Fax to notify the sender and confirm that the information will be destroyed. If you do not have internet access, please call to notify the sender and confirm that the information will be destroyed. Thank you for your attention and cooperation. [ID:[id number]] Patient Nicol Rodgers (67yo, F) #[id number] 1955 Patient Demographics: Address [address] [place] [address] Encounter Notes: Encounter Reason/Date complete eye exam [...] of arrival. Await instructions from provider's office. [id number] 13:20 Ht: 5 ft 7 in Results/InterpretationsNon [...] lenses. Assessment and Plan1. Nonexudative age-related macular kzhapjfictgtU23.3131: Nonexudative age-related macular degeneration, bilateral, early dry stage 2. Bilateral age-related nuclear cataracts-mild uutjwptihtqB80.13: Age-related nuclear cataract, bilateral 3. RxtymxS12.11: Myopia, right eye Progressive glasses (Expiration Date: 04/20/2023)Right -Sph: -1.00Cyl: +1.25Axis: 180Add: +2.50Left -Sph: +0.50Cyl: +0.25Axis: 150Add: +2.50 4. MpgtmdbwxmerwW39.02: Hypermetropia, left eye 5. Regular vvyhrveautoX60.223: Regular astigmatism, bilateral 6. UrebrsxfbvM52.4: Presbyopia Discussion Notesdiscussed importance of taking AREDS 2 vitamins BID and checking grid QD (given with instructions/warning signs)MR with +2.50 NLrecheck 1 yr with mac oct Return to Office JANUSZ ADRIAN MD for MEDICARE WELLNESS VISIT at [facility] on 10/08/2022 at 01:15 PM to see DANN JONES MD for COMPLETE EYE EXAM at [facility] on or around 04/20/2023 Patient Medical History: Allergies List Reviewed Allergies NKDA Medications Reviewed Medications NameDate Source allopurinoL 100 mg tabletTAKE ONE TABLET BY MOUTH EVERY DAY04/09/22 filled surescripts atorvastatin 20 mg tabletTAKE ONE TABLET BY MOUTH EVERY DAY04/03/21 filled surescripts Caltrate 600 plus DBID12/09/21 entered JANUSZ ADRIAN MD colchicine 0.6 mg tabletTAKE ONE TABLET [...] TABLET BY MOUTH EVERY DAY04/09/22 prescribed JANUSZ ADRIAN MD metaxalone 800 mg eulzkdUxfvv68/28/16 filled [facility] metoprolol succinate ER 100 mg tablet,extended release 24 hrTAKE ONE TABLET BY MOUTH EVERY DAY FOR BLOOD CCISAMIM74/19/22 filled surescripts omega 3-all-yhe-fish oil 1,000 mg (120 mg-180 mg) capsuleDaily Internal Note:Frequency: daily;Medication Description: omega-3 polyunsaturated fatty acids; Dosage:1; Route:oral; refills: entered [facility].244 ondansetron 4 mg disintegrating tabletDISSOLVE ONE TABLET BY MOUTH THREE TIMES DAILY NEEDED FOR AUULZS66/18/22 filled surescripts oxybutynin chloride ER 10 mg tablet,extended release 24 hrTAKE ONE TABLET BY MOUTH EVERY DAY01/17/22 filled surescripts peg 3350-electrolytes 236 gram-22.74 gram-6.74 gram-5.86 gram solutionTAKE ACCORDING TO PACKAGE GVKSSQHWSLHN45/16/21 filled surescripts phentermine 37.5 mg tabletTake one tablet by mouth daily (30 minutes before or 1-2 hour(s) after breakfast).10/23/20 filled surescripts potassium chloride ER 10 mEq tablet,extended release(part/cryst) 8 filled [facility] Suprep Bowel Prep Kit 17.5 gram-3.13 gram-1.6 gram oral solutionUSE QEEKRWRK76/16/21 prescribed DENISE VENTURA MD Symbicort 160 mcg-4.5 mcg/actuation HFA aerosol inhalerINHALE 2 PUFFS BY MOUTH TWICE DAILY02/11/22 filled surescripts traMADoL 50 mg tabletTAKE ONE TABLET BY MOUTH TWICE DAILY NEEDED MAY CAUSE ZDZEHOOGTM96/17/22 filled surescripts trospium 20 mg ummjfx66/10/17 filled [facility] Vitamin D 5,000 unit tabletTake 1 tablet(s) every day by oral route.04/02/20 entered JANUSZ ADRIAN MD warfarin 5 mg tabletTAKE ONE TABLET BY MOUTH EVERY DAY OR KWXRGLSH78/15/22 filled surescripts Family HistoryReviewed Family History Father - Carcinoma of prostate Mother - Legal blindness - blind in one eye Past Medical HistoryReviewed Past Medical History Glasses/Contacts:Y Vaccine HistoryVaccines not reviewed (last reviewed 04/09/2022) Vaccine Type Date Amt. Route Site [facility] [place] Lot # Mfr. Exp. 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 COVID-19 COVID-19, mRNA, LNP-S, PF, 30 mcg/0.3 mL dose ([employer]Audan[employer]) 02/26/21 COVID-19 (SARS-COV-2) vaccine, unspecified 08/15/20 pfizer COVID-19 (SARS-COV-2) vaccine, unspecified 07/27/20 pfizer Influenza influenza, injectable, quadrivalent 03/07/21 influenza, injectable, quadrivalent 03/07/20 influenza, injectable, quadrivalent 03/16/19 influenza, injectable, quadrivalent 03/01/18 influenza 04/20/17 influenza 04/07/16 Pneumococcal Pneumococcal conjugate PCV20, polysaccharide [id number] conjugate, adjuvant, PF 10/13/21 0.5 mL Intramuscular Deltoid, Right [id number] Other fitness studies teacher 11/21/22 Pneumococcal Conjugate 06/27/21 10/13/21 Aliyah Simon pneumococcal conjugate PCV 13 12/02/18 Zoster zoster 08/05/20 zoster 06/07/20 Electronically Signed by: DANN JONES MD JANUSZ ADRIAN MD [address] [place] [address] [place], [address], [facility] 04/20/2022 16:44:31 Procedures Surgical History Date Name Laterality Status Provider Name and Address Organization Details Recorded Time 05/05/20 24 OCT/Retina completed DANN JONES MD [facility] [place], [address], [facility] 05/05/2024 15:58:42 11/09/19 24 OCT/Retina completed DANN JONES MD [facility] [place], [address], [facility] 11/09/2023 14:05:22 05/03/20 23 OCT/Retina completed DANN JONES MD [address] [place] [address], [address], [facility] 05/03/2023 15:03:12 04/20/20 22 OCT/Retina completed DANN JONES MD [address] [place] [address], [address], [facility] 04/20/2022 14:24:01 04/20/20 22 Refraction completed DANN JONES MD [address] [place] [address], [address], [facility] 04/20/2022 14:34:43 12/09/19 22 DXA Low Bone Mass 1 - No Tx completed NAFISA FLEMING MD [address] [place] [address], [address], [facility] 12/08/2021 16:53:13 06/12/19 22 Endoscopy Nasal; Biospy, Polypectomy or Debridement completed Ramona Woodard [facility] 06/12/2021 11:14:22 06/10/19 22 Septoplasty completed Remedios Briseno [facility] 06/12/2021 10:59:44 04/10/20 21 Refraction completed DANN JONES MD [address] [place] [address], [address], [facility] 04/10/2021 16:45:44 06/02/19 20 DXA Low Bone Mass 1 - No Tx completed NAFISA FLEMING MD [address] [place] [address], [address], [facility] 06/02/2019 12:45:31 03/07/19 90 Total Hysterectomy completed JANUSZ ADRIAN MD [address] [place] [address], [address], [facility] 08/19/2018 14:46:16 Cholecystectomy completed JANUSZ ADRIAN MD [address] [place] [address], [address], [facility] 06/17/2016 08:42:36 Gastric Bypass completed JANUSZ ADRIAN MD [address] [place] [address], [address], [facility] 06/17/2016 08:42:42 Imaging Results None [...] 80 /min 12 /min 122/80 mm[Hg] JANUSZ ADRIAN MD [address] [place] [address], [address], [facility] 10/08/2022 13:22:49 Date Recorded Body height Body mass index (BMI) Body weight Provider Name and Address Organization Details Last Updated DateTime 10/08/2022 170.18 cm 48 kg/m2 232189.07 g Aliyah Simon [facility] 10/08/2022 13:15:36 Date Recorded Body height Provider Name an d Address Organization Details Last Updated DateTime 11/09/2023 170.18 cm Shruthi Yash [facility] 11/09/2023 13:14:13 Date Recorded Body height Provider Name an d Address Organization Details Last Updated DateTime 04/20/2022 170.18 cm Jacki Lima [facility] 13:20:40 Date Recorded Body height Provider Name an d Address Organization Details Last Updated DateTime 05/03/2023 170.18 cm Chris Mcmahan [facility] 05/03/2023 14:43:27 Date Recorded Body height Provider Name an d Address Organization Details Last Updated DateTime 05/05/2024 170.18 cm Tasia Calero [facility] 1 07/06/2023 15:06:42 Social History Question Answer Notes LastModified by Organizat ion Details LastModified Time Tobacco Smoking Status Never Smoker JANUSZ ADRIAN MD [address] [place] [address] [place], [address], [facility] 06/17/2016 08:42:18 How Much Tobacco Do You Chew? None Information not available 08/19/2018 What Was The Date Of Your Most Recent Tobacco Screening? 10/08/2022 Information not available 10/08/2022 Sex: Female Functional Status Question Answer Note LastModified by Organizat ion Details LastModified Time What is your level of alcohol consumption? 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 Never used electronic cigarettes Information not available 10/01/2020 Mental Status None recorded. Family History Relationship Description Onset Age of this Age Resolved Age Notes LastModified by Organization Details LastModified Time Father Carcinoma of prostate dbeiting Not available 2016 08:42:10 Mother Legal blindness blind in one eye [email or web address] Not available 04/10/2021 16:00:35 Medical History Condition [...] Time influenza, unspecified formulation 7 completed JANUSZ ADRIAN MD [address] [place] [address], [address], [facility] 06/23/2017 14:01:23 influenza, unspecified formulation 6 completed JANUSZ ADRIAN MD [address] [place] [address], [address], [facility] 06/18/2016 13:04:54 Influenza, split virus, quadrivalent, preservative 8 completed Not Available [facility] 05/03/2023 14:21:49 Influenza, split virus, quadrivalent, preservative 9 completed Not Available [facility] 05/03/2023 14:21:49 Pneumococcal conjugate PCV 13 9 completed Not Available Count includes the [facility] 05/03/2023 14:21:50 Pneumococcal conjugate PCV20, polysaccharide [id number] conjugate, adjuvant, PF 2 completed Aliyah Simon [facility] 10/13/2021 13:42:53 pneumococcal polysaccharide PPV23 3 completed Aliyah Simon [facility] 10/08/2022 13:39:47 COVID-19, mRNA, LNP-S, PF, 30 mcg/0.3 mL dose 1 completed Aliyah Simon [facility] 01/26/2023 08:51:22 Influenza, split virus, quadrivalent, preservative 1 completed Not Available Count includes the [facility] 05/03/2023 14:21:49 influenza, unspecified formulation 2 completed Not Available Count includes the [facility] 05/03/2023 14:21:49 zoster recombinant 1 completed Aliyah Simon [facility] 01/26/2023 08:51:22 Influenza, high-dose, quadrivalent, PF 0 completed Aliyah Simon [facility] 01/26/2023 08:51:22 COVID-19, mRNA, LNP-S, PF, 30 mcg/0.3 mL dose 1 completed Aliyah Simon [facility] 01/26/2023 08:51:22 COVID-19, mRNA, LNP-S, PF, 30 mcg/0.3 mL dose 1 completed Aliyah Simon [facility] 01/26/2023 08:51:22 COVID-19, mRNA, LNP-S, PF, 30 mcg/0.3 mL dose, jayla-sucrose 2 completed Aliyah Simon [facility] 01/26/2023 08:51:22 COVID-19, mRNA, LNP-S, bivalent, PF, 30 mcg/0.3 mL dose 2 completed Aliyah Simon [facility] 01/26/2023 08:51:22 pneumococcal polysaccharide PPV23 9 [facility] 08:51:22 Pneumococcal conjugate PCV 13 1 [facility] 01/26/2023 08:51:22 Past Encounters Encounter ID Performer Location Encounter Start Date Encounter Closed Date Diagnosis/Indication Diagnosis SNOMED-CT Code Diagnosis ICD10 Code Diagnosis IMO Codes Diagnosis Note [id number] JANUSZ ADRIAN MD [facility]NAL [facility] CLOSED [address] [place] [address] 06/18/2016 12:50:50 06/18/2016 13:56:01 Essential hypertension 45151707 I10 Hypothyroidism 63791844 E03.9 Anemia 745399584 D64.9 Hyperlipidemia 47169119 E78.5 Vitamin D deficiency 347 79183 E55.9 Screening for malignant neoplasm of colon 297027341 Z12.11 Plantar fasciitis 652498 003 M72.2 Edema of l ower extremity 493186713 R60.0 Low back pain 248276321 M54.5 [id number] JANUSZ ADRIAN MD INTERNAL MEDICINE [facility] CLOSED [address] [place] [address] 12/21/2016 13:17:10 12/21/2016 13:40:13 Essential hypertension 77144679 I10 Hypothyroidism 27037774 E03.9 Atrial fibrillation 4943 6004 I48.91 Hyperlipidemia 84249721 E78.5 Hyperglycemia 38749134 R 73.9 Anemia 492301342 D64.9 Vitamin D deficiency 347 16323 E55.9 Vitamin B1 2 deficiency (non anemic) 14059788 E53.8 Low back pain 380632313 M54.5 [id number] JANUSZ ADRIAN MD INTERNAL MEDICINE [facility] CLOSED [address] [place] [address] 06/23/2017 13:35:30 06/23/2017 14:24:49 Adult health examination 466404225 Z00.00 Essential hypertension 72761317 I10 Dyslipidemia 075681512 E 78.5 Vitamin B1 2 deficiency (non anemic) 85930206 E53.8 Hypothyroidism 78383113 E03.9 Vitamin D deficiency 347 92795 E55.9 Iron deficiency 43981738 E61.1 Low back pain 200670124 M54.5 [id number] JANUSZ ADRIAN MD INTERNAL MEDICINE [facility] CLOSED [address] [place] [id number] 01/31/2018 13:23:02 01/31/2018 13:42:37 Essential hypertension 77759809 I10 Hypothyroidism 99095312 E03.9 Chronic pain syndrome 37 0344958 G89.4 Dyslipidemia 983292709 E 78.5 Vitamin D deficiency 347 03837 E55.9 Low back pain 112389975 M54.5 Fatigue 45961019 R53.83 [id number] JANUSZ ADRIAN MD INTERNAL MEDICINE [facility] CLOSED [address] [address] 08/19/2018 14:33:25 08/19/2018 15:03:42 Essential hypertension 11219884 I10 Hypothyroidism 46684624 E03.9 Atrial fibrillation 4943 6004 I48.91 Low back pain 397989297 M54.5 Dyslipidemia 512684310 E 78.5 [id number] JANUSZ ADRIAN MD INTERNAL MEDICINE [facility] CLOSED [address] [place] [address] 12/09/2018 13:58:16 12/09/2018 14:19:36 Cellulitis of face 559419778 L03.549 [id number] JANUSZ ADRIAN MD INTERNAL MEDICINE [facility] CLOSED [address] [address] 03/27/2019 13:49:01 03/27/2019 14:45:25 Adult health examination 150344528 Z00.00 Essential hypertension 21466695 I10 Hypothyroidism 62162891 E03.9 Chronic pain syndrome 37 0594481 G89.4 Vitamin D deficiency 347 66072 E55.9 Long-term drug therapy 219259109 Z79.899 Pain in right knee 82975 71047 84074 M25.561 Screening for cardiovascular system disease 309416635 Z13.6 Menopausal syndrome 1237 52276 N95.9 [id number] NAFISA FLEMING MD [address] [place] [address] 06/02/2019 11:06:54 06/02/2019 11:29:47 Bone density finding 533993065 M85.9 [id number] C GLORIA MARIN PA-C [facility] CL[facility] [address] [place] [id number] 06/02/2019 12:48:14 06/02/2019 13:43:08 Osteoarthritis of knee 174987647 M17.9 End-stage PF OA with questionab le [...] TKA as ultimate resolution of this pathology [id number] JANUSZ ADRIAN MD INTERNAL MEDICINE [facility] [address] [place] [address] 09/25/2019 13:44:29 09/27/2019 08:33:32 Essential hypertension 14321606 I10 Hypothyroidism 69203089 E03.9 Atrial fibrillation 4943 6004 I48.91 Chronic pain syndrome 37 9836609 G89.4 Long-term drug therapy 779924930 Z79.206 [id number] JANUSZ ADRIAN MD INTERNAL MEDICINE [facility] [address] [facility] [place] [address] 1 04/02/2020 14:04:28 04/02/2020 14:36:26 Essential hypertension 07187546 I10 Hypothyroidism 34226440 E03.9 Atrial fibrillation 4943 6004 I48.91 Obstructiv e sleep apnea syndrome 05334875 G47.33 Chronic pain syndrome 37 2186539 G89.4 Long-term drug therapy 903738492 Z79.899 Dyslipidemia 718066615 E 78.5 Fatigue 82189647 R53.83 [id number] JANUSZ ADRIAN MD INTERNAL MEDICINE [address] [place] [address] 08/06/2020 09:40:03 08/06/2020 10:11:35 Essential hypertension 33562873 I10 Hypothyroidism 83392729 E03.9 Atrial fibrillation 4943 6004 I48.91 Long-term current use of anticoagulant 121791040 Z79.01 Rectal hemorrhage 024905 02 K62.5 [id number] DENISE VENTURA MD SURGERY SCHEDULE [address] [place] 2045[address] 1 08/09/2020 12:53:58 08/09/2020 12:54:27 [id number] [place] [address] [place] [address] 10/01/2020 13:55:22 10/01/2020 14:23:38 Adult health examination 234774377 Z00.00 Essential hypertension 83636667 I10 Dyslipidemia 960951342 E 78.5 Hypothyroidism 47197739 E03.9 Obstructiv e sleep apnea syndrome 20060376 G47.33 Fatigue 24389316 R53.83 Chronic pain syndrome 37 2876285 G89.4 Long-term drug therapy 447584798 Z79.899 Educated a bout weight management 447896217 Z71.3 Ophthalmic examination and evaluation 05378829 Z01.00 [id number] JANUSZ ADRIAN MD INTERNAL MEDICINE [address] [place] 2045104[address] 1 04/10/2021 13:26:09 04/10/2021 14:08:52 Essential hypertension 10645424 I10 Hyperlipidemia 88733745 E78.5 Hypothyroidism 21776869 E03.9 Atrial fibrillation 4943 6004 I48.91 Obstructiv e sleep apnea syndrome 20540129 G47.33 Hyperglycemia 97757038 R 73.9 Long-term drug therapy 707780387 Z79.899 Obesity 643246254 E66.9 Gout 26732512 M10.9 Chronic pain syndrome 37 7398575 G89.4 Nasal obstruction 774006 000 J34.89 Fatigue 01173470 R53.83 [id number] DANN JONES MD OPHTHALMO [address] [place] [address] 04/10/2021 14:52:07 04/10/2021 17:20:33 Nonexudative age-related macular degeneration 871120711 H35.3131 Bilateral age-related nuclear cataracts 2096325661 01001 H25.13 mild Myopia 69364516 H52.11 Hypermetropia 12829101 H 52.02 Regular astigmatism 6890 5002 H52.223 Presbyopia 53760110 H52. [id number] [place] [address] 06/12/2021 10:53:43 06/12/2021 13:38:23 Deviated nasal septum 520271966 J34.2 - S/p revision septoplast y (06/10/21) Hypertroph y of nasal turbinates 02171550 J34.3 - S/p bilateral SMR of inferior turbinates (06/10/21) Stenosis o f nasal valve 5735505451 1456933 J34.89 - S/p bilateral repair of nasalvalve stenosis (06/10/21) [id number] JANUSZ ADRIAN MD INTERNAL MEDICINE [place] 9552504[address] 1 10/13/2021 13:12:00 10/13/2021 14:24:22 Adult health examination 052401849 Z00.00 Essential hypertension 73766500 I10 Hyperlipidemia 40876241 E78.5 Hypothyroidism 74438109 E03.9 Atrial fibrillation 4943 6004 I48.91 Obstructiv e sleep apnea syndrome 66916601 G47.33 Long-term drug therapy 524087927 Z79.899 Menopausal syndrome 1237 80151 N95.9 Administra tion of pneumococcal vaccine 97984361 Z23 Chronic pain syndrome 37 6976016 G89.4 [id number] JANUSZ ADRIAN MD INTERNAL MEDICINE [place] 9552504[address] 1 10/21/2021 13:48:02 10/21/2021 13:56:02 Nik hematuria 047433962 R31.0 [id number] NAFISA FLEMING MD BONE DENSITY [address] [address] 12/08/2021 13:36:39 12/08/2021 13:55:34 Osteopenia 667397899 M85.89 [id number] JANUSZ ADRIAN MD INTERNAL MEDICINE [address] [address] 04/09/2022 13:06:31 04/09/2022 13:44:42 Essential hypertension 96865386 I10 Hyperlipidemia 44589478 E78.5 Atrial fibrillation 4943 6004 I48.91 Hypothyroidism 27511113 E03.9 Gout 87133088 M10.9 Chronic pain syndrome 37 4933514 G89.4 Long-term drug therapy 911781882 Z79.899 Obesity 637348295 E66.9 [id number] DANN JONES MD [facility] [address] [place] [address] [place] [address] 04/20/2022 13:12:06 04/20/2022 15:17:09 Nonexudative age-related macular degeneration 522364908 H35.3131 Bilateral age-related nuclear cataracts 2293564233 68112 H25.13 mild progressio n Hypermetropia 28437816 H 52.02 Regular astigmatism 6890 5002 H52.223 Presbyopia 21225801 H52. 4 Myopia 16750830 H52.11 [id number] JANUSZ ADRIAN MD INTERNAL MEDICINE [address] [place] [address] 10/08/2022 13:09:28 10/12/2022 10:57:06 Adult health examination 069355839 Z00.00 Essential hypertension 76899173 I10 Hyperlipidemia 15991922 E78.5 Hypothyroidism 59889201 E03.9 Atrial fibrillation 4943 6004 I48.91 stablecont inue current medication continue to monitorco- managed with cardiology Gout 09803191 M10.9 Chronic pain syndrome 37 1673935 G89.4 Morbid obesity 361852112 E66.01 calorie restrictio nlow carbohydra te diet Thrombophilia 225395714 D68.69 stablecont inue current medication continue to monitorco- managed with cardiology Long-term current use of anticoagulant 993517401 Z79.01 stableno s/sx bleedingco ntinue current medication continue to monitor Long-term drug therapy 058198219 Z79.899 Administra tion of pneumococcal vaccine 49476408 Z23 [id number] DANN JONES MD OPHTHALMO [facility] [address] [place],[address] [place] [address] 05/03/2023 14:20:39 05/03/2023 15:31:53 Nonexudative age-related macular degeneration 201135131 H35.3132 Bilateral age-related nuclear cataracts 6831205927 38570 H25.13 mild progressio n Myopia 33994607 H52.11 Hypermetropia 07037170 H 52.02 Regular astigmatism 6890 5002 H52.223 Presbyopia 73325653 H52. 4 [id number] DANN JONES MD OPHTHALMO LOGY [address] ,[address] [address] 11/09/2023 12:50:38 11/09/2023 14:12:53 Nonexudative age-related macular degeneration 259577228 H35.3132 Bilateral age-related nuclear cataracts 9187748345 44635 H25.13 mild progressio n Myopia 98271913 H52.11 Hypermetropia 65754080 H 52.02 Regular astigmatism 6890 5002 H52.223 Presbyopia 60943576 H52. 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 4 Health Concerns Section Related Observation LastModified by Organization Detai ls LastModified Time None Recorded Concern Status LastModified by Organization Details LastModified Time None Recorded Advance Directives Directive None Recorded Payers Insurance Date Sequence Insurance Name Policy Number Policy Fernandes Covered Member ID Fernandes Member ID Guarantor Name 05/11/2024 1 [facility] (MEDICARE REPLACEMENT/A DVANTAGE - PPO) [id number] Nicol Brown Ana Maria [id number] Nicol Brown Ana Maria 10/28/2023 1 MITZI: ZAN [place] [id number] Nicol Zamudiosby [id number] Nicol Zamudiosby 12/09/2018 SLIDING FEE SCHEDULE - DISCOUNT Nicol Rodgers 03/27/2019 SLIDING FEE SCHEDULE - DISCOUNT Nicol Rodgers 10/28/2023 1 [place] [employer]ERR[employer] PRIMARY (HMO) [id number] Nicol Rodgers [id number] Nicol Rodgers Notes Date Note Type Note Provider Name and Address Organization Details Recorded Time 3 text/html Medicare Annual Wellness VisitReported by Patient Medicare wellness visitHypertension is chronic, ongoing, stableHyperlipidemia is chronic, ongoing, stableHypothyroidism is chronic, ongoing, stableAfib is chronic, ongoing, stableGout is chronic, ongoing, stableOSA is chronic, ongoing, stable on BiPAP. She is benefiting from BiPAP JANUSZ ADRIAN MD [address] [place] [address], [phone], [facility] 10/08/2022 13:33:35 4 text/html ROS as noted in the HPI DANN JONES MD [address] [place] [address], [phone] 11/09/2023 14:11:01 4 text/html ROS as noted in the HPI DANN JONES MD [address] [place] [address], [phone] 05/05/2024 15:59:58 OBGyn Episode No OBEpisode recorded.
--- OUTSIDE RECORDS SUMMARY | 2025-03-23 12:22 | XMS_ITS | Clinical Summary ---
Author Organization [facility] ystem Address [address] [place] [address] Care Team Providers Care Castings Drafter Name Role Phone Lyle Sobeida JACQUI Primary Care Provider [phone] Allergies No known active allergies Medications furosemide [...] (hypertension) 11/11/2023 DIAN (obstructive sleep apnea) 11/11/2023 Family History Medical History Relation Name Comments [...] or training? Not on file Preferred Language Estonian 11/24/2023 Comments Unknown Sex and Gender Information [...] Description 06/14/2025 2:00 PM EST Office Visit [facility] [address] [facility] [address] [place] [address] Richy Michel MD [address] [facility] [address] [place] [address] Health Maintenance Due Date Last Done Comments [...] , 03/07/2022, Additional history exists COVID-19 Vaccine (2024-06 6 season) 2025 03/26/2023, 04/08/2022, 11/07/2021, Additional history exists COLONOSCOPY 07/10/2026 07/10/2016, 07/10/2016 COLORECTAL CANCER SCREENING 07/10/2026 TDAP/TD VACCINES (3 - Td or Tdap) 09/28/2034 025, 04/07/2011 Pneumococcal Vaccine 50+ Completed 023, 10/13/2021, 06/19/2020, Additional history exists Insurance [facility] Medicare Advantage [employer] PPO Member Subscriber Plan / Payer (Ef fective 2023-Present) Name:Nicol Aranda Relation to Subscriber:Self Name:Nicol Aranda Payer ID:[id number] (NAIC) Type:Not on file Address: [place] [id number] Advance Directives Documents on File Type Date Recorded Patient Technical Sales Associate Expl anation LIVING WILL - SCAN 11/12/2023 8:05 AM MATTHEW NG WILL DIRECTIVE, BHLEX, 05/15/2019 Care Teams Castings Drafter Relationship Specialty Start Date End Date Sobeida Alvarenga APRN [address] [place] [address] [place] [address] PCP - General Nurse Practitioner 11/08/23
[2025-03-23 12:25] LABS: Microscopic, Urine URINE MICROSCOPIC (MICROSCOPIC)
[2025-03-23 12:40] LABS: Hematocrit 41.5 % (37.0-47.0); Hemoglobin 12.7 g/dL (12.2-16.2); Immature Granulocytes % 0.2 %; Mean Corpuscular HGB Conc 30.6 g/dL (31.8-35.4); Mean Corpuscular Hemoglobin 27.1 pg (27.0-31.2); Mean Corpuscular Volume 88.5 fl (81-99); Nucleated Red Blood Cells % 0 %; Platelet Count 280 K/mm3 (142-424); Red Blood Count 4.69 M/mm3 (4.20-5.40); Red Cell Distribution Width-SD 51.1 fL; White Blood Count 6.1 K/mm3 (4.8-10.8)
[2025-03-23 13:16] LABS: Alanine Aminotransferase 17 U/L (12-78); Albumin Level 3.1 g/dl (3.5-5.0); Albumin/Globulin Ratio 0.7 (1.1-1.8); Alkaline Phosphatase 130 U/L (38-126); Anion Gap 11.3 mEq/L (5-15); Aspartate Amino Transferase 34 U/L (14-36); Bilirubin,Total 0.7 mg/dl (0.2-1.3); Blood Urea Nitrogen 24 mg/dl (7-17); Calcium 9.1 mg/dl (8.4-10.2); Carbon Dioxide 26 mmol/L (22.0-30.0); Chloride 104 mmol/L (98-107); Cholesterol 186 mg/dl (140-200); Creatinine,Serum 1.20 mg/dl (0.52-1.04); Estimated Glomerular Filt Rate 44 ml/min (>60); GFR (African American) 54 ML/MIN (>60); Globulin 4.2 g/dL (1.3-3.2); Glucose 106 mg/dl (74-100); HDL Cholesterol 40 mg/dl (40-60); Potassium 5.3 mmoL/L (3.5-5.1); Sodium 136 mmol/L (136-145); Total Protein,Serum 7.3 g/dl (6.3-8.2); Triglycerides 137 mg/dl (30-150); Uric Acid 5.9 mg/dl (2.5-6.2)
[2025-03-23 13:18] LABS: Bilirubin,Urine Negative (Negative); Color,Urine YELLOW (Yellow); Glucose,Urine (UA) 1+ (Negative); Ketones,Urine Negative (Negative); Leukocyte Esterase,Urine 1+ (Negative); PH,Urine 6.0 (5.0-8.5); Protein,Urine Negative (Negative); Specific Gravity, Urine 1.015 (1.005-1.030); Urobilinogen,Urine 0.2 EU/dl (0.2)
[2025-03-23 13:19] LABS: Free T4 (Free Thyroxine) 1.51 ng/dl (0.78-2.19)
[2025-03-23 13:46] LABS: Squamous Epithelial Cell,Urine 20-50 #/hpf (0-5); Thyroid Stimulating Hormone 4.03 uIU/mL (0.465-4.68)
== END 2025-03-23 23:59 | disposition home or self-care (01) ==
LOC: LAB 12:20
PROVIDERS: PCP Nurse Practitioner Family; Visit Provider Nurse Practitioner Family
DX: R41.3 Other amnesia (principal); R73.03 Prediabetes; E03.9 Hypothyroidism, unspecified; M10.9 Gout, unspecified; I10 Essential (primary) hypertension; G47.33 Obstructive sleep apnea (adult) (pediatric); I48.91 Unspecified atrial fibrillation; E78.5 Hyperlipidemia, unspecified
CPT/HCPCS: 36415; 80053; 80061; 81001; 84439; 84443; 84550; 85025; 87086

== ENCOUNTER 2025-03-28 14:59 | Outpatient (CLI) | payer MEDICARE, SELFPAY ==
--- OUTSIDE RECORDS SUMMARY | 2025-02-14 13:00 | XMS_ITS | Encounter Summary ---
Author Organization [facility] Address [address] [place] [address] Care Team Providers Care Supervisor Electronics Assembly Name Role Phone Sobeida Alvarenga PARCEL CARRIER Primary Care Provider [phone] Marnie Gayle APRN Unavailable Reason for Visit * Reason Comments Follow-up Telehealth Statement Patient VerificationPatient identity has been confirmed using name and date of ? YesAuthorizations and Agreements/Telemedicine Consent sent and consent confirmed? YesPatient Location: Home/OtherPatient confirms they are physically located in [place]? YesIf the patient is not physically located in [place], the provider has confirmed with [facility] that the provider is authorized to provide services in patient's stated location? YesProvider Location: [facility] facili Encounter Details Date Type Department Care Team (Latest Contact Info) Description 02/14/2025 2:00 PM EDT Office Visit [facility] [address], [address] [place] [address] Marnie Gayle, PARCEL CARRIER [address] [place] [address] Postmenopausal atrophic vaginitis (Primary Dx); Recurrent UTI; Urge incontinence Social History Tobacco Use Types Packs/Day Years Used Date Smoking Tobacco: Never Passive Smoke Exposure: Never Smokeless Tobacco: Never Alcohol Use Standard Drinks/Week Comments Yes 5 (1 standard drink = 0.6 oz pur e alcohol) PHQ-2A Answer Date Recorded Depression Risk 0 02/02/2024 Comments Unknown Sex and Gender Information Value Date Recorded Sex Assigned at Not on file Legal Sex Female 7:27 PM EDT Gender Identity Not on file Sexual Orientation Not on file documented as of this encounter Miscellaneous Notes * Progress Notes - Marnie Gayle, PARCEL CARRIER, DNP - 02/14/2025 2:00 PM EDT [facility] Note Patient Verification Patient identity has been confirmed using name and date of ? Yes Authorizations and Agreements/Telemedicine Consent sent and consent confirmed? Yes Patient Location: Patient's Home Patient confirms they are physically located in [place]? Yes If the patient is not physically located in [place], the provider has confirmed with [facility] thatthe provider is authorized to provide services in patient's stated location? N/A Provider Location: [facility] Facility CC: Follow-up (Telehealth Statement/Patient Verification/Patient identity has been confirmed using name and date of ? Yes/Authorizations and Agreements/Telemedicine Consent sent and consent confirmed? Yes//Patient Location: Home/Other/Patient confirms they are physically located in [place]? Yes/If the patient is not physically located in [place], the provider has confirmed with [employer] that the provider is authorized to provide services in patient's stated location? Yes//Provider Location: [facility] facili) HPI: Nicol Aranda is a 69 y.o. who was initially evaluated October 2016 for of a 10 year history of progressively worsening UI. She reported a normal frequency of every 1-2 hours, moderate to severe urgency, nocturia x1-2 but admitted sipping on fluids up until bedtime due to a dry mouth from medications and occasional pedal edema, increased incontinence with rare alcohol intake, occasional small volume enuresis, chronic low back pain which required her to sleep in a recliner. Her initial exam was normal except for obesity, stenosed introitus, weak Kegel ability, poor estrogenization, and mildanterior prolapse. UI: -failed Oxytrol, oxybutynin ER 5 mg, trospium (ASE), Myrbetriq 50 mg -discontinued Vagifem -conservative measures and oxybutynin ER to 10 mg, resolved GH: -10/21/21: Presented to Dr. Ernst for GH. (Unable to find outside CT scans) -December 15, 2021: Operative report from [facility] indicates cystoscopy performed by Dr. Mejia for GH >[address] scan showed no evidence of stones, obstruction, or masses. Cystoscopy normal. Dr. Mejia speculated that her GH may have been due to a small stone and Warfarin use. She returns today for yearly follow up. She continues to report resolution of nocturia with conservative measures and UUI with oxybutynin ER 10 mg without prohibitive ASE. She denies UI, or interim GH, UTIs, or other complaints. PMHx: Past Medical History: Diagnosis Date Arthritis 2010 Cataract 2018 Colon polyp 2005 Conversions - Other Fatigue Disease of thyroid gland 1984 Heart murmur History of gastric surgery 08/31/2016 HL (hearing loss) Hypertension 2007 Macular degeneration 2019 Obesity Rectal bleeding 05/2020 Sjogren's syndrome (CMS/HCC) 1994 PSHx: Past Surgical History: Procedure Laterality Date BARIATRIC SURGERY CARDIAC SURGERY 2023. Ablation CARDIOVERSION N/A Elective Cardioversion from [employer] CHOLECYSTECTOMY N/A Cholecystectomy from [employer] COLONOSCOPY GASTRIC RESTRICTION SURGERY N/A Gastric Surgery For Morbid Obesity Gastric Bypass from [employer] HYSTERECTOMY N/A Hysterectomy from [employer] NOSE SURGERY FHx: Family History Problem Relation Name Age of Onset Atrial fibrillation Father Alexsander Cancer Father Alexsander 60 - 69 Heart disease Father Alexsander Cancer Mother Alayna 60 - 69 Hypertension Mother Alayna Obesity Mother Alayna Kidney cancer Other Prostate cancer Other SHx: Social History Tobacco Use Smoking status: Never Passive exposure: Never Smokeless tobacco: Never Vaping Use Vaping status: Never Used Substance Use Topics Alcohol use: Yes Alcohol/week: 5.0 standard drinks of alcohol Types: 5 Cans of beer per week Drug use: Never OBHx: OB History No obstetric history on file. Ovaries: present bilaterally Uterus is not present; LANNY in 1990 for fibroids Vaginal estrogen: No Systemic estrogen: No ROS: See HPI Physical Exam: General: Pleasant, alert, in no acute distress, well appearing. Patient is speaking in full sentences. ENT: No proptosis or eye lid lag. Normal hearing. Pulmonary: no increased work of breathing, wheezing, or signs of respiratory distress. Musculoskeletal: normal gait and station. No CVAT according to patient. Able to move all extremities without weakness. Neuro: Facial muscles look symmetrical. Psychiatric: oriented to person, place, and time. Mood and affect appeared normal. Labs: Lab Results Component Value Date HGBA1C 5.6 06/09/2017 Lab Results Component Value Date GLUCOSE 98 03/07/2024 CALCIUM 8.6 03/07/2024 NA 140 03/07/2024 K 4.5 03/07/2024 CO2 19 (L) 02/02/2024 CL 106 03/07/2024 BUN 15 03/07/2024 CREATININE 1.03 (H) 03/07/2024 Urine cultures: Lab Results Component Value Date URINECX >=10,000 CFU/mL Escherichia coli (A) 02/04/2022 Assessment: Nicol Aranda is a 69 y.o. F with Follow-up (Telehealth Statement/Patient Verification/Patient identity has been confirmed using name and date of ? Yes/Authorizations and Agreements/Telemedicine Consent sent and consent confirmed? Yes//Patient Location: Home/Other/Patient confirmsthey are physically located in [place]? Yes/If the patient is not physically located in [place], the provider has confirmed with [facility] that the provider is authorized to provide services in patient's stated location? Yes//Provider Location: [facility] facili) She opted to continue oxybutynin ER 10 mg and conservative measures, refilled today. She was offered to follow up with PCP for yearly refills, but opted to follow up in 1 year via telemedicine or earlier as necessary. Plan: 1. Continue oxybutynin ER 10 mg every day for urgency. 2. Conservative measures for nocturia. 3. Follow up in 1 year via telemedicine. TeleCare via online digital audio and video. Time: Total Time 10 minutes. Marnie Gayle APRN, DNP documented in this encounter Plan of Treatment Upcoming Encounters Date Type Department Care Team ([facility] st Contact Info) Description 07/31/2025 2:30 PM EDT Ovarian Cancer Screening [place] [facility] [address] [facility] [place] [phone] 02/20/2026 11:40 AM EDT Office Visit Medical Office Building Urology [address], [address] [place] [address] Marnie Gayle APRN [address] [facility] [address] [place] [address] documented as of this encounter Visit Diagnoses Diagnosis Postmenopausal atrophic vaginitis- Primary Recurrent UTI Urinary tract infection, site not specified Urge incontinence documented in this encounter Additional Health Concerns Assessment Noted Time A fall risk assessment has been complete d for the patient 08/16/2024 2:13 PM EDT A Body Mass Index follow-up plan has been documented for the patient 02/14/2025 5:37 PM EDT documented as of this encounter Care Teams Supervisor Electronics Assembly Relationship Specialty Start Date End Date Sobeida Alvarenga APRN [address] [place] [address] PCP - General 07/25/24 Marnie Gayle APRN [address] [facility] [place] [address] Nurse Practitioner Urology 02/14/25 documented as of this encounter
--- NOTE | 2025-03-28 15:02 | XR_ITS ---
FINAL REPORT CLINICAL HISTORY: right ganglion cyst ON LATERAL SIDE OF HAND X 4 YEARS, GROWING/ PAIN X 1 MONTH FINDINGS: AP, oblique, and lateral views of the right wrist were obtained. There is no prior exam for comparison. There is no acute fracture or dislocation. The joint spaces are preserved. The soft tissues are normal. IMPRESSION: No acute osseous abnormality of the right wrist. Reviewed, Interpreted and Dictated by Naima Schmidt MD Transcribed by Kalyani Simmons Authenticated and [facility]
--- NOTE | 2025-03-28 15:02 | XR_ITS ---
FINAL REPORT CLINICAL HISTORY: heel pain x 1 month, hx planter fasciitis FINDINGS: AP, oblique and lateral views of the right foot were obtained. There is no acute fracture or dislocation. There is degenerative joint disease, most pronounced of the first metatarsal phalangeal joint. Prominent inferior calcaneal spur is identified. Soft tissues are unremarkable. IMPRESSION: Prominent inferior calcaneal spur. Reviewed, Interpreted and Dictated by Naima Schmidt MD Transcribed by Kalyani Simmons Authenticated and . [facility]
--- OUTSIDE RECORDS SUMMARY | 2025-03-28 15:02 | XMS_ITS | Encounter Summary ---
Author Organization Healthcare Address [address] [place] [address] Care Team Providers Care Telegraphic Typewriter Repairer Name Role Phone Janusz Ernst MD Primary Care Provider [phone] Sobeida Alvarenga MUD LOGGER Primary Care Provider [phone] Marnie Gayle MUD LOGGER Unavailable [phone] Encounter Details Date Type Department Care Team (Late Contact Info) Description 11/01/2023 Orders Only External Location [address] [place] [address] Provider, External Social History Tobacco Use Types [...] 07/31/2025 2:30 PM EDT Ovarian Cancer Screening [place] [facility] [address] [facility] [place] [phone] 02/20/2026 11:40 AM EDT Office Visit Medical Office Building Urology [address] [facility], [address] [place] [address] Marnie Gayle, MUD LOGGER [address] [place] [address] documented as of this encounter [...] documented as of this encounter Care Teams Telegraphic Typewriter Repairer Relationship Specialty Start Date End Date Janusz Ernst MD [address] [place] [address] PCP - General 01/17/21 07/24/24 Sobeida Alvarenga APRN [address] [place] [address] PCP - General 07/25/24 Marnie Gayle APRN [address] [place] [address] Nurse Practitioner Urology 02/14/25 documented as of this encounter
--- OUTSIDE RECORDS SUMMARY | 2025-03-28 15:02 | XMS_ITS | Encounter Summary ---
Author Organization Healthcare Address [address] [place] [address] Care Team Providers Care Plant Supervisor Name Role Phone Janusz Ernst MD Primary Care Provider + [phone] Sobeida Alvarenga COOK JELLY Primary Care Provider [phone] Marnie Gayle COOK JELLY Unavailable [phone] Encounter Details Date Type Department Care Team (Late Contact Info) Description 11/01/2023 Orders Only External Location [address] [place] [address] Provider, External Social History Tobacco Use Types [...] 07/31/2025 2:30 PM EDT Ovarian Cancer Screening [place] [facility] [address] [facility] [place] [phone] 02/20/2026 11:40 AM EDT Office Visit Medical Office Building Urology [address] [facility], [address] [place] [address] Marnie Gayle, COOK JELLY [address] [place] [address] documented as of this encounter [...] documented as of this encounter Care Teams Plant Supervisor Relationship Specialty Start Date End Date Janusz Ernst MD [address] [place] [address] PCP - General 01/17/21 07/24/24 Sobeida Alvarenga APRN [address] [place] [address] PCP - General 07/25/24 Marnie Gayle APRN [address] [place] [address] Nurse Practitioner Urology 02/14/25 documented as of this encounter
--- OUTSIDE RECORDS SUMMARY | 2025-03-28 15:02 | XMS_ITS | Encounter Summary ---
Author Organization Healthcare Address [address] [place] [address] Care Team Providers Care Machinist Apprentice Name Role Phone Sobeida Alvarenga APRN Primary Care Provider [phone] Encounter Details Date Type Department Care Team [...] 2:30 PM EDT Ovarian Cancer Screening [place] [facility] [address] [facility] [place] [address] 02/20/2026 11:40 AM EDT Office Visit Medical Office Building Urology [address] [facility], [address] [place] [address] Marnie Gayle APRN [address] [place] [address] documented as of this encounter Visit Diagnoses Not on filedocumented in this encounter Additional Health Concerns Assessment Noted Time A fall risk assessment has been complete d for the patient 08/16/2024 2:13 PM EDT A Body Mass Index follow-up plan has been documented for the patient 08/16/2024 4:08 PM EDT documented as of this encounter Care Teams Machinist Apprentice Relationship Specialty Start Date End Date Sobeida Alvarenga APRN [address] [place] [address] PCP - General 07/25/24 documented as of this encounter
--- OUTSIDE RECORDS SUMMARY | 2025-03-28 15:02 | XMS_ITS | Encounter Summary ---
Author Organization Healthcare Address [address] [place] [address] Care Team Providers Care Compress Trucker Name Role Phone Janusz Ernst MD Primary Care Provider [phone] Sobeida Alvarenga AIR CHIEF MARSHAL Primary Care Provider [phone] Marnie Gayle AIR CHIEF MARSHAL Unavailable [phone] Encounter Details Date Type Department Care Team (Late Contact Info) Description 11/30/2018 Orders Only External Location [address] [place] [address] Provider, External Social History Tobacco Use Types [...] 07/31/2025 2:30 PM EDT Ovarian Cancer Screening [place] [facility] [address] [facility] [place] [phone] 02/20/2026 11:40 AM EDT Office Visit Medical Office Building Urology [address] [facility], [address] [place] [address] Marnie Gayle, AIR CHIEF MARSHAL [address] [place] [address] documented as of this encounter [...] on filedocumented in this encounter Care Teams Compress Trucker Relationship Specialty Start Date End Date Janusz Ernst MD [address] [place] [address] PCP - General 01/17/21 07/24/24 Sobeida lAvarenga APRN [address] [place] [address] PCP - General 07/25/24 Marnie Gayle APRN [address] [place] [address] Nurse Practitioner Urology 02/14/25 documented as of this encounter
--- OUTSIDE RECORDS SUMMARY | 2025-03-28 15:02 | XMS_ITS | Clinical Summary ---
Author Organization [facility] Address [address] [place] [address] Care Team Providers Care Automatic Clipper And Stripper Name Role Phone Sobeida Alvarenga TOP LIFTER Primary Care Provider [phone] Marnie Gayle TOP LIFTER Unavailable [phone] Allergies Active Allergy Reactions Criticality Noted Date Comments Lisinopril Cough Low 09/28/2024 Medications levothyroxine (Synthroid, Levoxyl) 125 MCG tablet levothyroxine 125 mcg tablet TAKE ONE TABLET BY MOUTH EVERY DAY 3 Active metoprolol succinate XL (Toprol-XL) 100 MG [...] crush, chew, or split. 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 0 11/08/2012 [...] Description 02/14/2025 2:00 PM EDT Office Visit [place] [facility] [address]nd [place] [address] Marnie Gayle, JACQUI Postmenopausal atrophic vaginitis (Primary Dx); Recurrent UTI; [...] 07/31/2025 2:30 PM EDT Ovarian Cancer Screening [place] [facility] [address] [facility] [place] [address] 02/20/2026 11:40 AM EDT Office Visit Medical Office Building Urology [address] [facility], [address] [place] [address] Marnie Gayle, TOP LIFTER [address] [place] [address] Health Maintenance Due Date Last [...] 12/08/2021 , 12/08/2021, 06/02/2019, Additional history exists [id number] Vaccine ( season) 2025 03/26/2023, 04/08/2022, 11/07/2021, [...] of Service: 11/07/2018 eferring Phy:Janusz Adrian M.D.Account: [id number] Dictated By: Dina Lugo M.D. Verified By: [...] compared to prior imaging studies performed at [facility] on 10/24/2013, 10/24/2014 and 11/09/2016 [...] on Nov 08 2018 11:47A Transcribed by: [facility] on Nov 08 2018 11:47A Dictated by: DINA LUGO M.D. on Nov 08 2018 11:47A Patient Name:Nicol Aranda : 1955 Age: 63 Gender: femaleDate of Service: 11/07/2018 eferring Phy:Janusz Adrian M.D.Account: [id number] [place] [address] FINAL REPORT PROCEDURE: Tomosynthesis Bilateral Screening - bilateral , Screening Mammogram With Cad - bilateral HISTORY: Patient is 63 years old and is seen for screening mammography. The patient has no family history of breast cancer. COMPARISON: The present examination has been compared to prior imaging studies performed at [facility] on 10/24/2013, 10/24/2014 and 11/09/2016. [...] compared to prior imaging studies performed at [facility] on 10/24/2013, 10/24/2014 and 11/09/2016 [...] on Nov 08 2018 11:47A Transcribed by: [facility] on Nov 08 2018 11:47A Dictated by: DINA LUGO M.D. on Nov 08 2018 11:47A Patient Name:Nicol Aranda : 1955 Age: 63 Gender: femaleDate of Service:11/07/2018 eferring Phy:Janusz Adrian M.D.Account: [id number] [place] [address] FINAL REPORT PROCEDURE: Tomosynthesis Bilateral Screening - bilateral , Screening Mammogram WithCad - bilateral HISTORY: Patient is 63 years old and is seen for screening mammography. Thepatient has no family history of breast cancer. COMPARISON: The present examination has been compared to prior imaging studiesperformed at [facility] on 10/24/2013, 10/24/2014 and 11/09/2016. [...] femaleDate of Service:11/07/2018 eferring Phy:Janusz Adrian M.D.Account: [id number] Dictated By: Dina Lugo M.D. Verified By: [...] <6.0% Children and Adolescents <7.5% . Source: [employer]. Standards of medical care in [...] Recently Relevant to Health Maintenance Insurance [facility] Care Teams Automatic Clipper And Stripper Relationship Specialty Start Date End Date Sobeida Alvarenga APRN [address] [place] [address] PCP - General 07/25/24 Marnie Gayle APRN [address] [place] [address] Nurse Practitioner Urology 02/14/25
--- OUTSIDE RECORDS SUMMARY | 2025-03-28 15:02 | XMS_ITS | Encounter Summary ---
Author Organization Healthcare Address [address] [place] [address] Care Team Providers Care College Scouting Coordinator Name Role Phone Janusz Ernst MD Primary Care Provider [phone] Sobeida Alvarenga CHIEF OPHTHALMIC TECHNICIAN Primary Care Provider [phone] Marnie Gayle CHIEF OPHTHALMIC TECHNICIAN Unavailable [phone] Encounter Details Date Type Department Care Team (Late Contact Info) Description 11/30/2018 Orders Only External Location [address] [place] [address] Provider, External Social History Tobacco Use Types [...] 07/31/2025 2:30 PM EDT Ovarian Cancer Screening [place] [facility] [address] [facility] [place] [phone] 02/20/2026 11:40 AM EDT Office Visit Medical Office Building Urology [address] [facility], [address] [place] [address] Marnie Gayle, CHIEF OPHTHALMIC TECHNICIAN [address] [place] [address] documented as of this encounter [...] on filedocumented in this encounter Care Teams College Scouting Coordinator Relationship Specialty Start Date End Date Janusz Ernst MD [address] [place] [address] PCP - General 01/17/21 07/24/24 Sobeida Alvarenga APRN [address] [place] [address] PCP - General 07/25/24 Marnie Gayle APRN [address] [place] [address] Nurse Practitioner Urology 02/14/25 documented as of this encounter
--- OUTSIDE RECORDS SUMMARY | 2025-03-28 15:02 | XMS_ITS | Encounter Summary ---
Author Organization Healthcare Address [address] [place] [address] Care Team Providers Care Mail Inserter Name Role Phone Sobeida Alvarenga CRANE CREW SUPERVISOR Primary Care Provider [phone] Marnie Gayle CRANE CREW SUPERVISOR Unavailable [phone] Encounter Details Date Type Department Care Team [...] 07/31/2025 2:30 PM EDT Ovarian Cancer Screening [place] [facility] [address] [facility] [place] [address] 02/20/2026 11:40 AM EDT Office Visit Medical Office Building Urology [address] [facility], [address] [place] [address] Marnie Gayle, JACQUI [address] [place] [address] documented as of this encounter Visit Diagnoses Not on filedocumented in this encounter Additional Health Concerns Assessment Noted Time A fall risk assessment has been complete d for the patient 08/16/2024 2:13 PM EDT A Body Mass Index follow-up plan has been documented for the patient 02/14/2025 5:37 PM EDT documented as of this encounter Care Teams Mail Inserter Relationship Specialty Start Date End Date Sobieda Alvarenga APRN [address] [place] [address] PCP - General 07/25/24 Marnie Gayle APRN [address] [place] [address] Nurse Practitioner Urology 02/14/25 documented as of this encounter
--- OUTSIDE RECORDS SUMMARY | 2025-03-28 15:02 | XMS_ITS | Clinical Summary ---
Author Organization [facility] ystem Address [address] [place] [address] Care Team Providers Care Bookkeeping Manager Name Role Phone Lyle Sobeida JACQUI Primary Care Provider [phone] Allergies No known active allergies Medications furosemide [...] or training? Not on file Preferred Language Hungarian 11/24/2023 Comments Unknown Sex and Gender Information [...] 06/14/2025 2:00 PM EST Office Visit [facility] CARDIOLOGY [address] [facility] [address] [place] [address] Richy Michel MD [address] [facility] [address] [place] [address] Health Maintenance Due Date Last Done Comments [...] 023, 10/13/2021, 06/19/2020, Additional history exists Insurance [facility] Medicare Advantage GROUP PPO Member Subscriber Plan / Payer (Ef fective 2023-Present) Name:Nicol Aranda Relation to Subscriber:Self Name:Nicol Aranda Payer ID:[id number] (NAIC) Type:Not on file Address: [place] [id number] Advance Directives Documents on File Type Date Recorded Patient Siding Stapler Expl anation LIVING WILL - SCAN 11/12/2023 8:05 AM MATTHEW NG WILL DIRECTIVE, BHLEX, 05/15/2019 Care Teams Bookkeeping Manager Relationship Specialty Start Date End Date Sobeida Alvarenga APRN [address] [place] [address] PCP - General Nurse Practitioner 11/08/23
== END 2025-03-28 23:59 | disposition home or self-care (01) ==
LOC: RAD 14:59
PROVIDERS: PCP Nurse Practitioner Family; Visit Provider Nurse Practitioner Family
DX: M77.31 Calcaneal spur, right foot (principal); M67.431 Ganglion, right wrist
CPT/HCPCS: 73110; 73630

== ENCOUNTER 2025-04-16 14:35 | Outpatient (CLI) | payer MEDICARE, SELFPAY ==
--- OUTSIDE RECORDS SUMMARY | 2025-04-16 14:40 | XMS_ITS | Encounter Summary ---
Author Organization Healthcare Address [address] [place] [address] Care Team Providers Care Cost Estimator Name Role Phone Janusz Ernst MD Primary Care Provider + [phone] Sobeida Alvarenga PETROLEUM TERMINAL PLANT OPERATOR Primary Care Provider [phone] Marnie Gayle PETROLEUM TERMINAL PLANT OPERATOR Unavailable [phone] Encounter Details Date Type Department Care Team (Late Contact Info) Description 11/30/2018 Orders Only External Location [address] [place] [address] Provider, External Social History Tobacco Use Types [...] 07/31/2025 2:30 PM EDT Ovarian Cancer Screening [place] [facility]CR [address] [facility] [place] [phone] 02/20/2026 11:40 AM EDT Office Visit Medical Office Building Urology [address] [facility], [address] [place] [address] Marnie Gayle, PETROLEUM TERMINAL PLANT OPERATOR [address] [place] [address] documented as of this encounter [...] on filedocumented in this encounter Care Teams Cost Estimator Relationship Specialty Start Date End Date Janusz Ernst MD [address] [place] [address] PCP - General 01/17/21 07/24/24 Sobeida Alvarenga APRN [address] [place] [address] PCP - General 07/25/24 Marnie Gayle APRN [address] [place] [address] Nurse Practitioner Urology 02/14/25 documented as of this encounter
--- OUTSIDE RECORDS SUMMARY | 2025-04-16 14:40 | XMS_ITS | Encounter Summary ---
Author Organization Healthcare Address [address] [place] [address] Care Team Providers Care Manager Production Name Role Phone Janusz Ernst MD Primary Care Provider + [phone] JUDGE Primary Care Provider [phone] JUDGE Unavailable [phone] Encounter Details Date Type Department Care Team (Late Contact Info) Description 11/01/2023 Orders Only External Location [address] [place] [address] Provider, External Social History Tobacco Use Types [...] 07/31/2025 2:30 PM EDT Ovarian Cancer Screening [place] [facility] [address] [facility] [place] [phone] 02/20/2026 11:40 AM EDT Office Visit Medical Office Building Urology [address] [facility], [address] [place] [address] Marnie Gayle, MUNICIPAL COURT JUDGE [address] [place] [address] documented as of this encounter [...] documented as of this encounter Care Teams Manager Production Relationship Specialty Start Date End Date Janusz Ernst MD [address] [place] [address] PCP - General 01/17/21 07/24/24 Sobeida Alvarenga APRN [address] [place] [address] PCP - General 07/25/24 Marnie Gayle APRN [address] [place] [address] Nurse Practitioner Urology 02/14/25 documented as of this encounter
--- OUTSIDE RECORDS SUMMARY | 2025-04-16 14:40 | XMS_ITS | Encounter Summary ---
Author Organization Healthcare Address [address] [place] [address] Care Team Providers Care Storage Management Architect Name Role Phone Janusz Ernst MD Primary Care Provider + [phone] Sobeida Alvarenga AUTOMOTIVE PARTS INTERPRETER Primary Care Provider [phone] Marnie Gayle AUTOMOTIVE PARTS INTERPRETER Unavailable [phone] Encounter Details Date Type Department Care Team (Late Contact Info) Description 11/01/2023 Orders Only External Location [address] [place] [address] Provider, External Social History Tobacco Use Types [...] 07/31/2025 2:30 PM EDT Ovarian Cancer Screening [place] [facility] [address] [facility] [place] [phone] 02/20/2026 11:40 AM EDT Office Visit Medical Office Building Urology [address] [facility], [address] [place] [address] Marnie Gayle, AUTOMOTIVE PARTS INTERPRETER [address] [place] [address] documented as of this encounter [...] documented as of this encounter Care Teams Storage Management Architect Relationship Specialty Start Date End Date Janusz Ernst MD [address] [place] [address] PCP - General 01/17/21 07/24/24 Sobeida Alvarenga APRN [address] [place] [address] PCP - General 07/25/24 Marnie Gayle APRN [address] [place] [address] Nurse Practitioner Urology 02/14/25 documented as of this encounter
--- OUTSIDE RECORDS SUMMARY | 2025-04-16 14:40 | XMS_ITS | Encounter Summary ---
Author Organization Healthcare Address [address] [place] [address] Care Team Providers Care Gripper Machine Operator Name Role Phone Janusz Ernst MD Primary Care Provider + [phone] Sobeida Alvarenga EMBROIDERY PATTERNMAKER Primary Care Provider [phone] Marnie Gayle EMBROIDERY PATTERNMAKER Unavailable [phone] Encounter Details Date Type Department Care Team (Late Contact Info) Description 11/30/2018 Orders Only External Location [address] [place] [address] Provider, External Social History Tobacco Use Types [...] 07/31/2025 2:30 PM EDT Ovarian Cancer Screening [place] [facility] [address] [facility] [place] [phone] 02/20/2026 11:40 AM EDT Office Visit Medical Office Building Urology [address] [facility], [address] [place] [address] Marnie Gayle, EMBROIDERY PATTERNMAKER [address] [place] [address] documented as of this encounter [...] on filedocumented in this encounter Care Teams Gripper Machine Operator Relationship Specialty Start Date End Date Janusz Ernst MD [address] [place] [address] PCP - General 01/17/21 07/24/24 Sobeida Alvarenga APRN [address] [place] [address] PCP - General 07/25/24 Marnie Gayle APRN [address] [place] [address] Nurse Practitioner Urology 02/14/25 documented as of this encounter
--- OUTSIDE RECORDS SUMMARY | 2025-04-16 14:41 | XMS_ITS | Clinical Summary ---
Author Organization [facility] ystem Address [address] [place] [address] Care Team Providers Care Cargo Mate Name Role Phone Lyle Sobeida JACQUI Primary Care Provider [phone] Allergies No known active allergies Medications furosemide [...] or training? Not on file Preferred Language Sinhala 11/24/2023 Comments Unknown Sex and Gender Information [...] Description 06/14/2025 2:00 PM EST Office Visit [facility] CARDIOLOGY [address] [facility] [address] [place] [address] Richy Michel MD [address] [facility] [address] [place] [address] Health Maintenance Due Date Last Done Comments [...] 023, 10/13/2021, 06/19/2020, Additional history exists Insurance [facility] Medicare Advantage [employer] PPO Member Subscriber Plan / Payer (Ef fective 2023-Present) Name:Nciol Aranda Relation to Subscriber:Self Name:Nicol Aranda Payer ID:[id number] (NAIC) Type:Not on file Address: [place] [id number] Advance Directives Documents on File Type Date Recorded Patient Clipper Machine Operator Expl anation LIVING WILL - SCAN 11/12/2023 8:05 AM MATTHEW NG WILL DIRECTIVE, BHLEX, 05/15/2019 Care Teams Cargo Mate Relationship Specialty Start Date End Date Sobeida Alvarenga APRN [address] [place] [address] PCP - General Nurse Practitioner 11/08/23
--- OUTSIDE RECORDS SUMMARY | 2025-04-16 14:41 | XMS_ITS | Clinical Summary ---
Author Organization [facility] Address [address] 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 0 11/08/2012 [...] Description 02/14/2025 2:00 PM EDT Office Visit [place] [facility] [address] [place] [address] Marnie Gayle, JACQUI Postmenopausal atrophic vaginitis (Primary [...] 07/31/2025 2:30 PM EDT Ovarian Cancer Screening [place] [facility] OCR [address] [facility] [place] [phone] 02/20/2026 11:40 AM EDT Office Visit Medical Office Building Urology [address] [facility], [address] [place] [address] Marnie Gayle, FAST FOOD CASHIER [address] [place] [address] Health Maintenance Due Date Last [...] 12/08/2021 , 12/08/2021, 06/02/2019, Additional history exists [id number] Vaccine ( season) 2025 03/26/2023, 04/08/2022, 11/07/2021, [...] of Service: 11/07/2018 eferring Phy:Janusz Adrian M.D.Account: [id number] Dictated By: Dina Lugo M.D. Verified By: [...] compared to prior imaging studies performed at [facility] on 10/24/2013, 10/24/2014 and 11/09/2016 [...] on Nov 08 2018 11:47A Transcribed by: [facility] on Nov 08 2018 11:47A Dictated by: DINA LUOG M.D. on Nov 08 2018 11:47A Patient Name:Nicol Aranda : 1955 Age: 63 Gender: femaleDate of Service: 11/07/2018 eferring Phy:Janusz Adrian M.D.Account: [id number] [place] [address] FINAL REPORT PROCEDURE: Tomosynthesis Bilateral Screening - bilateral , Screening Mammogram With Cad - bilateral HISTORY: Patient is 63 years old and is seen for screening mammography. The patient has no family history of breast cancer. COMPARISON: The present examination has been compared to prior imaging studies performed at [facility] on 10/24/2013, 10/24/2014 and 11/09/2016. [...] compared to prior imaging studies performed at [facility] on 10/24/2013, 10/24/2014 and 11/09/2016 [...] on Nov 08 2018 11:47A Transcribed by: [facility] on Nov 08 2018 11:47A Dictated by: DINA LUGO M.D. on Nov 08 2018 11:47A Patient Name:Nicol Aranda : 1955 Age: 63 Gender: femaleDate of Service:11/07/2018 eferring Phy:Janusz Adrian M.D.Account: [id number] [place] [address] FINAL REPORT PROCEDURE: Tomosynthesis Bilateral Screening - bilateral , Screening Mammogram WithCad - bilateral HISTORY: Patient is 63 years old and is seen for screening mammography. Thepatient has no family history of breast cancer. COMPARISON: The present examination has been compared to prior imaging studiesperformed at [facility] on 10/24/2013, 10/24/2014 and 11/09/2016. [...] femaleDate of Service:11/07/2018 eferring Phy:Janusz Adrian M.D.Account: [id number] Dictated By: Dina Lugo M.D. Verified By: [...] <6.0% Children and Adolescents <7.5% . Source: [place] [employer]. Standards of medical care in [...] Most Recently Relevant to Health Maintenance Insurance [facility] MEDICARE [facility] MEDICA Care Teams Galley Cook Relationship Specialty Start Date End Date Sobeida Alvarenga APRN [address] [place] [address] PCP - General 07/25/24 Marnie Gayle APRN [address] [place] [address] Nurse Practitioner Urology 02/14/25
[2025-04-16 15:50] LABS: PHA INR Fingerstick 3.1 (0.9-1.1)
== END 2025-04-16 15:51 ==
LOC: ACC 14:36
PROVIDERS: PCP Nurse Practitioner Family; Visit Provider Nurse Practitioner Family
DX: I48.91 Unspecified atrial fibrillation (principal); Z79.01 Long term (current) use of anticoagulants
CPT/HCPCS: 85610; 99211; G0463

== ENCOUNTER 2025-05-14 14:28 | Outpatient (CLI) | payer MEDICARE, SELFPAY ==
--- OUTSIDE RECORDS SUMMARY | 2025-05-14 14:34 | XMS_ITS | Encounter Summary ---
Author Organization Healthcare Address [address] [place] [address] Care Team Providers Care Shell Maker Lockstitch Name Role Phone Janusz Ernst MD Primary Care Provider + [phone] Sobeida Alvarenga APRN Primary Care Provider [phone] Marnie Gayle APRN, DNP Unavailable [phone] Encounter Details Date Type Department Care Team (Late Contact Info) Description 11/01/2023 Orders Only External Location [address] [place] [address] Provider, External Social History Tobacco Use Types [...] 07/31/2025 2:30 PM EDT Ovarian Cancer Screening [place] [facility] OCR [address] [facility] [place] [phone] 02/20/2026 11:40 AM EDT Office Visit Medical Office Building Urology [address] [facility], [address] [place] [address] Marnie Gayle, JACQUI, DNP [address] [place] [address] documented as of this encounter [...] documented as of this encounter Care Teams Shell Maker Lockstitch Relationship Specialty Start Date End Date Janusz Ernst MD [address] [place] [address] PCP - General 01/17/21 07/24/24 Sobeida Alvarenga APRN [address] [place] [address] PCP - General 07/25/24 Marnie Gayle APRN, DNP [address] [place] [address] Nurse Practitioner Urology 02/14/25 documented as of this encounter
--- OUTSIDE RECORDS SUMMARY | 2025-05-14 14:34 | XMS_ITS | Clinical Summary ---
Author Organization [facility] ystem Address [address] [place] [address] Care Team Providers Care Fur Blower Name Role Phone Lyle Sobeida JACQUI Primary Care Provider [phone] Allergies No known active allergies Medications furosemide [...] or training? Not on file Preferred Language Frisian 11/24/2023 Comments Unknown Sex and Gender Information [...] Description 06/14/2025 2:00 PM EST Office Visit [facility] CARDIOLOGY [address] [facility] [address] [place] [address] Richy Michel MD [address] [facility] [address] [place] [address] Health Maintenance Due Date Last Done Comments [...] 023, 10/13/2021, 06/19/2020, Additional history exists Insurance [facility] Medicare Advantage [employer] PPO Member Subscriber Plan / Payer (Ef fective 2023-Present) Name:Nicol Aranda Relation to Subscriber:Self Name:Nicol Aranda Payer ID:[id number] (NAIC) Type:Not on file Address: [place] [id number] Advance Directives Documents on File Type Date Recorded Patient Hand Lacer Expl anation LIVING WILL - SCAN 11/12/2023 8:05 AM MATTHEW NG WILL DIRECTIVE, BHLEX, 05/15/2019 Care Teams Fur Blower Relationship Specialty Start Date End Date Sobeida Alvarenga APRN [address] [place] [address] PCP - General Nurse Practitioner 11/08/23
--- OUTSIDE RECORDS SUMMARY | 2025-05-14 14:34 | XMS_ITS | Clinical Summary ---
Author Organization [facility] Address [address] [place] [address] Care Team Providers Care Lighting Fixtures Decorator Name Role Phone Sobeida Alvarenga APRN Primary Care Provider [phone] Marnie Gayle APRN, DNP Unavailable [phone] Allergies Active Allergy Reactions Criticality Noted Date [...] crush, chew, or split. 90 tablet 3 09/2402/15/20 Active Active Problems Problem Noted Date Diagnosed [...] Osteopenia 05/28/2014 PFO (patent foramen ovale) 06/20/2013 half-way current use of anticoagulant therapy 0 11/08/2012 [...] Description 02/14/2025 2:00 PM EDT Office Visit [place] [facility] [address] [place] [address] Marnie Gayle, MARKETING MGR, DNP Postmenopausal atrophic vaginitis (Primary Dx); Recurrent UTI; Urge incontinence 02/14/2025 Travel from Last 3 Months Immunizations Immunization [...] 07/31/2025 2:30 PM EDT Ovarian Cancer Screening [place] [facility] OCR [address] [facility] [place] [phone] 02/20/2026 11:40 AM EDT Office Visit Medical Office Building Urology [address] [facility], [address] [place] [address] Marnie Gayle, MARKETING MGR, DNP [address] [facility] [address] [place] [address] Health Maintenance Due Date Last Done Comments [facility]-Hepatitis C Screening 1955 [facility]-Medicare Annual Wellness (AWV) 1955 [facility]-/Child/Adol SDOH Screenings 1955 [facility]- SDOH Screenings 1972 [facility]-Adult SDOH Screenings 1972 CT Colonography 1999 FIT-DNA 1999 FIT 1999 FOBT 1999 Sigmoidoscopy 1999 [facility]-RSV Vaccine: 60+ Years or (1 - Risk 50-74 years 1-dose series) 2004 [facility]-Diabetes: Hemoglobin A1C 06/09/2018 06/09/2017, 12/18/2015 [facility]-Breast Cancer Screening 11/07/202010/22, 11/07/2018, 11/09/2016, Additional history exists [facility]-Zoster Vaccines (2 of 2) 02/07/2021 12/13/2020 [facility]-Bone Density Scan 12/09/2023 12/08/2021 , 12/08/2021, 06/02/2019, Additional history exists [id number] Vaccine (2024- season) 2025 03/26/2023, 04/08/2022, 11/07/2021, Additional history exists [facility]-Influenza Vaccine (#1) 01/22/202504/13, 03/26/2023, 03/07/2022, Additional history exists [facility]-Depression Screening 02/01/2025 02/02/2024 Colonoscopy 07/10/2026 07/10/2016 [facility]-Colorectal Cancer Screening 07/10/2026 [facility]-DTaP,Tdap,and Td Vaccines (3 - Td or Tdap) 09/28/2034 09/28/2024, 04/07/2011 [facility]-Pneumococcal Vaccine: 50+ Years Completed 10/08/2022, 10/13/2021, 06/19/2020, Additional history exists [facility]-Obesity Intervention Completed 025, 08/16/2024, 02/17/2024, Additional history exists HPV Vaccines (No Doses Required) Completed [facility]-HIB Vaccines Aged Out No longer e [...] of Service: 11/07/2018 eferring Phy:Janusz Adrian M.D.Account: [id number] Dictated By: Dina Lugo M.D. Verified By: [...] on Nov 08 2018 11:47A [facility]: [facility] on Nov 08 2018 11:47A Dictated by: DINA LUGO M.D. on Nov 08 2018 11:47A Patient Name:Nicol Aranda : 1955 Age: 63 Gender: femaleDate of Service: 11/07/2018 eferring Phy:Janusz Adrian M.D.Account: [id number] [place] [address] FINAL REPORT PROCEDURE: Tomosynthesis Bilateral Screening - [...] femaleDate of Service:11/07/2018 eferring Phy:Janusz Adrian M.D.Account: [id number] [place] [address] FINAL REPORT PROCEDURE: Tomosynthesis Bilateral Screening - [...] femaleDate of Service:11/07/2018 eferring Phy:Janusz Adrian M.D.Account: [id number] Dictated By: Dina Lugo M.D. Verified By: [...] <6.0% Children and Adolescents <7.5% . Source: [place] [employer]. Standards of medical care in [...] Most Recently Relevant to Health Maintenance Insurance [facility] MEDICA Care Teams Lighting Fixtures Decorator Relationship Specialty Start Date End Date Sobeida Alvarenga APRN [address] [place] [address] PCP - General 07/25/24 Marnie Gayle APRN, DNP [address] [facility] [address] [place] [address] Nurse Practitioner Urology 02/14/25
--- OUTSIDE RECORDS SUMMARY | 2025-05-14 14:34 | XMS_ITS | Encounter Summary ---
Author Organization Healthcare Address [address] [place] [address] Care Team Providers Care Ship Manager Name Role Phone Janusz Ernst MD Primary Care Provider + [phone] Sobeida Alvarenga APRN Primary Care Provider [phone] Marnie Gayle APRN, KARIN Unavailable [phone] Encounter Details Date Type Department Care Team (Late Contact Info) Description 11/30/2018 Orders Only External Location [address] [place] [address] Provider, External Social History Tobacco Use Types [...] 07/31/2025 2:30 PM EDT Ovarian Cancer Screening [place] [facility] OCR [address] [facility] [place] [phone] 02/20/2026 11:40 AM EDT Office Visit Medical Office Building Urology [address] [facility], [address] [place] [address] Marnie Gayle APRN, KARIN [address] [place] [address] documented as of this encounter [...] on filedocumented in this encounter Care Teams Ship Manager Relationship Specialty Start Date End Date Janusz Ernst MD [address] [place] [address] PCP - General 01/17/21 07/24/24 Sobeida Alvarenga APRN [address] [place] [address] PCP - General 07/25/24 Marnie Gayle APRN, DNP [address] [place] [address] Nurse Practitioner Urology 02/14/25 documented as of this encounter
--- OUTSIDE RECORDS SUMMARY | 2025-05-14 14:34 | XMS_ITS | Encounter Summary ---
Author Organization Healthcare Address [address] [place] [address] Care Team Providers Care School Age Program Teacher Name Role Phone Janusz Ernst MD Primary Care Provider + [phone] Sobeida Alvarenga APRN Primary Care Provider [phone] Marnie Gayle APRN, DNP Unavailable [phone] Encounter Details Date Type Department Care Team (Late Contact Info) Description 11/01/2023 Orders Only External Location [address] [place] [address] Provider, External Social History Tobacco Use Types [...] 07/31/2025 2:30 PM EDT Ovarian Cancer Screening [place] [facility] OCR [address] [facility] [place] [phone] 02/20/2026 11:40 AM EDT Office Visit Medical Office Building Urology [address] [facility], [address] [place] [address] Marnie Gayle, JACQUI, DNP [address] [place] [address] documented as of this encounter [...] documented as of this encounter Care Teams School Age Program Teacher Relationship Specialty Start Date End Date Janusz Ernst MD [address] [place] [address] PCP - General 01/17/21 07/24/24 Sobeida Alvarenga APRN [address] [place] [address] PCP - General 07/25/24 Marnie Gayle APRN, DNP [address] [place] [address] Nurse Practitioner Urology 02/14/25 documented as of this encounter
--- OUTSIDE RECORDS SUMMARY | 2025-05-14 14:34 | XMS_ITS | Encounter Summary ---
Author Organization Healthcare Address [address] [place] [address] Care Team Providers Care Head Char Filter Tank Tender Name Role Phone Janusz Ernst MD Primary Care Provider + [phone] Sobeida Alvarenga APRN Primary Care Provider [phone] Marnie Gayle APRN, KARIN Unavailable [phone] Encounter Details Date Type Department Care Team (Late Contact Info) Description 11/30/2018 Orders Only External Location [address] [place] [address] Provider, External Social History Tobacco Use Types [...] 07/31/2025 2:30 PM EDT Ovarian Cancer Screening [place] [facility] OCR [address] [facility] [place] [phone] 02/20/2026 11:40 AM EDT Office Visit Medical Office Building Urology [address] [facility], [address] [place] [address] Marnie Gayle APRN, KARIN [address] [place] [address] documented as of this encounter [...] filedocumented in this encounter Care Teams Head Char Filter Tank Tender Relationship Specialty Start Date End Date Janusz Ernst MD [address] [place] [address] PCP - General 01/17/21 07/24/24 Sobeida Alvarenga APRN [address] [place] [address] PCP - General 07/25/24 Marnie Gayle APRN, DNP [address] [place] [address] Nurse Practitioner Urology 02/14/25 documented as of this encounter
[2025-05-14 15:17] LABS: PHA INR Fingerstick 3.3 (0.9-1.1)
== END 2025-05-14 15:18 ==
LOC: ACC 14:28
PROVIDERS: PCP Nurse Practitioner Family; Visit Provider Nurse Practitioner Family
DX: I48.91 Unspecified atrial fibrillation (principal); Z79.01 Long term (current) use of anticoagulants
CPT/HCPCS: 85610; 99211; G0463